=== PATIENT | female | born 1950 | race Caucasian/White ===

== ENCOUNTER 2017-10-28 14:52 | Emergency (ER) | payer MEDICARE, BC ==
--- NOTE | 2017-10-28 15:47 | ED ---
General Adult HPI - General Chief complaint: Weakness Stated complaint: not feeling well/SOB Time Seen by Provider: 10/28/17 15:00 Source: patient, RN notes reviewed Mode of arrival: wheelchair Limitations: no limitations - History of Present Illness Initial comments: This is a 67-year-old female presents emergency Department complaining of shortness of breath over the last few days patient also complains of feeling dizzy such that she's a little off balance when she walks. Patient states she also feels like her eyes are focusing even though she gets here he can clearly there is just something off about her vision. Patient denies any chest pain or palpitations. Patient denies any abdominal pain patient denies any nausea vomiting diarrhea. Patient denies any numbness or focal weakness. Patient states she does have a headache but that is something she has had chronically on and off for quite a while. Patient denies any dysuria hematuria urinary frequency. Patient denies any recent fever chills or cough. - Related Data Home Medications Medication Instructions Recorded Confirmed Acetaminophen [Tylenol] 1,000 mg PO Q4-6H PRN 10/28/17 10/28/17 Albuterol Sulfate [Proair Hfa] 2 puff INHALATION Q4H PRN 10/28/17 10/28/17 Budesonide/Formoterol Fumarate 2 puff INHALATION BID 10/28/17 10/28/17 [Symbicort 160-4.5 Mcg Inhaler] Cholecalciferol [Vitamin D3] 2,000 unit PO DAILY 10/28/17 10/28/17 Gabapentin [Neurontin] 300 mg PO TID 10/28/17 10/28/17 Lisinopril [Zestril] 10 mg PO DAILY 10/28/17 10/28/17 Metoprolol Succinate [Toprol XL] 50 mg PO DAILY 10/28/17 10/28/17 [place]-3 Fatty Acids/Fish Oil [Fish 1 cap PO DAILY 10/28/17 10/28/17 Oil 1,000 mg Softgel] Omeprazole 80 mg PO DAILY 10/28/17 10/28/17 Ranitidine HCl [Zantac] 300 mg PO HS 10/28/17 10/28/17 Triamterene/Hydrochlorothiazid 1 tab PO DAILY 10/28/17 10/28/17 [Triamterene-Hctz 37.5-25 mg Tb] clonazePAM [KlonoPIN] 4 mg PO DAILY PRN 10/28/17 10/28/17 clonazePAM [KlonoPIN] 6 mg PO HS PRN 10/28/17 10/28/17 traMADol HCL [Ultram] 50 - 100 mg PO Q8H PRN 10/28/17 10/28/17 Allergies Allergy/AdvReac Type Severity Reaction Status Date / Time Iodinated Contrast- Oral and Allergy Rash/Hives Verified 10/28/17 15:35 IV Dye prednisone Allergy Hallucinati Verified 10/28/17 15:35 ons shellfish derived [Shrimp] Allergy Rash/Hives Verified 10/28/17 15:35 Review of Systems ROS Statement: Those systems with pertinent positive or pertinent negative responses have been documented in the HPI. ROS Other: All systems not noted in ROS Statement are negative. Past Medical History Past Medical History: COPD, Fibromyalgia, GERD/Reflux, Hypertension Additional Past Medical History / Comment(s): bursitis, peripheral neuropathy, acute ischemic brain disease, "node on thyroid", severe mood disorder History of Any Multi-Drug Resistant Organisms: None Reported Past Surgical History: Section, Cholecystectomy, Hernia Repair, Hysterectomy Additional Past Surgical History / Comment(s): partial hysterectomy, d&c Past Psychological History: Anxiety, Depression Smoking Status: Former smoker Past Alcohol Use History: None Reported Past Drug Use History: None Reported General Exam - General Exam Comments Initial Comments: GENERAL: Patient is well-developed and well-nourished. Patient is nontoxic and well- hydrated and is in no acute distress. ENT: Neck is soft and supple. No significant lymphadenopathy is noted. Oropharynx is clear. Moist mucous membranes. Neck has full range of motion without eliciting any pain. EYES: The sclera were anicteric and conjunctiva were pink and moist. Extraocular movements were intact and pupils were equal round and reactive to light. Eyelids were unremarkable. PULMONARY: Unlabored respirations. Good breath sounds bilaterally. No audible rales rhonchi or wheezing was noted. CARDIOVASCULAR: There is a regular rate and rhythm without any murmurs gallops or rubs. ABDOMEN: Soft and nontender with normal bowel sounds. No palpable organomegaly was noted. There is no palpable pulsatile mass. SKIN: Skin is clear with no lesions or rashes and otherwise unremarkable. NEUROLOGIC: Patient is alert and oriented x3. Cranial nerves II through XII are grossly intact. Motor and sensory are also intact. Normal speech, volume and content. Symmetrical smile. Cerebellar exam grossly intact. MUSCULOSKELETAL: Normal extremities with adequate strength and full range of motion. No lower extremity swelling or edema. No calf tenderness. LYMPHATICS: No significant lymphadenopathy is noted PSYCHIATRIC: Normal psychiatric evaluation. Limitations: no limitations Course Vital Signs 10/28/17 10/28/17 15:09 15:30 Temperature 98.3 F Pulse Rate 79 Respiratory 18 16 Rate Blood Pressure 135/80 O2 Sat by Pulse 95 Oximetry Medical Decision Making - Medical Decision Making EKG shows normal sinus rhythm at 71 bpm IN interval 256 QRS is 88 QT interval 426 QTC is 462. Patient's EKG shows no ST segment elevation or depression or T wave abnormalities I will back into the room to reevaluate the patient when I told her all of her labs were normal she said that that they've been finding for the last 10 years but I keep having always weird symptoms. Patient states she has been to multiple hospitals and multiple physicians and they never can find anything wrong with her. At this point time the patient was not short of breath she was oxygenating at 97%. Patient was in no distress. Patient ambulated without problem. - Lab Data Result diagrams: 10/28/17 15:34 10/28/17 15:34 Lab Results 10/28/17 10/28/17 10/28/17 Range/Units 15:34 15:34 15:34 WBC 7.9 (3.8-10.6) k/uL RBC 4.64 (3.80-5.40) m/uL Hgb 15.0 (11.4-16.0) gm/dL Hct 44.8 (34.0-46.0) % MCV 96.4 (80.0-100.0) fL MCH 32.4 (25.0-35.0) pg MCHC 33.6 (31.0-37.0) g/dL RDW 13.8 (11.5-15.5) % Plt Count 249 (150-450) k/uL Neutrophils % 61 % Lymphocytes % 28 % Monocytes % 7 % Eosinophils % 2 % Basophils % 1 % Neutrophils # 4.8 (1.3-7.7) k/uL Lymphocytes # 2.2 (1.0-4.8) k/uL Monocytes # 0.6 (0-1.0) k/uL Eosinophils # 0.1 (0-0.7) k/uL Basophils # 0.1 (0-0.2) k/uL PT (9.0-12.0) sec INR (<1.2) APTT (22.0-30.0) sec Sodium 140 (137-145) mmol/L Potassium 4.3 (3.5-5.1) mmol/L Chloride 102 (98-107) mmol/L Carbon Dioxide 29 (22-30) mmol/L Anion Gap 9 mmol/L BUN 20 H (7-17) mg/dL Creatinine 1.00 (0.52-1.04) mg/dL Est GFR (CKD-EPI)AfAm 68 (>60 ml/min/1.73 sqM) Est GFR (CKD-EPI)NonAf 59 (>60 ml/min/1.73 sqM) Glucose 92 (74-99) mg/dL Calcium 9.3 (8.4-10.2) mg/dL Magnesium 2.0 (1.6-2.3) mg/dL Total Bilirubin 0.2 (0.2-1.3) mg/dL AST 23 (14-36) U/L ALT 34 (9-52) U/L Alkaline Phosphatase 63 (38-126) U/L Total Creatine Kinase 65 (30-135) U/L CK-MB (CK-2) 1.4 (0.0-2.4) ng/mL CK-MB (CK-2) Rel Index 2.2 Troponin I <0.012 (0.000-0.034) ng/mL Total Protein 7.2 (6.3-8.2) g/dL Albumin 4.2 (3.5-5.0) g/dL Amylase (30-110) U/L Lipase (23-300) U/L TSH 2.300 (0.465-4.680) mIU/L Free T4 1.14 (0.78-2.19) ng/dL Urine Color Urine Appearance (Clear) Urine pH (5.0-8.0) Ur Specific [place] (1.001-1.035) Urine Protein (Negative) Urine Glucose (UA) (Negative) Urine Ketones (Negative) Urine Blood (Negative) Urine Nitrite (Negative) Urine Bilirubin (Negative) Urine Urobilinogen (<2.0) mg/dL Ur Leukocyte Esterase (Negative) 10/28/17 10/28/17 10/28/17 Range/Units 15:34 15:34 15:34 WBC (3.8-10.6) k/uL RBC (3.80-5.40) m/uL Hgb (11.4-16.0) gm/dL Hct (34.0-46.0) % MCV (80.0-100.0) fL MCH (25.0-35.0) pg MCHC (31.0-37.0) g/dL RDW (11.5-15.5) % Plt Count (150-450) k/uL Neutrophils % % Lymphocytes % % Monocytes % % Eosinophils % % Basophils % % Neutrophils # (1.3-7.7) k/uL Lymphocytes # (1.0-4.8) k/uL Monocytes # (0-1.0) k/uL Eosinophils # (0-0.7) k/uL Basophils # (0-0.2) k/uL PT 9.5 (9.0-12.0) sec INR 1.0 (<1.2) APTT 23.8 (22.0-30.0) sec Sodium (137-145) mmol/L Potassium (3.5-5.1) mmol/L Chloride (98-107) mmol/L Carbon Dioxide (22-30) mmol/L Anion Gap mmol/L BUN (7-17) mg/dL Creatinine (0.52-1.04) mg/dL Est GFR (CKD-EPI)AfAm (>60 ml/min/1.73 sqM) Est GFR (CKD-EPI)NonAf (>60 ml/min/1.73 sqM) Glucose (74-99) mg/dL Calcium (8.4-10.2) mg/dL Magnesium (1.6-2.3) mg/dL Total Bilirubin (0.2-1.3) mg/dL AST (14-36) U/L ALT (9-52) U/L Alkaline Phosphatase (38-126) U/L Total Creatine Kinase (30-135) U/L CK-MB (CK-2) (0.0-2.4) ng/mL CK-MB (CK-2) Rel Index Troponin I (0.000-0.034) ng/mL Total Protein (6.3-8.2) g/dL Albumin (3.5-5.0) g/dL Amylase 79 (30-110) U/L Lipase 60 (23-300) U/L TSH (0.465-4.680) mIU/L Free T4 (0.78-2.19) ng/dL Urine Color Colorless Urine Appearance Clear (Clear) Urine pH 7.0 (5.0-8.0) Ur Specific [place] 1.007 (1.001-1.035) Urine Protein Negative (Negative) Urine Glucose (UA) Negative (Negative) Urine Ketones Negative (Negative) Urine Blood Negative (Negative) Urine Nitrite Negative (Negative) Urine Bilirubin Negative (Negative) Urine Urobilinogen <2.0 (<2.0) mg/dL Ur Leukocyte Esterase Negative (Negative) Disposition Clinical Impression: Dizziness Disposition: HOME SELF-CARE Condition: Good Is patient prescribed a controlled substance at d/c from ED?: No Referrals: Sathya Hartley MD [Primary Care Provider] - 1-2 days Time of Disposition: 16:53
[2017-10-28 15:58] VITALS: RESP 16
[2017-10-28 16:01] LABS: Appearance,Urine Clear (Clear); Basophils # (A) 0.1 k/uL (0-0.2); Basophils % (A) 1 %; Bilirubin,Urine Negative (Negative); Blood,Urine Negative (Negative); Color,Urine Colorless; Eosinophils # (A) 0.1 k/uL (0-0.7); Eosinophils % (A) 2 %; Glucose,Urine (UA) Negative (Negative); HCT 44.8 % (34.0-46.0); Ketones,Urine Negative (Negative); Leukocyte Esterase,Urine Negative (Negative); Lymphocytes # (A) 2.2 k/uL (1.0-4.8); Lymphocytes % (A) 28 %; MCH 32.4 pg (25.0-35.0); MCHC 33.6 g/dL (31.0-37.0); MCV 96.4 fL (80.0-100.0); Mean Platelet Volume 6.9; Monocytes # (A) 0.6 k/uL (0-1.0); Monocytes % (A) 7 %; Neutrophils # (A) 4.8 k/uL (1.3-7.7); Neutrophils % (A) 61 %; Nitrite,Urine Negative (Negative); Platelet Count 249 k/uL (150-450); Protein,Urine Negative (Negative); RBC 4.64 m/uL (3.80-5.40); RDW 13.8 % (11.5-15.5); Specific Gravity,Urine 1.007 (1.001-1.035); Urobilinogen,Urine <2.0 mg/dL (<2.0); WBC 7.9 k/uL (3.8-10.6)
--- NOTE | 2017-10-28 16:05 | XR ---
EXAMINATION TYPE: XR chest 2V DATE OF EXAM: 10/28/2017 COMPARISON: None HISTORY: 67-year-old female difficulty breathing TECHNIQUE: PA and lateral views FINDINGS: The cardiomediastinal silhouette, aorta, and pulmonary vasculature are within normal limits. Hazy den sity at the cardiac apex compatible with epicardial fat pad. Lungs and pleural spaces are clear. IMPRESSION: No acute cardiopulmonary process.
[2017-10-28 16:11] LABS: Partial Thromboplastin Time 23.8 sec (22.0-30.0); Prothrombin Time 9.5 sec (9.0-12.0)
[2017-10-28 16:12] LABS: Albumin 4.2 g/dL (3.5-5.0); Calcium 9.3 mg/dL (8.4-10.2); Potassium 4.3 mmol/L (3.5-5.1); Total Bilirubin 0.2 mg/dL (0.2-1.3); Total Protein 7.2 g/dL (6.3-8.2)
[2017-10-28 16:28] LABS: T4, Free (Free Thyroxine) 1.14 ng/dL (0.78-2.19)
[2017-10-28 16:33] LABS: Amylase 79 U/L (30-110); Lipase 60 U/L (23-300)
[2017-10-28 16:35] LABS: Creatine Kinase 65 U/L (30-135)
[2017-10-28 16:44] LABS: Creatine Kinase MB 1.4 ng/mL (0.0-2.4); Troponin I <0.012 ng/mL (0.000-0.034)
[2017-10-28 17:02] VITALS: TEMP 98.2
[2017-10-28 17:09] VITALS: BP 165/97; PULSE 86
== END 2017-10-28 17:15 | disposition home or self-care (01) ==
LOC: EC 14:52
DX: R42 Dizziness and giddiness (principal); R06.02 Shortness of breath; R53.1 Weakness; R51 Headache; J44.9 Chronic obstructive pulmonary disease, unspecified; M79.7 Fibromyalgia; K21.9 Gastro-esophageal reflux disease without esophagitis; I10 Essential (primary) hypertension; Z86.79 Personal history of other diseases of the circulatory system; Z87.891 Personal history of nicotine dependence; Z79.51 Long term (current) use of inhaled steroids; Z79.899 Other long term (current) drug therapy; Z91.041 Radiographic dye allergy status; Z88.8 Allergy status to other drugs, medicaments and biological substances; Z91.013 Allergy to seafood
CPT/HCPCS: 36415; 71046; 80053; 81003; 82150; 82550; 82553; 83690; 83735; 84439; 84443; 84484; 85025; 85610; 85730; 93005; 99285

== ENCOUNTER 2018-05-10 14:48 | Inpatient (IN) | payer MEDICARE, BC ==
[2018-05-10] MEDS: IPRATROPIUM-ALBUTEROL 3 ML NEB INHALATION STA (16:02)
[2018-05-10 16:16] LABS: Basophils % (A) 0 %; Eosinophils % (A) 1 %; HCT 45.3 % (34.0-46.0); Lymphocytes # (A) 0.8 k/uL (1.0-4.8); Lymphocytes % (A) 18 %; MCH 32.3 pg (25.0-35.0); MCHC 33.1 g/dL (31.0-37.0); MCV 97.6 fL (80.0-100.0); Mean Platelet Volume 7.3; Monocytes # (A) 0.4 k/uL (0-1.0); Monocytes % (A) 8 %; Neutrophils % (A) 69 %; Platelet Count 183 k/uL (150-450); RBC 4.64 m/uL (3.80-5.40); RDW 13.2 % (11.5-15.5); WBC 4.4 k/uL (3.8-10.6)
--- NOTE | 2018-05-10 16:34 | XR ---
EXAMINATION TYPE: XR chest 2V DATE OF EXAM: 05/10/2018 COMPARISON: 10/28/2017 HISTORY: Shortness of breath and congestion TECHNIQUE: Frontal and lateral views of the chest are obtained. FINDINGS: There is no focal air space opacity, pleural effusion, or pneumothorax seen. The cardiac silhouette size is within normal limits. Hazy density along the left heart border again relates to an epicardial fat pad. The osseous structures are intact. Possible summation artifact overlying the rig ht first rib and clavicle as well as the posterior right fourth rib is seen versus pulmonary nodule. IMPRESSION: 1. No acute cardiopulmonary process. 2. Summation artifact versus pulmonary nodule in the right lung apex. Nonemergent evaluation with [facility] CT could further assess this finding.
--- NOTE | 2018-05-10 16:36 | XR ---
EXAMINATION TYPE: XR KUB DATE OF EXAM: 05/10/2018 CLINICAL HISTORY: Patient describes green stool. TECHNIQUE: Upright abdominal radiograph was obtained COMPARISON: None. FINDINGS: Scattered gas is seen in nondilated small bowel loops. Gas and fecal material is seen in nondilated colon. Cholecystectomy clips are present. There is no visceromegaly, pneumoperitoneum, or abnormal calcification appreciated. The lung bases are clear and the osseous structures are intact. Degenerative changes of the lumbosacral junction and femoral acetabular joints are moderate. IMPRESSION: Nonobstructive bowel gas pattern.
[2018-05-10 16:37] LABS: INR 0.9 (<1.2); Partial Thromboplastin Time 27.3 sec (22.0-30.0); Prothrombin Time 9.4 sec (9.0-12.0)
[2018-05-10 16:38] LABS: Albumin 4.3 g/dL (3.5-5.0); Calcium 9.5 mg/dL (8.4-10.2); Potassium 4.9 mmol/L (3.5-5.1); Total Bilirubin 0.4 mg/dL (0.2-1.3); Total Protein 7.3 g/dL (6.3-8.2)
--- NOTE | 2018-05-10 16:40 | ED ---
SOB HPI - General Chief Complaint: Shortness of Breath Stated Complaint: PAT Time Seen by Provider: 05/10/18 15:10 Source: patient, family Mode of arrival: wheelchair Limitations: no limitations - History of Present Illness Initial Comments: Patient is a 67-year-old female presenting for shortness breath and coughing. The patient states that on Saturday, the was sick with very similar type symptoms and she then developed symptoms on Saturday. She has been coughing as well as having fevers and chills 102F. She missed a congestion as well as shortness of breath, headache. She has had intermittent chest pain for many years and this is no different. She states that she does have COPD but does not use any oxygen at home. - Related Data Home Medications Medication Instructions Recorded Confirmed Acetaminophen [Tylenol] 1,000 mg PO Q4-6H PRN 10/28/17 05/10/18 Albuterol Sulfate [Proair Hfa] 2 puff INHALATION RT-Q6H PRN 10/28/17 05/10/18 Budesonide/Formoterol Fumarate 2 puff INHALATION RT-BID 10/28/17 05/10/18 [Symbicort 160-4.5 Mcg Inhaler] Cholecalciferol [Vitamin D3] 2,000 unit PO DAILY 10/28/17 05/10/18 Gabapentin [Neurontin] 300 mg PO TID 10/28/17 05/10/18 Lisinopril [Zestril] 10 mg PO DAILY 10/28/17 05/10/18 Metoprolol Succinate [Toprol XL] 50 mg PO DAILY 10/28/17 05/10/18 [place]-3 Fatty Acids/Fish Oil [Fish 1 cap PO BID 10/28/17 05/10/18 Oil 1,000 mg Softgel] Omeprazole 80 mg PO DAILY 10/28/17 05/10/18 Triamterene/Hydrochlorothiazid 1 tab PO DAILY 10/28/17 05/10/18 [Triamterene-Hctz 37.5-25 mg Tb] clonazePAM [KlonoPIN] 4 mg PO DAILY PRN 10/28/17 05/10/18 clonazePAM [KlonoPIN] 6 mg PO HS PRN 10/28/17 05/10/18 traMADol HCL [Ultram] 50 - 100 mg PO Q8H PRN 10/28/17 05/10/18 Allergies Allergy/AdvReac Type Severity Reaction Status Date / Time famotidine [From Pepcid] Allergy Unknown Verified 05/10/18 16:30 Iodinated Contrast- Oral and Allergy Rash/Hives Verified 05/10/18 16:30 IV Dye prednisone Allergy Hallucinati Verified 05/10/18 16:30 ons shellfish derived [Shrimp] Allergy Rash/Hives Verified 05/10/18 16:30 Review of Systems ROS Statement: Those systems with pertinent positive or pertinent negative responses have been documented in the HPI. Constitutional: Positive for chills, fatigue and fever. HENT: Negative for congestion. Respiratory: Positive for chest tightness, shortness of breath and wheezing. Is for cough Cardiovascular: Positive for chest pain and palpitations. Gastrointestinal: Negative for abdominal pain. Negative for abdominal distention, diarrhea, nausea and vomiting. Genitourinary: Negative for dysuria. Musculoskeletal: Negative for back pain, neck pain and neck stiffness. Skin: Negative for color change. Neurological: Negative for dizziness, speech difficulty, weakness and light- headedness. Psychiatric/Behavioral: Negative for agitation and confusion. Negative for anxiety ROS Other: All systems not noted in ROS Statement are negative. Past Medical History Past Medical History: COPD, Fibromyalgia, GERD/Reflux, Hypertension Additional Past Medical History / Comment(s): bursitis, peripheral neuropathy, acute ischemic brain disease, "node on thyroid", severe mood disorder History of Any Multi-Drug Resistant Organisms: None Reported Past Surgical History: Section, Cholecystectomy, Hernia Repair, Hy sterectomy Additional Past Surgical History / Comment(s): partial hysterectomy, d&c Past Psychological History: Anxiety, Depression Smoking Status: Former smoker Past Alcohol Use History: None Reported Past Drug Use History: None Reported General Exam - General Exam Comments Initial Comments: Constitutional: Pt appears well-developed and well-nourished. No distress. Head: Normocephalic and atraumatic. Eyes: EOM are normal. Neck: Normal range of motion. Neck supple. Cardiovascular: Normal rate, regular rhythm, S1 normal, S2 normal and normal heart sounds. Exam reveals no gallop and no friction rub. No murmur heard. Pulmonary/Chest: Effort normal and breath sounds normal. No tachypnea and no bradypnea. No respiratory distress. No rales noted. There are diffuse wheezes in all lung tee. Abdominal: Soft. Bowel sounds are normal. Pt exhibits no shifting dullness, no distension, no pulsatile liver, no fluid wave, no abdominal bruit and no ascites. There is no rigidity, no rebound, no guarding, no tenderness at Mc Hendricks's point and negative Mascorro's sign. There is no tenderness. Musculoskeletal: Normal range of motion. Neurological: Pt is alert and oriented to person, place, and time. No cranial nerve deficit. Skin: Skin is warm and dry. No rash noted. Pt is not diaphoretic. No erythema. No pallor. Psychiatric: Pt has a normal mood and affect. Pt behavior is normal. Thought content normal. Limitations: no limitations Course Vital Signs 05/10/18 05/10/18 05/10/18 15:03 16:04 16:10 Temperature 97.9 F Pulse Rate 57 L 88 90 Respiratory 24 18 18 Rate Blood Pressure 138/80 O2 Sat by Pulse 90 L Oximetry 05/10/18 17:11 Temperature Pulse Rate 63 Respiratory 20 Rate Blood Pressure 137/90 O2 Sat by Pulse 92 L Oximetry Medical Decision Making - Medical Decision Making Laboratory studies showed no evidence of leukocytosis and a chest x-ray showed no evidence of acute infiltrate. From a cardiac standpoint, troponin was negative and EKG had no significant findings. Influenza A was detected but Tamiflu was not initiated as the patient symptoms started possibly 4-5 days ago. Nonetheless, patient was given levofloxacin to cover any underlying infiltrate that was not showing on chest x-ray. Steroids were not given as the patient is also flu positive. Explained all labs and diagnostic test results and that we will admit patient to hospital. Pt is agreeable to plan and case has been discussed with Dr. White and they agree to accept the pt. - Lab Data Result diagrams: 05/10/18 15:50 05/10/18 15:50 Lab Results 05/10/18 05/10/18 05/10/18 Range/Units 15:50 15:50 15:50 WBC 4.4 (3.8-10.6) k/uL RBC 4.64 (3.80-5.40) m/uL Hgb 15.0 (11.4-16.0) gm/dL Hct 45.3 (34.0-46.0) % MCV 97.6 (80.0-100.0) fL MCH 32.3 (25.0-35.0) pg MCHC 33.1 (31.0-37.0) g/dL RDW 13.2 (11.5-15.5) % Plt Count 183 (150-450) k/uL Neutrophils % 69 % Lymphocytes % 18 % Monocytes % 8 % Eosinophils % 1 % Basophils % 0 % Neutrophils # 3.0 (1.3-7.7) k/uL Lymphocytes # 0.8 L (1.0-4.8) k/uL Monocytes # 0.4 (0-1.0) k/uL Eosinophils # 0.0 (0-0.7) k/uL Basophils # 0.0 (0-0.2) k/uL PT (9.0-12.0) sec INR (<1.2) APTT (22.0-30.0) sec Sodium 136 L (137-145) mmol/L Potassium 4.9 (3.5-5.1) mmol/L Chloride 97 L (98-107) mmol/L Carbon Dioxide 31 H (22-30) mmol/L Anion Gap 8 mmol/L BUN 15 (7-17) mg/dL Creatinine 0.96 (0.52-1.04) mg/dL Est GFR (CKD-EPI)AfAm 71 (>60 ml/min/1.73 sqM) Est GFR (CKD-EPI)NonAf 61 (>60 ml/min/1.73 sqM) Glucose 107 H (74-99) mg/dL Calcium 9.5 (8.4-10.2) mg/dL Total Bilirubin 0.4 (0.2-1.3) mg/dL AST 31 (14-36) U/L ALT 35 (9-52) U/L Alkaline Phosphatase 64 (38-126) U/L Troponin I (0.000-0.034) ng/mL NT-Pro-B Natriuret Pep pg/mL Total Protein 7.3 (6.3-8.2) g/dL Albumin 4.3 (3.5-5.0) g/dL Influenza Type A RNA Detected H (Not Detectd) Influenza Type B (PCR) Not Detected (Not Detectd) 05/10/18 05/10/18 05/10/18 Range/Units 15:50 15:50 15:50 WBC (3.8-10.6) k/uL RBC (3.80-5.40) m/uL Hgb (11.4-16.0) gm/dL Hct (34.0-46.0) % MCV (80.0-100.0) fL MCH (25.0-35.0) pg MCHC (31.0-37.0) g/dL RDW (11.5-15.5) % Plt Count (150-450) k/uL Neutrophils % % Lymphocytes % % Monocytes % % Eosinophils % % Basophils % % Neutrophils # (1.3-7.7) k/uL Lymphocytes # (1.0-4.8) k/uL Monocytes # (0-1.0) k/uL Eosinophils # (0-0.7) k/uL Basophils # (0-0.2) k/uL PT 9.4 (9.0-12.0) sec INR 0.9 (<1.2) APTT 27.3 (22.0-30.0) sec Sodium (137-145) mmol/L Potassium (3.5-5.1) mmol/L Chloride (98-107) mmol/L Carbon Dioxide (22-30) mmol/L Anion Gap mmol/L BUN (7-17) mg/dL Creatinine (0.52-1.04) mg/dL Est GFR (CKD-EPI)AfAm (>60 ml/min/1.73 sqM) Est GFR (CKD-EPI)NonAf (>60 ml/min/1.73 sqM) Glucose (74-99) mg/dL Calcium (8.4-10.2) mg/dL Total Bilirubin (0.2-1.3) mg/dL AST (14-36) U/L ALT (9-52) U/L Alkaline Phosphatase (38-126) U/L Troponin I <0.012 (0.000-0.034) ng/mL NT-Pro-B Natriuret Pep 226 pg/mL Total Protein (6.3-8.2) g/dL Albumin (3.5-5.0) g/dL Influenza Type A RNA (Not Detectd) Influenza Type B (PCR) (Not Detectd) Disposition Clinical Impression: Influenza A, COPD exacerbation, Hypoxia Disposition: ADMITTED IP TO THIS HOSP Condition: Fair Referrals: Sathya Hartley MD [Primary Care Provider] - 1-2 days Decision to Admit Reason: Admit from EC Decision Date: 05/10/18 Decision Time: 17:50
[2018-05-10] MEDS ORDERED: KETOROLAC 30 MG/ML 1 ML VIAL IVP STA (16:57)
[2018-05-10] MEDS ORDERED: PNEUMONIA PROTOCOL UTILIZED 1 EACH MISC PO PRN (17:44)
[2018-05-10] MEDS ORDERED: IPRATROPIUM-ALBUTEROL 3 ML NEB INHALATION PRN (17:44)
[2018-05-10] MEDS ORDERED: LEVOFLOXACIN 750MG-D5W PMX 750 MG in DEXTROSE/WATER 1 150ML.BAG IVPB ONE (18:00)
[2018-05-10] MEDS ORDERED: NALOXONE 0.4 MG/ML 1 ML VIAL IV PRN (18:23)
--- NOTE | 2018-05-10 18:40 | P.HPIM ---
History of Present Illness H&P Date: 05/10/18 Chief Complaint: Cough, shortness of breath 67 year old female with PMH of COPD, hypertension, fibromyalgia presents the ED for cough, shortness of breath since Saturday. Patient reports cough for Dr. of green and white sputum associated with shortness of breath that has been ongoing for the past 5 days. Patient reports usually being able to walk 50-75 feet, but is currently unable to walk more than 5 feet. Patient also reports dyspnea when standing up and bending over. Of note, patient reports that her has been suffering from a constellation of symptoms that are similar to hers as well. Patient endorses a frontal headache this been ongoing for the past 2-3 days. Patient reports nausea but no vomiting. Patient also reports fevers with a measured temperature of 102 F along with chills. She denies any lower [place] swelling, chest pain, palpitations, changes in urination. No changes in appetite or weight. Patient denies any dizziness, numbness/weakness/tingling of the extremities. Patient does report 2 day history of diarrhea, green in color. She denies any blood or mucus in her stool. Of note, patient has quit smoking cigarettes over the past 2 months. Previously she was smoking 1-1/2 packs of cigarettes daily for the past 50 years. She denies any alcohol or illicit drug use. In the ED, CBC was unremarkable. Coagulation panel was negative. CMP showed a sodium of 136, chloride of 97 and bicarbonate of 31. Troponin was less than 0.012, EKG showing sinus bradycardia with PVCs. BNP was 226. Influenza A was positive. Chest x-ray was concerning for artifact versus pulmonary nodule. KUB was negative. Patient is admitted for COPD exacerbation and treatment of influenza. Review of Systems All systems: negative Past Medical History Past Medical History: COPD, Fibromyalgia, GERD/Reflux, Hypertension Additional Past Medical History / Comment(s): bursitis, peripheral neuropathy, acute ischemic brain disease, "node on thyroid", severe mood disorder History of Any Multi-Drug Resistant Organisms: None Reported Past Surgical History: Section, Cholecystectomy, Hernia Repair, Hysterectomy Additional Past Surgical History / Comment(s): partial hysterectomy, d&c Past Psychological History: Anxiety, Depression Smoking Status: Former smoker Past Alcohol Use History: None Reported Past Drug Use History: None Reported Medications and Allergies Home Medications Medication Instructions Recorded Confirmed Type Acetaminophen [Tylenol] 1,000 mg PO Q4-6H PRN 10/28/17 05/10/18 History Albuterol Sulfate [Proair Hfa] 2 puff INHALATION RT-Q6H PRN 10/28/17 05/10/18 History Budesonide/Formoterol Fumarate 2 puff INHALATION RT-BID 10/28/17 05/10/18 History [Symbicort 160-4.5 Mcg Inhaler] Cholecalciferol [Vitamin D3] 2,000 unit PO DAILY 10/28/17 05/10/18 History Gabapentin [Neurontin] 300 mg PO TID 10/28/17 05/10/18 History Lisinopril [Zestril] 10 mg PO DAILY 10/28/17 05/10/18 History Metoprolol Succinate [Toprol XL] 50 mg PO DAILY 10/28/17 05/10/18 History [place]-3 Fatty Acids/Fish Oil [Fish 1 cap PO BID 10/28/17 05/10/18 History Oil 1,000 mg Softgel] Omeprazole 80 mg PO DAILY 10/28/17 05/10/18 History Triamterene/Hydrochlorothiazid 1 tab PO DAILY 10/28/17 05/10/18 History [Triamterene-Hctz 37.5-25 mg Tb] clonazePAM [KlonoPIN] 4 mg PO DAILY PRN 10/28/17 05/10/18 History clonazePAM [KlonoPIN] 6 mg PO HS PRN 10/28/17 05/10/18 History traMADol HCL [Ultram] 50 - 100 mg PO Q8H PRN 10/28/17 05/10/18 History Allergies Allergy/AdvReac Type Severity Reaction Status Date / Time famotidine [From Pepcid] Allergy Unknown Verified 05/10/18 16:30 Iodinated Contrast- Oral and Allergy Rash/Hives Verified 05/10/18 16:30 IV Dye prednisone Allergy Hallucinati Verified 05/10/18 16:30 ons shellfish derived [Shrimp] Allergy Rash/Hives Verified 05/10/18 16:30 Physical Exam Vitals: Vital Signs Temp Pulse Resp BP Pulse Ox 05/10/18 17:11 63 20 137/90 92 L 05/10/18 16:10 90 18 05/10/18 16:04 88 18 05/10/18 15:03 97.9 F 57 L 24 138/80 90 L Intake and Output 05/10/18 05/10/18 05/10/18 06:59 14:59 22:59 Other: Weight 87.362 kg General: [non toxic], [appears dyspneic], [appears at stated age] Derm: [warm], [dry] Head: [atraumatic], [normocephalic], [symmetric] Eyes: [EOMI], [no lid lag], [anicteric sclera] Mouth: [no lip lesion], [mucus membranes moist] Cardiovascular: [S1S2 reg], [no murmur], [positive DP pulse bilateral] Lungs: [End expiratory wheezing bilateral], [no rhonchi, no rales] , [no accessory muscle use] Abdominal: [soft], [ nontender to palpation], [no guarding], [no appreciable organomegaly] Ext: [no gross muscle atrophy], [no edema], [no contractures] Neuro: [ CN II-XI grossly intact], [no focal neuro deficits] Psych: [Alert], [oriented], [appropriate affect] Results CBC & Chem 7: 05/10/18 15:50 05/10/18 15:50 Labs: Abnormal Lab Results - Last 24 Hours (Table) 05/10/18 05/10/18 05/10/18 Range/Units 15:50 15:50 15:50 Lymphocytes # 0.8 L (1.0-4.8) k/uL Sodium 136 L (137-145) mmol/L Chloride 97 L (98-107) mmol/L Carbon Dioxide 31 H (22-30) mmol/L Glucose 107 H (74-99) mg/dL Influenza Type A RNA Detected H (Not Detectd) Thrombosis Risk Factor Assmnt - Choose All That Apply Any of the Below Risk Factors Present?: Yes Each Factor Represents 1 point: Abnormal pulmonary function (COPD), Obesity (BMI >25) Each Risk Factor Represents 3 Points: Age 75 years or older Thrombosis Risk Factor Assessment Total Risk Factor Score: 5 Thrombosis Risk Factor Assessment Level: High Risk Assessment and Plan Assessment: Assessment and Plan 1. COPD exacerbation 2. Influenza A 3. Abnormal chest x-ray 4. Hypertension 5. Fibromyalgia 6. DVT and GI prophylaxis 1. Likely secondary to influenza A infection. Patient is afebrile with no leukocytosis. Chest x-ray is negative for pneumonia. Start DuoNeb 4 times a day scheduled and as needed for shortness of breath or wheezing. Prednisone 40 mg by mouth daily for a total of 5 days. Resume Symbicort. Start levofloxacin 750 mg IV daily for treatment of possible pneumonia. Oxygen per nasal cannula to maintain oxygen saturation greater than 92%. Follow chest x-ray in the morning. 2. Influenza A positive. Start Tamiflu. Follow sputum culture. Follow blood culture. 3. Possible nodule seen on chest x-ray. Recommend computed tomography scan, can be done outpatient. 4. BP 137/90. Continue triamterene/hydrochlorothiazide, metoprolol and lisinopril. Monitor vitals, adjust medications as necessary. 5. Continue gabapentin. Tylenol, [place], Dilaudid as needed for pain management. 6. SCD boots. Protonix. Patient admitted for COPD exacerbation and influenza A infection. She is pending clinical improvement. Likely DC in 1-2 days. Patient names her as decision maker, would like to remain full code.
[2018-05-10] MEDS: HYDROmorphone 1 MG/ML 1 ML SYRINGE IV PRN ×2 (20:01→23:15)
[2018-05-10] MEDS: IPRATROPIUM-ALBUTEROL 3 ML NEB INHALATION SCH ×2 (20:37→23:58)
[2018-05-10] MEDS: SYMBICORT 160-4.5 MCG INHALER INHALATION SCH (20:51)
[2018-05-10] MEDS: GABAPENTIN 300 MG CAP PO SCH (21:59)
[2018-05-10] MEDS: OSELTAMIVIR 75 MG CAP PO SCH (22:00)
[2018-05-10 22:33] VITALS: BMI 37.6
[2018-05-11] MEDS: IPRATROPIUM-ALBUTEROL 3 ML NEB INHALATION SCH ×5 (04:32→19:27)
[2018-05-11] MEDS: HYDROmorphone 1 MG/ML 1 ML SYRINGE IV PRN ×5 (04:55→21:31)
--- NOTE | 2018-05-11 08:16 | XR ---
EXAMINATION TYPE: XR chest 2V DATE OF EXAM: 05/11/2018 COMPARISON: Prior chest x-ray 05/10/2018 HISTORY: Pneumonia TECHNIQUE: Frontal and lateral views of the chest are obtained. FINDINGS: There is no focal air space opacity, pleural effusion, or pneumothorax seen. The cardiac silhouette size is within normal limits. The osseous structures are intact. There is a spinal curva ture. Surgical clips present in the right upper quadrant. Prominent lung volume compatible with under lying COPD. Aorta is dense. IMPRESSION: No acute cardiopulmonary process.
[2018-05-11 08:54] LABS: Potassium 4.2 mmol/L (3.5-5.1)
[2018-05-11 08:55] LABS: HCT 43.5 % (34.0-46.0); MCH 31.7 pg (25.0-35.0); MCHC 32.1 g/dL (31.0-37.0); MCV 98.6 fL (80.0-100.0); Mean Platelet Volume 6.7; Platelet Count 173 k/uL (150-450); RBC 4.41 m/uL (3.80-5.40); RDW 13.2 % (11.5-15.5); WBC 3.4 k/uL (3.8-10.6)
[2018-05-11] MEDS ORDERED: predniSONE 20 MG TAB PO SCH (09:00)
[2018-05-11] MEDS: METOPROLOL SUCCINATE (ER) 50 MG TAB.ER.24H PO SCH (09:12)
[2018-05-11] MEDS: PANTOPRAZOLE 40 MG TABLET PO SCH (09:12)
[2018-05-11] MEDS: OSELTAMIVIR 75 MG CAP PO SCH ×2 (09:13→21:31)
[2018-05-11] MEDS: TRIAMTERENE-HCTZ 37.5-25MG 1 EACH TAB PO SCH (09:13)
[2018-05-11] MEDS: GABAPENTIN 300 MG CAP PO SCH ×3 (09:13→21:31)
[2018-05-11] MEDS: LISINOPRIL 10 MG TAB PO SCH (09:13)
[2018-05-11 10:06] LABS: Eosinophils # (M) 0.03 k/uL (0-0.7); Lymphocytes # (M) 1.09 k/uL (1.0-4.8); Monocytes # (M) 0.65 k/uL (0-1.0); Neutrophils # (M) 1.63 k/uL (1.3-7.7); Neutrophils % (M) 48 %; Nucleated Red Blood Cells 0 /100 WBC (0-0); Total Cells Counted 100
[2018-05-11] MEDS ORDERED: BENZONATATE 100 MG CAP PO STA (11:06)
--- NOTE | 2018-05-11 11:16 | P.PN ---
Subjective Progress Note Date: 05/11/18 Principal diagnosis: COPD exacerbation, flu Patient was seen and examined. No acute events overnight. Patient reports no improvement in her symptoms. She complains of generalized malaise and whole body aches, partially related to fibromyalgia. Patient reports a cough that is dry in nature. Patient reports intermittent epigastric pain, worsened with cough and heartburn. Patient states that she has a history of stomach ulcer that was diagnosed in the last 2 months. She denies any chest pain or palpitations. No bowel movement today. Objective - Vital Signs Vital signs: Vital Signs Temp 98.1 F 05/11/18 07:45 Pulse 79 05/11/18 07:45 Resp 18 05/11/18 00:00 BP 150/79 05/11/18 07:45 Pulse Ox 92 L 05/11/18 11:00 Intake & Output 05/10/18 05/11/18 05/11/18 17:59 06:59 18:59 Intake Total Balance Weight Intake: Oral Other: # Voids - Exam General: [non toxic], [appears dyspneic], [appears at stated age] Derm: [warm], [dry] Head: [atraumatic], [normocephalic], [symmetric] Eyes: [EOMI], [no lid lag], [anicteric sclera] Mouth: [no lip lesion], [mucus membranes moist] Cardiovascular: [S1S2 reg], [no murmur], [positive DP pulse bilateral] Lungs: [End expiratory wheezing bilateral with decreased breath sounds], [no rhonchi, no rales] , [no accessory muscle use] Abdominal: [soft], [ nontender to palpation], [no guarding], [no appreciable organomegaly] Ext: [no gross muscle atrophy], [no edema], [no contractures] Neuro: [no focal neuro deficits] Psych: [Alert], [oriented], [appropriate affect] - Labs CBC & Chem 7: 05/11/18 08:14 05/11/18 08:14 Labs: Abnormal Lab Results - Last 24 Hours (Table) 05/10/18 05/10/18 05/10/18 Range/Units 15:50 15:50 15:50 WBC (3.8-10.6) k/uL Lymphocytes # 0.8 L (1.0-4.8) k/uL Sodium 136 L (137-145) mmol/L Chloride 97 L (98-107) mmol/L Carbon Dioxide 31 H (22-30) mmol/L BUN (7-17) mg/dL Creatinine (0.52-1.04) mg/dL Glucose 107 H (74-99) mg/dL Influenza Type A RNA Detected H (Not Detectd) 05/11/18 05/11/18 Range/Units 08:14 08:14 WBC 3.4 L (3.8-10.6) k/uL Lymphocytes # (1.0-4.8) k/uL Sodium 135 L (137-145) mmol/L Chloride (98-107) mmol/L Carbon Dioxide (22-30) mmol/L BUN 21 H (7-17) mg/dL Creatinine 1.11 H (0.52-1.04) mg/dL Glucose 101 H (74-99) mg/dL Influenza Type A RNA (Not Detectd) Assessment and Plan Assessment: Assessment and Plan 0. Acute hypoxic respiratory failure secondary to COPD exacerbation and influenza 1. COPD exacerbation 2. Influenza A 3. Abnormal chest x-ray 4. Hypertension 5. Fibromyalgia 6. DVT and GI prophylaxis 0. Likely secondary to COPD exacerbation and influenza A infection. Optimize COPD medications. Treatment for influenza. Oxygen per nasal cannula to ne intain an oxygen saturation greater than 92%. Telemetry monitoring. Pulmonology consult. 1. Likely secondary to influenza A infection. Patient is afebrile with no leukocytosis. Chest x-ray is negative for pneumonia, confirmed on repeat. Start DuoNeb 4 times a day scheduled and as needed for shortness of breath or wheezing. No prednisone due to ALLERGY. Resume Symbicort. Continue levofloxa ifrah 750 mg IV daily for treatment of possible pneumonia. Will follow pulmonology recommendations. 2. Influenza A positive. Continue Tamiflu. Add Tessalon Perles for cough. Follow sputum culture. Follow blood culture. 3. Possible nodule seen on chest x-ray. Recommend computed tomography scan, can be done outpatient. 4. BP 150/79. Continue triamterene/hydrochlorothiazide, metoprolol and li sinopril. Monitor vitals, adjust medications as necessary. 5. Continue gabapentin. Tylenol, [place], Dilaudid as needed for pain management. 6. SCD boots. Protonix. Patient admitted for COPD exacerbation and influenza A infection. Pulmonology consult. Patient is pending clinical improvement.
[2018-05-11] MEDS: SYMBICORT 160-4.5 MCG INHALER INHALATION SCH ×2 (11:49→19:27)
[2018-05-11] MEDS: IPRATROPIUM-ALBUTEROL 3 ML NEB INHALATION STA (12:04)
[2018-05-11] MEDS: BENZONATATE 100 MG CAP PO PRN (12:09)
[2018-05-11] MEDS: MAG HYDROX/AL HYDROX/SIMETH 30 ML CUP PO PRN ×2 (12:09→21:36)
[2018-05-11] MEDS: ACETAMINOPHEN TAB 325 MG TAB PO PRN (15:20)
[2018-05-11] MEDS ORDERED: ONDANSETRON 4 MG/2 ML VIAL IVP PRN (18:21)
[2018-05-11] MEDS ORDERED: LEVOFLOXACIN 750MG-D5W PMX 750 MG in DEXTROSE/WATER 1 150ML.BAG IVPB SCH (19:00)
[2018-05-11] MEDS: HYDROcodone/APAP 5-325MG 1 EACH TAB PO PRN (22:38)
[2018-05-12] MEDS: IPRATROPIUM-ALBUTEROL 3 ML NEB INHALATION SCH ×7 (00:03→23:16)
[2018-05-12] MEDS: HYDROmorphone 1 MG/ML 1 ML SYRINGE IV PRN ×4 (05:18→22:58)
[2018-05-12] MEDS: METOPROLOL SUCCINATE (ER) 50 MG TAB.ER.24H PO SCH (07:55)
[2018-05-12] MEDS: TRIAMTERENE-HCTZ 37.5-25MG 1 EACH TAB PO SCH (07:56)
[2018-05-12] MEDS: GABAPENTIN 300 MG CAP PO SCH ×3 (07:56→21:01)
[2018-05-12] MEDS: LISINOPRIL 10 MG TAB PO SCH (07:56)
[2018-05-12] MEDS: PANTOPRAZOLE 40 MG TABLET PO SCH (07:56)
[2018-05-12] MEDS: OSELTAMIVIR 75 MG CAP PO SCH (07:57)
[2018-05-12] MEDS: SYMBICORT 160-4.5 MCG INHALER INHALATION SCH ×2 (08:52→20:44)
[2018-05-12] MEDS: ACETAMINOPHEN TAB 325 MG TAB PO PRN (10:39)
[2018-05-12] MEDS: BENZONATATE 100 MG CAP PO PRN (10:39)
[2018-05-12] MEDS: guaiFENesin 600 MG TABLET.ER PO SCH ×2 (10:40→21:00)
[2018-05-12] MEDS: MAG HYDROX/AL HYDROX/SIMETH 30 ML CUP PO PRN (10:40)
[2018-05-12] MEDS ORDERED: LEVOFLOXACIN 500 MG TAB PO SCH (11:15)
--- NOTE | 2018-05-12 11:33 | CONS ---
CONSULTATION This is a 67-year-old female who presents to the emergency department complaining of being short of breath with coughing and some phlegm production. The patient also had significant fatigue and fever. She was having chills as well. Her temperature apparently went up as high as 102. She had a chest congestion and she was coughing as mentioned above. She also had headache, joint aches and muscle aches. The patient was apparently seen in the emergency department, admitted with a diagnosis of influenza infection as well as COPD exacerbation and in fact, her COPD exacerbation may have been triggered by her influenza infection. Currently, she is lying on her right side. She is very weak. She would like some Mucinex to help break up the congestion. Other than that, she states that she is feeling better today than she did yesterday, but not by a lot. She was started on appropriate medications including Tamiflu. MEDICATIONS: Her home medications include Tylenol, ProAir HFA inhaler, Symbicort 160/4.5 two puffs twice a day, vitamin D3, Neurontin, lisinopril, metoprolol, omega-3 fatty acids, omeprazole, triamterene/hydrochlorothiazide, Klonopin, and Ultram. ALLERGIES: Allergies include FAMOTIDINE, IVP DYE, PREDNISONE and SHELLFISH. MEDICAL HISTORY: Medical history is positive for COPD, fibromyalgia, GERD, gastroesophageal reflux disease, hypertension, bursitis, peripheral neuropathy, thyroid nodule, ischemic CVA, C- section, cholecystectomy, hernia repair, hysterectomy, and D and C. SOCIAL HISTORY: Social history is positive for previous tobacco use. Denies any alcohol use or illicit drug use. FAMILY HISTORY: Appears to be noncontributory. REVIEW OF SYSTEMS: CONSTITUTIONAL: Weakness, fatigue/fever chills. NEUROLOGIC: Negative. HEENT: Negative. CARDIOVASCULAR: Negative. PULMONARY: Shortness of breath, chest congestion, cough, wheezing and phlegm production. GI: Negative. : Negative. RHEUMATOLOGIC: Negative. IMMUNOLOGIC: Negative. ENDOCRINOLOGIC: Negative. DERMATOLOGIC: Negative. PHYSICAL EXAMINATION: Current vital signs are reviewed. Temperature is 97.7 heart rate 65, respiratory rate 16, blood pressure 136/69, mean 91 and 3 L saturation 97%. She appears fatigued, but in no distress. There is no use of accessory muscles, conversational dyspnea or audible wheezing. The patient does cough and has a very wet congested-sounding cough. HEENT examination is grossly unremarkable. Mucous membranes are moist. No oral lesions. NECK: Supple. Full range of motion. No adenopathy, thyromegaly or neck vein distention. Cardiovascular examination reveals regular rhythm and rate. Heart rate in the 60s. S1, S2 normal. There is no murmur. Lungs reveal some coarse inspiratory and expiratory rhonchi. There is some expiratory wheezes. No crackles. Breath sounds equal bilaterally but diminished throughout. There is prolongation. ABDOMEN: Soft. Bowel sounds are heard. There are no masses or tenderness. Extremities are intact. No cyanosis, clubbing, or edema. Skin without rash. Neurologic examination is brief but nonfocal. Chest x-ray shows no acute cardiopulmonary abnormality. Both x-ray shows similar findings. Lab data is reviewed. White count 3.4, hemoglobin 14, hematocrit 43.5, platelet count 173,000. PT/INR and PTT normal. Electrolyte profile essentially normal. BUN and creatinine were 21 and 1.11. Influenzae type A detected. The rest of the labs look okay. This includes the N-terminal proBNP and liver function. Microbiologic studies are negative. Medications are reviewed. From the pulmonary standpoint, she is on Tessalon Perles, Symbicort, Mucinex, DuoNeb, Levaquin and Tamiflu. The Levaquin is IV and probably could be converted to oral Levaquin. ASSESSMENT: 1. Chronic obstructive pulmonary disease exacerbation, probably complicated by purulent tracheobronchitis, without kristine pneumonia and also likely triggered by influenza A infection. 2. Influenza A. 3. Previous history of heavy tobacco use. 4. History of vitamin D deficiency. 5. History of hypertension. 6. History of fibromyalgia. 7. Gastroesophageal reflux disease. 8. Peripheral neuropathy. 9. Ischemic cerebrovascular accident .. 10.Thyroid nodule. PLAN: The patient's medications are reviewed. We will make sure the patient is on appropriate medications. The patient should have some steroids, but apparently cannot take them. For that reason, we will not give them. We will continue on the DuoNeb and the Symbicort. We will continue on the cough medication. The IV Levaquin will be converted to oral Levaquin. The patient should continue on Tamiflu 75 mg twice a day for a total of 5 days or 10 tablets. MMODL / IJN: [id number] /
--- NOTE | 2018-05-12 12:50 | P.PN ---
Subjective Progress Note Date: 05/12/18 Principal diagnosis: COPD exacerbation, influenza Patient was seen and examined. No acute events overnight. Patient reports very minimal changes in her current condition. She continues to complain of cough and shortness of breath at rest. She complains of whole body aches associated with fibromyalgia. Currently on 3 L nasal cannula saturating 97%. Objective - Vital Signs Vital signs: Vital Signs Temp 97.7 F 05/12/18 07:00 Pulse 65 05/12/18 07:00 Resp 16 05/12/18 07:00 BP 136/69 05/12/18 07:00 Pulse Ox 97 05/12/18 08:53 Intake & Output 05/11/18 05/12/18 05/12/18 18:59 06:59 18:59 Intake Total 780 Balance 780 Intake: Oral 780 Other: # Voids 6 2 - Exam General: [non toxic], [appears dyspneic], [appears at stated age] Derm: [warm], [dry] Head: [atraumatic], [normocephalic], [symmetric] Eyes: [EOMI], [no lid lag], [anicteric sclera] Mouth: [no lip lesion], [mucus membranes moist] Cardiovascular: [S1S2 reg], [no murmur], [positive DP pulse bilateral] Lungs: [End expiratory wheezing bilateral with decreased breath sounds], [no rhonchi, no rales] , [no accessory muscle use] Abdominal: [soft], [ nontender to palpation], [no guarding], [no appreciable organomegaly] Ext: [no gross muscle atrophy], [no edema], [no contractures] Neuro: [no focal neuro deficits] Psych: [Alert], [oriented], [appropriate affect] - Labs CBC & Chem 7: 05/11/18 08:14 05/11/18 08:14 Labs: Microbiology - Last 24 Hours (Table) 05/10/18 18:44 Blood Culture - Preliminary Blood No Growth after 24 hours Assessment and Plan Assessment: Assessment and Plan 1. COPD exacerbation 2. Influenza A 3. Abnormal chest x-ray 4. Hypertension 5. Fibromyalgia 6. DVT and GI prophylaxis 1. Likely secondary to influenza A infection. Patient is afebrile with no leukocytosis. Chest x-ray is negative for pneumonia, confirmed on repeat. Start DuoNeb 4 times a day scheduled and as needed for shortness of breath or wheezing. No prednisone due to ALLERGY. Resume Symbicort. Levofloxacin changed to by mouth as per pulmonology recommendations. Will follow pulmonology recommendations. 2. Influenza A positive. Continue Tamiflu. At Robitussin and continue Tessalon Perles for cough. Blood culture preliminary negative at 24 hours. Follow sputum culture. Follow blood culture. 3. Possible nodule seen on chest x-ray. Recommend computed tomography scan, can be done outpatient. 4. BP 136/69. Continue triamterene/hydrochlorothiazide, metoprolol and lisinopril. Monitor vitals, adjust medications as necessary. 5. Continue gabapentin. Tylenol, [place], Dilaudid as needed for pain management. 6. SCD boots. Protonix. Patient admitted for COPD exacerbation and influenza A infection. Patient is pending clinical improvement. We'll attempt to wean oxygen. Likely DC in 1-2 days.
[2018-05-12] MEDS: HYDROcodone/APAP 5-325MG 1 EACH TAB PO PRN (18:04)
[2018-05-12] MEDS ORDERED: guaiFENesin 600 MG TABLET.ER PO SCH (21:00)
[2018-05-12] MEDS: OSELTAMIVIR 60 MG/10 ML ORAL SYRINGE PO SCH (21:01)
[2018-05-12] MEDS: Omega-3 Fatty Acids/Fish Oil [Fish Oil 1,000 Mg Softgel] 1 CAP PO SCH (23:36)
[2018-05-13] MEDS: IPRATROPIUM-ALBUTEROL 3 ML NEB INHALATION SCH ×5 (03:30→19:48)
[2018-05-13] MEDS: HYDROmorphone 1 MG/ML 1 ML SYRINGE IV PRN ×3 (04:01→11:20)
[2018-05-13] MEDS: HYDROcodone/APAP 5-325MG 1 EACH TAB PO PRN ×2 (06:22→21:25)
[2018-05-13] MEDS: SYMBICORT 160-4.5 MCG INHALER INHALATION SCH ×2 (07:19→19:48)
[2018-05-13] MEDS: LISINOPRIL 10 MG TAB PO SCH (07:57)
[2018-05-13] MEDS: OSELTAMIVIR 60 MG/10 ML ORAL SYRINGE PO SCH ×2 (07:57→21:24)
[2018-05-13] MEDS: GABAPENTIN 300 MG CAP PO SCH ×3 (07:58→21:24)
[2018-05-13] MEDS: PANTOPRAZOLE 40 MG TABLET PO SCH (07:58)
[2018-05-13] MEDS: guaiFENesin 600 MG TABLET.ER PO SCH ×2 (07:58→21:24)
[2018-05-13] MEDS: METOPROLOL SUCCINATE (ER) 50 MG TAB.ER.24H PO SCH (07:58)
[2018-05-13] MEDS: TRIAMTERENE-HCTZ 37.5-25MG 1 EACH TAB PO SCH (07:59)
[2018-05-13] MEDS: LEVOFLOXACIN 250 MG TAB PO SCH (07:59)
[2018-05-13] MEDS: MAG HYDROX/AL HYDROX/SIMETH 30 ML CUP PO PRN ×2 (08:05→21:27)
[2018-05-13] MEDS: BENZONATATE 100 MG CAP PO PRN (08:05)
[2018-05-13 09:51] LABS: Potassium 4.6 mmol/L (3.5-5.1)
[2018-05-13 10:06] LABS: HCT 43.9 % (34.0-46.0); HGB 14.2 gm/dL (11.4-16.0); MCHC 32.4 g/dL (31.0-37.0); MCV 98.9 fL (80.0-100.0); Mean Platelet Volume 6.9; Platelet Count 240 k/uL (150-450); RBC 4.44 m/uL (3.80-5.40)
[2018-05-13 10:37] LABS: Lymphocytes # (M) 2.58 k/uL (1.0-4.8); Monocytes # (M) 0.48 k/uL (0-1.0); Neutrophils # (M) 2.94 k/uL (1.3-7.7); Neutrophils % (M) 49 %; Nucleated Red Blood Cells 0 /100 WBC (0-0); Total Cells Counted 100
[2018-05-13 10:39] LABS: Anisocytosis (M) Present
[2018-05-13] MEDS: Omega-3 Fatty Acids/Fish Oil [Fish Oil 1,000 Mg Softgel] 1 CAP PO SCH ×2 (11:02→21:24)
--- NOTE | 2018-05-13 11:20 | P.PN ---
Subjective Progress Note Date: 05/13/18 Principal diagnosis: Acute exacerbation of chronic obstructive pulmonary disease with purulent tracheobronchitis related to influenza A infection Assessment 67-year-old female patient with the hospital on 05/10/2018, with complaints of shortness of breath, cough, and phlegm production. Patient was also febrile and was fatigued. Patient tested positive for influenza A, and was diagnosed with COPD exacerbation. On today's exam on 05/13/2016 patient seen in follow-up on medical surgical floor. She is resting in bed, in no acute distress, room air pulse ox is 95%, afebrile, hemodynamically stable. Patient is on combination of Tamiflu and Levaquin, nebulized bronchodilators, she cannot take any steroids related to adverse reaction to prednisone. On today's exam patient sounds a bit more wheezy. She has been afebrile. Denies any chills. Objective - Vital Signs Vital signs: Vital Signs Temp 98 F 05/13/18 07:00 Pulse 66 05/13/18 07:32 Resp 12 05/13/18 07:00 BP 126/79 05/13/18 07:00 Pulse Ox 94 L 05/13/18 07:00 Intake & Output 05/12/18 05/13/18 05/13/18 18:59 06:59 18:59 Other: # Voids 2 1 - Exam GENERAL EXAM: Alert, pleasant, 67-year-old white female comfortable in no apparent distress. HEAD: Normocephalic/atraumatic. EYES: Normal reaction of pupils, equal size. Conjunctiva pink, sclera white. NOSE: Clear with pink turbinates. THROAT: No erythema or exudates. NECK: No masses, no JVD, no thyroid enlargement, no adenopathy. CHEST: No chest wall deformity. Symmetrical expansion. LUNGS: Equal air entry with diffuse wheezes CVS: Regular rate and rhythm, normal S1 and S2, no gallops, no murmurs, no rubs ABDOMEN: Soft, nontender. No hepatosplenomegaly, normal bowel sounds, no guarding or rigidity. EXTREMITIES: No clubbing, no edema, no cyanosis, 2+ pulses and upper and lower extremities. MUSCULOSKELETAL: Muscle strength and tone normal. SPINE: No scoliosis or deformity SKIN: No rashes CENTRAL NERVOUS SYSTEM: Alert and oriented -3. No focal deficits, tone is normal in all 4 extremities. PSYCHIATRIC: Alert and oriented -3. Appropriate affect. Intact judgment and insight. - Labs CBC & Chem 7: 05/13/18 09:15 05/13/18 09:15 Labs: Abnormal Lab Results - Last 24 Hours (Table) 05/13/18 Range/Units 09:15 Sodium 135 L (137-145) mmol/L Chloride 95 L (98-107) mmol/L BUN 27 H (7-17) mg/dL Creatinine 1.33 H (0.52-1.04) mg/dL Glucose 160 H (74-99) mg/dL Microbiology - Last 24 Hours (Table) 05/12/18 08:20 Gram Stain - Preliminary Sputum 05/10/18 18:44 Blood Culture - Preliminary Blood No Growth after 48 hours Assessment and Plan Plan: Assessment: #1. Acute exacerbation of chronic obstructive pulmonary disease with purulent tracheobronchitis #2. Influenza A infection #3. Nicotine dependence, currently in remission #4. Hypertension #5. History of fibromyalgia #6. GERD/reflux #7. Peripheral neuropathy #8. History of CVA #9. Thyroid nodule Plan: Continue current medical treatment, continue the Symbicort, nebulized bronchodilators, Tamiflu and Levaquin. Not quite back to baseline, still wheezy and dyspneic. Unfortunately the patient cannot take any steroids, this may prolong recovery I performed a history & physical examination of the patient and discussed their management with my nurse practitioner, Graciela Doty. I reviewed the nurse practitioner's note and agree with the documented findings and plan of care. Lung sounds are positive for diffuse wheezes throughout the lung tee. The findings and the impression was discussed with the patient. I attest to the documentation by the nurse practitioner. Time with Patient: Less than 30
--- NOTE | 2018-05-13 12:24 | P.PN ---
Subjective Progress Note Date: 05/13/18 Principal diagnosis: COPD exacerbation, influenza Patient was seen and examined. No acute events overnight. Tearful this morning, discussed issues with nursing staff and administration of pain medication with the patient. Patient reports a slight improvement in her breathing but continues to complain of a wet cough which shortness of breath. Patient reports generalized weakness and overall body aches, associated with fibromyalgia. Patient saturating low 90s on room air. Objective - Vital Signs Vital signs: Vital Signs Temp 98 F 05/13/18 07:00 Pulse 66 05/13/18 07:32 Resp 12 05/13/18 07:00 BP 126/79 05/13/18 07:00 Pulse Ox 94 L 05/13/18 07:00 Intake & Output 05/12/18 05/13/18 05/13/18 18:59 06:59 18:59 Other: # Voids 2 1 - Exam General: [non toxic], [appears dyspneic], [appears at stated age] Derm: [warm], [dry] Head: [atraumatic], [normocephalic], [symmetric] Eyes: [EOMI], [no lid lag], [anicteric sclera] Mouth: [no lip lesion], [mucus membranes moist] Cardiovascular: [S1S2 reg], [no murmur], [positive DP pulse bilateral] Lungs: [diffuse wheezing bilateral with decreased breath sounds], [no rhonchi, no rales] , [no accessory muscle use] Abdominal: [soft], [ nontender to palpation], [no guarding], [no appreciable or ganomegaly] Ext: [no gross muscle atrophy], [no edema], [no contractures] Neuro: [no focal neuro deficits] Psych: [Alert], [oriented], [appropriate affect] - Labs CBC & Chem 7: 05/13/18 09:15 05/13/18 09:15 Labs: Abnormal Lab Results - Last 24 Hours (Table) 05/13/18 Range/Units 09:15 Sodium 135 L (137-145) mmol/L Chloride 95 L (98-107) mmol/L BUN 27 H (7-17) mg/dL Creatinine 1.33 H (0.52-1.04) mg/dL Glucose 160 H (74-99) mg/dL Microbiology - Last 24 Hours (Table) 05/12/18 08:20 Gram Stain - Preliminary Sputum Sputum Culture - Preliminary 05/10/18 18:44 Blood Culture - Preliminary Blood No Growth after 48 hours Assessment and Plan Assessment: Assessment and Plan 1. COPD exacerbation 2. Influenza A 3. Abnormal chest x-ray 4. Hypertension 5. Fibromyalgia 6. DVT and GI prophylaxis 1. Likely secondary to influenza A infection. Patient is afebrile with no leukocytosis. Chest x-ray is negative for pneumonia, confirmed on repeat. Start DuoNeb 4 times a day scheduled and as needed for shortness of breath or wheezing. No prednisone due to ALLERGY. Resume Symbicort. Levofloxacin changed to by mouth as per pulmonology recommendations. Will follow pulmonology recommendations. Follow 6 minute walk test. 2. Influenza A positive. Continue Tamiflu. At Robitussin and continue Tessalon Perles for cough. Blood culture preliminary negative at 48 hours. Follow sputum culture. Follow blood culture. 3. Possible nodule seen on chest x-ray. Recommend computed tomography scan, can be done outpatient. 4. BP 148/83. Continue triamterene/hydrochlorothiazide, metoprolol and lisinopril. Monitor vitals, adjust medications as necessary. 5. Continue gabapentin. Tylenol, [place], Dilaudid as needed for pain management. 6. SCD boots. Protonix. Patient admitted for COPD exacerbation and influenza A infection. Patient was saturating low 90s on room air while at rest, anticipated that she would drop in oxygenation with ambulation. We'll attempt to wean oxygen and follow-up with a 6 minute walk test. Patient is pending clinical improvement. Likely DC in 1-2 days.
[2018-05-13] MEDS: HYDROmorphone 2 MG TAB PO PRN (15:17)
[2018-05-13] MEDS: ACETAMINOPHEN TAB 325 MG TAB PO PRN (17:08)
--- NOTE | 2018-05-13 22:15 | P.PN ---
Progress Note - Text Progress Note Date: 05/13/18 per patient request , i went to see her , she is refusing to use, albuterol inhalers, or long acting beta agonist inhalers, claiming that she usually gets a paradoxical effect showing me an internet source that showing in some patients short acting beta agonist can actually cause paradoxical effect and results in wheezing due to bronchospasm . she also refuses to use any steroids as she reports having acute psychosis reaction in the past to steroids. however at this time she is able to talk full sentences and seems to be comfortable with her breathing her oxygen sat is >92% on room air. no distress, and lung exam shows no wheezing or rhonci with good air entry throughout . I suggested that she discussed the above issues in the morning with pulmonary service to look at alternatives for these commonly used breathing treatments and inhalers. will continue to monitor her breathing status and pulse oximetry closely for now
[2018-05-14] MEDS: HYDROmorphone 2 MG TAB PO PRN ×3 (00:18→22:44)
[2018-05-14] MEDS: IPRATROPIUM-ALBUTEROL 3 ML NEB INHALATION SCH ×3 (00:45→08:51)
[2018-05-14] MEDS: guaiFENesin 600 MG TABLET.ER PO SCH ×2 (08:57→20:46)
[2018-05-14] MEDS: LEVOFLOXACIN 250 MG TAB PO SCH (08:58)
[2018-05-14] MEDS: LISINOPRIL 10 MG TAB PO SCH (08:58)
[2018-05-14] MEDS: GABAPENTIN 300 MG CAP PO SCH ×3 (08:58→20:46)
[2018-05-14] MEDS: PANTOPRAZOLE 40 MG TABLET PO SCH (08:58)
[2018-05-14] MEDS: METOPROLOL SUCCINATE (ER) 50 MG TAB.ER.24H PO SCH (08:58)
[2018-05-14] MEDS: TRIAMTERENE-HCTZ 37.5-25MG 1 EACH TAB PO SCH (08:58)
[2018-05-14] MEDS: OSELTAMIVIR 60 MG/10 ML ORAL SYRINGE PO SCH ×2 (08:59→20:53)
[2018-05-14] MEDS: Omega-3 Fatty Acids/Fish Oil [Fish Oil 1,000 Mg Softgel] 1 CAP PO SCH ×2 (09:01→20:47)
[2018-05-14] MEDS: HYDROcodone/APAP 5-325MG 1 EACH TAB PO PRN ×2 (09:04→19:11)
[2018-05-14] MEDS: ACETAMINOPHEN TAB 325 MG TAB PO PRN ×2 (10:44→17:08)
[2018-05-14] MEDS: MAG HYDROX/AL HYDROX/SIMETH 30 ML CUP PO PRN ×2 (10:44→17:08)
[2018-05-14] MEDS ORDERED: IPRATROPIUM 0.5 MG/2.5 ML NEBU INHALATION PRN (11:37)
[2018-05-14] MEDS: SYMBICORT 160-4.5 MCG INHALER INHALATION SCH ×2 (11:48→21:05)
--- NOTE | 2018-05-14 12:06 | P.PN ---
Subjective Progress Note Date: 05/14/18 Principal diagnosis: COPD exacerbation, influenza Patient was seen and examined. No acute events overnight. Patient reports no changes in her breathing since admission. On further review and discussion with nursing, patient has not received any nebulization treatments since the day prior to yesterday. Patient is concerns that albuterol is making her feel more short of breath. She denies any chest pain or palpitations. Complains of pain associated with fibromyalgia. Objective - Vital Signs Vital signs: Vital Signs Temp 98.2 F 05/14/18 07:00 Pulse 71 05/14/18 10:48 Resp 19 05/14/18 07:00 BP 136/84 05/14/18 07:00 Pulse Ox 88 L 05/14/18 10:48 Intake & Output 05/13/18 05/14/18 05/14/18 18:59 06:59 18:59 Intake Total 150 Balance 150 Intake: Oral 150 Other: # Voids 3 2 - Exam General: [non toxic], [appears dyspneic], [appears at stated age] Derm: [warm], [dry] Head: [atraumatic], [normocephalic], [symmetric] Eyes: [EOMI], [no lid lag], [anicteric sclera] Mouth: [no lip lesion], [mucus membranes moist] Cardiovascular: [S1S2 reg], [no murmur], [positive DP pulse bilateral] Lungs: [diffuse wheezing bilateral with decreased breath sounds], [no rhonchi, no rales] , [no accessory muscle use] Abdominal: [soft], [ nontender to palpation], [no guarding], [no appreciable organomegaly] Ext: [no gross muscle atrophy], [no edema], [no contractures] Neuro: [no focal neuro deficits] Psych: [Alert], [oriented], [appropriate affect] - Labs CBC & Chem 7: 05/13/18 09:15 05/13/18 09:15 Labs: Microbiology - Last 24 Hours (Table) 05/10/18 18:44 Blood Culture - Preliminary Blood No Growth after 72 hours 05/12/18 08:20 Gram Stain - Preliminary Sputum Sputum Culture - Preliminary Assessment and Plan Assessment: Assessment and Plan 1. COPD exacerbation 2. Influenza A 3. Abnormal chest x-ray 4. Hypertension 5. Fibromyalgia 6. DVT and GI prophylaxis 1. Likely secondary to influenza A infection. Patient is afebrile with no leukocytosis. Chest x-ray is negative for pneumonia, confirmed on repeat. Start DuoNeb 4 times a day scheduled and as needed for shortness of breath or wheezing. No prednisone due to ALLERGY. Resume Symbicort. Levofloxacin changed to by mouth as per pulmonology recommendations. Will follow pulmonology recommendations. Failed 6 minute walk test this morning, will require home O2. 2. Influenza A positive. Continue Tamiflu. At Robitussin and continue Tessalon Perles for cough. Blood culture preliminary negative at 72 hours. Sputum culture prelim negative. Follow blood culture, sputum culture final. 3. Possible nodule seen on chest x-ray. Recommend computed tomography scan, can be done outpatient. 4. BP 136/84. Continue triamterene/hydrochlorothiazide, metoprolol and lisinopril. Monitor vitals, adjust medications as necessary. 5. Continue gabapentin. Tylenol, [place], Dilaudid as needed for pain management. 6. SCD boots. Protonix. Patient admitted for COPD exacerbation and influenza A infection. Failed 6 minute walk test, will require home oxygen on discharge. Refusing neb treatments in house. We will wait for pulmonology recommendations for discharge planning.
[2018-05-14] MEDS: IPRATROPIUM 0.5 MG/2.5 ML NEBU INHALATION SCH ×2 (12:27→21:05)
--- NOTE | 2018-05-14 13:16 | P.PN ---
Subjective Progress Note Date: 05/14/18 Principal diagnosis: Acute exacerbation of chronic obstructive pulmonary disease with purulent tracheobronchitis related to influenza A infection Assessment 67-year-old female patient with the hospital on 05/10/2018, with complaints of shortness of breath, cough, and phlegm production. Patient was also febrile and was fatigued. Patient tested positive for influenza A, and was diagnosed with COPD exacerbation. On today's exam on 05/13/2016 patient seen in follow-up on medical surgical floor. She is resting in bed, in no acute distress, room air pulse ox is 95%, afebrile, hemodynamically stable. Patient is on combination of Tamiflu and Levaquin, nebulized bronchodilators, she cannot take any steroids related to adverse reaction to prednisone. On today's exam patient sounds a bit more wheezy. She has been afebrile. Denies any chills. On 05/14/2018 patient seen again in follow-up on medical surgical floor. She is awake and alert, in no acute distress, she has been having increased wheezing, and shortness of breath with breathing treatments and therefore patient has been refusing them, she requested that albuterol discontinued, we will switch her DuoNeb to Atrovent, she is not able to take any steroids related to adverse reaction to them. Home oxygen assessment showed O2 sat 91% on 2 L, patient does desat postexercise to 86 percent, does qualify for home oxygen. Blood culture has been negative, sputum culture showed few gram-positive bacilli, few gram- positive cocci, normal respiratory amber. No fever or chills. No new labs today, patient remains Symbicort, so far tolerating it well, she is on oral Levaquin, Mucinex, Tamiflu. Objective - Vital Signs Vital signs: Vital Signs Temp 98.2 F 05/14/18 07:00 Pulse 76 05/14/18 12:37 Resp 19 05/14/18 07:00 BP 136/84 05/14/18 07:00 Pulse Ox 88 L 05/14/18 10:48 Intake & Output 05/13/18 05/14/18 05/14/18 18:59 06:59 18:59 Intake Total 150 Balance 150 Intake: Oral 150 Other: # Voids 3 2 - Exam GENERAL EXAM: Alert, pleasant, 67-year-old white female comfortable in no apparent distress. HEAD: Normocephalic/atraumatic. EYES: Normal reaction of pupils, equal size. Conjunctiva pink, sclera white. NOSE: Clear with pink turbinates. THROAT: No erythema or exudates. NECK: No masses, no JVD, no thyroid enlargement, no adenopathy. CHEST: No chest wall deformity. Symmetrical expansion. LUNGS: Equal air entry with diffuse wheezes CVS: Regular rate and rhythm, normal S1 and S2, no gallops, no murmurs, no rubs ABDOMEN: Soft, nontender. No hepatosplenomegaly, normal bowel sounds, no guarding or rigidity. EXTREMITIES: No clubbing, no edema, no cyanosis, 2+ pulses and upper and lower extremities. MUSCULOSKELETAL: Muscle strength and tone normal. SPINE: No scoliosis or deformity SKIN: No rashes CENTRAL NERVOUS SYSTEM: Alert and oriented -3. No focal deficits, tone is normal in all 4 extremities. PSYCHIATRIC: Alert and oriented -3. Appropriate affect. Intact judgment and insight. - Labs CBC & Chem 7: 05/13/18 09:15 05/13/18 09:15 Labs: Microbiology - Last 24 Hours (Table) 05/12/18 08:20 Gram Stain - Final Sputum Sputum Culture - Final 05/10/18 18:44 Blood Culture - Preliminary Blood No Growth after 72 hours Assessment and Plan Plan: Assessment: #1. Acute exacerbation of chronic obstructive pulmonary disease with purulent tracheobronchitis, and acute hypoxemic respiratory failure #2. Influenza A infection #3. Nicotine dependence, currently in remission #4. Hypertension #5. History of fibromyalgia #6. GERD/reflux #7. Peripheral neuropathy #8. History of CVA #9. Thyroid nodule Plan: Continue current medical treatment, will switch DuoNeb to nebulized ipratropium, patient believes that albuterol is causing increased shortness of breath and wheezing. She is unable to take any steroids, which will prolong the recovery, patient does qualify for home oxygen. So far sputum culture and blood culture are negative, no fever or chills. No worsening dyspnea, no chest pain or palpitations. Slow improvement, need 1 more day of inpatient treatment, possible discharge in the next 24 hours. I performed a history & physical examination of the patient and discussed their management with my nurse practitioner, Graciela Doty. I reviewed the nurse practitioner's note and agree with the documented findings and plan of care. Lung sounds are positive for diffuse wheezes throughout the lung tee. The findings and the impression was discussed with the patient. I attest to the documentation by the nurse practitioner. Time with Patient: Less than 30
[2018-05-14] MEDS: BENZONATATE 100 MG CAP PO PRN (17:08)
[2018-05-15] MEDS: BENZONATATE 100 MG CAP PO PRN (00:07)
[2018-05-15] MEDS: IPRATROPIUM 0.5 MG/2.5 ML NEBU INHALATION SCH ×3 (07:36→20:23)
[2018-05-15] MEDS: SYMBICORT 160-4.5 MCG INHALER INHALATION SCH ×2 (07:37→20:23)
[2018-05-15] MEDS: OSELTAMIVIR 60 MG/10 ML ORAL SYRINGE PO SCH (10:01)
[2018-05-15] MEDS: LEVOFLOXACIN 250 MG TAB PO SCH (10:02)
[2018-05-15] MEDS: PANTOPRAZOLE 40 MG TABLET PO SCH (10:02)
[2018-05-15] MEDS: TRIAMTERENE-HCTZ 37.5-25MG 1 EACH TAB PO SCH (10:02)
[2018-05-15] MEDS: METOPROLOL SUCCINATE (ER) 50 MG TAB.ER.24H PO SCH (10:02)
[2018-05-15] MEDS: LISINOPRIL 10 MG TAB PO SCH (10:02)
[2018-05-15] MEDS: GABAPENTIN 300 MG CAP PO SCH ×3 (10:02→22:37)
[2018-05-15] MEDS: guaiFENesin 600 MG TABLET.ER PO SCH ×2 (10:02→19:52)
[2018-05-15] MEDS: Omega-3 Fatty Acids/Fish Oil [Fish Oil 1,000 Mg Softgel] 1 CAP PO SCH ×2 (10:07→19:52)
--- NOTE | 2018-05-15 11:05 | P.PN ---
Subjective Progress Note Date: 05/15/18 Principal diagnosis: COPD exacerbation, Fu Patient was seen and examined. No acute events overnight. Patient reports very little improvement in her breathing. Patient states that she feels choked up, especially with cough and with ambulation. She denies any chest pain or pal pitations. Failed 6 minute walk test yesterday. Objective - Vital Signs Vital signs: Vital Signs Temp 97.7 F 05/15/18 07:00 Pulse 65 05/15/18 08:00 Resp 16 05/15/18 08:00 BP 104/65 05/15/18 07:00 Pulse Ox 100 05/15/18 07:00 Intake & Output 05/14/18 05/15/18 05/15/18 18:59 06:59 18:59 Other: # Voids 2 2 - Exam General: [non toxic], [appears dyspneic], [appears at stated age] Derm: [warm], [dry] Head: [atraumatic], [normocephalic], [symmetric] Eyes: [EOMI], [no lid lag], [anicteric sclera] Mouth: [no lip lesion], [mucus membranes moist] Cardiovascular: [S1S2 reg], [no murmur], [positive DP pulse bilateral] Lungs: [diffuse wheezing bilateral with decreased breath sounds], [no rhonchi, no rales] , [no accessory muscle use] Abdominal: [soft], [ nontender to palpation], [no guarding], [no appreciable organomegaly] Ext: [no gross muscle atrophy], [no edema], [no contractures] Neuro: [no focal neuro deficits] Psych: [Alert], [oriented], [appropriate affect] - Labs CBC & Chem 7: 05/13/18 09:15 05/13/18 09:15 Labs: Microbiology - Last 24 Hours (Table) 05/10/18 18:44 Blood Culture - Preliminary Blood No Growth after 96 hours 05/12/18 08:20 Gram Stain - Final Sputum Sputum Culture - Final Assessment and Plan Assessment: Assessment and Plan 1. COPD exacerbation 2. Influenza A 3. Abnormal chest x-ray 4. Hypertension 5. Fibromyalgia 6. DVT and GI prophylaxis 1. Likely secondary to influenza A infection. Patient is afebrile with no leukocytosis. Chest x-ray is negative for pneumonia, confirmed on repeat. Discontinue albuterol neb as patient is complaining of side effects, start Atrovent neb as needed for shortness of breath or wheezing. No prednisone due to ALLERGY. Resume Symbicort. Levofloxacin changed to by mouth as per pulmonology recommendations. Will follow pulmonology recommendations. Failed 6 minute walk test yesterday, will require home O2. 2. Influenza A positive. Continue Tamiflu. At [facility] and continue Tessalon Perles for cough. Blood culture preliminary negative at 96 hours. Sputum culture prelim negative. Follow blood culture. 3. Possible nodule seen on chest x-ray. Recommend computed tomography scan, can be done outpatient. 4. BP 104/65. Continue triamterene/hydrochlorothiazide, metoprolol and lisinopril. Monitor vitals, adjust medications as necessary. 5. Continue gabapentin. Tylenol, [place], Dilaudid as needed for pain management. 6. SCD boots. Protonix. Patient admitted for COPD exacerbation and influenza A infection. Failed 6 minute walk test, will need repeat test prior to discharge. Albuterol neb changed to Atrovent. We will wait for pulmonology recommendations for discharge planning.
[2018-05-15] MEDS: HYDROcodone/APAP 5-325MG 1 EACH TAB PO PRN (11:54)
[2018-05-15] MEDS: MAG HYDROX/AL HYDROX/SIMETH 30 ML CUP PO PRN (11:54)
--- NOTE | 2018-05-15 13:34 | P.PN ---
Subjective Progress Note Date: 05/15/18 Principal diagnosis: Acute exacerbation of chronic obstructive pulmonary disease with purulent tracheobronchitis related to influenza A infection Assessment 67-year-old female patient with the hospital on 05/10/2018, with complaints of shortness of breath, cough, and phlegm production. Patient was also febrile and was fatigued. Patient tested positive for influenza A, and was diagnosed with COPD exacerbation. On today's exam on 05/13/2016 patient seen in follow-up on medical surgical floor. She is resting in bed, in no acute distress, room air pulse ox is 95%, afebrile, hemodynamically stable. Patient is on combination of Tamiflu and Levaquin, nebulized bronchodilators, she cannot take any steroids related to adverse reaction to prednisone. On today's exam patient sounds a bit more wheezy. She has been afebrile. Denies any chills. On 05/14/2018 patient seen again in follow-up on medical surgical floor. She is awake and alert, in no acute distress, she has been having increased wheezing, and shortness of breath with breathing treatments and therefore patient has been refusing them, she requested that albuterol discontinued, we will switch her DuoNeb to Atrovent, she is not able to take any steroids related to adverse reaction to them. Home oxygen assessment showed O2 sat 91% on 2 L, patient does desat postexercise to 86 percent, does qualify for home oxygen. Blood culture has been negative, sputum culture showed few gram-positive bacilli, few gram- positive cocci, normal respiratory amber. No fever or chills. No new labs today, patient remains Symbicort, so far tolerating it well, she is on oral Levaquin, Mucinex, Tamiflu. On 05/15/2016 patient seen in follow-up on medical surgical floor. Awake and alert, still quite dyspneic and bronchospastic, very limited improvement, she is agreeable to trying some ice steroids, 40 mg every 8 hours in view of very slow improvements. Breathing treatments in the form of Atrovent, she is on Levaquin and she has completed Tamiflu. Room air pulse ox is 92%, patient is afebrile, blood and sputum cultures are negative Objective - Vital Signs Vital signs: Vital Signs Temp 97.7 F 05/15/18 07:00 Pulse 68 05/15/18 11:37 Resp 16 05/15/18 08:00 BP 104/65 05/15/18 07:00 Pulse Ox 100 05/15/18 07:00 Intake & Output 05/14/18 05/15/18 05/15/18 18:59 06:59 18:59 Other: # Voids 2 2 - Exam GENERAL EXAM: Alert, pleasant, 67-year-old white female comfortable in no apparent distress. HEAD: Normocephalic/atraumatic. EYES: Normal reaction of pupils, equal size. Conjunctiva pink, sclera white. NOSE: Clear with pink turbinates. THROAT: No erythema or exudates. NECK: No masses, no JVD, no thyroid enlargement, no adenopathy. CHEST: No chest wall deformity. Symmetrical expansion. LUNGS: Equal air entry with diffuse wheezes CVS: Regular rate and rhythm, normal S1 and S2, no gallops, no murmurs, no rubs ABDOMEN: Soft, nontender. No hepatosplenomegaly, normal bowel sounds, no guarding or rigidity. EXTREMITIES: No clubbing, no edema, no cyanosis, 2+ pulses and upper and lower extremities. MUSCULOSKELETAL: Muscle strength and tone normal. SPINE: No scoliosis or deformity SKIN: No rashes CENTRAL NERVOUS SYSTEM: Alert and oriented -3. No focal deficits, tone is normal in all 4 extremities. PSYCHIATRIC: Alert and oriented -3. Appropriate affect. Intact judgment and insight. - Labs CBC & Chem 7: 05/13/18 09:15 05/13/18 09:15 Labs: Microbiology - Last 24 Hours (Table) 05/10/18 18:44 Blood Culture - Preliminary Blood No Growth after 96 hours 05/12/18 08:20 Gram Stain - Final Sputum Sputum Culture - Final Assessment and Plan Plan: Assessment: #1. Acute exacerbation of chronic obstructive pulmonary disease with purulent tracheobronchitis, and acute hypoxemic respiratory failure #2. Influenza A infection #3. Nicotine dependence, currently in remission #4. Hypertension #5. History of fibromyalgia #6. GERD/reflux #7. Peripheral neuropathy #8. History of CVA #9. Thyroid nodule Plan: Vital signs are stable, patient is still dyspneic, and bronchospastic, she wants to try Solu-Medrol, will start Solu-Medrol 40 every 8 hours, continue with nebulized ipratropium, likely course of Tamiflu, continue with oral Levaquin. Will continue to follow I performed a history & physical examination of the patient and discussed their management with my nurse practitioner, Graciela Doty. I reviewed the nurse practitioner's note and agree with the documented findings and plan of care. Lung sounds are positive for diffuse wheezes throughout the lung tee. The findings and the impression was discussed with the patient. I attest to the documentation by the nurse practitioner. Time with Patient: Less than 30
[2018-05-15] MEDS: HYDROmorphone 2 MG TAB PO PRN ×2 (15:31→20:22)
[2018-05-15] MEDS: methylPREDNISolone SOD SUCCI 40 MG/ML 1 ML VIAL IV SCH (15:33)
[2018-05-15] MEDS ORDERED: clonazePAM 1 MG TAB PO PRN ×2 (20:59)
[2018-05-16] MEDS: methylPREDNISolone SOD SUCCI 40 MG/ML 1 ML VIAL IV SCH ×2 (00:11→09:17)
[2018-05-16] MEDS: HYDROmorphone 2 MG TAB PO PRN ×2 (01:28→09:44)
[2018-05-16] MEDS: SYMBICORT 160-4.5 MCG INHALER INHALATION SCH (07:20)
[2018-05-16] MEDS: IPRATROPIUM 0.5 MG/2.5 ML NEBU INHALATION SCH ×2 (07:21→11:37)
[2018-05-16 07:55] VITALS: RESP 16
[2018-05-16] MEDS: guaiFENesin 600 MG TABLET.ER PO SCH (09:12)
[2018-05-16] MEDS: LISINOPRIL 10 MG TAB PO SCH (09:12)
[2018-05-16] MEDS: METOPROLOL SUCCINATE (ER) 50 MG TAB.ER.24H PO SCH (09:12)
[2018-05-16] MEDS: TRIAMTERENE-HCTZ 37.5-25MG 1 EACH TAB PO SCH (09:12)
[2018-05-16] MEDS: PANTOPRAZOLE 40 MG TABLET PO SCH (09:12)
[2018-05-16] MEDS: GABAPENTIN 300 MG CAP PO SCH (09:12)
[2018-05-16] MEDS: LEVOFLOXACIN 250 MG TAB PO SCH (09:12)
[2018-05-16] MEDS: Omega-3 Fatty Acids/Fish Oil [Fish Oil 1,000 Mg Softgel] 1 CAP PO SCH (09:17)
--- NOTE | 2018-05-16 12:51 | P.PN ---
Subjective Progress Note Date: 05/16/18 Principal diagnosis: Acute exacerbation of chronic obstructive pulmonary disease with purulent tracheobronchitis related to influenza A infection Assessment 67-year-old female patient with the hospital on 05/10/2018, with complaints of shortness of breath, cough, and phlegm production. Patient was also febrile and was fatigued. Patient tested positive for influenza A, and was diagnosed with COPD exacerbation. On today's exam on 05/13/2016 patient seen in follow-up on medical surgical floor. She is resting in bed, in no acute distress, room air pulse ox is 95%, afebrile, hemodynamically stable. Patient is on combination of Tamiflu and Levaquin, nebulized bronchodilators, she cannot take any steroids related to adverse reaction to prednisone. On today's exam patient sounds a bit more wheezy. She has been afebrile. Denies any chills. On 05/14/2018 patient seen again in follow-up on medical surgical floor. She is awake and alert, in no acute distress, she has been having increased wheezing, and shortness of breath with breathing treatments and therefore patient has been refusing them, she requested that albuterol discontinued, we will switch her DuoNeb to Atrovent, she is not able to take any steroids related to adverse reaction to them. Home oxygen assessment showed O2 sat 91% on 2 L, patient does desat postexercise to 86 percent, does qualify for home oxygen. Blood culture has been negative, sputum culture showed few gram-positive bacilli, few gram- positive cocci, normal respiratory amber. No fever or chills. No new labs today, patient remains Symbicort, so far tolerating it well, she is on oral Levaquin, Mucinex, Tamiflu. On 05/15/2016 patient seen in follow-up on medical surgical floor. Awake and alert, still quite dyspneic and bronchospastic, very limited improvement, she is agreeable to trying some ice steroids, 40 mg every 8 hours in view of very slow improvements. Breathing treatments in the form of Atrovent, she is on Levaquin and she has completed Tamiflu. Room air pulse ox is 92%, patient is afebrile, blood and sputum cultures are negative. On 05/16/2018 she seen in follow-up medical surgical floor. Doing better today, breathing easier, and 2 L per nasal cannula, and her pulse ox is 91-92%, she has been afebrile, hemodynamically stable, blood and sputum cultures show no growth. Lung sounds reveal equal air entry with scattered wheezes. But overall less bronchospastic on today's exam. From pulmonary perspective patient is stable for discharge home today. Objective - Vital Signs Vital signs: Vital Signs Temp 97.6 F 05/16/18 07:00 Pulse 80 05/16/18 11:57 Resp 16 05/16/18 08:00 BP 115/67 05/16/18 07:00 Pulse Ox 91 L 05/16/18 07:00 Intake & Output 05/15/18 05/16/18 05/16/18 18:59 06:59 18:59 Intake Total 0 100 Balance 0 100 Intake: Oral 0 100 Other: # Voids 1 2 - Exam GENERAL EXAM: Alert, pleasant, 67-year-old white female comfortable in no apparent distress. HEAD: Normocephalic/atraumatic. EYES: Normal reaction of pupils, equal size. Conjunctiva pink, sclera white. NOSE: Clear with pink turbinates. THROAT: No erythema or exudates. NECK: No masses, no JVD, no thyroid enlargement, no adenopathy. CHEST: No chest wall deformity. Symmetrical expansion. LUNGS: Equal air entry with a few scattered wheezes CVS: Regular rate and rhythm, normal S1 and S2, no gallops, no murmurs, no rubs ABDOMEN: Soft, nontender. No hepatosplenomegaly, normal bowel sounds, no guarding or rigidity. EXTREMITIES: No clubbing, no edema, no cyanosis, 2+ pulses and upper and lower extremities. MUSCULOSKELETAL: Muscle strength and tone normal. SPINE: No scoliosis or deformity SKIN: No rashes CENTRAL NERVOUS SYSTEM: Alert and oriented -3. No focal deficits, tone is normal in all 4 extremities. PSYCHIATRIC: Alert and oriented -3. Appropriate affect. Intact judgment and insight. - Labs CBC & Chem 7: 05/13/18 09:15 05/13/18 09:15 Labs: Microbiology - Last 24 Hours (Table) 05/10/18 18:44 Blood Culture - Preliminary Blood No Growth after 120 hours Assessment and Plan Plan: Assessment: #1. Acute exacerbation of chronic obstructive pulmonary disease with purulent tracheobronchitis, and acute hypoxemic respiratory failure #2. Influenza A infection #3. Nicotine dependence, currently in remission #4. Hypertension #5. History of fibromyalgia #6. GERD/reflux #7. Peripheral neuropathy #8. History of CVA #9. Thyroid nodule Plan: Patient is improving, still has some residual wheezes, but overall less b ronchospastic and dyspneic, vital signs are stable, from pulmonary perspective patient could be considered for discharge home today. she can be discharged home on oral course of Levaquin, finished a course of Tamiflu and oral prednisone. We will follow on as-needed basis. I performed a history & physical examination of the patient and discussed their management with my nurse practitioner, Graciela Doty. I reviewed the nurse practitioner's note and agree with the documented findings and plan of care. Lung sounds are positive for some scattered wheezes throughout the lung tee. The findings and the impression was discussed with the patient. I attest to the documentation by the nurse practitioner. Time with Patient: Less than 30
[2018-05-16 14:45] VITALS: BP 129/80; PULSE 74; TEMP 98.2
--- NOTE | 2018-05-16 14:56 | P.DS ---
Providers Date of admission: 05/12/18 11:30 Expected date of discharge: 05/16/18 Attending physician: Eduard White MD Consults: 05/11/18 10:38 Consult Physician Routine Consulting Provider: Amy Winters Consult Reason/Comments: Influenza, COPD exacerbation Do you want consulting provider notified?: Yes Primary care physician: Sathya Leonardo [facility] Course: 67 year old female with PMH of COPD, hypertension, fibromyalgia presents the ED for cough, shortness of breath since Saturday. Patient reports cough for Dr. of green and white sputum associated with shortness of breath that has been ongoing for the past 5 days. Patient reports usually being able to walk 50-75 feet, but is currently unable to walk more than 5 feet. Patient also reports dyspnea when standing up and bending over. Of note, patient reports that her has been suffering from a constellation of symptoms that are similar to hers as well. Patient endorses a frontal headache this been ongoing for the past 2-3 days. Patient reports nausea but no vomiting. Patient also reports fevers with a measured temperature of 102 F along with chills. She denies any lower [place] swelling, chest pain, palpitations, changes in urination. No changes in appetite or weight. Patient denies any dizziness, numbness/weakness/tingling of the extremities. Patient does report 2 day history of diarrhea, green in color. She denies any blood or mucus in her stool. Of note, patient has quit smoking cigarettes over the past 2 months. Previously she was smoking 1-1/2 packs of cigarettes daily for the past 50 years. She denies any alcohol or illicit drug use. In the ED, CBC was unremarkable. Coagulation panel was negative. CMP showed a sodium of 136, chloride of 97 and bicarbonate of 31. Troponin was less than 0.012, EKG showing sinus bradycardia with PVCs. BNP was 226. Influenza A was positive. Chest x-ray was concerning for artifact versus pulmonary nodule. KUB was negative. Patient is admitted for COPD exacerbation and treatment of influenza. Her COPD exacerbation was likely secondary to influenza A infection. Patient was afebrile with no leukocytosis on admission. Chest x-ray was negative for pneumonia which is confirmed on repeat chest x-ray on day 2. Patient was initially started on albuterol nebulized treatments become including paradoxical shortness of breath. Pulmonology was consulted and recommended switching her nebulize treatments to Atrovent. Levofloxacin IV was transitioned to oral by pulmonology recommendations. Patient underwent 6 minute walk test prior to discharge and failed. Patient was started on Tamiflu for positive influenza. She was given Tessalon Perles and Robitussin for cough. Blood cultures were prelim negative and 96 hours at the time of discharge. Patient was seen and examined prior to discharge. No acute events overnight. Patient reports mild improvement in her breathing, greatly improved since admission. She continues to complain of shortness of breath with ambulation and cough productive of yellow sputum. General: [non toxic], [appears dyspneic], [appears at stated age] Derm: [warm], [dry] Head: [atraumatic], [normocephalic], [symmetric] Eyes: [EOMI], [no lid lag], [anicteric sclera] Mouth: [no lip lesion], [mucus membranes moist] Cardiovascular: [S1S2 reg], [no murmur], [positive DP pulse bilateral] Lungs: [Mild end expiratory wheezing bilateral with decreased breath sounds], [no rhonchi, no rales] , [no accessory muscle use] Abdominal: [soft], [ nontender to palpation], [no guarding], [no appreciable o rganomegaly] Ext: [no gross muscle atrophy], [no edema], [no contractures] Neuro: [no focal neuro deficits] Psych: [Alert], [oriented], [appropriate affect] Assessment and Plan 1. COPD exacerbation 2. Influenza A 3. Abnormal chest x-ray 4. Hypertension 5. Fibromyalgia 6. DVT and GI prophylaxis 1. Likely secondary to influenza A infection. Patient is afebrile with no leukocytosis. Chest x-ray is negative for pneumonia, confirmed on repeat. Discontinue albuterol neb as patient is complaining of side effects, start Atrovent neb as needed for shortness of breath or wheezing. No prednisone due to ALLERGY. Resume Symbicort. Levofloxacin changed to by mouth as per pulmonology recommendations. Will follow pulmonology recommendations. Failed 6 minute walk test today, will require home O2. 2. Influenza A positive. Continue Tamiflu. At Robitussin and continue Tessalon Perles for cough. Blood culture preliminary negative at 120 hours. Sputum culture prelim negative. Follow blood culture. 3. Possible nodule seen on chest x-ray. Recommend computed tomography scan, can be done outpatient. 4. BP 129/80. Continue triamterene/hydrochlorothiazide, metoprolol and lisinopril. Monitor vitals, adjust medications as necessary. 5. Continue gabapentin. Tylenol, [place], Dilaudid as needed for pain management. 6. SCD boots. Protonix. Patient admitted for COPD exacerbation and influenza A infection. Failed 6 minute walk test, home O2 to be ordered. Patient is cleared by pulmonology for discharge. Pertinent Studies: Chest x-ray, KUB Patient Condition at Discharge: Stable Plan - Discharge Summary Discharge Rx Participant: No New Discharge Prescriptions: New RX: Levofloxacin [Levaquin] 250 mg PO Q24H #3 tab HYDROcodone/APAP 10-325MG [[place] 10-325] 1 tab PO Q4HR PRN 3 Days #18 tab PRN Reason: Severe Pain RX: predniSONE 50 mg PO DAILY #4 tab RX: Budesonide-Formot 160-4.5 Mcg [Symbicort 160-4.5 Mcg Inhaler] 2 puff INHALATION RT-BID #1 inhaler Continue RX: traMADol HCL [Ultram] 50 - 100 mg PO Q8H PRN PRN Reason: Pain RX: clonazePAM [KlonoPIN] 6 mg PO HS PRN PRN Reason: Anxiety RX: clonazePAM [KlonoPIN] 4 mg PO DAILY PRN PRN Reason: Anxiety RX: Triamterene/Hydrochlorothiazid [Triamterene-Hctz 37.5-25 mg Tb] 1 tab PO DAILY RX: Omeprazole 80 mg PO DAILY RX: Delta-3 Fatty Acids/Fish Oil [Fish Oil 1,000 mg Softgel] 1 cap PO BID RX: Metoprolol Succinate [Toprol XL] 50 mg PO DAILY RX: Lisinopril [Zestril] 10 mg PO DAILY RX: Gabapentin [Neurontin] 300 mg PO TID RX: Cholecalciferol [Vitamin D3] 2,000 unit PO DAILY RX: Acetaminophen [Tylenol] 1,000 mg PO Q4-6H PRN PRN Reason: Pain Or Fever > 100.5 RX: Budesonide/Formoterol Fumarate [Symbicort 160-4.5 Mcg Inhaler] 2 puff INHALATION RT-BID RX: Albuterol Sulfate [Proair Hfa] 2 puff INHALATION RT-Q6H PRN #1 hfa.aer.ad PRN Reason: Shortness Of Breath Discharge Medication List RX: Acetaminophen [Tylenol] 1,000 mg PO Q4-6H PRN 10/28/17 [History] RX: Budesonide/Formoterol Fumarate [Symbicort 160-4.5 Mcg Inhaler] 2 puff INHALATION RT-BID 10/28/17 [History] RX: Cholecalciferol [Vitamin D3] 2,000 unit PO DAILY 10/28/17 [History] RX: Gabapentin [Neurontin] 300 mg PO TID 10/28/17 [History] RX: Lisinopril [Zestril] 10 mg PO DAILY 10/28/17 [History] RX: Metoprolol Succinate [Toprol XL] 50 mg PO DAILY 10/28/17 [History] RX: Delta-3 Fatty Acids/Fish Oil [Fish Oil 1,000 mg Softgel] 1 cap PO BID 10/28/17 [History] RX: Omeprazole 80 mg PO DAILY 10/28/17 [History] RX: Triamterene/Hydrochlorothiazid [Triamterene-Hctz 37.5-25 mg Tb] 1 tab PO DAILY 10/28/17 [History] RX: clonazePAM [KlonoPIN] 4 mg PO DAILY PRN 10/28/17 [History] RX: clonazePAM [KlonoPIN] 6 mg PO HS PRN 10/28/17 [History] RX: traMADol HCL [Ultram] 50 - 100 mg PO Q8H PRN 10/28/17 [History] HYDROcodone/APAP 10-325MG [[place] 10-325] 1 tab PO Q4HR PRN 3 Days #18 tab 05/16/18 [Rx] RX: Albuterol Sulfate [Proair Hfa] 2 puff INHALATION RT-Q6H PRN #1 hfa.aer.ad 05/16/18 [Rx] RX: Budesonide-Formot 160-4.5 Mcg [Symbicort 160-4.5 Mcg Inhaler] 2 puff INHALATION RT-BID #1 inhaler 05/16/18 [Rx] RX: Levofloxacin [Levaquin] 250 mg PO Q24H #3 tab 05/16/18 [Rx] RX: predniSONE 50 mg PO DAILY #4 tab 05/16/18 [Rx] Follow up Appointment(s)/Referral(s): [facility] [NON-STAFF] - As Needed (oxygen) [facility], [NON-STAFF] - 1 Week Sathya Hartley MD [Primary Care Provider] - 1-2 days Erik Rahman DO [Doctor of Osteopathic Medicine] - 1 Week Activity/Diet/Wound Care/Special Instructions: Diet: Low-salt Follow-up with PCP within 1-2 days of discharge. Follow-up pulmonology with the appointment given to you. Take all medications as advised. Discharge Disposition: HOME SELF-CARE
== END 2018-05-16 16:53 | disposition home health service (06) | DRG 193 ==
LOC: EC 14:48 → 4SSUR 17:44 → OBSVTOIN 05-12 11:30
PROVIDERS: ADMIT Internal Medicine Geriatric Medicine; ATTEND Internal Medicine Geriatric Medicine
DX: J10.1 Influenza due to other identified influenza virus with other respiratory manifestations (principal); J96.01 Acute respiratory failure with hypoxia; J44.1 Chronic obstructive pulmonary disease with (acute) exacerbation; J44.0 Chronic obstructive pulmonary disease with (acute) lower respiratory infection; G62.9 Polyneuropathy, unspecified; J20.9 Acute bronchitis, unspecified; K21.9 Gastro-esophageal reflux disease without esophagitis; I10 Essential (primary) hypertension; M79.7 Fibromyalgia; F32.9 Major depressive disorder, single episode, unspecified; F41.9 Anxiety disorder, unspecified; I49.3 Ventricular premature depolarization; E04.1 Nontoxic single thyroid nodule; E55.9 Vitamin D deficiency, unspecified; F17.211 Nicotine dependence, cigarettes, in remission; Z79.51 Long term (current) use of inhaled steroids; Z79.899 Other long term (current) drug therapy; Z90.49 Acquired absence of other specified parts of digestive tract; Z90.711 Acquired absence of uterus with remaining cervical stump; Z86.73 Personal history of transient ischemic attack (TIA), and cerebral infarction without residual deficits; Z87.11 Personal history of peptic ulcer disease; Z99.89 Dependence on other enabling machines and devices; Z88.8 Allergy status to other drugs, medicaments and biological substances; Z91.041 Radiographic dye allergy status; Z91.013 Allergy to seafood
CPT/HCPCS: 36415; 71046; 74018; 80048; 80053; 83880; 84484; 85025; 85610; 85730; 87040; 87070; 87205; 87502; 93005; 94640; 94760; 96374; 99285

== ENCOUNTER 2018-07-25 11:00 | Emergency (ER) | payer MEDICARE, BC ==
[2018-07-25 11:06] VITALS: TEMP 98.1
[2018-07-25] MEDS ORDERED: SODIUM CHLORIDE 0.9% 1,000 ML IV STA (11:11)
[2018-07-25] MEDS ORDERED: MORPHINE SULFATE 4 MG/ML SYRINGE IV STA (11:11)
--- NOTE | 2018-07-25 11:11 | ED ---
Abdominal Pain HPI - General Chief Complaint: Abdominal Pain Stated Complaint: Abd/pelvis pain Time Seen by Provider: 07/25/18 11:10 Source: patient, RN notes reviewed, old records reviewed Mode of arrival: ambulatory Limitations: no limitations - History of Present Illness Initial Comments: This is a 60-year-old female the ER for evaluation. She presents today for evaluation of bowel pain nonspecific and generalized abdominal pain mild nausea no vomiting no diarrhea. Patient has no fevers. Symptoms on and off for quite some time. Without recent travel history. Patient does follow up with GI for multiple different bowel issues. She has had gallbladder removed without difficulty. No prior history of obstruction. MD Complaint: abdominal pain -: days(s) Location: diffuse, periumbilical, epigastric Radiation: epigastric, suprapubic Migration to: epigastric, suprapubic Severity: moderate Severity scale (1-10): 4 Quality: cramping, aching Consistency: constant Improves With: nothing Worsens With: nothing Associated Symptoms: nausea - Related Data Home Medications Medication Instructions Recorded Confirmed Acetaminophen [Tylenol] 1,000 mg PO Q4-6H PRN 10/28/17 05/10/18 Budesonide/Formoterol Fumarate 2 puff INHALATION RT-BID 10/28/17 05/10/18 [Symbicort 160-4.5 Mcg Inhaler] Cholecalciferol [Vitamin D3 (25 2,000 unit PO DAILY 10/28/17 05/10/18 Mcg = 1000 Iu)] Gabapentin [Neurontin] 300 mg PO TID 10/28/17 05/10/18 Lisinopril [Zestril] 10 mg PO DAILY 10/28/17 05/10/18 Metoprolol Succinate [Toprol XL] 50 mg PO DAILY 10/28/17 05/10/18 [place]-3 Fatty Acids/Fish Oil [Fish 1 cap PO BID 10/28/17 05/10/18 Oil 1,000 mg Softgel] Omeprazole 80 mg PO DAILY 10/28/17 05/10/18 Triamterene/Hydrochlorothiazid 1 tab PO DAILY 10/28/17 05/10/18 [Triamterene-Hctz 37.5-25 mg Tb] clonazePAM [KlonoPIN] 4 mg PO DAILY PRN 10/28/17 05/10/18 clonazePAM [KlonoPIN] 6 mg PO HS PRN 10/28/17 05/10/18 traMADol HCL [Ultram] 50 - 100 mg PO Q8H PRN 10/28/17 05/10/18 Previous Rx's Medication Instructions Recorded Albuterol Sulfate [Proair Hfa] 2 puff INHALATION RT-Q6H PRN #1 05/16/18 hfa.aer.ad Budesonide-Formot 160-4.5 Mcg 2 puff INHALATION RT-BID #1 inhaler 05/16/18 [Symbicort 160-4.5 Mcg Inhaler] HYDROcodone/APAP 10-325MG [[place] 1 tab PO Q4HR PRN 3 Days #18 tab 05/16/18 10-325] Levofloxacin [Levaquin] 250 mg PO Q24H #3 tab 05/16/18 predniSONE 50 mg PO DAILY #4 tab 05/16/18 Dicyclomine [Bentyl] 20 mg PO QID #28 tablet 07/25/18 Erythromycin [Bakari-Tab] 500 mg PO Q6HR #28 tablet 07/25/18 Metoclopramide [Reglan] 10 mg PO TID PRN #15 tab 07/25/18 Allergies Allergy/AdvReac Type Severity Reaction Status Date / Time famotidine [From Pepcid] Allergy Unknown Verified 07/25/18 11:06 Iodinated Contrast- Oral and Allergy Rash/Hives Verified 07/25/18 11:06 IV Dye prednisone Allergy Hallucinati Verified 07/25/18 11:06 ons shellfish derived [Shrimp] Allergy Rash/Hives Verified 07/25/18 11:06 Review of Systems ROS Statement: Those systems with pertinent positive or pertinent negative responses have been documented in the HPI. ROS Other: All systems not noted in ROS Statement are negative. Past Medical History Past Medical History: COPD, Fibromyalgia, GERD/Reflux, Hypertension Additional Past Medical History / Comment(s): bursitis, peripheral neuropathy, acute ischemic brain disease, "node on thyroid", severe mood disorder History of Any Multi-Drug Resistant Organisms: None Reported Past Surgical History: Section, Cholecystectomy, Hernia Repair, Hysterectomy Additional Past Surgical History / Comment(s): partial hysterectomy, d&c Past Anesthesia/Blood Transfusion Reactions: No Reported Reaction Past Psychological History: Anxiety, Depression Smoking Status: Former smoker Past Alcohol Use History: None Reported Past Drug Use History: None Reported General Exam Limitations: no limitations General appearance: alert, in no apparent distress Head exam: Present: atraumatic, normocephalic, normal inspection Eye exam: Present: normal appearance, PERRL, EOMI. Absent: scleral icterus, conjunctival injection, periorbital swelling ENT exam: Present: normal exam, mucous membranes moist Neck exam: Present: normal inspection. Absent: tenderness, meningismus, lymphadenopathy Respiratory exam: Present: normal lung sounds bilaterally. Absent: respiratory distress, wheezes, rales, rhonchi, stridor Cardiovascular Exam: Present: regular rate, normal rhythm, normal heart sounds. Absent: systolic murmur, diastolic murmur, rubs, gallop, clicks GI/Abdominal exam: Present: soft, normal bowel sounds. Absent: distended, tenderness, guarding, rebound, rigid Extremities exam: Present: normal inspection, full ROM, normal capillary refill. Absent: tenderness, pedal edema, joint swelling, calf tenderness Back exam: Present: normal inspection Neurological exam: Present: alert, oriented X3, CN II-XII intact Psychiatric exam: Present: normal affect, normal mood Skin exam: Present: warm, dry, intact, normal color. Absent: rash Course Vital Signs 07/25/18 11:04 Temperature 98.1 F Pulse Rate 75 Respiratory 18 Rate Blood Pressure 168/96 O2 Sat by Pulse 99 Oximetry - Reevaluation(s) Reevaluation #1: 07/25/18 13:41 Medical records reviewed Medical Decision Making - Medical Decision Making 60 female the ER for evaluation. Patient has abdominal pain. CT is negative for acute disease mild enteritis. We'll treat appropriately and follow-up with GI as she has scheduled - Lab Data Result diagrams: 07/25/18 11:34 07/25/18 11:34 Lab Results 07/25/18 07/25/18 07/25/18 Range/Units 11:34 11:34 11:34 WBC 7.0 (3.8-10.6) k/uL RBC 4.86 (3.80-5.40) m/uL Hgb 15.2 (11.4-16.0) gm/dL Hct 46.6 H (34.0-46.0) % MCV 95.8 (80.0-100.0) fL MCH 31.3 (25.0-35.0) pg MCHC 32.7 (31.0-37.0) g/dL RDW 14.1 (11.5-15.5) % Plt Count 259 (150-450) k/uL Neutrophils % 62 % Lymphocytes % 28 % Monocytes % 6 % Eosinophils % 1 % Basophils % 1 % Neutrophils # 4.4 (1.3-7.7) k/uL Lymphocytes # 2.0 (1.0-4.8) k/uL Monocytes # 0.4 (0-1.0) k/uL Eosinophils # 0.1 (0-0.7) k/uL Basophils # 0.1 (0-0.2) k/uL Sodium 139 (137-145) mmol/L Potassium 4.4 (3.5-5.1) mmol/L Chloride 102 (98-107) mmol/L Carbon Dioxide 28 (22-30) mmol/L Anion Gap 9 mmol/L BUN 26 H (7-17) mg/dL Creatinine 1.16 H (0.52-1.04) mg/dL Est GFR (CKD-EPI)AfAm 56 (>60 ml/min/1.73 sqM) Est GFR (CKD-EPI)NonAf 49 (>60 ml/min/1.73 sqM) Glucose 113 H (74-99) mg/dL Plasma Lactic Acid Devin 1.3 (0.7-2.0) mmol/L Calcium 10.9 H (8.4-10.2) mg/dL Total Bilirubin 0.4 (0.2-1.3) mg/dL AST 26 (14-36) U/L ALT 27 (9-52) U/L Alkaline Phosphatase 71 (38-126) U/L Total Protein 7.8 (6.3-8.2) g/dL Albumin 4.6 (3.5-5.0) g/dL Amylase 68 (30-110) U/L Lipase 76 (23-300) U/L Urine Color Urine Appearance (Clear) Urine pH (5.0-8.0) Ur Specific [place] (1.001-1.035) Urine Protein (Negative) Urine Glucose (UA) (Negative) Urine Ketones (Negative) Urine Blood (Negative) Urine Nitrite (Negative) Urine Bilirubin (Negative) Urine Urobilinogen (<2.0) mg/dL Ur Leukocyte Esterase (Negative) 05/24/19 Range/Units 13:09 WBC (3.8-10.6) k/uL RBC (3.80-5.40) m/uL Hgb (11.4-16.0) gm/dL Hct (34.0-46.0) % MCV (80.0-100.0) fL MCH (25.0-35.0) pg MCHC (31.0-37.0) g/dL RDW (11.5-15.5) % Plt Count (150-450) k/uL Neutrophils % % Lymphocytes % % Monocytes % % Eosinophils % % Basophils % % Neutrophils # (1.3-7.7) k/uL Lymphocytes # (1.0-4.8) k/uL Monocytes # (0-1.0) k/uL Eosinophils # (0-0.7) k/uL Basophils # (0-0.2) k/uL Sodium (137-145) mmol/L Potassium (3.5-5.1) mmol/L Chloride (98-107) mmol/L Carbon Dioxide (22-30) mmol/L Anion Gap mmol/L BUN (7-17) mg/dL Creatinine (0.52-1.04) mg/dL Est GFR (CKD-EPI)AfAm (>60 ml/min/1.73 sqM) Est GFR (CKD-EPI)NonAf (>60 ml/min/1.73 sqM) Glucose (74-99) mg/dL Plasma Lactic Acid Devin (0.7-2.0) mmol/L Calcium (8.4-10.2) mg/dL Total Bilirubin (0.2-1.3) mg/dL AST (14-36) U/L ALT (9-52) U/L Alkaline Phosphatase (38-126) U/L Total Protein (6.3-8.2) g/dL Albumin (3.5-5.0) g/dL Amylase (30-110) U/L Lipase (23-300) U/L Urine Color Light Yellow Urine Appearance Clear (Clear) Urine pH 5.5 (5.0-8.0) Ur Specific [place] 1.019 (1.001-1.035) Urine Protein Negative (Negative) Urine Glucose (UA) Negative (Negative) Urine Ketones Negative (Negative) Urine Blood Negative (Negative) Urine Nitrite Negative (Negative) Urine Bilirubin Negative (Negative) Urine Urobilinogen <2.0 (<2.0) mg/dL Ur Leukocyte Esterase Negative (Negative) - Radiology Data Radiology results: report reviewed (CT of abdomen and pelvis is negative for acute disease positive for Enteritis mild), image reviewed Disposition Clinical Impression: Enteritis Disposition: HOME SELF-CARE Condition: Good Instructions (If sedation given, give patient instructions): Enteritis (ED) Prescriptions: Dicyclomine [Bentyl] 20 mg PO QID #28 tablet Erythromycin [Bakari-Tab] 500 mg PO Q6HR #28 tablet Metoclopramide [Reglan] 10 mg PO TID PRN #15 tab PRN Reason: nausea/vomiting Is patient prescribed a controlled substance at d/c from ED?: No Referrals: Sathya Hartley MD [Primary Care Provider] - 1-2 days
[2018-07-25] MEDS ORDERED: diphenhydrAMINE 50 MG/ML 1 ML VIAL IVP STA (11:36)
[2018-07-25] MEDS ORDERED: HYDROmorphone 1 MG/ML 1 ML SYRINGE IVP STA (11:52)
[2018-07-25 12:12] LABS: Albumin 4.6 g/dL (3.5-5.0); Calcium 10.9 mg/dL (8.4-10.2); Potassium 4.4 mmol/L (3.5-5.1); Total Bilirubin 0.4 mg/dL (0.2-1.3); Total Protein 7.8 g/dL (6.3-8.2)
[2018-07-25 12:22] LABS: Basophils # (A) 0.1 k/uL (0-0.2); Basophils % (A) 1 %; Eosinophils # (A) 0.1 k/uL (0-0.7); Eosinophils % (A) 1 %; HCT 46.6 % (34.0-46.0); HGB 15.2 gm/dL (11.4-16.0); Lymphocytes % (A) 28 %; MCH 31.3 pg (25.0-35.0); MCHC 32.7 g/dL (31.0-37.0); MCV 95.8 fL (80.0-100.0); Mean Platelet Volume 7.6; Monocytes # (A) 0.4 k/uL (0-1.0); Monocytes % (A) 6 %; Neutrophils # (A) 4.4 k/uL (1.3-7.7); Neutrophils % (A) 62 %; Platelet Count 259 k/uL (150-450); RBC 4.86 m/uL (3.80-5.40); RDW 14.1 % (11.5-15.5)
--- NOTE | 2018-07-25 13:06 | CT ---
EXAMINATION TYPE: CT abdomen pelvis w con DATE OF EXAM: 07/25/2018 COMPARISON: None HISTORY: Generalized abdominal pain, bloating, polyuria. CT DLP: 1191.6 mGycm CONTRAST: CT scan of the abdomen and pelvis is performed without Oral Contrast and with IV Contrast, patient in jected with 80 mL of Isovue 300. FINDINGS: LUNG BASES-: No visible nodule. No infiltrate. LIVER/GB: Mild hepatomegaly. Cholecystectomy changes. Mild fatty liver. No space occupying hepatic lesion. Biliary tree is of normal caliber. PANCREAS: No inflammation. No distinct mass. SPLEEN: No splenic enlargement. No lesion seen. ADRENALS: Nonspecific left adrenal nodule measures 1.7 cm and may reflect adenoma. KIDNEYS/BLADDER: No hydronephrosis. No nephrolithiasis. No distinct renal mass. Urinary bladder g rossly unremarkable. BOWEL: Normal appendix. Mild wall thickening and distention of the jejunal loops may reflect enteriti s. No evidence for free air or abscess. Sigmoid diverticulosis without diverticulitis. GENITAL ORGANS: No gross abnormality. LYMPH NODES: No greater than 1cm abdominal or pelvic lymph nodes are appreciated. AORTA: No significant abnormality. OSSEOUS STRUCTURES: No significant abnormality is seen. OTHER: No significant additional abnormality is seen. IMPRESSION: 1. Correlate for jejunal enteritis. 2. Hepatomegaly with mild hepatic steatosis. 3. Probable left adrenal adenoma.
[2018-07-25 13:18] LABS: Appearance,Urine Clear (Clear); Bilirubin,Urine Negative (Negative); Blood,Urine Negative (Negative); Color,Urine Light Yellow; Glucose,Urine (UA) Negative (Negative); Ketones,Urine Negative (Negative); Leukocyte Esterase,Urine Negative (Negative); Nitrite,Urine Negative (Negative); PH, Urine 5.5 (5.0-8.0); Protein,Urine Negative (Negative); Specific Gravity,Urine 1.019 (1.001-1.035); Urobilinogen,Urine <2.0 mg/dL (<2.0)
[2018-07-25] MEDS ORDERED: Acetaminophen-Codeine 300-30mg TAB PO STA (13:32)
[2018-07-25] MEDS ORDERED: METOCLOPRAMIDE 5 MG/ML 2 ML VIAL IVP STA (13:32)
[2018-07-25] MEDS ORDERED: ACET/COD 300 MG/30 MG STARTER PACK 6 TAB BTL PO STA (13:32)
[2018-07-25 14:23] VITALS: BP 146/88; PULSE 59; RESP 15
== END 2018-07-25 14:22 | disposition home or self-care (01) ==
LOC: EC 11:00
DX: K52.9 Noninfective gastroenteritis and colitis, unspecified (principal); J44.9 Chronic obstructive pulmonary disease, unspecified; K21.9 Gastro-esophageal reflux disease without esophagitis; I10 Essential (primary) hypertension; G62.9 Polyneuropathy, unspecified; F32.9 Major depressive disorder, single episode, unspecified; F41.9 Anxiety disorder, unspecified; Z87.891 Personal history of nicotine dependence; Z79.51 Long term (current) use of inhaled steroids; Z79.899 Other long term (current) drug therapy; Z91.013 Allergy to seafood; Z88.8 Allergy status to other drugs, medicaments and biological substances; Z91.041 Radiographic dye allergy status; Z90.49 Acquired absence of other specified parts of digestive tract; Z53.29 Procedure and treatment not carried out because of patient's decision for other reasons
CPT/HCPCS: 36415; 80053; 82150; 83605; 83690; 85025; 81003; 87086; 74177; 99285; 96374; 96375 ×2; 96361 ×2; J1200; J2765; J1170; Q9967

== ENCOUNTER → 2018-07-29 | Outpatient (CLI) | payer MEDICARE, BC ==
--- NOTE | 2018-07-29 10:03 | NM ---
EXAMINATION TYPE: NM gastric emptying study DATE OF EXAM: 07/29/2018 COMPARISON: NONE HISTORY: Abdominal bloating Following administration of 1.9 mCi Tc 99m Sulfur Colloid with 1 cup of oatmeal projection images of the abdomen were obtained 10 minutes post ingestion. When possible, both anterior and posterior proje ction images were obtained to allow the calculation of the geometric mean activity. Clearance: 93 % Half-life: 29 min Gastroesophagel reflux: None IMPRESSION: Gastric emptying: Abnormally fast gastric emptying. Gastroesophageal reflux: None Gastric emptying normal percentage values: 30 minutes: <70% of retention (> 30% emptying) suggests abnormally fast emptying. 60 minutes: <90% retention (>10% emptying) is normal; less than 30% retention (>70% emptying) suggest s abnormally rapid emptying. 90 minutes: <65% retention (> 35% emptying) is normal. 120 minutes: <60% retention (> 40% emptying) is normal. 180 minutes: <30% retention (> 70% emptying) is normal. Gastric emptying T-1/2: Solid: The normal range is 60-105 minutes Liquid only: Normal range is 10-45 minutes. Liquid only-children: At 60 minutes, normal range is 44-58 % . Liquid only-infants: At 60 minutes, normal range is 32-64 %. Additional references: Gastric Emptying Scintigraphy [email or web address]://[email or web address]
== END ==
LOC: RADNMMAIN 07:07
PROVIDERS: ATTEND Internal Medicine Gastroenterology
DX: K31.89 Other diseases of stomach and duodenum (principal); R10.13 Epigastric pain; R14.0 Abdominal distension (gaseous)
CPT/HCPCS: 78264; A9541

== ENCOUNTER → 2018-08-08 | Outpatient (CLI) | payer MEDICARE, BC ==
[2018-08-08 12:46] LABS: Basophils # (A) 0.1 k/uL (0-0.2); Basophils % (A) 1 %; Eosinophils # (A) 0.2 k/uL (0-0.7); Eosinophils % (A) 3 %; HCT 42.6 % (34.0-46.0); HGB 13.5 gm/dL (11.4-16.0); Lymphocytes # (A) 1.7 k/uL (1.0-4.8); Lymphocytes % (A) 26 %; MCHC 31.7 g/dL (31.0-37.0); MCV 97.6 fL (80.0-100.0); Mean Platelet Volume 7.5; Monocytes # (A) 0.4 k/uL (0-1.0); Monocytes % (A) 7 %; Neutrophils # (A) 3.9 k/uL (1.3-7.7); Neutrophils % (A) 62 %; Platelet Count 252 k/uL (150-450); RBC 4.37 m/uL (3.80-5.40); RDW 14.6 % (11.5-15.5); WBC 6.4 k/uL (3.8-10.6)
[2018-08-08 19:05] LABS: ALT 27 U/L (8-44); AST 20 U/L (13-35); Albumin/Globulin Ratio 1.86 (1.60-3.17); Alkaline Phosphatase 67 U/L (41-126); Calcium 9.3 mg/dL (8.7-10.3); Carbon Dioxide 29.3 mmol/L (21.6-31.8); Chloride 102 mmol/L (96-109); Cholesterol 221 mg/dL (0-200); Globulin 2.2 g/dL (1.6-3.3); Glucose 99 mg/dL (70-110); Potassium 4.1 mmol/L (3.5-5.5); Sodium 139 mmol/L (135-145); Total Bilirubin 0.2 mg/dL (0.2-1.2); Total Protein 6.3 g/dL (6.2-8.2)
[2018-08-08 21:33] LABS: Hemoglobin A1C 5.8 % (4.0-6.0)
== END | disposition home or self-care (01) ==
LOC: LABWHC1 11:58
PROVIDERS: ATTEND Nurse Practitioner Primary Care
DX: E78.5 Hyperlipidemia, unspecified (principal); D75.89 Other specified diseases of blood and blood-forming organs; R73.9 Hyperglycemia, unspecified; Z79.891 Long term (current) use of opiate analgesic
CPT/HCPCS: 36415; 80053; 80061; 83036; 83721; 85025

== ENCOUNTER → 2018-10-21 | Outpatient (CLI) | payer MEDICARE, BC ==
[2018-10-23 12:19] LABS: Metanephrines 24 Hour,Urine 126 ug/day (52-341); Normetanephrine 24 Hour,Urine 563 ug/day (88-444); Total Metanephrines 24 Hour,Ur 689 ug/day (140-785); Urine Creatinine, 24 Hr 1.2 gm/24h (0.8-1.8)
[2018-10-23 14:49] LABS: Free Cortisol 24 Hour,Urine 23.1 ug/day (<45.0)
== END | disposition home or self-care (01) ==
LOC: LABWHC1 10:38
PROVIDERS: ATTEND Pediatrics Adolescent Medicine
DX: E27.9 Disorder of adrenal gland, unspecified (principal)
CPT/HCPCS: 82530; 83835

== ENCOUNTER 2019-02-12 16:58 | Emergency (ER) | payer MEDICARE, BC ==
--- NOTE | 2019-02-12 17:35 | ED ---
Abdominal Pain HPI - General Chief Complaint: Abdominal Pain Stated Complaint: Abd pain Time Seen by Provider: 02/12/19 17:22 Source: patient, RN notes reviewed, old records reviewed Mode of arrival: ambulatory Limitations: no limitations - History of Present Illness Initial Comments: This is a 60-year-old female here for evaluation. Pain severe anterior bowel pain distended abdomen with persistent nausea vomiting and diarrhea. Patient has history of gallbladder surgery multiple colonoscopies and endoscopies with no findings of causes of abdominal pain. Denying fevers but feels very bloated having increased diarrhea. No recent hospitalizations or recent travel history or sick contacts. MD Complaint: abdominal pain -: days(s) Location: diffuse, epigastric, suprapubic Radiation: epigastric, suprapubic Migration to: no migration Severity: moderate, severe Severity scale (1-10): 10 Quality: cramping, stabbing, aching Consistency: intermittent Improves With: nothing Worsens With: nothing Associated Symptoms: nausea, vomiting, fever - Related Data Home Medications Medication Instructions Recorded Confirmed Acetaminophen [Tylenol] 1,000 mg PO Q4-6H PRN 10/28/17 02/12/19 Budesonide/Formoterol Fumarate 2 puff INHALATION RT-BID 10/28/17 02/12/19 [Symbicort 160-4.5 Mcg Inhaler] Cholecalciferol [Vitamin D3 (25 2,000 unit PO DAILY 10/28/17 02/12/19 Mcg = 1000 Iu)] Lisinopril [Zestril] 10 mg PO DAILY 10/28/17 02/12/19 Triamterene/Hydrochlorothiazid 1 tab PO DAILY 10/28/17 02/12/19 [Triamterene-Hctz 37.5-25 mg Tb] clonazePAM [KlonoPIN] 4 mg PO DAILY PRN 10/28/17 02/12/19 clonazePAM [KlonoPIN] 6 mg PO HS PRN 10/28/17 02/12/19 traMADol HCL [Ultram] 50 - 100 mg PO Q8H PRN 10/28/17 02/12/19 Butalb/Acetaminophen/Caffeine 1 cap PO Q8H PRN 02/12/19 02/12/19 [Esgic 50-325-40 Capsule] Verapamil HCl [Verapamil ER] 120 mg PO DAILY 02/12/19 02/12/19 Previous Rx's Medication Instructions Recorded Albuterol Sulfate [Proair Hfa] 2 puff INHALATION RT-Q6H PRN #1 05/16/18 [email or web address] Allergies Allergy/AdvReac Type Severity Reaction Status Date / Time famotidine [From Pepcid] Allergy Unknown Verified 02/12/19 21:20 Iodinated Contrast Media Allergy Rash/Hives Verified 02/12/19 21:20 [Iodinated Contrast- Oral and IV Dye] prednisone Allergy Hallucinati Verified 02/12/19 21:20 ons shellfish derived [Shrimp] Allergy Rash/Hives Verified 02/12/19 21:20 Review of Systems ROS Statement: Those systems with pertinent positive or pertinent negative responses have been documented in the HPI. ROS Other: All systems not noted in ROS Statement are negative. Past Medical History Past Medical History: COPD, Fibromyalgia, GERD/Reflux, Hypertension Additional Past Medical History / Comment(s): bursitis, peripheral neuropathy, acute ischemic brain disease, "node on thyroid", severe mood disorder History of Any Multi-Drug Resistant Organisms: None Reported Past Surgical History: Section, Cholecystectomy, Hernia Repair, Hysterectomy Additional Past Surgical History / Comment(s): partial hysterectomy, d&c Past Anesthesia/Blood Transfusion Reactions: No Reported Reaction Past Psychological History: Anxiety, Depression Smoking Status: Former smoker Past Alcohol Use History: None Reported Past Drug Use History: None Reported General Exam Limitations: no limitations General appearance: alert, in no apparent distress, anxious Head exam: Present: atraumatic, normocephalic, normal inspection Eye exam: Present: normal appearance, PERRL, EOMI. Absent: scleral icterus, conjunctival injection, periorbital swelling ENT exam: Present: normal exam, mucous membranes moist Neck exam: Present: normal inspection. Absent: tenderness, meningismus, lymphadenopathy Respiratory exam: Present: normal lung sounds bilaterally. Absent: respiratory distress, wheezes, rales, rhonchi, stridor Cardiovascular Exam: Present: regular rate, normal rhythm, normal heart sounds. Absent: systolic murmur, diastolic murmur, rubs, gallop, clicks GI/Abdominal exam: Present: soft, distended, tenderness, guarding, normal bowel sounds. Absent: rebound, rigid Extremities exam: Present: normal inspection, full ROM, normal capillary refill. Absent: tenderness, pedal edema, joint swelling, calf tenderness Back exam: Present: normal inspection Neurological exam: Present: alert, oriented X3, CN II-XII intact Psychiatric exam: Present: normal affect, normal mood Skin exam: Present: warm, dry, intact, normal color. Absent: rash Course Vital Signs 02/12/19 02/12/19 02/12/19 17:06 18:04 19:21 Temperature 97.3 F L 98.3 F Pulse Rate 87 80 84 Respiratory 20 14 14 Rate Blood Pressure 173/103 139/76 116/56 O2 Sat by Pulse 96 99 97 Oximetry 02/12/19 02/12/19 20:10 21:21 Temperature Pulse Rate 80 86 Respiratory 26 H 22 Rate Blood Pressure 145/68 150/86 O2 Sat by Pulse 98 98 Oximetry - Reevaluation(s) Reevaluation #1: 02/12/19 18:45 Record is reviewed Reevaluation #2: 02/12/19 18:45 Patient having improved pain control Reevaluation #3: 02/12/19 22:19 Patient has uncontrollable bowel pain with intractable nausea and vomiting Medical Decision Making - Medical Decision Making 60 female with intractable bowel projectile nausea or vomiting. Uncontrolled all pain here in the ER, we will admit for continued pain control - Lab Data Result diagrams: 02/12/19 17:39 02/12/19 17:39 Lab Results 02/12/19 02/12/19 02/12/19 Range/Units 17:39 17:39 17:39 WBC 11.9 H (3.8-10.6) k/uL RBC 4.80 (3.80-5.40) m/uL Hgb 15.5 (11.4-16.0) gm/dL Hct 46.9 H (34.0-46.0) % MCV 97.8 (80.0-100.0) fL MCH 32.4 (25.0-35.0) pg MCHC 33.1 (31.0-37.0) g/dL RDW 13.0 (11.5-15.5) % Plt Count 277 (150-450) k/uL Neutrophils % 69 % Lymphocytes % 22 % Monocytes % 5 % Eosinophils % 1 % Basophils % 1 % Neutrophils # 8.2 H (1.3-7.7) k/uL Lymphocytes # 2.7 (1.0-4.8) k/uL Monocytes # 0.6 (0-1.0) k/uL Eosinophils # 0.2 (0-0.7) k/uL Basophils # 0.1 (0-0.2) k/uL Sodium 136 L (137-145) mmol/L Potassium 3.8 (3.5-5.1) mmol/L Chloride 100 (98-107) mmol/L Carbon Dioxide 25 (22-30) mmol/L Anion Gap 11 mmol/L BUN 25 H (7-17) mg/dL Creatinine 1.17 H (0.52-1.04) mg/dL Est GFR (CKD-EPI)AfAm 55 (>60 ml/min/1.73 sqM) Est GFR (CKD-EPI)NonAf 48 (>60 ml/min/1.73 sqM) Glucose 92 (74-99) mg/dL Lactic Ac Sepsis Rflx Plasma Lactic Acid Devin 2.6 H* (0.7-2.0) mmol/L Calcium 9.7 (8.4-10.2) mg/dL Phosphorus 4.3 (2.5-4.5) mg/dL Magnesium 2.0 (1.6-2.3) mg/dL Total Bilirubin 0.3 (0.2-1.3) mg/dL AST 22 (14-36) U/L ALT 25 (4-34) U/L Alkaline Phosphatase 80 (38-126) U/L Troponin I (0.000-0.034) ng/mL Total Protein 7.8 (6.3-8.2) g/dL Albumin 4.6 (3.5-5.0) g/dL Urine Color Urine Appearance (Clear) Urine pH (5.0-8.0) Ur Specific Traver (1.001-1.035) Urine Protein (Negative) Urine Glucose (UA) (Negative) Urine Ketones (Negative) Urine Blood (Negative) Urine Nitrite (Negative) Urine Bilirubin (Negative) Urine Urobilinogen (<2.0) mg/dL Ur Leukocyte Esterase (Negative) 02/12/19 02/12/19 02/12/19 Range/Units 17:39 17:39 18:05 WBC (3.8-10.6) k/uL RBC (3.80-5.40) m/uL Hgb (11.4-16.0) gm/dL Hct (34.0-46.0) % MCV (80.0-100.0) fL MCH (25.0-35.0) pg MCHC (31.0-37.0) g/dL RDW (11.5-15.5) % Plt Count (150-450) k/uL Neutrophils % % Lymphocytes % % Monocytes % % Eosinophils % % Basophils % % Neutrophils # (1.3-7.7) k/uL Lymphocytes # (1.0-4.8) k/uL Monocytes # (0-1.0) k/uL Eosinophils # (0-0.7) k/uL Basophils # (0-0.2) k/uL Sodium (137-145) mmol/L Potassium (3.5-5.1) mmol/L Chloride (98-107) mmol/L Carbon Dioxide (22-30) mmol/L Anion Gap mmol/L BUN (7-17) mg/dL Creatinine (0.52-1.04) mg/dL Est GFR (CKD-EPI)AfAm (>60 ml/min/1.73 sqM) Est GFR (CKD-EPI)NonAf (>60 ml/min/1.73 sqM) Glucose (74-99) mg/dL Lactic Ac Sepsis Rflx Y Plasma Lactic Acid Devin (0.7-2.0) mmol/L Calcium (8.4-10.2) mg/dL Phosphorus (2.5-4.5) mg/dL Magnesium (1.6-2.3) mg/dL Total Bilirubin (0.2-1.3) mg/dL AST (14-36) U/L ALT (4-34) U/L Alkaline Phosphatase (38-126) U/L Troponin I <0.012 (0.000-0.034) ng/mL Total Protein (6.3-8.2) g/dL Albumin (3.5-5.0) g/dL Urine Color Light Yellow Urine Appearance Clear (Clear) Urine pH 5.5 (5.0-8.0) Ur Specific [place] 1.006 (1.001-1.035) Urine Protein Negative (Negative) Urine Glucose (UA) Negative (Negative) Urine Ketones Negative (Negative) Urine Blood Negative (Negative) Urine Nitrite Negative (Negative) Urine Bilirubin Negative (Negative) Urine Urobilinogen <2.0 (<2.0) mg/dL Ur Leukocyte Esterase Negative (Negative) 02/12/19 Range/Units 21:27 WBC (3.8-10.6) k/uL RBC (3.80-5.40) m/uL Hgb (11.4-16.0) gm/dL Hct (34.0-46.0) % MCV (80.0-100.0) fL MCH (25.0-35.0) pg MCHC (31.0-37.0) g/dL RDW (11.5-15.5) % Plt Count (150-450) k/uL Neutrophils % % Lymphocytes % % Monocytes % % Eosinophils % % Basophils % % Neutrophils # (1.3-7.7) k/uL Lymphocytes # (1.0-4.8) k/uL Monocytes # (0-1.0) k/uL Eosinophils # (0-0.7) k/uL Basophils # (0-0.2) k/uL Sodium (137-145) mmol/L Potassium (3.5-5.1) mmol/L Chloride (98-107) mmol/L Carbon Dioxide (22-30) mmol/L Anion Gap mmol/L BUN (7-17) mg/dL Creatinine (0.52-1.04) mg/dL Est GFR (CKD-EPI)AfAm (>60 ml/min/1.73 sqM) Est GFR (CKD-EPI)NonAf (>60 ml/min/1.73 sqM) Glucose (74-99) mg/dL Lactic Ac Sepsis Rflx Plasma Lactic Acid Devin 1.3 (0.7-2.0) mmol/L Calcium (8.4-10.2) mg/dL Phosphorus (2.5-4.5) mg/dL Magnesium (1.6-2.3) mg/dL Total Bilirubin (0.2-1.3) mg/dL AST (14-36) U/L ALT (4-34) U/L Alkaline Phosphatase (38-126) U/L Troponin I (0.000-0.034) ng/mL Total Protein (6.3-8.2) g/dL Albumin (3.5-5.0) g/dL Urine Color Urine Appearance (Clear) Urine pH (5.0-8.0) Ur Specific Traver (1.001-1.035) Urine Protein (Negative) Urine Glucose (UA) (Negative) Urine Ketones (Negative) Urine Blood (Negative) Urine Nitrite (Negative) Urine Bilirubin (Negative) Urine Urobilinogen (<2.0) mg/dL Ur Leukocyte Esterase (Negative) - EKG Data -: EKG Interpreted by Me (EKG shows sinus rhythm rate of 81, OR 164, QRS 90, QTc 457) - Radiology Data Radiology results: report reviewed (CT chest and pelvis is negative for acute disease), image reviewed Disposition Clinical Impression: Abdominal pain, Intractable abdominal pain, Nausea and vomiting Disposition: ADMITTED IP TO THIS [facility] Condition: Good Is patient prescribed a controlled substance at d/c from ED?: No Referrals: Sathya Hartley MD [Primary Care Provider] - 1-2 days
[2019-02-12] MEDS: SODIUM CHLORIDE 0.9% 1,000 ML IV STA ×2 (17:46→17:47)
[2019-02-12] MEDS: ONDANSETRON 4 MG/2 ML VIAL IVP STA (17:47)
[2019-02-12 17:52] LABS: Basophils # (A) 0.1 k/uL (0-0.2); Basophils % (A) 1 %; Eosinophils # (A) 0.2 k/uL (0-0.7); Eosinophils % (A) 1 %; HCT 46.9 % (34.0-46.0); HGB 15.5 gm/dL (11.4-16.0); Lymphocytes # (A) 2.7 k/uL (1.0-4.8); Lymphocytes % (A) 22 %; MCH 32.4 pg (25.0-35.0); MCHC 33.1 g/dL (31.0-37.0); MCV 97.8 fL (80.0-100.0); Mean Platelet Volume 7.4; Monocytes # (A) 0.6 k/uL (0-1.0); Monocytes % (A) 5 %; Neutrophils # (A) 8.2 k/uL (1.3-7.7); Neutrophils % (A) 69 %; Platelet Count 277 k/uL (150-450); WBC 11.9 k/uL (3.8-10.6)
[2019-02-12] MEDS: HYDROmorphone 1 MG/ML 1 ML SYRINGE IVP STA ×2 (17:53→20:08)
[2019-02-12 17:57] LABS: Appearance,Urine Clear (Clear); Bilirubin,Urine Negative (Negative); Blood,Urine Negative (Negative); Color,Urine Light Yellow; Glucose,Urine (UA) Negative (Negative); Ketones,Urine Negative (Negative); Leukocyte Esterase,Urine Negative (Negative); Nitrite,Urine Negative (Negative); PH, Urine 5.5 (5.0-8.0); Protein,Urine Negative (Negative); Specific Gravity,Urine 1.006 (1.001-1.035); Urobilinogen,Urine <2.0 mg/dL (<2.0)
[2019-02-12 18:05] LABS: Albumin 4.6 g/dL (3.5-5.0); Calcium 9.7 mg/dL (8.4-10.2); Phosphorus 4.3 mg/dL (2.5-4.5); Potassium 3.8 mmol/L (3.5-5.1); Total Bilirubin 0.3 mg/dL (0.2-1.3); Total Protein 7.8 g/dL (6.3-8.2)
--- NOTE | 2019-02-12 18:20 | XR ---
EXAMINATION TYPE: XR chest 2V DATE OF EXAM: 02/12/2019 COMPARISON: 05/11/2018 HISTORY: Pneumonia TECHNIQUE: 2 views FINDINGS: There is no heart failure nor confluent pneumonic infiltrate. Costophrenic angles are clear . Bony thorax is intact. There is minor spurring in the thoracic spine. There is no pleural effusion. IMPRESSION: No active cardiopulmonary disease. No change.
[2019-02-12] MEDS: diphenhydrAMINE 50 MG/ML 1 ML VIAL IVP STA (20:06)
[2019-02-12] MEDS: methylPREDNISolone SOD SUCCI 125 MG/2 ML VIAL IV STA (20:07)
[2019-02-12] MEDS: FAMOTIDINE 20 MG/2 ML VIAL IV STA (20:10)
--- NOTE | 2019-02-12 21:31 | CT ---
EXAMINATION TYPE: CT angio chest DATE OF EXAM: 02/12/2019 COMPARISON: HISTORY: Chest pain. CT DLP: 641.7 mGycm Automated exposure control for dose reduction was used. CONTRAST: Performed with IV Contrast, patient injected with 80 mL of Isovue 370. There are 3-D post processed images. Heart size is normal. There is no pericardial effusion. There is normal contrast opacification of the pulmonary arteries. There are no filling defects. There are no hilar masses. There is no mediastinal adenopathy. Thoracic aorta is intact. There is no aneurysm or dissection. Bony thorax is intact. The lungs are clear of infiltrate. There is no evidence of a pulmonary mass. There is no pleural effu fred or pneumothorax. IMPRESSION: Negative exam. No evidence of pulmonary embolism.
--- NOTE | 2019-02-12 21:35 | CT ---
EXAMINATION TYPE: CT abdomen pelvis w con DATE OF EXAM: 02/12/2019 COMPARISON: 07/25/2018 HISTORY: Abdominal pain. CT DLP: 1423.7 mGycm Automated exposure control for dose reduction was used. CONTRAST: Performed with IV Contrast, patient injected with mL of Isovue 370. 80 mL Isovue. FINDINGS: Lung bases are clear. There is no pleural effusion. Heart size is normal. There is no pericardial eff usion. There are clips from cholecystectomy. Liver spleen pancreas appear normal. Bile ducts are not dilated. There are clips from cholecystectomy. There is 1.5 cm left adrenal mass that has low attenuation and probably benign. Kidneys show satisfactory contrast opacification. There is no hydronephrosis. Left kidney is smaller than the right. There is no retroperitoneal adenopathy. Ureters are not dilated. Bladder distends smo othly. There is no inguinal hernia. There is no free fluid in the pelvis. There are multiple sigmoid diverticula. There is no sign of diverticulitis. Appendix is not seen. There is no sign of thickened appendix. There is no mesenteric edema. There is no ascites or free air. There is no sign of a bowel obstructio n. Delayed images show normal renal excretion. Lumbar spine is intact. Bony pelvis is intact. IMPRESSION: Mild sigmoid diverticulosis without diverticulitis. No sign of acute abdomen and pelvis. There is martha aring of the mild atelectasis at the lung bases compared to old exam.
[2019-02-12] MEDS ORDERED: ONDANSETRON 4 MG/2 ML VIAL IVP PRN (22:18)
[2019-02-12] MEDS ORDERED: HYDROmorphone 1 MG/ML 1 ML SYRINGE IVP PRN (22:30)
[2019-02-12 22:36] VITALS: BP 134/86; PULSE 80; RESP 16; TEMP 98.2
[2019-02-12] MEDS: ACET/COD 300 MG/30 MG STARTER PACK 6 TAB BTL PO STA (22:53)
[2019-02-13] MEDS ORDERED: PANTOPRAZOLE 40 MG/10 ML VIAL IVP SCH (09:00)
== END 2019-02-12 23:00 | disposition other institution (70) ==
LOC: EC 16:58 → UNDOADMOB 22:16 → 1SOBS 22:16 → EC 23:00
DX: R10.13 Epigastric pain (principal); R11.2 Nausea with vomiting, unspecified; R19.7 Diarrhea, unspecified; K21.9 Gastro-esophageal reflux disease without esophagitis; I10 Essential (primary) hypertension; F41.9 Anxiety disorder, unspecified; F32.9 Major depressive disorder, single episode, unspecified; J44.9 Chronic obstructive pulmonary disease, unspecified; Z88.8 Allergy status to other drugs, medicaments and biological substances; Z91.041 Radiographic dye allergy status; Z91.013 Allergy to seafood; Z87.891 Personal history of nicotine dependence; Z90.49 Acquired absence of other specified parts of digestive tract; Z98.890 Other specified postprocedural states; Z79.51 Long term (current) use of inhaled steroids; Z79.899 Other long term (current) drug therapy
CPT/HCPCS: 36415; 93005; 80053; 83605; 83735; 84100; 84484; 85025; 81003; 71046; 71275; 74177; 99285; 96374; 96375 ×3; 96361 ×5; J1200; J2930; J2405; J1170; Q9967

== ENCOUNTER 2020-10-24 21:17 | Inpatient (IN) | payer MEDICARE, BC ==
[2020-10-24] MEDS ORDERED: HYDROmorphone 1 MG/ML 1 ML SYRINGE IVP STA (22:15)
[2020-10-24] MEDS ORDERED: methylPREDNISolone SOD SUCCI 125 MG/2 ML VIAL IV STA (22:15)
[2020-10-24] MEDS ORDERED: IPRATROPIUM-ALBUTEROL 3 ML NEB INHALATION STA (22:15)
[2020-10-24] MEDS ORDERED: KETOROLAC 15 MG/ML 1 ML VIAL IVP STA (22:15)
--- NOTE | 2020-10-24 22:16 | ED ---
Chest Pain HPI - General Chief Complaint: Chest Pain Stated Complaint: chest & back pain, COPD Time Seen by Provider: 10/24/20 22:10 Source: patient Mode of arrival: wheelchair Limitations: no limitations - Related Data Home Medications Medication Instructions Recorded Confirmed Lisinopril [Zestril] 10 mg PO DAILY 10/28/17 10/24/20 clonazePAM [KlonoPIN] 2 mg PO TID 10/28/17 10/24/20 traMADol HCL [Ultram] 50 mg PO Q6H PRN 10/28/17 10/24/20 Aspirin 325 mg PO DAILY PRN 10/24/20 10/24/20 Cholecalciferol [Vitamin D3 (25 50 mcg PO DAILY 10/24/20 10/24/20 Mcg = 1000 Iu)] Doxycycline Hyclate [Vibramycin] 100 mg PO BID 10/24/20 10/24/20 Hydrocodone/Acetaminophen [[place] 1 tab PO BID 10/24/20 10/24/20 7.5-325] Metoprolol Succinate (ER) [Toprol 50 mg PO DAILY 10/24/20 10/24/20 Xl] Naldemedine Tosylate [Symproic] 0.1 mg PO DAILY 10/24/20 10/24/20 Pantoprazole Sodium [Protonix] 40 mg PO DAILY 10/24/20 10/24/20 Tiotropium 2.5 Mcg/Puff [Spiriva 1 puff INHALATION RT-DAILY 10/24/20 10/24/20 Respimat 2.5 Mcg] Triamterene/Hydrochlorothiazid 1 cap PO Q48H 10/24/20 10/24/20 [Dyazide 37.5-25 Capsule] Previous Rx's Medication Instructions Recorded Albuterol Sulfate [Proair Hfa] 2 puff INHALATION RT-Q6H PRN #1 05/16/18 [email or web address] Allergies Allergy/AdvReac Type Severity Reaction Status Date / Time famotidine [From Pepcid] Allergy Unknown Verified 10/24/20 23:31 Iodinated Contrast Media Allergy Rash/Hives Verified 10/24/20 23:31 [Iodinated Contrast- Oral and IV Dye] prednisone Allergy Hallucinati Verified 10/24/20 23:31 ons shellfish derived [Shrimp] Allergy Rash/Hives Verified 08/23/21 23:31 Review of Systems ROS Statement: Those systems with pertinent positive or pertinent negative responses have been documented in the HPI. ROS Other: All systems not noted in ROS Statement are negative. EKG Findings - EKG Comments: EKG Findings:: EKG shows nsr 65 SC 168 QRS 88 QTc 428 Past Medical History Past Medical History: COPD, Fibromyalgia, GERD/Reflux, Hypertension Additional Past Medical History / Comment(s): bursitis, peripheral neuropathy, acute ischemic brain disease, "node on thyroid", severe mood disorder History of Any Multi-Drug Resistant Organisms: None Reported Past Surgical History: Section, Cholecystectomy, Hernia Repair, Hysterectomy Additional Past Surgical History / Comment(s): partial hysterectomy, d&c Past Anesthesia/Blood Transfusion Reactions: No Reported Reaction Past Psychological History: Anxiety, Depression Smoking Status: Never smoker Past Alcohol Use History: None Reported Past Drug Use History: None Reported General Exam Limitations: no limitations Course Vital Signs 10/24/20 10/24/20 10/24/20 21:33 23:11 23:17 Temperature 97.9 F Pulse Rate 64 49 L 54 L Respiratory 16 Rate Blood Pressure 156/95 O2 Sat by Pulse 98 Oximetry Disposition Clinical Impression: COPD exacerbation, Hypoxia, Atypical chest pain, Chest pain Disposition: ADMITTED IP TO THIS HOSP Condition: Fair Is patient prescribed a controlled substance at d/c from ED?: No Referrals: Sathya Hartley MD [Primary Care Provider] - 1-2 days
[2020-10-24 23:10] LABS: Basophils # (A) 0.1 k/uL (0-0.2); Basophils % (A) 1 %; Eosinophils # (A) 0.1 k/uL (0-0.7); Eosinophils % (A) 1 %; HCT 46.6 % (34.0-46.0); HGB 15.4 gm/dL (11.4-16.0); Lymphocytes # (A) 2.8 k/uL (1.0-4.8); Lymphocytes % (A) 31 %; MCH 33.8 pg (25.0-35.0); MCHC 32.9 g/dL (31.0-37.0); MCV 102.6 fL (80.0-100.0); Macrocytosis Slight; Mean Platelet Volume 7.6; Monocytes # (A) 0.5 k/uL (0-1.0); Monocytes % (A) 6 %; Neutrophils # (A) 5.4 k/uL (1.3-7.7); Neutrophils % (A) 59 %; Platelet Count 264 k/uL (150-450); RBC 4.55 m/uL (3.80-5.40); RDW 13.4 % (11.5-15.5); WBC 9.1 k/uL (3.8-10.6)
--- NOTE | 2020-10-24 23:21 | XR ---
EXAMINATION TYPE: XR chest 2V DATE OF EXAM: 10/24/2020 COMPARISON: 02/12/2019 HISTORY: Chest pain TECHNIQUE: FINDINGS: Heart and mediastinum are normal. Lungs are clear. Diaphragm is normal. There are chest alvarado ds. Bony thorax is intact. IMPRESSION: Normal chest. No change.
[2020-10-24 23:27] LABS: Albumin 4.6 g/dL (3.5-5.0); Calcium 9.4 mg/dL (8.4-10.2); Magnesium 1.9 mg/dL (1.6-2.3); Potassium 4.7 mmol/L (3.5-5.1); Total Bilirubin 0.3 mg/dL (0.2-1.3); Total Protein 7.3 g/dL (6.3-8.2)
[2020-10-24 23:56] LABS: INR 0.9 (<1.2); Partial Thromboplastin Time 23.8 sec (22.0-30.0); Prothrombin Time 9.7 sec (9.0-12.0)
[2020-10-25] MEDS ORDERED: methylPREDNISolone SOD SUCCI 125 MG/2 ML VIAL IV SCH
[2020-10-25] MEDS ORDERED: HYDROmorphone 1 MG/ML 1 ML SYRINGE IVP STA (01:05)
[2020-10-25] MEDS: SODIUM CHLORIDE 0.9% 1,000 ML IV SCH ×3 (01:13→20:01)
[2020-10-25] MEDS ORDERED: ASPIRIN 325 MG TAB PO PRN (02:02)
[2020-10-25] MEDS ORDERED: traMADol 50 MG TAB PO PRN (02:02)
[2020-10-25] MEDS ORDERED: ACETAMINOPHEN TAB 325 MG TAB PO STA (03:49)
--- NOTE | 2020-10-25 05:35 | P.HPIM ---
History of Present Illness H&P Date: 10/25/20 Chief Complaint: SOB 70-year-old female with COPD and chronic hypoxic respiratory failure on 2 L of oxygen at home, hypertension, peripheral neuropathy patient comes in with 4-5 days history of worsening shortness of breath, she went to urgent care on saturday who recommended that she gets hospitalized, but she found the ER too busy , so got medications from the urgent care, (nebulizers and doxycycline, ) she did not get any steroids, as she claims that steroids makes her psychotic. however she did not get much improvement with this treatment , and today she started experiencing left subcostal pain radiating all around her side to the back , so she decided to come to the hospital , she denies any fever, chills, coughing, or chest pain other than what started today left subcostal. she does not do much at home, she stays inside, and does not do any chores, she claims that she is limited by pain in both knees and her lung condition . but when i asked how frequent are her attacks of flare ups, she said this is second time she gets hospitalized in 6 years. she is not aware of her PFT test, but was requesting to be transferred to [facility] after she feels better, as she wants to see if there are any surgical options to help her feel better regarding her breathing. she claims that she gets short of breath at baseline easily if she does any activity around the house. yet, she does not use any nebulizer at baseline (only the new prescription from Saturday at urgent care) normally she uses inhalers only , and occasionally she would wear her oxygen she denies any nausea , vomiting, sore throat, cough, unusual muscle aches, loss of taste or smell sensation . she reports depression with feeling hopeless, and helpless, and that makes her feel very guilty as she cant spend any quality time with her . she denies any suicidal ideation , as she is a good ep[employer] she also reports a lot of aches and pains in her body at baseline, and takes norco, and tramadol at home. but only when she gets dilaudid at the hospital she gets real relief. work up in the ED was unremarkable , CXR negative, EKG NSR, blood work overall unremarkable Review of Systems Pertinent positives as noted in HPI. All other systems were reviewed and are negative Past Medical History Past Medical History: COPD, Fibromyalgia, GERD/Reflux, Hypertension Additional Past Medical History / Comment(s): bursitis, peripheral neuropathy, acute ischemic brain disease, "node on thyroid", severe mood disorder History of Any Multi-Drug Resistant Organisms: None Reported Past Surgical History: Section, Cholecystectomy, Hernia Repair, Hysterectomy Additional Past Surgical History / Comment(s): partial hysterectomy, d&c Past Anesthesia/Blood Transfusion Reactions: No Reported Reaction Past Psychological History: Anxiety, Depression Smoking Status: Never smoker Past Alcohol Use History: None Reported Past Drug Use History: None Reported - Past Family History family Family Medical History: No Reported History Medications and Allergies Home Medications Medication Instructions Recorded Confirmed Type Lisinopril [Zestril] 10 mg PO DAILY 10/28/17 10/24/20 History clonazePAM [KlonoPIN] 2 mg PO TID 10/28/17 10/24/20 History traMADol HCL [Ultram] 50 mg PO Q6H PRN 10/28/17 10/24/20 History Albuterol Sulfate [Proair Hfa] 2 puff INHALATION RT-Q6H PRN #1 05/16/18 10/24/20 Rx [email or web address] Aspirin 325 mg PO DAILY PRN 10/24/20 10/24/20 History Cholecalciferol [Vitamin D3 (25 50 mcg PO DAILY 10/24/20 10/24/20 History Mcg = 1000 Iu)] Doxycycline Hyclate [Vibramycin] 100 mg PO BID 10/24/20 10/24/20 History Hydrocodone/Acetaminophen [[place] 1 tab PO BID 10/24/20 10/24/20 History 7.5-325] Metoprolol Succinate (ER) [Toprol 50 mg PO DAILY 10/24/20 10/24/20 History Xl] Naldemedine Tosylate [Symproic] 0.1 mg PO DAILY 10/24/20 10/24/20 History Pantoprazole Sodium [Protonix] 40 mg PO DAILY 10/24/20 10/24/20 History Tiotropium 2.5 Mcg/Puff [Spiriva 1 puff INHALATION RT-DAILY 10/24/20 10/24/20 History Respimat 2.5 Mcg] Triamterene/Hydrochlorothiazid 1 cap PO Q48H 10/24/20 10/24/20 History [Dyazide 37.5-25 Capsule] Allergies Allergy/AdvReac Type Severity Reaction Status Date / Time famotidine [From Pepcid] Allergy Unknown Verified 10/24/20 23:31 Iodinated Contrast Media Allergy Rash/Hives Verified 10/24/20 23:31 [Iodinated Contrast- Oral and IV Dye] prednisone Allergy Hallucinati Verified 10/24/20 23:31 ons shellfish derived [Shrimp] Allergy Rash/Hives Verified 10/24/20 23:31 Physical Exam Vitals: Vital Signs Temp Pulse Resp BP Pulse Ox 10/25/20 01:17 66 20 163/79 95 10/24/20 23:17 54 L 10/24/20 23:11 49 L 10/24/20 21:33 97.9 F 64 16 156/95 98 Intake and Output 10/24/20 10/24/20 10/25/20 14:59 22:59 06:59 Other: Weight 82.554 kg Constitutional: No acute distress, conversant, pleasant Eyes: Anicteric sclerae, moist conjunctiva, Pupils equal round reactive to light ENMT: NC/AT Oropharynx clear, no erythema, or exudates Neck: Supple, FROM, no masses, or JVD No carotid bruits No thyromegaly Lungs: prolonged expiratory phase with end expiratory wheezing Clear to percussion patient using accessory muscles of respiration Cardiovascular: Heart regular in rate and rhythm, No murmurs, gallops, or rubs No peripheral edema Abdominal: Soft Nontender, no guarding, rebound or rigidity Abdomen moving with respiration Normoactive bowel sounds No hepatomegaly, No splenomegaly No palpable mass No abdominal wall hernia noted Skin: Normal temperature, tone, texture, turgor No induration No subcutaneous nodules No rash, lesions No ulcers Extremities: No digital cyanosis No clubbing Pedal pulses intact and symmetrical Radial pulses intact and symmetrical No calf tenderness Psychiatric: Alert and oriented to person, place and time depressed affect fair judgement Neuro Muscles Strength 4/5 in all 4 extremities Sensation to light touch grossly present throughout Cranial nerves II-XII grossly intact No focal sensory deficits Lymphatics: no palpable cervical or supraclavicular , or inguinal lymph nodes Results CBC & Chem 7: 10/24/20 22:30 10/24/20 22:30 Labs: Abnormal Lab Results - Last 24 Hours (Table) 10/24/20 10/24/20 Range/Units 22:30 22:30 Hct 46.6 H (34.0-46.0) % MCV 102.6 H (80.0-100.0) fL Sodium 135 L (137-145) mmol/L BUN 23 H (7-17) mg/dL Creatinine 1.15 H (0.52-1.04) mg/dL Assessment and Plan Assessment: acute COPD exacerabtion PO systemic steroids (patient requesting minimal effective dose and short course as she cant tolerate steroids well) breathing treatment PRN and scheduled CXR negative check COVID check home oxygen requirement pulmonary consult finish 5 day course of doxycycline depression psych eval consider OP cognitive behavioral therapy chronic pain resume [facility] ordered dilaudid and patient requested to stay on it uncontrolled hyperetension resume home BP meds monitor blood pressure , no changes to meds done CODE STATUS:full code DVT prophylaxis: lovenox Discussed with: Patient, ER Anticipated length of stay > than [address]: home A total of 75 minutes was spent on the care of this complex patient more than 5 0% of the time was spent in counseling and care coordination.
[2020-10-25] MEDS: HYDROmorphone 1 MG/ML 1 ML SYRINGE IVP PRN ×4 (06:43→20:07)
[2020-10-25] MEDS: predniSONE 20 MG TAB PO SCH (08:07)
[2020-10-25] MEDS: ENOXAPARIN 40 MG/0.4 ML SYRINGE SQ SCH ×2 (08:07→08:36)
[2020-10-25] MEDS: DOXYCYCLINE 100 MG CAP PO SCH ×2 (08:08→22:40)
[2020-10-25] MEDS: clonazePAM 1 MG TAB PO SCH ×3 (08:08→22:40)
[2020-10-25] MEDS: PANTOPRAZOLE 40 MG TABLET PO SCH (08:08)
[2020-10-25] MEDS: IPRATROPIUM-ALBUTEROL 3 ML NEB INHALATION PRN ×2 (08:10→12:02)
[2020-10-25] MEDS: ALBUTEROL NEBULIZED 2.5 MG/3 ML INHALATION SCH ×4 (08:10→20:36)
[2020-10-25] MEDS: IPRATROPIUM 0.5 MG/2.5 ML NEBU INHALATION SCH ×4 (08:11→20:36)
[2020-10-25] MEDS: HYDROcodone/APAP 7.5-325MG 1 EACH TAB PO SCH ×2 (08:34→22:40)
[2020-10-25] MEDS: METOPROLOL SUCCINATE (ER) 50 MG TAB.ER.24H PO SCH ×2 (08:35→13:34)
[2020-10-25] MEDS: lisinopriL 10 MG TAB PO SCH (08:35)
[2020-10-25] MEDS: NALDEMEDINE TOSYLATE 0.2 MG PO SCH (08:38)
--- NOTE | 2020-10-25 11:05 | P.CNPUL ---
History of Present Illness Consult date: 10/25/20 Requesting physician: Torsten Og Reason for consult: dyspnea, COPD Chief complaint: Shortness of breath, chest pain, abdominal pain History of present illness: This is a very pleasant 70-year-old female patient who follows with Dr. Hartley as her primary care provider. She has a history of fibromyalgia, anxiety/depression, former smoker. She has a history of COPD and follows with Dr. Rahman in our office. She has been maintained on pro-air and Spiriva. 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 On 10/21/2020 she was having issues with abdominal discomfort and shortness of breath than rib pain. She was seen in the urgent care in her workup was basically negative. She was given nebulized treatments and placed on doxycycline. Yesterday she was having ongoing issues and presented here to the emergency room for the same. She is seen today in the ER. Awake and alert in no acute distress. Sitting up on the stretcher. Her main complaint today is discomfort below her breast along the ribs. She is also having abdominal discomfort. She states she has been through a thorough GI workup without any significant findings. Chest x-ray reveals no acute pulmonary process. EKG reveals normal sinus rhythm with no ST or T wave abnormalities. White count 9.1. Hemoglobin 15.4. MCV 102.6. Sodium 135. Potassium 4.7. Creatinine 1.15. Troponin negative 1. BNP 188. Dunn virus not detected. She has a dry nonproductive cough. No fever or chills. No worsening shortness of breath. She is maintaining O2 saturations up to 99% on 2 L/m per nasal cannula. Afebrile. Hemodynamically stable. His been initiated on DuoNeb inhalations, prednisone at 40 mg daily. Lovenox for DVT prophylaxis. 0.9 normal saline at 100 ML's per hour. Review of Systems REVIEW OF SYSTEMS: CONSTITUTIONAL: Denies any recent significant weight loss or weight gain. EYES: Denies change in vision. EARS, NOSE, MOUTH, THROAT: Denies headaches, denies sore throat. CARDIOVASCULAR: Positive for chest pain, no palpitations or syncopal episodes. RESPIRATORY: Positive for shortness of breath, cough, congestion no hemoptysis. GASTROINTESTINAL: Denies change in appetite, positive for abdominal pain GENITOURINARY: Denies hematuria, denies infections. MUSKULOSKELETAL: Denies pain, denies swelling. INTEGUMENTARY: Denies rash, denies eczema. NEUROLOGICAL: Denies recent memory loss, no recent seizure activity. PSYCHIATRIC: Denies anxiety, denies depression. HEMATOLOGIC/LYMPHATIC: Denies anemia, denies enlarged lymph nodes. Past Medical History Past Medical History: COPD, Fibromyalgia, GERD/Reflux, Hypertension Additional Past Medical History / Comment(s): bursitis, peripheral neuropathy, acute ischemic brain disease, "node on thyroid", severe mood disorder History of Any Multi-Drug Resistant Organisms: None Reported Past Surgical History: Section, Cholecystectomy, Hernia Repair, Hysterectomy Additional Past Surgical History / Comment(s): partial hysterectomy, d&c Past Anesthesia/Blood Transfusion Reactions: No Reported Reaction Past Psychological History: Anxiety, Depression Smoking Status: Former smoker Past Alcohol Use History: None Reported Past Drug Use History: None Reported - Past Family History family Family Medical History: No Reported History Medications and Allergies Home Medications Medication Instructions Recorded Confirmed Type Lisinopril [Zestril] 10 mg PO DAILY 10/28/17 10/24/20 History clonazePAM [KlonoPIN] 2 mg PO TID 10/28/17 10/24/20 History traMADol HCL [Ultram] 50 mg PO Q6H PRN 10/28/17 10/24/20 History Albuterol Sulfate [Proair Hfa] 2 puff INHALATION RT-Q6H PRN #1 05/16/18 10/24/20 Rx [email or web address] Aspirin 325 mg PO DAILY PRN 10/24/20 10/24/20 History Cholecalciferol [Vitamin D3 (25 50 mcg PO DAILY 10/24/20 10/24/20 History Mcg = 1000 Iu)] Doxycycline Hyclate [Vibramycin] 100 mg PO BID 10/24/20 10/24/20 History Hydrocodone/Acetaminophen [[place] 1 tab PO BID 10/24/20 10/24/20 History 7.5-325] Metoprolol Succinate (ER) [Toprol 50 mg PO DAILY 10/24/20 10/24/20 History Xl] Naldemedine Tosylate [Symproic] 0.1 mg PO DAILY 10/24/20 10/24/20 History Pantoprazole Sodium [Protonix] 40 mg PO DAILY 10/24/20 10/24/20 History Tiotropium 2.5 Mcg/Puff [Spiriva 1 puff INHALATION RT-DAILY 10/24/20 10/24/20 History Respimat 2.5 Mcg] Triamterene/Hydrochlorothiazid 1 cap PO Q48H 10/24/20 10/24/20 History [Dyazide 37.5-25 Capsule] Allergies Allergy/AdvReac Type Severity Reaction Status Date / Time famotidine [From Pepcid] Allergy Unknown Verified 10/24/20 23:31 Iodinated Contrast Media Allergy Rash/Hives Verified 10/24/20 23:31 [Iodinated Contrast- Oral and IV Dye] prednisone Allergy Hallucinati Verified 10/24/20 23:31 ons shellfish derived [Shrimp] Allergy Rash/Hives Verified 10/24/20 23:31 Physical Exam Vitals: Vital Signs Temp Pulse Resp BP Pulse Ox 10/25/20 08:22 68 16 10/25/20 08:11 71 16 99 10/25/20 07:15 98.0 F 65 16 121/77 98 10/25/20 06:32 68 18 117/72 98 10/25/20 01:17 66 20 163/79 95 10/24/20 23:17 54 L 10/24/20 23:11 49 L 10/24/20 21:33 97.9 F 64 16 156/95 98 Intake and Output 10/24/20 10/25/20 10/25/20 22:59 06:59 14:59 Other: Weight 82.554 kg GENERAL EXAM: Alert, pleasant 70-year-old female patient, on 2 L nasal cannula, comfortable in no apparent distress. HEAD: Normocephalic. EYES: Normal reaction of pupils, equal size. NOSE: Clear with pink turbinates. THROAT: No erythema or exudates. NECK: No masses, no JVD. CHEST: No chest wall deformity. LUNGS: Equal air entry with faint end expiratory wheeze, diminished. CVS: S1 and S2 normal with no audible murmur, regular rhythm. ABDOMEN: No hepatosplenomegaly, normal bowel sounds, no guarding or rigidity. SPINE: No scoliosis or deformity SKIN: No rashes CENTRAL NERVOUS SYSTEM: No focal deficits, tone is normal in all 4 extremities. EXTREMITIES: There is no peripheral edema. No clubbing, no cyanosis. Perip heral pulses are intact. Results - Laboratory Findings CBC and BMP: 10/24/20 22:30 10/24/20 22:30 PT/INR, D-dimer PT 9.7 sec (9.0-12.0) 10/24/20 22:30 INR 0.9 (<1.2) 10/24/20 22:30 Abnormal lab findings: Abnormal Labs 10/24/20 10/24/20 22:30 22:30 Hct 46.6 H MCV 102.6 H Sodium 135 L BUN 23 H Creatinine 1.15 H - Diagnostic Findings Chest x-ray: image reviewed (No acute pulmonary process) Assessment and Plan Assessment: 1 Acute exacerbation of chronic obstructive pulmonary disease. 2 Acute on chronic hypoxemic respiratory failure secondary to above 3 Prior history of 50 years pack per day smoking 4 History of steroid induced psychosis 5 Fibromyalgia 6 History of anxiety/depression 7 Peripheral neuropathy 8 Gastroesophageal reflux disease 9 Hypertension 10 Chronic pain Plan: The patient was seen and evaluated by Dr. Singh She is willing to try steroids while here in the hospital Continue prednisone at 40 mg daily Continue nebulized treatments Continue empiric antibiotics Increase her activity as tolerated Titrate down the FiO2 as tolerated PFT in the outpatient setting We will continue to follow and make further recommendations based on her clinical status I, the cosigning physician, performed a history & physical examination of the patient. Lungs sounds with faint end expiratory wheeze, diminished. Maintaining good O2 saturations in the 90s on 2 L/m per nasal cannula. I discussed the assessment and plan of care with my nurse practitioner, Debbie Douglass. I attest to the above consultation as dictated by her. Time with Patient: Greater than 30
--- NOTE | 2020-10-25 15:04 | P.CN ---
Psychiatric Consult - . Consult date: 10/25/20 Consult:: 10/25/20 15:04 IDENTIFYING DATA: This patient is a , employed, 70-year-old female who was admitted for COPD exacerbation HISTORY OF PRESENT ILLNESS: The patient presented to the hospital on 10/24/2020, with complaints of COPD exacerbation. Psychiatry was been consulted for evaluation of the patient's depression. The patient reports that she's been feeling increasingly emotional over the past few months. She states that she has been dealing with ongoing health related stressors including knee pain, abdominal pain, and shortness of breath. Furthermore, the patient states that she has been feeling increasingly isolated. In regards to depressive symptoms, the patient reports that she occasionally has feelings of hopelessness, helplessness, anhedonia, difficulty sleeping, and low appetite. She does report generalized feelings of not wanting to be around but vehemently denies any suicidal or homicidal ideation, intention, and/or plan. The patient denies any prior attempts at suicide. She reports no asked any means and denies any plans. She expresses strong desire to live for herself and for her family. The patient reports that she began expressing significant issues regarding her mental health, in particular her anxiety and depression since her 50s. She reports that during that time, her father and mother and she was dealing with work related stressors. Furthermore, the patient states that her health began to decline as well. She states that this is what triggered her increased anxiety and depression. The patient has been chronically prescribed benzodiazepine medications from her primary care provider and vehemently expresses provider that he should not touch this medication and make no mention of this medication as she wants to stay on this medication. The patient was educated on the adverse reactions of this medication and the problems with chronic benzodiazepine use. Was provided discussed at length the benzodiazepine use can lead to tolerance, addiction, increased fall risk, and early onset neurocognitive disorders. The patient expresses that this will be something that she will continue to use at the discretion of her current prescriber. PAST PSYCHIATRIC HISTORY: Patient has a history of depression and anxiety. The patient recalls being prescribed Lamictal, will to do, lithium, gabapentin, nortriptyline, Wellbutrin, Xanax, Ativan and is currently on a regimen of Klonopin. The patient reports one prior inpatient psychiatric hospitalization back in 2009 after being abruptly cut off from her prescribed Ativan at the time. The patient reports that she is not open to any outpatient psychiatric or psychotherapy services at this time stating that she felt like none of it was working and that none of the medications prescribed to her or the therapy modalities used were helping her with her depression and anxiety. The patient reports no prior attempts at suicide. PAST MEDICAL HISTORY: ALLERGIES: Famotidine, iodinated contrast media, prednisone, shellfish CHEMICAL DEPENDENCY HISTORY: The patient reports that she quit tobacco 1-1/2 years ago. She is fiercely smoking one pack per day. She denies any alcohol, marijuana, or illicit drug use. FAMILY PSYCHIATRIC/SUBSTANCE USE HISTORY: Patient reports that her father had depression. She denies any family history of substance abuse. SOCIAL HISTORY: Patient was born and raised in [place], [place]. The patient has been 3 times and is currently on her third marriage. She has been to her for 25 years. She reports that all her husbands have been alcoholics. She has 2 children including a 40-year-old biological son and a 31-year-old stepson. She lives with her . She was last employed at [employer] but quit in 2006 due to health-related issues.. MENTAL STATUS EXAM: General Appearance: Patient appears to be stated age is alert, pleasant, and cooperative. Patient appears to have fair hygiene and grooming wearing hospital gown with fair eye contact. Behavior: Patient is calmly lying in bed without any agitated behavior. Speech: Patient's speech is fluent and nonpressured. Mood/Affect: Patient reports their mood is "depressed", affect is incongruent, constricted but otherwise euthymic. Suicidality/Homicidality: Patient denies having any suicidal or homicidal ideation intent or plan. Perceptions: Patient denies any visual hallucinations and denies any auditory hallucinations Though content/process: There is no evidence of any delusional thought content and thought process is linear and goal-directed. Memory and concentration: AOX3, grossly intact for the purposes of this session. Can spell "WORLD" backwards Judgment and insight: Fair Vital Signs Temp 98.0 F 10/25/20 07:15 Pulse 91 10/25/20 13:30 Resp 18 10/25/20 13:30 BP 152/80 10/25/20 13:30 Pulse Ox 98 10/25/20 13:30 Intake & Output 08/10/25/20 10/25/20 18:59 06:59 18:59 Weight 82.554 kg Laboratory Results - Last 24 Hours 10/24/20 10/24/20 10/24/20 22:30 22:30 22:30 WBC 9.1 RBC 4.55 Hgb 15.4 Hct 46.6 H MCV 102.6 H MCH 33.8 MCHC 32.9 RDW 13.4 Plt Count 264 MPV 7.6 Neutrophils % 59 Lymphocytes % 31 Monocytes % 6 Eosinophils % 1 Basophils % 1 Neutrophils # 5.4 Lymphocytes # 2.8 Monocytes # 0.5 Eosinophils # 0.1 Basophils # 0.1 Macrocytosis Slight PT 9.7 INR 0.9 APTT 23.8 Sodium 135 L Potassium 4.7 Chloride 99 Carbon Dioxide 27 Anion Gap 9 BUN 23 H Creatinine 1.15 H Est GFR (CKD-EPI)AfAm 56 Est GFR (CKD-EPI)NonAf 48 Glucose 95 Calcium 9.4 Magnesium 1.9 Total Bilirubin 0.3 AST 31 ALT 31 Alkaline Phosphatase 60 Creatine Kinase 88 Troponin I NT-Pro-B Natriuret Pep Total Protein 7.3 Albumin 4.6 Coronavirus (PCR) 10/24/20 10/24/20 10/25/20 22:30 22:30 06:30 WBC RBC Hgb Hct MCV MCH MCHC RDW Plt Count MPV Neutrophils % Lymphocytes % Monocytes % Eosinophils % Basophils % Neutrophils # Lymphocytes # Monocytes # Eosinophils # Basophils # Macrocytosis PT INR APTT Sodium Potassium Chloride Carbon Dioxide Anion Gap BUN Creatinine Est GFR (CKD-EPI)AfAm Est GFR (CKD-EPI)NonAf Glucose Calcium Magnesium Total Bilirubin AST ALT Alkaline Phosphatase Creatine Kinase Troponin I <0.012 NT-Pro-B Natriuret Pep 188 Total Protein Albumin Coronavirus (PCR) Not Detected IMPRESSIONS: Depressive disorder secondary to general medical condition Anxiety disorder, unspecified Chronic benzodiazepine use; suspect dependence at this time Unspecified personality disorder; 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 The patient does not present with any imminent risk of harm to self or others. She is future and family oriented. She reports no prior attempts at suicide. -Delirium precautions recommended with patient including - avoiding use of narcotics and [place] sedatives, limit anticholinergic medications when possible, frequent re-orientation, minimize use of restraints, open window shades during the day and close them at night -Would recommend the following medication changes/additions: No medication recommendations are going to be made at this time. The patient does not present with any criteria for inpatient psychiatric admission. She is not willing to part with her benzodiazepine medications despite being provided education on the risks of this medication including for falls, worsening depression, dependence, addiction, and early onset neurocognitive disorders. I will defer to her outpatient provider who prescribes this medication to manage her anxiety. -Recommend outpatient psychotherapy -Psychiatry will sign off at this point, please contact with any questions.
[2020-10-26] MEDS: HYDROmorphone 1 MG/ML 1 ML SYRINGE IVP PRN ×4 (02:04→14:26)
[2020-10-26] MEDS: SODIUM CHLORIDE 0.9% 1,000 ML IV SCH ×2 (05:48→16:48)
[2020-10-26] MEDS: IPRATROPIUM-ALBUTEROL 3 ML NEB INHALATION PRN ×4 (07:27→21:12)
[2020-10-26] MEDS ORDERED: TRIAMTERENE-HCTZ 37.5-25MG 1 EACH CAP PO SCH (09:00)
[2020-10-26] MEDS: METOPROLOL SUCCINATE (ER) 50 MG TAB.ER.24H PO SCH (09:03)
[2020-10-26] MEDS: PANTOPRAZOLE 40 MG TABLET PO SCH (09:03)
[2020-10-26] MEDS: predniSONE 20 MG TAB PO SCH (09:03)
[2020-10-26] MEDS: lisinopriL 10 MG TAB PO SCH (09:03)
[2020-10-26] MEDS: HYDROcodone/APAP 7.5-325MG 1 EACH TAB PO SCH ×2 (09:03→22:15)
[2020-10-26] MEDS: ENOXAPARIN 40 MG/0.4 ML SYRINGE SQ SCH (09:04)
[2020-10-26] MEDS: NALDEMEDINE TOSYLATE 0.2 MG PO SCH (09:04)
[2020-10-26] MEDS: DOXYCYCLINE 100 MG CAP PO SCH ×2 (09:04→22:15)
[2020-10-26] MEDS: clonazePAM 1 MG TAB PO SCH ×3 (11:01→22:15)
[2020-10-26] MEDS: ALBUTEROL NEBULIZED 2.5 MG/3 ML INHALATION SCH ×4 (11:20→21:12)
[2020-10-26] MEDS: IPRATROPIUM 0.5 MG/2.5 ML NEBU INHALATION SCH ×4 (11:20→21:12)
--- NOTE | 2020-10-26 12:18 | P.PN ---
Subjective Progress Note Date: 10/26/20 Principal diagnosis: COPD exacerbation This is a very pleasant 70-year-old female patient who follows with Dr. Hartley as her primary care provider. She has a history of fibromyalgia, anxiety/depression, former smoker. She has a history of COPD and follows with Dr. Rahman in our office. She has been maintained on pro-air and Spiriva. 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 On 10/21/2020 she was having issues with abdominal discomfort and shortness of breath than rib pain. She was seen in the urgent care in her workup was basically negative. She was given nebulized treatments and placed on doxycycline. Yesterday she was having ongoing issues and presented here to the emergency room for the same. She is seen today in the ER. Awake and alert in no acute distress. Sitting up on the stretcher. Her main complaint today is discomfort below her breast along the ribs. She is also having abdominal discomfort. She states she has been through a thorough GI workup without any significant findings. Chest x-ray reveals no acute pulmonary process. EKG reveals normal sinus rhythm with no ST or T wave abnormalities. White count 9.1. Hemoglobin 15.4. MCV 102.6. Sodium 135. Potassium 4.7. Creatinine 1.15. Troponin negative 1. BNP 188. Dunn virus not detected. She has a dry nonproductive cough. No fever or chills. No worsening shortness of breath. She is maintaining O2 saturations up to 99% on 2 L/m per nasal cannula. Afebrile. Hemodynamically stable. His been initiated on DuoNeb inhalations, prednisone at 40 mg daily. Lovenox for DVT prophylaxis. 0.9 no rmal saline at 100 ML's per hour. The patient is seen today 10/26/2020 and follow-up on the regular medical floor. She is up ambulating in her room. Awake and alert in no acute distress. Maintaining O2 saturations up to 100% on 2 L/m per nasal cannula. She's afebrile. Hemodynamically stable. Continued on DuoNeb inhalations, tolerating prednisone at 40 mg daily. Denies any steroid-induced psychoses. Empiric antibiotics in the form of doxycycline. Lovenox for DVT Objective - Vital Signs Vital signs: Vital Signs Temp 97.6 F 10/26/20 07:00 Pulse 74 10/26/20 11:34 Resp 16 10/26/20 11:34 BP 110/69 10/26/20 07:00 Pulse Ox 100 10/26/20 07:27 Intake & Output 10/25/20 10/26/20 10/26/20 18:59 06:59 18:59 Weight 82.554 kg Other: # Voids 1 - Exam GENERAL EXAM: Alert, active, 70-year-old female patient, on 2 L nasal cannula, comfortable in no apparent distress. HEAD: Normocephalic. EYES: Normal reaction of pupils, equal size. NOSE: Clear with pink turbinates. THROAT: No erythema or exudates. NECK: No masses, no JVD. CHEST: No chest wall deformity. LUNGS: Equal air entry with no crackles, wheeze, rhonchi or dullness. Diminished. CVS: S1 and S2 normal with no audible murmur, regular rhythm. ABDOMEN: No hepatosplenomegaly, normal bowel sounds, no guarding or rigidity. SPINE: No scoliosis or deformity SKIN: No rashes CENTRAL NERVOUS SYSTEM: No focal deficits, tone is normal in all 4 extremities. EXTREMITIES: There is no peripheral edema. No clubbing, no cyanosis. Peripheral pulses are intact. - Labs CBC & Chem 7: 10/24/20 22:30 10/24/20 22:30 Assessment and Plan Assessment: 1 Acute exacerbation of chronic obstructive pulmonary disease. 2 Acute on chronic hypoxemic respiratory failure secondary to above 3 Prior history of 50 years pack per day smoking 4 History of steroid induced psychosis 5 Fibromyalgia 6 History of anxiety/depression 7 Peripheral neuropathy 8 Gastroesophageal reflux disease 9 Hypertension 10 Chronic pain Plan: The patient was seen and evaluated by Dr. Singh Continue prednisone at 40 mg daily Continue nebulized treatments Continue empiric antibiotics Increase her activity as tolerated Titrate down the FiO2 as tolerated Probable discharge in the a.m. We will continue to follow I, the cosigning physician, performed a history & physical examination of the patient. Lungs sounds clear, diminished. Maintaining good O2 saturations in the 90s on 2 L/m per nasal cannula. I discussed the assessment and plan of care with my nurse practitioner, Debbie Douglass. I attest to the above note as dictated by her.
--- NOTE | 2020-10-26 15:07 | P.PN ---
Subjective Progress Note Date: 10/26/20 Pt is now on room air with improved exercise tolerance. Appears to be exchanging air much better than yesterday. Objective - Vital Signs Vital signs: Vital Signs Temp 97.6 F 10/26/20 07:00 Pulse 74 10/26/20 11:34 Resp 16 10/26/20 11:34 BP 110/69 10/26/20 07:00 Pulse Ox 100 10/26/20 07:27 Intake & Output 10/25/20 10/26/20 10/26/20 18:59 06:59 18:59 Output Total 350 Balance -350 Weight 82.554 kg Output: Urine 350 Other: # Voids 1 - Exam Gen: awake, alert HEENT: normocephalic, atraumatic, good hearing acuity, moist mucous membranes Resp: Diminished but moderate air exchange, no accessory muscle use, no wheezing, no crackles CVS: good distal perfusion x 4, regular rate and rhythm without murmurs GI: soft, NTTP, ND : no SPT, no CVAT, villanueva catheter not present MSK: no pitting edema, no clubbing Neuro: non-focal, moving all extremities Psych: cooperative, euthymic mood - Labs CBC & Chem 7: 10/24/20 22:30 10/24/20 22:30 Assessment and Plan Assessment: Acute COPD exacerabtion PO systemic steroids (patient requesting minimal effective dose and short course as she cant tolerate steroids well) breathing treatment PRN and scheduled CXR negative check COVID = negative check home oxygen requirement pulmonary consult finish 5 day course of doxycycline depression psych eval consider OP cognitive behavioral therapy chronic pain resume [facility] ordered dilaudid and patient requested to stay on it uncontrolled hyperetension resume home BP meds monitor blood pressure , no changes to meds done CODE STATUS:full code DVT prophylaxis: lovenox Discussed with: Patient, ER Anticipated length of stay > than [address]: home
[2020-10-26] MEDS ORDERED: ACETAMINOPHEN TAB 325 MG TAB PO PRN (19:31)
[2020-10-26] MEDS: HYDROmorphone 0.5 MG/0.5 ML SYRINGE IVP PRN (19:32)
[2020-10-27] MEDS: HYDROmorphone 0.5 MG/0.5 ML SYRINGE IVP PRN ×3 (00:53→10:40)
[2020-10-27] MEDS: SODIUM CHLORIDE 0.9% 1,000 ML IV SCH (01:47)
[2020-10-27 08:18] VITALS: BP 116/64; TEMP 97.6
[2020-10-27] MEDS: IPRATROPIUM 0.5 MG/2.5 ML NEBU INHALATION SCH ×2 (08:58→11:36)
[2020-10-27] MEDS: ALBUTEROL NEBULIZED 2.5 MG/3 ML INHALATION SCH ×2 (08:58→11:36)
[2020-10-27] MEDS: IPRATROPIUM-ALBUTEROL 3 ML NEB INHALATION PRN (08:59)
[2020-10-27 09:02] VITALS: RESP 16
[2020-10-27] MEDS: predniSONE 20 MG TAB PO SCH (09:10)
[2020-10-27] MEDS: clonazePAM 1 MG TAB PO SCH (09:10)
[2020-10-27] MEDS: METOPROLOL SUCCINATE (ER) 50 MG TAB.ER.24H PO SCH (09:10)
[2020-10-27 09:11] VITALS: PULSE 77
[2020-10-27] MEDS: HYDROcodone/APAP 7.5-325MG 1 EACH TAB PO SCH (09:11)
[2020-10-27] MEDS: PANTOPRAZOLE 40 MG TABLET PO SCH (09:11)
[2020-10-27] MEDS: lisinopriL 10 MG TAB PO SCH (09:12)
[2020-10-27] MEDS: ENOXAPARIN 40 MG/0.4 ML SYRINGE SQ SCH ×2 (09:12→09:16)
[2020-10-27] MEDS: NALDEMEDINE TOSYLATE 0.2 MG PO SCH (09:13)
--- NOTE | 2020-10-27 11:25 | P.PN ---
Subjective Progress Note Date: 10/27/20 Principal diagnosis: COPD exacerbation This is a very pleasant 70-year-old female patient who follows with Dr. Hartley as her primary care provider. She has a history of fibromyalgia, anxiety/depression, former smoker. She has a history of COPD and follows with Dr. Rahman in our office. She has been maintained on pro-air and Spiriva. 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 On 10/21/2020 she was having issues with abdominal discomfort and shortness of breath than rib pain. She was seen in the urgent care in her workup was basically negative. She was given nebulized treatments and placed on doxycycline. Yesterday she was having ongoing issues and presented here to the emergency room for the same. She is seen today in the ER. Awake and alert in no acute distress. Sitting up on the stretcher. Her main complaint today is discomfort below her breast along the ribs. She is also having abdominal discomfort. She states she has been through a thorough GI workup without any significant findings. Chest x-ray reveals no acute pulmonary process. EKG reveals normal sinus rhythm with no ST or T wave abnormalities. White count 9.1. Hemoglobin 15.4. MCV 102.6. Sodium 135. Potassium 4.7. Creatinine 1.15. Troponin negative 1. BNP 188. Dunn virus not detected. She has a dry nonproductive cough. No fever or chills. No worsening shortness of breath. She is maintaining O2 saturations up to 99% on 2 L/m per nasal cannula. Afebrile. Hemodynamically stable. His been initiated on DuoNeb inhalations, prednisone at 40 mg daily. Lovenox for DVT prophylaxis. 0.9 no rmal saline at 100 ML's per hour. The patient is seen today 10/26/2020 and follow-up on the regular medical floor. She is up ambulating in her room. Awake and alert in no acute distress. Maintaining O2 saturations up to 100% on 2 L/m per nasal cannula. She's afebrile. Hemodynamically stable. Continued on DuoNeb inhalations, tolerating prednisone at 40 mg daily. Denies any steroid-induced psychoses. Empiric antibiotics in the form of doxycycline. Lovenox for DVT Patient is seen today 10/27/2020 and follow-up on the regular medical floor. She is sitting up in the bedside. Awake and alert in no acute distress. Her breathing is basically back to her baseline. No worsening shortness of breath, cough or congestion. Taking O2 saturations in the 90s on room air. Afebrile. Hemodynamically stable. Tolerating her prednisone without any steroid-induced psychoses. Objective - Vital Signs Vital signs: Vital Signs Temp 97.6 F 10/27/20 07:00 Pulse 77 10/27/20 09:10 Resp 16 10/27/20 09:10 BP 116/64 10/27/20 07:00 Pulse Ox 100 10/27/20 08:59 Intake & Output 10/26/20 10/27/20 10/27/20 18:59 06:59 18:59 Intake Total 240 Output Total 350 Balance -350 240 Intake: Oral 240 Output: Urine 350 Other: Voiding Method Toilet # Voids 1 - Exam GENERAL EXAM: Alert, active, 70-year-old female patient, on room air, comfortable in no apparent distress. HEAD: Normocephalic. EYES: Normal reaction of pupils, equal size. NOSE: Clear with pink turbinates. THROAT: No erythema or exudates. NECK: No masses, no JVD. CHEST: No chest wall deformity. LUNGS: Equal air entry with no crackles, wheeze, rhonchi or dullness. Diminished. CVS: S1 and S2 normal with no audible murmur, regular rhythm. ABDOMEN: No hepatosplenomegaly, normal bowel sounds, no guarding or rigidity. SPINE: No scoliosis or deformity SKIN: No rashes CENTRAL NERVOUS SYSTEM: No focal deficits, tone is normal in all 4 extremities. EXTREMITIES: There is no peripheral edema. No clubbing, no cyanosis. Peripheral pulses are intact. - Labs CBC & Chem 7: 10/24/20 22:30 10/24/20 22:30 Assessment and Plan Assessment: 1 Acute exacerbation of chronic obstructive pulmonary disease. 2 Acute on chronic hypoxemic respiratory failure secondary to above 3 Prior history of 50 years pack per day smoking 4 History of steroid induced psychosis 5 Fibromyalgia 6 History of anxiety/depression 7 Peripheral neuropathy 8 Gastroesophageal reflux disease 9 Hypertension 10 Chronic pain Plan: The patient was seen and evaluated by Dr. Singh Cleared for discharge from the pulmonary standpoint Complete a prednisone taper Continue her home pulmonary medications Follow up with Dr. Rahman in our office in 1-2 weeks' time I, the cosigning physician, performed a history & physical examination of the patient. Lungs sounds clear, diminished. Maintaining good O2 saturations in the 90s on room air. I discussed the assessment and plan of care with my nurse practitioner, Debbie Douglass. I attest to the above note as dictated by her.
--- NOTE | 2020-10-27 14:48 | P.DS ---
Providers Date of admission: 10/26/20 16:16 Expected date of discharge: 10/27/20 Attending physician: Torsten Og MD Consults: 10/24/20 23:22 Consult Physician Routine Consulting Provider: Deann Singh Consult Reason/Comments: known Do you want consulting provider notified?: Yes 10/25/20 05:21 Consult Physician Routine Consulting Provider: Leroy Demarco Consult Reason/Comments: depression Do you want consulting provider notified?: Already Contacted Primary care physician: Sathya Leonardo [facility] [facility] Course: Acute COPD exacerabation Patient was admitted with dyspnea on exertion and was started on nebulizers and PO steroids for COPD exacerbation. Pulmonology consulted and facilitated management. Pt required nebulizer therapy. COVID test was negative. Pt returned to 2L NC on discharge home. She will follow up with pulmonology. Depression psych evaluated patient and did recommend outpatient psychotherapy. Chronic pain resumed norco treated with dilaudid PRN while in house, but not prescribed on discharge. Patient will f/u with chronic pain management physician. Assessment: Gen: awake, alert HEENT: normocephalic, atraumatic, good hearing acuity, moist mucous membranes Resp: Diminished but moderate air exchange, no accessory muscle use, no wheezing, no crackles CVS: good distal perfusion x 4, regular rate and rhythm without murmurs GI: soft, NTTP, ND : no SPT, no CVAT, villanueva catheter not present MSK: no pitting edema, no clubbing Neuro: non-focal, moving all extremities Psych: cooperative, euthymic mood Patient Condition at Discharge: Good Plan - Discharge Summary Discharge Rx Participant: Yes New Discharge Prescriptions: New predniSONE [Deltasone] 40 mg PO DAILY 2 Days #4 tab Continue traMADol HCL [Ultram] 50 mg PO Q6H PRN PRN Reason: Pain clonazePAM [KlonoPIN] 2 mg PO TID Lisinopril [Zestril] 10 mg PO DAILY Albuterol Sulfate [Proair Hfa] 2 puff INHALATION RT-Q6H PRN #1 [email or web address] PRN Reason: Shortness Of Breath Doxycycline Hyclate [Vibramycin] 100 mg PO BID Tiotropium 2.5 Mcg/Puff [Spiriva Respimat 2.5 Mcg] 1 puff INHALATION RT-DAILY Aspirin 325 mg PO DAILY PRN PRN Reason: Pain Pantoprazole Sodium [Protonix] 40 mg PO DAILY Naldemedine Tosylate [Symproic] 0.1 mg PO DAILY Triamterene/Hydrochlorothiazid [Dyazide 37.5-25 Capsule] 1 cap PO Q48H Cholecalciferol [Vitamin D3 (25 Mcg = 1000 Iu)] 50 mcg PO DAILY Metoprolol Succinate (ER) [Toprol XL] 50 mg PO DAILY Hydrocodone/Acetaminophen [[place] 7.5-325] 1 tab PO BID Discharge Medication List Lisinopril [Zestril] 10 mg PO DAILY 10/28/17 [History] clonazePAM [KlonoPIN] 2 mg PO TID 10/28/17 [History] traMADol HCL [Ultram] 50 mg PO Q6H PRN 10/28/17 [History] Albuterol Sulfate [Proair Hfa] 2 puff INHALATION RT-Q6H PRN #1 [email or web address] 05/16/18 [Rx] Aspirin 325 mg PO DAILY PRN 10/24/20 [History] Cholecalciferol [Vitamin D3 (25 Mcg = 1000 Iu)] 50 mcg PO DAILY 10/24/20 [History] Doxycycline Hyclate [Vibramycin] 100 mg PO BID 10/24/20 [History] Hydrocodone/Acetaminophen [[place] 7.5-325] 1 tab PO BID 10/24/20 [History] Metoprolol Succinate (ER) [Toprol XL] 50 mg PO DAILY 10/24/20 [History] Naldemedine Tosylate [Symproic] 0.1 mg PO DAILY 10/24/20 [History] Pantoprazole Sodium [Protonix] 40 mg PO DAILY 10/24/20 [History] Tiotropium 2.5 Mcg/Puff [Spiriva Respimat 2.5 Mcg] 1 puff INHALATION RT-DAILY 10/24/20 [History] Triamterene/Hydrochlorothiazid [Dyazide 37.5-25 Capsule] 1 cap PO Q48H 10/24/20 [History] predniSONE [Deltasone] 40 mg PO DAILY 2 Days #4 tab 10/27/20 [Rx] Follow up Appointment(s)/Referral(s): Erik Rahman DO [Doctor of Osteopathic Medicine] - 11/11/20 1:00 pm Sathya Hartley MD [Primary Care Provider] - 1-2 days (Please call when office is open to make appointment) Patient Instructions/Handouts: Depression (DC), COPD (Chronic Obstructive Pulmonary Disease) (DC) Discharge Disposition: HOME SELF-CARE
== END 2020-10-27 14:05 | disposition home or self-care (01) | DRG 190 ==
LOC: EC 21:17 → 1SOBS 23:23 → 6NMEDSUR 10-25 13:47 → OBSVTOIN 10-26 16:16
PROVIDERS: ADMIT Internal Medicine; ATTEND Internal Medicine
DX: J44.1 Chronic obstructive pulmonary disease with (acute) exacerbation (principal); J96.21 Acute and chronic respiratory failure with hypoxia; F13.20 Sedative, hypnotic or anxiolytic dependence, uncomplicated; F09 Unspecified mental disorder due to known physiological condition; T38.0X5A Adverse effect of glucocorticoids and synthetic analogues, initial encounter; F32.9 Major depressive disorder, single episode, unspecified; F41.9 Anxiety disorder, unspecified; G62.9 Polyneuropathy, unspecified; G89.29 Other chronic pain; I10 Essential (primary) hypertension; K21.9 Gastro-esophageal reflux disease without esophagitis; M79.7 Fibromyalgia; Z20.822 Contact with and (suspected) exposure to COVID-19; F60.89 Other specific personality disorders; Z88.8 Allergy status to other drugs, medicaments and biological substances; Z91.041 Radiographic dye allergy status; Z91.013 Allergy to seafood; Z87.891 Personal history of nicotine dependence; Z79.82 Long term (current) use of aspirin; Z79.891 Long term (current) use of opiate analgesic; Z79.899 Other long term (current) drug therapy; Z90.49 Acquired absence of other specified parts of digestive tract; Z90.710 Acquired absence of both cervix and uterus; Z81.8 Family history of other mental and behavioral disorders; Z98.890 Other specified postprocedural states; Z90.711 Acquired absence of uterus with remaining cervical stump
CPT/HCPCS: 36415; 71046; 80053; 82550; 83735; 83880; 84484; 85025; 85610; 85730; 87635; 93005; 94640; 94760; 96374; 96375; 99285

== ENCOUNTER 2021-08-12 12:01 | Emergency (ER) | payer MEDICARE, BC ==
[2021-08-12 12:07] VITALS: RESP 18
[2021-08-12] MEDS ORDERED: SODIUM CHLORIDE 0.9% 1,000 ML IV STA (12:39)
[2021-08-12] MEDS ORDERED: diphenhydrAMINE 50 MG/ML 1 ML VIAL IVP STA ×2 (12:39→13:02)
[2021-08-12] MEDS ORDERED: PANTOPRAZOLE 40 MG/10 ML VIAL IVP STA (12:39)
[2021-08-12] MEDS ORDERED: HYDROmorphone 0.5 MG/0.5 ML SYRINGE IVP STA ×3 (12:39→15:54)
[2021-08-12] MEDS ORDERED: METOCLOPRAMIDE 5 MG/ML 2 ML VIAL IVP STA (12:41)
--- NOTE | 2021-08-12 12:55 | ED ---
General Adult HPI - General Chief complaint: Abdominal Pain Stated complaint: Abd pain/headache Time Seen by Provider: 08/12/21 12:35 Source: patient, RN notes reviewed, old records reviewed Mode of arrival: ambulatory Limitations: no limitations - History of Present Illness Initial comments: Patient is a 71-year-old female who presents emergency Department 2 primary complaints. She does have a history of hypertension, COPD, chronic abdominal pain, fibromyalgia who does see a pain specialist for her pain presents emergency Department complaining of a mild tension-like headache that she describes as a belt tied tight around her head. This is been ongoing for 2-3 days with associated joint discomfort. She denies any chest pain or shortness of breath. She is endorsing acute on chronic abdominal pain. States his foot has occurred over the last few days. States Dilaudid is the only thing he takes away the pain and asks for it quickly during her evaluation. She associates mild nausea with it. Denies any change in stooling or flatulence, however she states she typically has reduce swelling and fluctuance on the pain flares up. She's not been eating much. Is on certain what is causing the pain. Describes a generalized, but it does seem to be somewhat localized towards the umbilicus region is at and lower epigastric region. Denies any history of alcohol abuse. Presents emergency department today for further evaluation. No change in terms of her abdominal pain from her chronic pain that she experiences what seems like on a weekly basis. No fevers, chills, sick contacts, cough. No diarrhea. No urinary complaints. - Related Data Home Medications Medication Instructions Recorded Confirmed Lisinopril [Zestril] 10 mg PO DAILY 10/28/17 10/24/20 clonazePAM [KlonoPIN] 2 mg PO TID 10/28/17 10/24/20 traMADol HCL [Ultram] 50 mg PO Q6H PRN 10/28/17 10/24/20 Aspirin 325 mg PO DAILY PRN 10/24/20 10/24/20 Cholecalciferol [Vitamin D3 (25 50 mcg PO DAILY 10/24/20 10/24/20 Mcg = 1000 Iu)] Doxycycline Hyclate [Vibramycin] 100 mg PO BID 10/24/20 10/24/20 Hydrocodone/Acetaminophen [[place] 1 tab PO BID 10/24/20 10/24/20 7.5-325] Metoprolol Succinate (ER) [Toprol 50 mg PO DAILY 10/24/20 10/24/20 XL] Naldemedine Tosylate [Symproic] 0.1 mg PO DAILY 10/24/20 10/24/20 Pantoprazole Sodium [Protonix] 40 mg PO DAILY 10/24/20 10/24/20 Tiotropium 2.5 Mcg/Puff [Spiriva 1 puff INHALATION RT-DAILY 10/24/20 10/24/20 Respimat 2.5 Mcg] Triamterene/Hydrochlorothiazid 1 cap PO Q48H 10/24/20 10/24/20 [Dyazide 37.5-25 Capsule] Previous Rx's Medication Instructions Recorded Albuterol Sulfate [Proair Hfa] 2 puff INHALATION RT-Q6H PRN #1 05/16/18 hfa.aer.[email or web address] predniSONE [Deltasone] 40 mg PO DAILY 2 Days #4 tab 10/27/20 Amoxic-Pot Clav 875-125Mg 1 tab PO Q12HR 7 Days #14 tab 08/12/21 [Augmentin 875-125] Dicyclomine [Bentyl] 20 mg PO QID PRN 7 Days #28 tablet 08/12/21 Fluconazole [Diflucan] 150 mg PO DAILY #3 tab 08/12/21 Allergies Allergy/AdvReac Type Severity Reaction Status Date / Time famotidine [From Pepcid] Allergy Unknown Verified 08/12/21 12:07 Iodinated Contrast Media Allergy Rash/Hives Verified 08/12/21 12:07 [Iodinated Contrast- Oral and IV Dye] prednisone Allergy Hallucinati Verified 08/12/21 12:07 ons shellfish derived [Shrimp] Allergy Rash/Hives Verified 08/12/21 12:07 Review of Systems ROS Statement: Those systems with pertinent positive or pertinent negative responses have been documented in the HPI. Review of Systems: CONST: Denies fever EYES: Denies blurry vision ENT: Denies nasal congestion C/V: Denies Chest pain RESP: Denies shortness of breath GI: Endorses Abdominal pain : Denies dysuria SKIN: Denies rash. MSK: Denies joint pain. NEURO: Endorses tension-like headache ROS Other: All systems not noted in ROS Statement are negative. Past Medical History Past Medical History: COPD, Fibromyalgia, GERD/Reflux, Hypertension Additional Past Medical History / Comment(s): bursitis, peripheral neuropathy, acute ischemic brain disease, "node on thyroid", severe mood disorder History of Any Multi-Drug Resistant Organisms: None Reported Past Surgical History: Section, Cholecystectomy, Hernia Repair, Hysterectomy Additional Past Surgical History / Comment(s): partial hysterectomy, d&c Past Anesthesia/Blood Transfusion Reactions: No Reported Reaction Past Psychological History: Anxiety, Depression Smoking Status: Never smoker Past Alcohol Use History: None Reported Past Drug Use History: None Reported - Past Family History family Family Medical History: No Reported History General Exam - General Exam Comments Initial Comments: General: Appears in no acute distress. HEAD: Normal with no signs of head trauma. EYES: PERRLA, EOMI, conjunctiva normal, no discharge. Pupils are 3 mm and equal bilaterally. ENT: Hearing grossly intact, normal oropharynx. RESPIRATORY: Clear breath sounds bilaterally. No wheezes, rales, or rhonchi. No increased work of breathing. C/V: Regular rate and rhythm. S1 and S2 auscultated, no edema, peripheral pulses 2+ and intact throughout ABD: Abdomen is soft, nondistended. Mildly tender to palpation in the epigastric region, umbilicus region. No guarding. No rebound tenderness. No peritoneal signs. EXT: Normal range of motion, no obvious deformity SKIN: No rashes or lesions observed on exposed skin. NEURO: Alert and oriented 4. No focal deficits. Limitations: no limitations Course Vital Signs 08/12/21 08/12/21 08/12/21 12:02 13:24 14:52 Temperature 97.8 F Pulse Rate 67 67 69 Respiratory 18 18 18 Rate Blood Pressure 151/85 190/104 159/86 O2 Sat by Pulse 94 L 94 L 94 L Oximetry 08/12/21 16:04 Temperature 98.9 F Pulse Rate 69 Respiratory 18 Rate Blood Pressure 159/108 O2 Sat by Pulse 93 L Oximetry Medical Decision Making - Medical Decision Making Based on the patient's presentation and exam, does appear she is experiencing acute on chronic abdominal pain. Cannot rule out ACS at this time and an atypical patient, therefore we will obtain cardiac labs including EKG and troponin, chest x-ray. We also obtained abdominal laboratory studies. She was in agreement this plan. She'll be given IV fluids, partial migraine cocktail, as well as IV analgesia. She'll be reevaluated. Recommended CT abdomen and pelvis. Has had a minor reaction which she describes as shaking which doesn't s eem occur when she receives the iodine ALLERGY cocktail. She'll be administered this and then we obtain a CT abdomen and pelvis. Patient's laboratory studies were remarkable for a hemolyzed potassium of 5.5 in the setting normal renal function. Do not believe patient actually has a hype rkalemia, particularly with normal EKG. Troponin is undetectable. Urine studies negative. Covid and flu swabs are negative. Chest x-ray reveals no acute cardiopulmonary process. CT abdomen and pelvis revealed mild inflammatory changes that may or may not be chronic in the sigmoid colon. Could represent very early colonic diverticulitis, however there is no significant change from 2019. There is also hepatic steatosis. Patient's headache is improved. I did discuss with the patient results of her imaging and negative workup. She appears to be experiencing her acute on chronic abdominal pain. I did discuss that it does not appear that she has diverticulitis, however due to her having recurrence of symptoms, did offer antibiotics empirically which she accepted. She also be given Bentyl outpatient. I recommended she follow up with her pain management doctor as well as her GI doctor and PCP this week. She was in agreement this plan. She does not smoke GI doctor in over a year. Patient will be discharged home in fair condition. I will provide the patient with a prescription for Augmentin, Bentyl. I instructed the patient to follow up with their PCP in the next 3 days. I explained that the patient should return to the emergency department if they experience any worsening symptoms. Strict return precautions were discussed with the patient. The patient expressed understanding of these instructions. I answered all questions that the patient had. The patient was discharged home in fair condition with their prescriptions and follow up information. - Lab Data Result diagrams: 08/12/21 12:57 08/12/21 12:57 Lab Results 08/12/21 08/12/21 08/12/21 Range/Units 12:57 12:57 12:57 WBC 8.3 (3.8-10.6) k/uL RBC 4.47 (3.80-5.40) m/uL Hgb 14.8 (11.4-16.0) gm/dL Hct 44.7 (34.0-46.0) % MCV 100.1 H (80.0-100.0) fL MCH 33.1 (25.0-35.0) pg MCHC 33.1 (31.0-37.0) g/dL RDW 13.8 (11.5-15.5) % Plt Count 311 (150-450) k/uL MPV 7.3 Neutrophils % 70 % Lymphocytes % 19 % Monocytes % 6 % Eosinophils % 2 % Basophils % 1 % Neutrophils # 5.8 (1.3-7.7) k/uL Lymphocytes # 1.6 (1.0-4.8) k/uL Monocytes # 0.5 (0-1.0) k/uL Eosinophils # 0.2 (0-0.7) k/uL Basophils # 0.1 (0-0.2) k/uL PT (9.0-12.0) sec INR (<1.2) APTT (22.0-30.0) sec Sodium 132 L (137-145) mmol/L Potassium 5.5 H (3.5-5.1) mmol/L Chloride 99 (98-107) mmol/L Carbon Dioxide 23 (22-30) mmol/L Anion Gap 10 mmol/L BUN 18 H (7-17) mg/dL Creatinine 1.04 (0.52-1.04) mg/dL Est GFR (CKD-EPI)AfAm 63 (>60 ml/min/1.73 sqM) Est GFR (CKD-EPI)NonAf 54 (>60 ml/min/1.73 sqM) Glucose 114 H (74-99) mg/dL Plasma Lactic Acid Devin (0.7-2.0) mmol/L Calcium 9.6 (8.4-10.2) mg/dL Total Bilirubin 0.7 (0.2-1.3) mg/dL AST 36 (14-36) U/L ALT 21 (4-34) U/L Alkaline Phosphatase 44 (38-126) U/L Troponin I (0.000-0.034) ng/mL Total Protein 7.7 (6.3-8.2) g/dL Albumin 4.5 (3.5-5.0) g/dL Amylase 65 (30-110) U/L Lipase 58 (23-300) U/L Urine Color Light Yellow Urine Appearance Clear (Clear) Urine pH 5.5 (5.0-8.0) Ur Specific [place] 1.005 (1.001-1.035) Urine Protein Negative (Negative) Urine Glucose (UA) Negative (Negative) Urine Ketones Negative (Negative) Urine Blood Negative (Negative) Urine Nitrite Negative (Negative) Urine Bilirubin Negative (Negative) Urine Urobilinogen <2.0 (<2.0) mg/dL Ur Leukocyte Esterase Negative (Negative) Coronavirus (PCR) (Not Detectd) Influenza Type A RNA (Not Detectd) Influenza Type B (PCR) (Not Detectd) 08/12/21 08/12/21 08/12/21 Range/Units 12:57 12:57 12:57 WBC (3.8-10.6) k/uL RBC (3.80-5.40) m/uL Hgb (11.4-16.0) gm/dL Hct (34.0-46.0) % MCV (80.0-100.0) fL MCH (25.0-35.0) pg MCHC (31.0-37.0) g/dL RDW (11.5-15.5) % Plt Count (150-450) k/uL MPV Neutrophils % % Lymphocytes % % Monocytes % % Eosinophils % % Basophils % % Neutrophils # (1.3-7.7) k/uL Lymphocytes # (1.0-4.8) k/uL Monocytes # (0-1.0) k/uL Eosinophils # (0-0.7) k/uL Basophils # (0-0.2) k/uL PT 10.2 (9.0-12.0) sec INR 0.9 (<1.2) APTT 25.9 (22.0-30.0) sec Sodium (137-145) mmol/L Potassium (3.5-5.1) mmol/L Chloride (98-107) mmol/L Carbon Dioxide (22-30) mmol/L Anion Gap mmol/L BUN (7-17) mg/dL Creatinine (0.52-1.04) mg/dL Est GFR (CKD-EPI)AfAm (>60 ml/min/1.73 sqM) Est GFR (CKD-EPI)NonAf (>60 ml/min/1.73 sqM) Glucose (74-99) mg/dL Plasma Lactic Acid Devin 1.2 (0.7-2.0) mmol/L Calcium (8.4-10.2) mg/dL Total Bilirubin (0.2-1.3) mg/dL AST (14-36) U/L ALT (4-34) U/L Alkaline Phosphatase (38-126) U/L Troponin I <0.012 (0.000-0.034) ng/mL Total Protein (6.3-8.2) g/dL Albumin (3.5-5.0) g/dL Amylase (30-110) U/L Lipase (23-300) U/L Urine Color Urine Appearance (Clear) Urine pH (5.0-8.0) Ur Specific [place] (1.001-1.035) Urine Protein (Negative) Urine Glucose (UA) (Negative) Urine Ketones (Negative) Urine Blood (Negative) Urine Nitrite (Negative) Urine Bilirubin (Negative) Urine Urobilinogen (<2.0) mg/dL Ur Leukocyte Esterase (Negative) Coronavirus (PCR) (Not Detectd) Influenza Type A RNA (Not Detectd) Influenza Type B (PCR) (Not Detectd) 08/12/21 08/12/21 Range/Units 12:57 12:57 WBC (3.8-10.6) k/uL RBC (3.80-5.40) m/uL Hgb (11.4-16.0) gm/dL Hct (34.0-46.0) % MCV (80.0-100.0) fL MCH (25.0-35.0) pg MCHC (31.0-37.0) g/dL RDW (11.5-15.5) % Plt Count (150-450) k/uL MPV Neutrophils % % Lymphocytes % % Monocytes % % Eosinophils % % Basophils % % Neutrophils # (1.3-7.7) k/uL Lymphocytes # (1.0-4.8) k/uL Monocytes # (0-1.0) k/uL Eosinophils # (0-0.7) k/uL Basophils # (0-0.2) k/uL PT (9.0-12.0) sec INR (<1.2) APTT (22.0-30.0) sec Sodium (137-145) mmol/L Potassium (3.5-5.1) mmol/L Chloride (98-107) mmol/L Carbon Dioxide (22-30) mmol/L Anion Gap mmol/L BUN (7-17) mg/dL Creatinine (0.52-1.04) mg/dL Est GFR (CKD-EPI)AfAm (>60 ml/min/1.73 sqM) Est GFR (CKD-EPI)NonAf (>60 ml/min/1.73 sqM) Glucose (74-99) mg/dL Plasma Lactic Acid Devin (0.7-2.0) mmol/L Calcium (8.4-10.2) mg/dL Total Bilirubin (0.2-1.3) mg/dL AST (14-36) U/L ALT (4-34) U/L Alkaline Phosphatase (38-126) U/L Troponin I (0.000-0.034) ng/mL Total Protein (6.3-8.2) g/dL Albumin (3.5-5.0) g/dL Amylase (30-110) U/L Lipase (23-300) U/L Urine Color Urine Appearance (Clear) Urine pH (5.0-8.0) Ur Specific [place] (1.001-1.035) Urine Protein (Negative) Urine Glucose (UA) (Negative) Urine Ketones (Negative) Urine Blood (Negative) Urine Nitrite (Negative) Urine Bilirubin (Negative) Urine Urobilinogen (<2.0) mg/dL Ur Leukocyte Esterase (Negative) Coronavirus (PCR) Not Detected (Not Detectd) Influenza Type A RNA Not Detected (Not Detectd) Influenza Type B (PCR) Not Detected (Not Detectd) - EKG Data -: EKG Interpreted by Me EKG Comments: 12-lead Electrocardiogram Interpretation Note EKG was reviewed and interpreted by myself. 12-lead ECG performed at 1253 is i nterpreted by me as revealing normal sinus rhythm at a rate of 62 beats per minute. Peridot is normal. OK interval is 168 ms, QRS duration is 98 ms, QTc is 395 ms.. There were no ST or T wave abnormalities to suggest myocardial ischemia or injury. R wave progression across the precordium was satisfactory. By my interpretation this EKG is non-diagnostic for acute ischemia. Disposition Clinical Impression: Chronic abdominal pain Disposition: HOME SELF-CARE Condition: Fair Instructions (If sedation given, give patient instructions): Abdominal Pain (ED) Prescriptions: Amoxic-Pot Clav 875-125Mg [Augmentin 875-125] 1 tab PO Q12HR 7 Days #14 tab Dicyclomine [Bentyl] 20 mg PO QID PRN 7 Days #28 tablet PRN Reason: Pain Fluconazole [Diflucan] 150 mg PO DAILY #3 tab Is patient prescribed a controlled substance at d/c from ED?: No Referrals: Sathya Hartley MD [Primary Care Provider] - 1-2 days Debby Howell MD [STAFF PHYSICIAN] - 1-2 days Cam Cates MD [STAFF PHYSICIAN] - 1-2 days Time of Disposition: 15:45
[2021-08-12] MEDS ORDERED: methylPREDNISolone SOD SUCCI 125 MG/2 ML VIAL IV STA (13:02)
[2021-08-12] MEDS ORDERED: FAMOTIDINE 20 MG/2 ML VIAL IV STA (13:02)
[2021-08-12 13:09] LABS: Basophils # (A) 0.1 k/uL (0-0.2); Basophils % (A) 1 %; Eosinophils # (A) 0.2 k/uL (0-0.7); Eosinophils % (A) 2 %; HCT 44.7 % (34.0-46.0); HGB 14.8 gm/dL (11.4-16.0); Lymphocytes # (A) 1.6 k/uL (1.0-4.8); Lymphocytes % (A) 19 %; MCH 33.1 pg (25.0-35.0); MCHC 33.1 g/dL (31.0-37.0); MCV 100.1 fL (80.0-100.0); Mean Platelet Volume 7.3; Monocytes # (A) 0.5 k/uL (0-1.0); Monocytes % (A) 6 %; Neutrophils # (A) 5.8 k/uL (1.3-7.7); Neutrophils % (A) 70 %; Platelet Count 311 k/uL (150-450); RBC 4.47 m/uL (3.80-5.40); RDW 13.8 % (11.5-15.5); WBC 8.3 k/uL (3.8-10.6)
--- NOTE | 2021-08-12 13:10 | XR ---
EXAMINATION TYPE: XR chest 2V DATE OF EXAM: 08/12/2021 COMPARISON: 10/24/2020 HISTORY: Abdominal pain TECHNIQUE: Frontal and lateral views of the chest are obtained. FINDINGS: There is no focal air space opacity, pleural effusion, or pneumothorax seen. The cardiac silhouette size is within normal limits. The osseous structures are intact. IMPRESSION: No acute cardiopulmonary process.
[2021-08-12 13:21] LABS: Albumin 4.5 g/dL (3.5-5.0); Calcium 9.6 mg/dL (8.4-10.2); Total Bilirubin 0.7 mg/dL (0.2-1.3); Total Protein 7.7 g/dL (6.3-8.2)
[2021-08-12 13:35] LABS: Potassium 5.5 mmol/L (3.5-5.1)
[2021-08-12 13:41] LABS: INR 0.9 (<1.2); Partial Thromboplastin Time 25.9 sec (22.0-30.0); Prothrombin Time 10.2 sec (9.0-12.0)
[2021-08-12 13:44] LABS: Appearance,Urine Clear (Clear); Bilirubin,Urine Negative (Negative); Blood,Urine Negative (Negative); Color,Urine Light Yellow; Glucose,Urine (UA) Negative (Negative); Ketones,Urine Negative (Negative); Leukocyte Esterase,Urine Negative (Negative); Nitrite,Urine Negative (Negative); PH, Urine 5.5 (5.0-8.0); Protein,Urine Negative (Negative); Specific Gravity,Urine 1.005 (1.001-1.035); Urobilinogen,Urine <2.0 mg/dL (<2.0)
[2021-08-12 14:53] VITALS: PULSE 69
--- NOTE | 2021-08-12 15:30 | CT ---
EXAMINATION TYPE: CT abdomen pelvis w con CT DLP: 1338.8 mGycm, Automated exposure control for dose reduction was used. DATE OF EXAM: 08/12/2021 2:55 PM COMPARISON: CT abdomen pelvis most recent from 02/12/2019. . CLINICAL INDICATION:Female, 71 years old with history of abdominal pain, acute, nonlocalized; Abdomin al pain, acute, nonlocalized TECHNIQUE: Standard CT of the abdomen and pelvis following the administration of 100 cc of Isovue 3 00 IV contrast material and oral contrast. Coronal and sagittal reformats were performed. FINDINGS: LOWER CHEST: Unremarkable ABDOMEN LIVER: Diffusely hypoattenuating parenchyma. GALLBLADDER AND BILE DUCTS: Gallbladder is surgically absent with mild intrahepatic and extra hepatic biliary dilatation likely physiologic and a postcholecystectomy change. No evidence of choledocholit hiasis. PANCREAS: Unremarkable. SPLEEN: Unremarkable. ADRENAL GLANDS: Unchanged left adrenal nodule measuring 19.6 mm dating back to at least 2019 and like ly represents a benign adrenal adenoma.. KIDNEYS AND URETERS: No evidence of hydronephrosis or renal calculus. The ureters are unremarkable. PELVIS BLADDER: Unremarkable REPRODUCTIVE: Unremarkable. ABDOMEN & PELVIS STOMACH AND BOWEL: Scattered colonic diverticula present throughout the colon. No evidence of bowel o bstruction. Appendix is normal PERITONEUM: No evidence of pneumoperitoneum or free fluid. VASCULATURE: Moderate atherosclerotic calcifications are present throughout the abdominal aorta and i ts branches. MUSCULOSKELETAL: No acute osseous abnormalities. LYMPH NODES: No gross evidence for lymphadenopathy. SOFT TISSUE/ABDOMINAL WALL: Unremarkable IMPRESSION: 1. Mild inflammation changes seen along the sigmoid colon in areas containing multiple colonic diver ticula. Could represent early clonic diverticulitis however this is not significantly changed from . No additional evidence for acute abdominal process. 2. Hepatic steatosis.
[2021-08-12 16:10] VITALS: BP 159/108; TEMP 98.9
== END 2021-08-12 16:28 | disposition home or self-care (01) ==
LOC: EC 12:01
DX: G89.29 Other chronic pain (principal); R10.9 Unspecified abdominal pain; R51.9 Headache, unspecified; I10 Essential (primary) hypertension; J44.9 Chronic obstructive pulmonary disease, unspecified; K21.9 Gastro-esophageal reflux disease without esophagitis; M79.7 Fibromyalgia; Z79.52 Long term (current) use of systemic steroids; Z88.8 Allergy status to other drugs, medicaments and biological substances; Z90.49 Acquired absence of other specified parts of digestive tract; Z20.822 Contact with and (suspected) exposure to COVID-19; Z91.013 Allergy to seafood; Z91.041 Radiographic dye allergy status; Z79.899 Other long term (current) drug therapy; Z79.82 Long term (current) use of aspirin
CPT/HCPCS: 36415; 93005; 80053; 82150; 83605; 83690; 84484; 85025; 85610; 85730; 81003; 87502; 87635; 71046; 74177; 99284; 96374; 96375; 96361; 96376; J1200; J2765; J2930; J1170; Q9967

== ENCOUNTER 2022-02-02 10:05 | Inpatient (IN) | payer MEDICARE, BC ==
[2022-02-02] MEDS ORDERED: DEXAMETHASONE SOD PHOSPHATE 10 MG/ML 1 ML VIAL IVP STA (10:33)
[2022-02-02] MEDS ORDERED: IPRATROPIUM-ALBUTEROL 3 ML NEB INHALATION STA (10:33)
--- NOTE | 2022-02-02 10:33 | ED ---
General Adult HPI - General Chief complaint: Shortness of Breath Stated complaint: sob, COVID+ Time Seen by Provider: 02/02/22 10:15 Source: patient, RN notes reviewed, old records reviewed Mode of arrival: ambulatory Limitations: no limitations - History of Present Illness Initial comments: This is a 71-year-old female presents emergency Department complaining of difficulty breathing. Patient states 80s ago she was diagnosed with COVID. Patient states since then her breathing is become a little more labored. Patient states she has chronic joint pain. Patient denies any chest pain or palpitations. Patient denies abdominal pain patient denies nausea vomiting diarrhea. Patient states she's on 2 L of oxygen at home. Patient denies any lightheadedness or dizziness. Patient denies any numbness or weakness. Patient denies any new areas of pain. - Related Data Home Medications Medication Instructions Recorded Confirmed clonazePAM [KlonoPIN] 2 mg PO TID 10/28/17 02/02/22 traMADol HCL [Ultram] 50 - 100 mg PO TID PRN 10/28/17 02/02/22 Metoprolol Succinate (ER) [Toprol 100 mg PO DAILY 10/24/20 02/02/22 XL] Tiotropium 2.5 Mcg/Puff [Spiriva 1 puff INHALATION RT-DAILY 10/24/20 02/02/22 Respimat 2.5 Mcg] Triamterene/Hydrochlorothiazid 1 cap PO Q48H 10/24/20 02/02/22 [Dyazide 37.5-25 Capsule] Albuterol Sulfate [Proair Hfa] 2 puff INHALATION RT-Q4H PRN 02/02/22 02/02/22 Budesonide-Formot 160-4.5 Mcg 2 puff INHALATION DIRECTED 02/02/22 02/02/22 [Symbicort 160-4.5 Mcg Inhaler] Gabapentin [Neurontin] 200 mg PO TID 02/02/22 02/02/22 Hydrocodone/Acetaminophen 1 tab PO TID PRN 02/02/22 02/02/22 [Hydrocodone/Acetaminophen 10-325] Nirmatrelvir/Ritonavir [Paxlovid 1 dose PO DIRECTED 02/02/22 02/02/22 150-100 mg Pack (Eua)] lisinopriL 40 mg PO DAILY 02/02/22 02/02/22 Allergies Allergy/AdvReac Type Severity Reaction Status Date / Time famotidine [From Pepcid] Allergy Unknown Verified 02/02/22 11:55 Iodinated Contrast Media Allergy Rash/Hives Verified 02/02/22 11:55 [Iodinated Contrast- Oral and IV Dye] prednisone Allergy Hallucinati Verified 02/02/22 11:55 ons shellfish derived [Shrimp] Allergy Rash/Hives Verified 02/02/22 11:55 Review of Systems ROS Statement: Those systems with pertinent positive or pertinent negative responses have been documented in the HPI. ROS Other: All systems not noted in ROS Statement are negative. Past Medical History Past Medical History: COPD, Fibromyalgia, GERD/Reflux, Hypertension Additional Past Medical History / Comment(s): bursitis, peripheral neuropathy, acute ischemic brain disease, "node on thyroid", severe mood disorder History of Any Multi-Drug Resistant Organisms: None Reported Past Surgical History: Section, Cholecystectomy, Hernia Repair, Hy sterectomy Additional Past Surgical History / Comment(s): partial hysterectomy, d&c Past Anesthesia/Blood Transfusion Reactions: No Reported Reaction Past Psychological History: Anxiety, Depression Smoking Status: Never smoker Past Alcohol Use History: None Reported Past Drug Use History: None Reported - Past Family History family Family Medical History: No Reported History General Exam - General Exam Comments Initial Comments: GENERAL: Patient is well-developed and well-nourished. Patient is nontoxic and well-hydrated and is in no acute distress. ENT: Neck is soft and supple. No significant lymphadenopathy is noted. Oropharynx is clear. Moist mucous membranes. Neck has full range of motion without eliciting any pain. EYES: The sclera were anicteric and conjunctiva were pink and moist. Extraocular movements were intact and pupils were equal round and reactive to light. Eyelids were unremarkable. PULMONARY: Decreased breath sounds. CARDIOVASCULAR: There is a regular rate and rhythm without any murmurs gallops or rubs. ABDOMEN: Soft and nontender with normal bowel sounds. SKIN: Skin is clear with no lesions or rashes and otherwise unremarkable. NEUROLOGIC: Patient is alert and oriented x3. Cranial nerves II through XII are grossly intact. Motor and sensory are also intact. Normal speech, volume and content. Symmetrical smile. MUSCULOSKELETAL: Normal extremities with adequate strength and full range of motion. LYMPHATICS: No significant lymphadenopathy is noted PSYCHIATRIC: Normal psychiatric evaluation. Limitations: no limitations Course Vital Signs 02/02/22 02/02/22 02/02/22 10:12 11:20 11:52 Temperature 98 F Pulse Rate 62 96 67 Respiratory 20 18 Rate Blood Pressure 173/86 166/91 O2 Sat by Pulse 98 96 Oximetry Medical Decision Making - Medical Decision Making I interpret EKG EKG shows sinus rhythm at 60 bpm SD interval 164 QRS is 94 Q-T intervals 411 QTC is 412 per patient's EKG shows no ST segment elevation or depression. I interpreted chest x-ray. Chest x-ray showed no acute abnormality. Patient's d-dimer was elevated psychotic CAT scan of the chest to rule out PE. I interpreted the CT of the chest. It showed some ground glass opacifications in the bases. Consistent with COVID pneumonia I spoke with Dr. gan he agreed to admit the patient admitted the patient wrote admitting orders. Patient also received steroids in the emergency department. - Lab Data Result diagrams: 02/02/22 10:36 02/02/22 10:36 Lab Results 02/02/22 02/02/22 02/02/22 Range/Units 10:36 10:36 10:36 WBC 9.9 (3.8-10.6) k/uL RBC 4.12 (3.80-5.40) m/uL Hgb 13.7 (11.4-16.0) gm/dL Hct 38.9 (34.0-46.0) % MCV 94.3 (80.0-100.0) fL MCH 33.3 (25.0-35.0) pg MCHC 35.3 (31.0-37.0) g/dL RDW 13.6 (11.5-15.5) % Plt Count 310 (150-450) k/uL MPV 8.1 Neutrophils % 80 % Lymphocytes % 10 % Monocytes % 7 % Eosinophils % 0 % Basophils % 0 % Neutrophils # 8.0 H (1.3-7.7) k/uL Lymphocytes # 1.0 (1.0-4.8) k/uL Monocytes # 0.7 (0-1.0) k/uL Eosinophils # 0.0 (0-0.7) k/uL Basophils # 0.0 (0-0.2) k/uL PT 13.0 H (9.0-12.0) sec INR 1.3 H (<1.2) APTT 31.5 H (22.0-30.0) sec D-Dimer 1.08 H (<0.60) mg/L FEU Sodium 125 L (137-145) mmol/L Potassium 4.6 (3.5-5.1) mmol/L Chloride 94 L (98-107) mmol/L Carbon Dioxide 20 L (22-30) mmol/L Anion Gap 11 mmol/L BUN 18 H (7-17) mg/dL Creatinine 0.77 (0.52-1.04) mg/dL Est GFR (CKD-EPI)AfAm 90 (>60 ml/min/1.73 sqM) Est GFR (CKD-EPI)NonAf 78 (>60 ml/min/1.73 sqM) Glucose 97 (74-99) mg/dL Plasma Lactic Acid Devin (0.7-2.0) mmol/L Calcium 8.0 L (8.4-10.2) mg/dL Magnesium 1.9 (1.6-2.3) mg/dL Total Bilirubin 0.6 (0.2-1.3) mg/dL AST 52 H (14-36) U/L ALT 25 (4-34) U/L Alkaline Phosphatase 84 (38-126) U/L Troponin I (0.000-0.034) ng/mL NT-Pro-B Natriuret Pep pg/mL Total Protein 6.5 (6.3-8.2) g/dL Albumin 3.7 (3.5-5.0) g/dL 02/02/22 02/02/22 02/02/22 Range/Units 10:36 10:36 10:36 WBC (3.8-10.6) k/uL RBC (3.80-5.40) m/uL Hgb (11.4-16.0) gm/dL Hct (34.0-46.0) % MCV (80.0-100.0) fL MCH (25.0-35.0) pg MCHC (31.0-37.0) g/dL RDW (11.5-15.5) % Plt Count (150-450) k/uL MPV Neutrophils % % Lymphocytes % % Monocytes % % Eosinophils % % Basophils % % Neutrophils # (1.3-7.7) k/uL Lymphocytes # (1.0-4.8) k/uL Monocytes # (0-1.0) k/uL Eosinophils # (0-0.7) k/uL Basophils # (0-0.2) k/uL PT (9.0-12.0) sec INR (<1.2) APTT (22.0-30.0) sec D-Dimer (<0.60) mg/L FEU Sodium (137-145) mmol/L Potassium (3.5-5.1) mmol/L Chloride (98-107) mmol/L Carbon Dioxide (22-30) mmol/L Anion Gap mmol/L BUN (7-17) mg/dL Creatinine (0.52-1.04) mg/dL Est GFR (CKD-EPI)AfAm (>60 ml/min/1.73 sqM) Est GFR (CKD-EPI)NonAf (>60 ml/min/1.73 sqM) Glucose (74-99) mg/dL Plasma Lactic Acid Devin 0.9 (0.7-2.0) mmol/L Calcium (8.4-10.2) mg/dL Magnesium (1.6-2.3) mg/dL Total Bilirubin (0.2-1.3) mg/dL AST (14-36) U/L ALT (4-34) U/L Alkaline Phosphatase (38-126) U/L Troponin I <0.012 (0.000-0.034) ng/mL NT-Pro-B Natriuret Pep 852 pg/mL Total Protein (6.3-8.2) g/dL Albumin (3.5-5.0) g/dL Disposition Clinical Impression: Pneumonia due to COVID-19 virus Disposition: ADMITTED IP TO THIS HOSP Referrals: Sathya Hartley MD [Primary Care Provider] - 1-2 days Time of Disposition: 13:35
--- NOTE | 2022-02-02 10:59 | XR ---
EXAMINATION TYPE: XR chest 2V DATE OF EXAM: 02/02/2022 COMPARISON: 08/12/2021 INDICATION: Difficulty breathing TECHNIQUE: Frontal and lateral views of the chest are obtained. FINDINGS: The heart size is normal. The pulmonary vasculature is normal. The lungs are clear. IMPRESSION: 1. No acute pulmonary process.
[2022-02-02 11:00] LABS: Basophils % (A) 0 %; Eosinophils % (A) 0 %; HCT 38.9 % (34.0-46.0); HGB 13.7 gm/dL (11.4-16.0); Lymphocytes % (A) 10 %; MCH 33.3 pg (25.0-35.0); MCHC 35.3 g/dL (31.0-37.0); MCV 94.3 fL (80.0-100.0); Mean Platelet Volume 8.1; Monocytes # (A) 0.7 k/uL (0-1.0); Monocytes % (A) 7 %; Neutrophils % (A) 80 %; Platelet Count 310 k/uL (150-450); RBC 4.12 m/uL (3.80-5.40); RDW 13.6 % (11.5-15.5); WBC 9.9 k/uL (3.8-10.6)
[2022-02-02 11:11] LABS: Albumin 3.7 g/dL (3.5-5.0); Total Bilirubin 0.6 mg/dL (0.2-1.3); Total Protein 6.5 g/dL (6.3-8.2)
[2022-02-02 11:13] LABS: Magnesium 1.9 mg/dL (1.6-2.3); Potassium 4.6 mmol/L (3.5-5.1)
[2022-02-02] MEDS ORDERED: ONDANSETRON 4 MG/2 ML VIAL IVP STA (11:16)
[2022-02-02] MEDS: KETOROLAC 15 MG/ML 1 ML VIAL IVP STA ×2 (11:18→11:24)
[2022-02-02 11:41] LABS: INR 1.3 (<1.2); Partial Thromboplastin Time 31.5 sec (22.0-30.0)
[2022-02-02] MEDS ORDERED: FAMOTIDINE 20 MG/2 ML VIAL IV STA (11:48)
[2022-02-02] MEDS ORDERED: diphenhydrAMINE 50 MG/ML 1 ML VIAL IVP STA (11:48)
--- NOTE | 2022-02-02 12:47 | CT ---
EXAMINATION TYPE: CT chest angio for PE DATE OF EXAM: 02/02/2022 COMPARISON: Radiograph same day HISTORY: 71-year-old female shortness of breath, Elevated d-dimer, difficulty breathing, covid positi ve TECHNIQUE: Contiguous axial scanning of the chest performed with IV Contrast, patient injected with 5 8 mL of Isovue 370. Coronal/sagittal MIP reconstructions performed. CT DLP: 472.5 mGycm Automated exposure control for dose reduction was used. FINDINGS: 2 are normal size without pericardial effusion. No flattening of the interventricular septum reflux o f contrast into the hepatic veins. Aorta normal caliber with a conventional arch was a branch anatomy. Scattered mediastinal lymph nodes are present measuring up to 1.0 cm right paratracheal, 1.7 cm subca rinal, 1.4 cm left hilar, 1.0 cm right hilar, 1.0 cm prevascular space, 9 mm lower left paratracheal. While there is satisfactory opacification the pulmonary artery system, the patient is breathing durin g the scan degrading assessment for pulmonary embolus. No large central or definite lobar branch pulm onary embolus. Many of the segmental and more distal arterial branches are very limited for nondiagno stic emboli here cannot be excluded on the basis of this exam. Peripheral groundglass opacities are present bilaterally with a mid and lower lung predominance. No p leural effusion. There is mild circumferential wall thickening of the distal third esophagus. Correlate for any sympto ms of esophagitis. Visualized upper abdomen shows an indeterminate 2.1 cm nodule of the left adrenal gland. Review of th e patient's 02/12/2019 CT shows this finding to be stable compatible with a benign adrenal adenoma. Bones: Anterior endplate spondylosis mid to lower thoracic spine. IMPRESSION: 1. THE PATIENT IS BREATHING THROUGH THE SCAN. NO LARGE CENTRAL OR DEFINITE LOBAR BRANCH PULMONARY EMB OLUS. SEGMENTAL AND MORE DISTAL ARTERIAL BRANCHES ARE LIMITED TO NONDIAGNOSTIC AND EMBOLI IN THESE LO CATIONS CANNOT BE EXCLUDED ON THE BASIS OF THIS EXAM. 2. BILATERAL PERIPHERAL GROUNDGLASS COVID PNEUMONIA. BORDERLINE AND MILDLY ENLARGED MEDIASTINAL AND H ILAR LYMPHADENOPATHY IS PROBABLY REACTIVE. RECOMMEND THREE-MONTH FOLLOW-UP CT TO ENSURE STABILITY/RES OLUTION. 3. MILD CIRCUMFERENTIAL WALL THICKENING DISTAL THIRD ESOPHAGUS. CORRELATE FOR ANY POTENTIAL SYMPTOMS OF ESOPHAGITIS.
[2022-02-02] MEDS ORDERED: HYDROcodone/APAP 10-325MG 1 EACH TAB PO PRN (14:52)
[2022-02-02] MEDS ORDERED: ALBUTEROL HFA INHALER INHALATION PRN (16:08)
--- NOTE | 2022-02-02 16:08 | P.CNPUL ---
History of Present Illness Consult date: 02/02/22 Requesting physician: Francisco Elmore Reason for consult: hypoxemia, pneumonia Chief complaint: Cough and shortness of breath History of present illness: This is a 71-year-old female with history of multiple medical problems including fibromyalgia, COPD, chronic pain syndrome, patient has history of multiple ALLERGIES including ALLERGY to contrast media, ALLERGY to prednisone? 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 And she is also ALLERGIC to shrimp. Patient came in with a few days' history of symptoms highly suggestive of COVID-19 infection mostly symptoms of cough, aches and pains, weakness, sore throat, and apparently she tested positive for COVID-19 infection on outpatient basis. Patient was prescribed Paxlovidt by her primary care physician and she received 3-1/2 days of it. Patient continues to do poorly, hence she decided to come to the ER. Workup in the ER included a CT angiogram of the chest which showed no evidence of pulmonary embolism but it didn't show evidence of bilateral peripheral infiltrates highly suggestive of COVID-19 pneumonia. She had a relatively normal CBC, slightly elevated d-dimer of 1.08 she was found to have hyponatremia with sodium of 125, normal metabolic profile, normal liver enzymes and normal lactic acid. Patient was noted to be hypoxic, however she is normally on oxygen and she uses few liters on as-needed basis at home. Patient was admitted and this consult was initiated. On 3 L nasal cannula, her O2 sats is 94% Review of Systems Constitutional: Weakness fatigue malaise low-grade fever and not feeling well HEENT: Sore throat but no loss of sensation of taste Pulmonary: Cough and shortness of breath cough is nonproductive Cardiac: Negative GI: Negative no nausea no vomiting no abdominal pain no diarrhea no melena no hematemesis Genitourinary: Negative Musculoskeletal: Negative except for vague aches and pains Psychiatric: Negative Hematologic: Negative no clotting bleeding or bruising Skin: Negative Endocrine: Negative Neurologic: Negative Past Medical History Past Medical History: COPD, Fibromyalgia, GERD/Reflux, Hypertension Additional Past Medical History / Comment(s): bursitis, peripheral neuropathy, acute ischemic brain disease, "node on thyroid", severe mood disorder History of Any Multi-Drug Resistant Organisms: None Reported Past Surgical History: Section, Cholecystectomy, Hernia Repair, Hysterectomy Additional Past Surgical History / Comment(s): partial hysterectomy, d&c Past Anesthesia/Blood Transfusion Reactions: No Reported Reaction Past Psychological History: Anxiety, Depression Smoking Status: Never smoker Past Alcohol Use History: None Reported Past Drug Use History: None Reported - Past Family History family Family Medical History: No Reported History Medications and Allergies Home Medications Medication Instructions Recorded Confirmed Type clonazePAM [KlonoPIN] 2 mg PO TID 10/28/17 02/02/22 History traMADol HCL [Ultram] 50 - 100 mg PO TID PRN 10/28/17 02/02/22 History Metoprolol Succinate (ER) [Toprol 100 mg PO DAILY 10/24/20 02/02/22 History XL] Tiotropium 2.5 Mcg/Puff [Spiriva 1 puff INHALATION RT-DAILY 10/24/20 02/02/22 History Respimat 2.5 Mcg] Triamterene/Hydrochlorothiazid 1 cap PO Q48H 10/24/20 02/02/22 History [Dyazide 37.5-25 Capsule] Albuterol Sulfate [Proair Hfa] 2 puff INHALATION RT-Q4H PRN 02/02/22 02/02/22 History Budesonide-Formot 160-4.5 Mcg 2 puff INHALATION DIRECTED 02/02/22 02/02/22 History [Symbicort 160-4.5 Mcg Inhaler] Gabapentin [Neurontin] 200 mg PO TID 02/02/22 02/02/22 History Hydrocodone/Acetaminophen 1 tab PO TID PRN 02/02/22 02/02/22 History [Hydrocodone/Acetaminophen 10-325] Nirmatrelvir/Ritonavir [Paxlovid 1 dose PO DIRECTED 02/02/22 02/02/22 History 150-100 mg Pack (Eua)] lisinopriL 40 mg PO DAILY 02/02/22 02/02/22 History Allergies Allergy/AdvReac Type Severity Reaction Status Date / Time famotidine [From Pepcid] Allergy Unknown Verified 02/02/22 11:55 Iodinated Contrast Media Allergy Rash/Hives Verified 02/02/22 11:55 [Iodinated Contrast- Oral and IV Dye] prednisone Allergy Hallucinati Verified 02/02/22 11:55 ons shellfish derived [Shrimp] Allergy Rash/Hives Verified 02/02/22 11:55 Physical Exam Vitals: Vital Signs Temp Pulse Resp BP Pulse Ox 02/02/22 14:40 67 18 157/66 94 L 02/02/22 11:52 67 02/02/22 11:20 96 18 166/91 96 02/02/22 10:12 98 F 62 20 173/86 98 Intake and Output 02/02/22 02/02/22 02/02/22 06:59 14:59 22:59 Other: Weight 83.915 kg Physical Exam: Revealed 71-year-old female in no distress Head: Atraumatic, normocephalic HEENT:[Neck is supple.] [No neck masses.] [No thyromegaly.] [No JVD.] Chest: [Symmetrical chest expansion, fine crackles at the bases Cardiac Exam: [Normal S1 and S2, no S3 gallop, no murmur.] Abdomen: [Obese, Soft, nontender, no megaly, no rebound, no guarding, normal bowel sounds.] Extremities: [No clubbing, no edema, no cyanosis.] Neurological Exam: [No focal neurologic deficit.] Alert oriented 3. Psychiatric: Normal mood affect and normal mental status examination. Skin: No rashes Musculoskeletal: No deformities and no limitation in range of motion Results - Laboratory Findings CBC and BMP: 02/02/22 10:36 02/02/22 10:36 PT/INR, D-dimer PT 13.0 sec (9.0-12.0) H 02/02/22 10:36 INR 1.3 (<1.2) H 02/02/22 10:36 D-Dimer 1.08 mg/L FEU (<0.60) H 02/02/22 10:36 Abnormal lab findings: Abnormal Labs 02/02/22 02/02/22 02/02/22 10:36 10:36 10:36 Neutrophils # 8.0 H PT 13.0 H INR 1.3 H APTT 31.5 H D-Dimer 1.08 H Sodium 125 L Chloride 94 L Carbon Dioxide 20 L BUN 18 H Calcium 8.0 L AST 52 H Coronavirus (PCR) 02/02/22 15:05 Neutrophils # PT INR APTT D-Dimer Sodium Chloride Carbon Dioxide BUN Calcium AST Coronavirus (PCR) Detected A - Diagnostic Findings CT scan - chest: image reviewed (As noted in HPI) Assessment and Plan Assessment: Impression: Acute on chronic hypoxic respiratory failure secondary to COVID-19 pneumonia and history of underlying COPD which is relatively inactive at present. Chronic hypoxic respiratory failure Fibromyalgia COPD Benign essential hypertension Chronic pain syndrome Generalized anxiety disorder Recommendation: Continue present supportive care measures Continue oxygen and titrate accordingly Would recommend that the patient get started on Remdesivir she seems to be within the therapeutic window Would avoid Decadron considering the patient has steroids induced psychosis Continue updrafts Order pro calcitonin level and decide whether empiric antibiotic should be added GI and DVT prophylaxis Resume home meds We'll continue to follow Time with Patient: Greater than 30
[2022-02-02] MEDS ORDERED: REMDESIVIR 200 MG in SODIUM CHLORIDE 0.9% 250 ML IVPB ONE (16:30)
[2022-02-02] MEDS: HYDROmorphone 0.5 MG/0.5 ML SYRINGE IVP PRN ×2 (16:55→21:00)
[2022-02-02] MEDS: DEXAMETHASONE SOD PHOSPHATE 10 MG/ML 1 ML VIAL IVP SCH (18:14)
[2022-02-02] MEDS: LORazepam 0.5 MG TAB PO PRN (18:14)
--- NOTE | 2022-02-02 23:48 | P.CONS ---
History of Present Illness - Reason for Consult Consult date: 02/02/22 covid 19 Requesting physician: Earl Mabry - Chief Complaint Increasing shortness of breath x few days - History of Present Illness Patient is a 71-year-old female with a past medical history significant for COPD chronic pain syndrome fibromyalgia as well as multiple allergies patient started getting sick on Saturday that is 4 days prior to presentation to the hospital initially with the symptoms of generalized weakness sore throat and cough patient did tested positive for COVID-19 and was prescribed paxlovid however the patient mention she started having increasing weakness shortness of breath and also have a cough which has been moderate intensity with occasional sputum production patient denies having any hemoptysis or pleuritic chest pain patient has been complaining of decreased oral intake and nausea but no vomiting did have some diarrhea with the symptoms the patient was evaluated by ER physician on arrival to the ER the patient was afebrile pa tient was hypoxic currently on a 3 L nasal cannula patient did have a normal white count D-dimer was 1.08 creatinine was normal liver enzymes are normal did have positive COVID testing patient did have a CT angiogram of the chest we did shows peripheral groundglass opacities bilaterally concerning for pneumonia patient was started on remdesivir infectious disease was consulted for further management Review of Systems Positive point has been mentioned in the HPI rest of the systems are negative Past Medical History Past Medical History: COPD, Fibromyalgia, GERD/Reflux, Hypertension Additional Past Medical History / Comment(s): bursitis, peripheral neuropathy, acute ischemic brain disease, "node on thyroid", severe mood disorder History of Any Multi-Drug Resistant Organisms: None Reported Past Surgical History: Section, Cholecystectomy, Hernia Repair, Hysterectomy Additional Past Surgical History / Comment(s): partial hysterectomy, d&c Past Anesthesia/Blood Transfusion Reactions: No Reported Reaction Past Psychological History: Anxiety, Depression Smoking Status: Never smoker Past Alcohol Use History: None Reported Past Drug Use History: None Reported - Past Family History family Family Medical History: No Reported History Medications and Allergies Home Medications Medication Instructions Recorded Confirmed Type clonazePAM [KlonoPIN] 2 mg PO TID 10/28/17 02/02/22 History traMADol HCL [Ultram] 50 - 100 mg PO TID PRN 10/28/17 02/02/22 History Metoprolol Succinate (ER) [Toprol 100 mg PO DAILY 10/24/20 02/02/22 History XL] Tiotropium 2.5 Mcg/Puff [Spiriva 1 puff INHALATION RT-DAILY 10/24/20 02/02/22 History Respimat 2.5 Mcg] Triamterene/Hydrochlorothiazid 1 cap PO Q48H 10/24/20 02/02/22 History [Dyazide 37.5-25 Capsule] Albuterol Sulfate [Proair Hfa] 2 puff INHALATION RT-Q4H PRN 02/02/22 02/02/22 History Budesonide-Formot 160-4.5 Mcg 2 puff INHALATION DIRECTED 02/02/22 02/02/22 History [Symbicort 160-4.5 Mcg Inhaler] Gabapentin [Neurontin] 200 mg PO TID 02/02/22 02/02/22 History Hydrocodone/Acetaminophen 1 tab PO TID PRN 02/02/22 02/02/22 History [Hydrocodone/Acetaminophen 10-325] lisinopriL 40 mg PO DAILY 02/02/22 02/02/22 History Acetaminophen Tab [Tylenol] 650 mg PO Q4HR PRN tab 02/05/22 Rx Ascorbic Acid [Vitamin C] 500 mg PO DAILY #30 tab 02/05/22 Rx Cholecalciferol [Vitamin D3 (25 25 mcg PO DAILY #30 tab 02/05/22 Rx Mcg = 1000 Iu)] Levofloxacin [Levaquin] 500 mg PO DAILY 7 Days #7 tab 02/05/22 Rx Metoclopramide [Reglan] 5 mg PO AC-TID PRN #20 tab 02/05/22 Rx Zinc Sulfate [Orazinc] 220 mg PO DAILY 14 Days #14 cap 02/05/22 Rx amLODIPine [Norvasc] 10 mg PO DAILY 30 Days #30 tab 02/05/22 Rx methylPREDNISolone Dose Pack 4 mg PO DIRECTED #21 tab 02/05/22 Rx [Medrol Dose Pack] Allergies Allergy/AdvReac Type Severity Reaction Status Date / Time famotidine [From Pepcid] Allergy Unknown Verified 02/02/22 11:55 Iodinated Contrast Media Allergy Rash/Hives Verified 02/02/22 11:55 [Iodinated Contrast- Oral and IV Dye] prednisone Allergy Hallucinati Verified 02/02/22 11:55 ons shellfish derived [Shrimp] Allergy Rash/Hives Verified 02/02/22 11:55 Physical Exam Vitals: Vital Signs Temp Pulse Resp BP Pulse Ox 02/02/22 16:28 93 L 02/02/22 15:00 90 L 02/02/22 14:40 67 18 157/66 94 L 02/02/22 11:52 67 02/02/22 11:20 96 18 166/91 96 02/02/22 10:12 98 F 62 20 173/86 98 Intake and Output 02/02/22 02/02/22 02/02/22 06:59 14:59 22:59 Other: Weight 83.915 kg GENERAL DESCRIPTION: An elderly female lying in bed, no distress. No tachypnea or accessory muscle of respiration use. HEENT: Shows Pallor , no scleral icterus. Oral mucous membrane is dry. No pharyngeal erythema or thrush NECK: Trachea central, no thyromegaly. LUNGS: Unlabored breathing. Coarse breath sounds bilaterally. HEART: S1, S2, regular rate and rhythm. No loud murmur ABDOMEN: Soft, no tenderness , guarding or rigidity, no organomegaly EXTREMITIES: No edema of feet. SKIN: No rash, no masses palpable. NEUROLOGICAL: The patient is awake, alert, oriented x3, mood and affect normal. Results CBC & Chem 7: 02/05/22 09:24 02/05/22 09:24 Labs: Abnormal Lab Results - Last 24 Hours (Table) 02/02/22 02/02/22 02/02/22 Range/Units 10:36 10:36 10:36 Neutrophils # 8.0 H (1.3-7.7) k/uL PT 13.0 H (9.0-12.0) sec INR 1.3 H (<1.2) APTT 31.5 H (22.0-30.0) sec D-Dimer 1.08 H (<0.60) mg/L FEU Sodium 125 L (137-145) mmol/L Chloride 94 L (98-107) mmol/L Carbon Dioxide 20 L (22-30) mmol/L BUN 18 H (7-17) mg/dL Calcium 8.0 L (8.4-10.2) mg/dL AST 52 H (14-36) U/L Coronavirus (PCR) (Not Detectd) 02/02/22 Range/Units 15:05 Neutrophils # (1.3-7.7) k/uL PT (9.0-12.0) sec INR (<1.2) APTT (22.0-30.0) sec D-Dimer (<0.60) mg/L FEU Sodium (137-145) mmol/L Chloride (98-107) mmol/L Carbon Dioxide (22-30) mmol/L BUN (7-17) mg/dL Calcium (8.4-10.2) mg/dL AST (14-36) U/L Coronavirus (PCR) Detected A (Not Detectd) Assessment and Plan (1) Pneumonia due to COVID-19 virus Status: Acute Code(s): U07.1 - COVID-19; J12.82 - PNEUMONIA DUE TO CORONAVIRUS DISEASE 2018 SNOMED Code(s): 488712612178153190 Plan: 1patient presented to hospital with increasing shortness of breath and a cough and this patient tested positive for COVID about 5 days ago and apparently has been treated with Paxlovid but did not responded no evidence of on close opacity on the CT angio. 2patient to continue with remdesivir to finish the 5-day course of therapy. 3she will continue with dexamethasone Lovenox zinc and ascorbic acid. 4no need for systemic antibiotic therapy. 5droplet isolation and respiratory support We will follow on clinical condition and cultures to further adjust medication if needed Thank you for this consultation will follow this patient along with you Time with Patient: Greater than 30
[2022-02-03] MEDS: HYDROmorphone 0.5 MG/0.5 ML SYRINGE IVP PRN ×3 (02:32→20:48)
[2022-02-03 02:50] LABS: C Reactive Protein 7.9 mg/dL (0.00-0.80)
--- NOTE | 2022-02-03 05:45 | HP ---
HISTORY AND PHYSICAL CHIEF COMPLAINT: Shortness of breath. HISTORY OF PRESENT ILLNESS: This 71-year-old woman with a past medical history of multiple medical problems, COPD, fibromyalgia, GERD, is complaining of shortness of breath, cough, and sputum. The patient is found to be COVID positive recently, the repeat COVID is also positive, possible COVID pneumonia suspected at this time. There is no history of any fever, rigors, or chills at this time. PAST MEDICAL HISTORY: Reviewed include fibromyalgia, COPD. Rest of the medications also noted. Rest of the history is also noted, rest of the chart is also reviewed. HOME MEDICATIONS: Reviewed include albuterol, doses and rest of medication noted. ALLERGIES: Reviewed include Pepcid. FAMILY HISTORY: No history of heart disease or strokes in the family. SOCIAL HISTORY: No history of smoking or alcohol intake. REVIEW OF SYSTEMS: A 14-point review of systems is negative except as mentioned earlier. PHYSICAL EXAMINATION: VITAL SIGNS: Pulse is 67, blood pressure 156/60, and respirations 18. HEENT: Conjunctivae normal. NECK: No jugular venous distention. No carotid bruit. CARDIOVASCULAR: S1, S2 muffled. RESPIRATIONS: Breathing efforts are markedly increased. Bilateral scattered rhonchi and crackles. ABDOMEN: Soft, nontender. LEGS: No edema. NERVOUS SYSTEM: No focal deficit. SKIN: No ulcer, rash, or bleeding. JOINTS: No active deforming arthropathy. LABS: Reviewed. D-dimer is 1.0. Sodium 125. ASSESSMENT: 1. Chronic obstructive pulmonary disease acute exacerbation. 2. Acute COVID-19 infection with acute COVID-19 bilateral pneumonia. 3. Hyponatremia. 4. Fibromyalgia. 5. Gastroesophageal reflux disease. 6. Hypertension. 7. Acute on chronic pain syndrome. RECOMMENDATIONS: This 71-year-old woman presented with multiple complex medical issues, we will monitor the patient closely. Continue with current management and symptomatic treatment with bronchodilators, dexamethasone, Pulmonary consultation, Infectious Disease consultation. Otherwise the prognosis is guarded because of multiple complex medical issues. Home medications will be continued once they are confirmed, remdesivir. PROGNOSIS: Guarded. MMODL / IJN: [id number] /
[2022-02-03] MEDS ORDERED: traMADol 50 MG TAB PO PRN (08:38)
[2022-02-03] MEDS: SYMBICORT 160-4.5 MCG INHALER INHALATION SCH ×2 (08:56→21:53)
[2022-02-03] MEDS ORDERED: dexAMETHasone 2 MG TAB PO SCH (09:00)
[2022-02-03] MEDS ORDERED: DEXAMETHASONE SOD PHOSPHATE 10 MG/ML 1 ML VIAL IVP SCH (09:00)
[2022-02-03] MEDS: lisinopriL 20 MG TAB PO SCH (10:16)
[2022-02-03] MEDS: ZINC SULFATE 220 MG CAP PO SCH (10:16)
[2022-02-03] MEDS: clonazePAM 1 MG TAB PO SCH ×3 (10:16→22:33)
[2022-02-03] MEDS: ASCORBIC ACID 500 MG TAB PO SCH (10:16)
[2022-02-03] MEDS: CHOLECALCIFEROL 25 MCG (1000 IU) TABLET PO SCH (10:16)
[2022-02-03] MEDS: GABAPENTIN 100 MG CAP PO SCH ×3 (10:16→22:33)
[2022-02-03] MEDS: TRIAMTERENE-HCTZ 37.5-25MG 1 EACH CAP PO SCH (10:17)
[2022-02-03] MEDS: METOPROLOL SUCCINATE (ER) 100 MG TAB.ER.24H PO SCH (10:17)
[2022-02-03] MEDS: ENOXAPARIN 40 MG/0.4 ML SYRINGE SQ SCH (10:17)
[2022-02-03] MEDS: DEXAMETHASONE SOD PHOSPHATE 10 MG/ML 1 ML VIAL IVP SCH (10:18)
[2022-02-03 11:17] LABS: Basophils # (A) 0.04 X 10*3/uL (0.00-0.10); Basophils % (A) 0.5 %; Eosinophils # (A) 0.14 X 10*3/uL (0.04-0.35); Eosinophils % (A) 1.6 %; HCT 37.5 % (37.2-46.3); HGB 12.7 g/dL (12.0-15.0); Immature Grans, Automated 2.2 %; Lymphocytes # (A) 1.07 X 10*3/uL (0.90-5.00); Lymphocytes % (A) 12.2 %; MCH 32.2 pg (27.0-32.0); MCHC 33.9 g/dL (32.0-37.0); MCV 94.9 fL (80.0-97.0); Mean Platelet Volume 9.2 fL (9.5-12.2); Monocytes # (A) 0.55 X 10*3/uL (0.20-1.00); Monocytes % (A) 6.3 %; NRBC Per 100 WBC 0 /100 WBCS (0.0-0.0); Neutrophils # (A) 6.81 X 10*3/uL (1.80-7.70); Neutrophils % (A) 77.2 %; Platelet Count 382 X 10*3/uL (140-440); RBC 3.95 X 10*6/uL (4.10-5.20); RDW 13.4 % (11.5-14.5)
[2022-02-03 11:26] LABS: African American GFR (CKD) 72.4 (60.0-200.0); Anion Gap 15.1 mmol/L (10.00-18.00); BUN/Creat Ratio 22.23 Ratio (12.00-20.00); Blood Urea Nitrogen 20.5 mg/dL (9.0-27.0); Calcium 8.6 mg/dL (8.7-10.3); Carbon Dioxide 20.2 mmol/L (20.0-27.5); Non-African American GFR(CKD) 62.5 (60.0-200.0); Potassium 4.4 mmol/L (3.5-5.5)
--- NOTE | 2022-02-03 11:55 | P.PN ---
Subjective Progress Note Date: 02/03/22 This is a 71-year-old female with history of multiple medical problems including fibromyalgia, COPD, chronic pain syndrome, patient has history of multiple ALLERGIES including ALLERGY to contrast media, ALLERGY to prednisone? 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 And she is also ALLERGIC to shrimp. Patient came in with a few days' history of symptoms highly suggestive of COVID-19 infection mostly symptoms of cough, aches and pains, weakness, sore throat, and apparently she tested positive for COVID-19 infection on outpatient basis. Patient was prescribed Paxlovidt by her primary care physician and she received 3-1/2 days of it. Patient continues to do poo rly, hence she decided to come to the ER. Workup in the ER included a CT angiogram of the chest which showed no evidence of pulmonary embolism but it didn't show evidence of bilateral peripheral infiltrates highly suggestive of COVID-19 pneumonia. She had a relatively normal CBC, slightly elevated d-dimer of 1.08 she was found to have hyponatremia with sodium of 125, normal metabolic profile, normal liver enzymes and normal lactic acid. Patient was noted to be hypoxic, however she is normally on oxygen and she uses few liters on as-needed basis at home. Patient was admitted and this consult was initiated. On 3 L nasal cannula, her O2 sats is 94% The patient is seen today 02/03/2022 in follow-up on the regular medical floor. She is sitting up in bed. Awake and alert in no acute distress. Breathing easier today compared to yesterday. Maintaining O2 saturations in the 90s on 4 L/m per nasal cannula. White count 8.8. Hemoglobin 12.7. Sodium 129. Potassium 4.4. BUN 20. Creatinine 0.9. Dunn virus by PCR positive. She is continued on Remdesivir. Day #2. She remains on Decadron, Lovenox, vitamin supplements. Continued on bronchodilators. Objective - Vital Signs Vital signs: Vital Signs Temp 97.9 F 02/03/22 08:00 Pulse 94 02/03/22 08:00 Resp 19 02/03/22 08:00 BP 178/81 02/03/22 08:00 Pulse Ox 93 L 02/03/22 08:00 FiO2 Intake & Output 02/02/22 02/03/22 02/03/22 18:59 06:59 18:59 Weight 83.915 kg 83.915 kg Other: Voiding Method Toilet - Exam GENERAL EXAM: Alert, 71-year-old female, on 4 L nasal cannula, comfortable in no apparent distress. HEAD: Normocephalic. EYES: Normal reaction of pupils, equal size. NOSE: Clear with pink turbinates. THROAT: No erythema or exudates. NECK: No masses, no JVD. CHEST: No chest wall deformity. LUNGS: Equal air entry with crackles in the posterior bases, diminished. CVS: S1 and S2 normal with no audible murmur, regular rhythm. ABDOMEN: No hepatosplenomegaly, normal bowel sounds, no guarding or rigidity. SPINE: No scoliosis or deformity SKIN: No rashes CENTRAL NERVOUS SYSTEM: No focal deficits, tone is normal in all 4 extremities. EXTREMITIES: There is no peripheral edema. No clubbing, no cyanosis. Peripheral pulses are intact. - Labs CBC & Chem 7: 02/03/22 07:12 02/03/22 07:12 Labs: Abnormal Lab Results - Last 24 Hours (Table) 02/02/22 02/02/22 02/02/22 Range/Units 10:36 10:36 15:05 RBC (4.10-5.20) X 10*6/uL MCH (27.0-32.0) pg MPV (9.5-12.2) fL Immature Gran # (0.00-0.04) X 10*3/uL Sodium (135-145) mmol/L Chloride (96-109) mmol/L BUN/Creatinine Ratio (12.00-20.00) Ratio Glucose (70-110) mg/dL Calcium (8.7-10.3) mg/dL Lactate Dehydrogenase 505 H (120-246) U/L C-Reactive Protein 7.90 H (0.00-0.80) mg/dL Procalcitonin 24.50 H (0.02-0.09) ng/mL Coronavirus (PCR) Detected A (Not Detectd) 02/03/22 02/03/22 Range/Units 07:12 07:12 RBC 3.95 L (4.10-5.20) X 10*6/uL MCH 32.2 H (27.0-32.0) pg MPV 9.2 L (9.5-12.2) fL Immature Gran # 0.19 H (0.00-0.04) X 10*3/uL Sodium 129 L (135-145) mmol/L Chloride 94 L (96-109) mmol/L BUN/Creatinine Ratio 22.23 H (12.00-20.00) Ratio Glucose 135 H (70-110) mg/dL Calcium 8.6 L (8.7-10.3) mg/dL Lactate Dehydrogenase (120-246) U/L C-Reactive Protein (0.00-0.80) mg/dL Procalcitonin (0.02-0.09) ng/mL Coronavirus (PCR) (Not Detectd) Assessment and Plan Assessment: Acute on chronic hypoxic respiratory failure secondary to COVID-19 pneumonia and history of underlying COPD which is relatively inactive at present. Initiated on Remdesivir 02/02/2022 Chronic hypoxic respiratory failure Fibromyalgia COPD Benign essential hypertension Chronic pain syndrome Generalized anxiety disorder Plan: The patient was seen and evaluated Labs and medications reviewed Remdesivir day #2 Current treatment plan We will continue to follow I have personally seen and examined the patient, performed the documentation and the assessment and plan as written. Number of minutes spent on the visit: 10.
[2022-02-03] MEDS ORDERED: ONDANSETRON 4 MG/2 ML VIAL IVP PRN (13:36)
[2022-02-03] MEDS ORDERED: ACETAMINOPHEN TAB 325 MG TAB PO PRN (15:26)
[2022-02-03] MEDS: amLODIPine 10 MG TAB PO SCH (15:59)
[2022-02-03] MEDS: PANTOPRAZOLE 40 MG TABLET PO SCH (17:22)
[2022-02-03] MEDS: REMDESIVIR 100 MG in SODIUM CHLORIDE 0.9% 250 ML IVPB SCH (17:22)
--- NOTE | 2022-02-03 21:46 | PN ---
PROGRESS NOTE DATE OF SERVICE: 02/03/2022 SUBJECTIVE: This 71-year-old woman, who was admitted with acute COVID-19 infection with acute COVID- 19 pneumonia, is being closely monitored. The patient is feeling extremely sick. The patient is on steroids. The patient has been seen by . Also, there is no history of any pulmonary embolism. PAST MEDICAL HISTORY: Reviewed. REVIEW OF SYSTEMS: A 14-point review of systems is negative as mentioned earlier. CURRENT MEDICATIONS: Reviewed and include remdesivir. Dose and rest of medication noted. PHYSICAL EXAMINATION: VITAL SIGNS: Pulse is 94, blood pressure NTD, respirations 19. HEENT: Conjunctivae normal. NECK: No JVD. CARDIOVASCULAR: S1, S2. RESPIRATION: Breath sounds diminished at the bases. Scattered rhonchi. ABDOMEN: Soft. NERVOUS SYSTEM: Nonfocal. LABORATORY DATA: Reviewed. ASSESSMENT: 1. Chronic obstructive pulmonary disease acute exacerbation. 2. Acute COVID-19 infection with acute COVID-19 bilateral pneumonia. 3. Hyponatremia. 4. Hypertension. 5. Fibromyalgia. 6. Gastroesophageal reflux disease. 7. Multiple medical issues. RECOMMENDATIONS: I recommend to continue current medications and symptomatic treatment. Otherwise, continue with bronchodilators, continue with steroids, continue with remdesivir. Continue to follow with Pulmonary and Infectious Disease. Prognosis is guarded. I would also recommend to add Norvasc to the current regimen. MMODL / IJN: [id number] / MTDD
--- NOTE | 2022-02-04 00:43 | P.PN ---
Subjective Progress Note Date: 02/03/22 Principal diagnosis: covid 19 Patient is a 71-year-old female with a past medical history significant for COPD chronic pain syndrome fibromyalgia as well as multiple jarod rgies patient started getting sick on Saturday that is 4 days prior to presentation to the hospital initially with the symptoms of generalized weakness sore throat and cough patient did tested positive for COVID-19. On today's evaluation and that is 02/03/2022 the patient is afebrile, patient still complaining of shortness of breath and cough but not bringing up any sputum has been completely off nausea but no vomiting no abdominal pain or any worsening diarrhea Objective - Vital Signs Vital signs: Vital Signs Temp 97.9 F 02/03/22 08:00 Pulse 94 02/03/22 08:00 Resp 19 02/03/22 08:00 BP 178/81 02/03/22 08:00 Pulse Ox 93 L 02/03/22 08:00 FiO2 Intake & Output 02/02/22 02/03/22 02/03/22 18:59 06:59 18:59 Weight 83.915 kg 83.915 kg Other: Voiding Method Toilet - Exam GENERAL DESCRIPTION: An elderly female lying in bed in no distress RESPIRATORY SYSTEM: Unlabored breathing , decreased breath sounds at bases HEART: S1 S2 regular rate and rhythm , ABDOMEN: Soft , no tenderness EXTREMITIES: No edema feet - Labs CBC & Chem 7: 02/03/22 07:12 02/03/22 07:12 Labs: Abnormal Lab Results - Last 24 Hours (Table) 02/02/22 02/02/22 02/02/22 Range/Units 10:36 10:36 15:05 RBC (4.10-5.20) X 10*6/uL MCH (27.0-32.0) pg MPV (9.5-12.2) fL Immature Gran # (0.00-0.04) X 10*3/uL Sodium (135-145) mmol/L Chloride (96-109) mmol/L BUN/Creatinine Ratio (12.00-20.00) Ratio Glucose (70-110) mg/dL Calcium (8.7-10.3) mg/dL Lactate Dehydrogenase 505 H (120-246) U/L C-Reactive Protein 7.90 H (0.00-0.80) mg/dL Procalcitonin 24.50 H (0.02-0.09) ng/mL Coronavirus (PCR) Detected A (Not Detectd) 02/03/22 02/03/22 Range/Units 07:12 07:12 RBC 3.95 L (4.10-5.20) X 10*6/uL MCH 32.2 H (27.0-32.0) pg MPV 9.2 L (9.5-12.2) fL Immature Gran # 0.19 H (0.00-0.04) X 10*3/uL Sodium 129 L (135-145) mmol/L Chloride 94 L (96-109) mmol/L BUN/Creatinine Ratio 22.23 H (12.00-20.00) Ratio Glucose 135 H (70-110) mg/dL Calcium 8.6 L (8.7-10.3) mg/dL Lactate Dehydrogenase (120-246) U/L C-Reactive Protein (0.00-0.80) mg/dL Procalcitonin (0.02-0.09) ng/mL Coronavirus (PCR) (Not Detectd) Assessment and Plan (1) Pneumonia due to COVID-19 virus Current Visit: Yes Status: Acute Code(s): U07.1 - COVID-19; J12.82 - PNEUMONIA DUE TO CORONAVIRUS DISEASE 2018 SNOMED Code(s): 074109616003801143 Plan: 1patient presented to hospital with increasing shortness of breath and a cough and this patient tested positive for COVID about 5 days ago and apparently has been treated with Paxlovid but did not responded no evidence of on close opacity on the CT angio. 2patient seemed to have shown some improvement and will continue with remdesivir dexamethasone Lovenox zinc and ascorbic acid. 3no need for systemic antibiotic therapy. 4droplet isolation and respiratory support Time with Patient: Less than 30
[2022-02-04] MEDS: PANTOPRAZOLE 40 MG TABLET PO SCH ×2 (06:35→17:29)
[2022-02-04] MEDS: TIOTROPIUM 2.5 MCG INHALER INHALATION SCH (07:30)
[2022-02-04] MEDS: SYMBICORT 160-4.5 MCG INHALER INHALATION SCH ×2 (07:30→17:19)
[2022-02-04] MEDS: lisinopriL 20 MG TAB PO SCH (09:18)
[2022-02-04] MEDS: amLODIPine 10 MG TAB PO SCH (09:18)
[2022-02-04] MEDS: DEXAMETHASONE SOD PHOSPHATE 10 MG/ML 1 ML VIAL IVP SCH (09:18)
[2022-02-04] MEDS: clonazePAM 1 MG TAB PO SCH ×3 (09:19→21:02)
[2022-02-04] MEDS: GABAPENTIN 100 MG CAP PO SCH ×3 (09:19→21:02)
[2022-02-04] MEDS: ZINC SULFATE 220 MG CAP PO SCH (09:19)
[2022-02-04] MEDS: CHOLECALCIFEROL 25 MCG (1000 IU) TABLET PO SCH (09:19)
[2022-02-04] MEDS: METOPROLOL SUCCINATE (ER) 100 MG TAB.ER.24H PO SCH (09:19)
[2022-02-04] MEDS: ENOXAPARIN 40 MG/0.4 ML SYRINGE SQ SCH (09:19)
[2022-02-04] MEDS: ASCORBIC ACID 500 MG TAB PO SCH (09:19)
[2022-02-04] MEDS: ALBUTEROL HFA INHALER INHALATION PRN ×3 (12:28→21:36)
[2022-02-04] MEDS: METOCLOPRAMIDE 5 MG TAB PO SCH ×2 (12:30→17:27)
--- NOTE | 2022-02-04 13:53 | P.PN ---
Subjective Progress Note Date: 02/04/22 02/04/2022 This is a 71 year old female who was admitted with shortness of breath and COPD acute exacerbation. Patient is also covid 19 positive with pneumonia. Patient is afebrile and denies chest pain or palpitations. Patient reports shortness of breath and on 4L via NC. Patient is receiving IV dexamethasone and also on remdesivir. ID and pulmonary following. Encouraged increased activity as tolerat ed. Recommend to continue with inhalers and vitamin supplements. Recommend am labs. Review of systems: Constitutional: reports of fatigue, no fever, or chills Cardiovascular: No reports of chest pain or palpitations Respiratory: reports of shortness of breath and cough GI: no reports of nausea, no vomiting, or diarrhea : No reports of dysuria or retention Neurovascular: reports of generalized weakness and overall body aches and pain All medications have been reviewed PHYSICAL EXAMINATION: GENERAL: The patient is alert and oriented x4, Well developed, well nourished. obese HEENT: Pupils are round and equally reacting to light. EOMI. no scleral icterus. No conjunctival pallor. Normocephalic, atraumatic. No pharyngeal erythema. No thyromegaly. CARDIOVASCULAR: S1 and S2 muffled PULMONARY: diminished breath sounds bilaterally with some wheezing and course rhonchi noted. ABDOMEN: soft. non- tender. non-distended, normoactive bowel sounds. No palpable organomegaly. MUSCULOSKELETAL: No joint swelling or deformity. EXTREMITIES: No cyanosis, clubbing, or pedal edema. NEUROLOGICAL: Gross neurological examination did not reveal any focal deficits. SKIN: No rashes. Assessment: COPD acute exacerbation Acute covid 19 infection with covid 19 bilateral pneumonia Hyponatremia hypertension fibromyalgia GERD GI prophylaxis DVT prophylaxis Full code Plan: Recommend to continue with current medications and management with pulmonary and ID following. Patient is continued on IV steroids and Remdesivir. Patient continues on 4L via NC. Recommend to continue with current vitamin supplements and anticoagulation. Continue inhalers. Encourage increased activity as jessica ated. Continue pain control with current regimen for her chronic pain. Home medications reviewed and resumed. Due to multiple complex medical issues, prognosis is guarded. Will follow up with am labs. The impression and plan of care has been dictated as a scribe by Rin Martin, nurse practitioner as directed. Dr. Raghavendra MD I have performed a history and examination and MDM of this patient, discussed the same with the dictator, and will be documented as a scribe. Based on total visit time, I have performed more than 50% of the visit. Any additional findings or plans will be noted. Objective - Vital Signs Vital signs: Vital Signs Temp 97.9 F 02/04/22 02:26 Pulse 60 02/04/22 02:26 Resp 18 02/04/22 02:26 BP 104/65 02/04/22 02:26 Pulse Ox 100 02/04/22 02:26 FiO2 Intake & Output 02/03/22 02/04/22 02/04/22 18:59 06:59 18:59 Other: Voiding Method Toilet # Voids 6 2 - Labs CBC & Chem 7: 02/03/22 07:12 02/03/22 07:12 Labs: Abnormal Lab Results - Last 24 Hours (Table) 02/02/22 02/03/22 02/03/22 Range/Units 10:36 07:12 07:12 RBC 3.95 L (4.10-5.20) X 10*6/uL MCH 32.2 H (27.0-32.0) pg MPV 9.2 L (9.5-12.2) fL Immature Gran # 0.19 H (0.00-0.04) X 10*3/uL Sodium 129 L (135-145) mmol/L Chloride 94 L (96-109) mmol/L BUN/Creatinine Ratio 22.23 H (12.00-20.00) Ratio Glucose 135 H (70-110) mg/dL Calcium 8.6 L (8.7-10.3) mg/dL Procalcitonin 24.50 H (0.02-0.09) ng/mL
--- NOTE | 2022-02-04 15:33 | P.PN ---
Subjective Progress Note Date: 02/04/22 Principal diagnosis: Acute on chronic hypoxic or for failure secondary to Coumadin to pneumonia and underlying COPD This is a 71-year-old female with history of multiple medical problems including fibromyalgia, COPD, chronic pain syndrome, patient has history of multiple ALLERGIES including ALLERGY to contrast media, ALLERGY to prednisone? 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 And she is also ALLERGIC to shrimp. Patient came in with a few days' history of symptoms highly suggestive of COVID-19 infection mostly symptoms of cough, aches and pains, weakness, sore throat, and apparently she tested positive for COVID-19 infection on outpatient basis. Patient was prescribed Paxlovidt by her primary care physician and she received 3-1/2 days of it. Patient continues to do poorly, hence she decided to come to the ER. Workup in the ER included a CT angiogram of the chest which showed no evidence of pulmonary embolism but it didn't show evidence of bilateral peripheral infiltrates highly suggestive of COVID-19 pneumonia. She had a relatively normal CBC, slightly elevated d-dimer of 1.08 she was found to have hyponatremia with sodium of 125, normal metabolic profile, normal liver enzymes and normal lactic acid. Patient was noted to be hypoxic, however she is normally on oxygen and she uses few liters on as-needed basis at home. Patient was admitted and this consult was initiated. On 3 L nasal cannula, her O2 sats is 94% The patient is seen today 02/03/2022 in follow-up on the regular medical floor. She is sitting up in bed. Awake and alert in no acute distress. Breathing easier today compared to yesterday. Maintaining O2 saturations in the 90s on 4 L/m per nasal cannula. White count 8.8. Hemoglobin 12.7. Sodium 129. Potassium 4.4. BUN 20. Creatinine 0.9. Dunn virus by PCR positive. She is continued on Remdesivir. Day #2. She remains on Decadron, Lovenox, vitamin supplements. Continued on bronchodilators. Reevaluated today on 02/04/22, pulmonary-miller the patient is doing well, she is on 4 L nasal nasal cannula and her O2 sat is 97%. He is afebrile, she is hemodynamically stable, however she feels generally weak. Metabolically her labs are fine except for sodium of 129, it was 125 on admission, CBC is relatively unremarkable. D-dimer is trending down. Inflammatory markers including LDH and C-reactive protein are relatively low. Patient did have a significantly elevated pro calcitonin of 24.5. Considering the elevated pro calcitonin level and considering her abnormal chest x-ray findings, I would be concerned about the possibility of superimposed pneumonia, will start the patie nt on cefepime empirically. Patient was seen by infectious disease yesterday, but not seen yet today. I am quite concerned about her elevated pro calcitonin although the CT of the chest showed bilateral groundglass opacities consistent with COVID-[address] of the chest also showed some thickening of the distal esophagus, may be related to chronic esophagitis, and that will need to be addressed by the admitting physician Objective - Vital Signs Vital signs: Vital Signs Temp 98.4 F 02/04/22 08:00 Pulse 72 02/04/22 08:00 Resp 18 02/04/22 09:18 BP 105/58 02/04/22 08:00 Pulse Ox 97 02/04/22 08:00 FiO2 Intake & Output 02/03/22 02/04/22 02/04/22 18:59 06:59 18:59 Other: Voiding Method Toilet Toilet Diaper # Voids 6 2 - Exam Physical Exam: Revealed a 71-year-old female, seems to be generally weak, comfortable, on 4 L nasal cannula. Head: Atraumatic normocephalic HEENT:[Neck is supple.] [No neck masses.] [No thyromegaly.] [No JVD.] Chest: Persistent crackles at the bases bilaterally. Cardiac Exam: [Normal S1 and S2, no S3 gallop, no murmur.] Abdomen: [Soft, nontender, no megaly, no rebound, no guarding, normal bowel sounds.] Extremities: [No clubbing, no edema, no cyanosis.] Neurological Exam: [No focal neurologic deficit.] Alert oriented 3. Psychiatric: Depressed mood, normal affect, normal mental status examination. Skin: No rashes Musculoskeletal: No deformities and no limitation range of motion - Labs CBC & Chem 7: 02/03/22 07:12 02/03/22 07:12 Assessment and Plan Assessment: Impression: Acute on chronic hypoxic respiratory failure secondary to COVID-19 pneumonia and history of underlying COPD which is relatively inactive at present. However considering the elevated pro calcitonin level, I will empirically start the patient on antibiotics in the form of cefepime she may have superimposed bacterial pneumonia. Chronic hypoxic respiratory failure Fibromyalgia COPD Benign essential hypertension Chronic pain syndrome Generalized anxiety disorder Recommendation: And cefepime empirically, patient is not seen by infectious disease yet today, this is added empirically mostly because of her elevated pro calcitonin. And clearly had abnormal CT of the chest on admission. Continue present supportive care measures Continue oxygen and titrate accordingly Discontinue Decadron as the patient has history of severe steroids induced psychosis. [facility] and DVT prophylaxis Repeat chest x-ray in a.m. We'll continue to follow Time with Patient: Less than 30
[2022-02-04] MEDS ORDERED: CEFEPIME 2 GM in SODIUM CHLORIDE 0.9% 100 ML IVPB SCH (16:00)
[2022-02-04] MEDS: REMDESIVIR 100 MG in SODIUM CHLORIDE 0.9% 250 ML IVPB SCH ×2 (17:28→21:01)
[2022-02-04] MEDS: HYDROmorphone 0.5 MG/0.5 ML SYRINGE IVP PRN (21:02)
[2022-02-04] MEDS: CEFEPIME 2 GM in SODIUM CHLORIDE 0.9% 100 ML IVPB SCH (22:27)
--- NOTE | 2022-02-04 23:30 | P.PN ---
Subjective Progress Note Date: 02/04/22 Principal diagnosis: covid 19 Patient is a 71-year-old female with a past medical history significant for COPD chronic pain syndrome fibromyalgia as well as multiple jarod rgies patient started getting sick on Saturday that is 4 days prior to presentation to the hospital initially with the symptoms of generalized weakness sore throat and cough patient did tested positive for COVID-19. On today's evaluation and that is 02/04/2022 the patient remains to be afebrile, patient is complaining of shortness of breath and cough however the patient is not bringing up any sputum , the patient has been complaining of nausea but no episode of vomiting or diarrhea reported by the nursing staff Objective - Vital Signs Vital signs: Vital Signs Temp 97.5 F L 02/04/22 20:21 Pulse 67 02/04/22 20:21 Resp 19 02/04/22 20:21 BP 143/70 02/04/22 20:21 Pulse Ox 98 02/04/22 20:21 FiO2 Intake & Output 02/04/22 02/04/22 02/05/22 06:59 18:59 06:59 Other: Voiding Method Toilet Diaper # Voids 2 6 # Bowel Movements 1 - Exam GENERAL DESCRIPTION: An elderly female lying in bed in no distress RESPIRATORY SYSTEM: Unlabored breathing , decreased breath sounds at bases HEART: S1 S2 regular rate and rhythm , ABDOMEN: Soft , no tenderness EXTREMITIES: No edema feet - Labs CBC & Chem 7: 02/03/22 07:12 02/03/22 07:12 Assessment and Plan (1) Pneumonia due to COVID-19 virus Current Visit: Yes Status: Acute Code(s): U07.1 - COVID-19; J12.82 - PNEUMONIA DUE TO CORONAVIRUS DISEASE 2018 SNOMED Code(s): 663631578155664346 Plan: 1patient presented to hospital with increasing shortness of breath and a cough and this patient tested positive for COVID about 5 days ago and apparently has been treated with Paxlovid but did not responded no evidence of on close opacity on the CT angio. 2patient seemed to have shown some improvement and will continue with remdesivir dexamethasone Lovenox zinc and ascorbic acid. 3patient noticed to have elevated pro calcitonin of 24 with concern for possible secondary bacterial pneumonia cefepime has been added we will try to obtain a sputum to narrow her antibiotic Time with Patient: Less than 30
[2022-02-05] MEDS: HYDROcodone/APAP 10-325MG 1 EACH TAB PO PRN ×2 (05:30→13:39)
[2022-02-05] MEDS: CEFEPIME 2 GM in SODIUM CHLORIDE 0.9% 100 ML IVPB SCH (05:30)
[2022-02-05] MEDS: LORazepam 0.5 MG TAB PO PRN (05:31)
[2022-02-05] MEDS: HYDROmorphone 0.5 MG/0.5 ML SYRINGE IVP PRN (06:52)
--- NOTE | 2022-02-05 07:52 | XR ---
EXAMINATION TYPE: XR chest 1V portable DATE OF EXAM: 02/05/2022 HISTORY: Shortness of breath. COMPARISON: 02/02/2022 TECHNIQUE: Single view of the chest is submitted. FINDINGS: Demonstrated are scattered senescent parenchymal change. There is increasing left lower lobe infiltrate. Suspect tiny right-sided effusion. The heart is stable. Hilar and mediastinal structures are within normal limits. Degenerative changes are seen of the dorsal spine. IMPRESSION: 1. There is increasing left lower lobe infiltrate.
[2022-02-05] MEDS: ALBUTEROL HFA INHALER INHALATION PRN ×2 (08:50→12:28)
[2022-02-05] MEDS: SYMBICORT 160-4.5 MCG INHALER INHALATION SCH (08:50)
[2022-02-05] MEDS: TIOTROPIUM 2.5 MCG INHALER INHALATION SCH (08:50)
[2022-02-05] MEDS: GABAPENTIN 100 MG CAP PO SCH ×2 (09:01→16:38)
[2022-02-05] MEDS: lisinopriL 20 MG TAB PO SCH (09:02)
[2022-02-05] MEDS: amLODIPine 10 MG TAB PO SCH (09:02)
[2022-02-05] MEDS: ASCORBIC ACID 500 MG TAB PO SCH (09:02)
[2022-02-05] MEDS: METOCLOPRAMIDE 5 MG TAB PO SCH ×2 (09:02→12:53)
[2022-02-05] MEDS: CHOLECALCIFEROL 25 MCG (1000 IU) TABLET PO SCH (09:02)
[2022-02-05] MEDS: ENOXAPARIN 40 MG/0.4 ML SYRINGE SQ SCH (09:03)
[2022-02-05] MEDS: TRIAMTERENE-HCTZ 37.5-25MG 1 EACH CAP PO SCH (09:03)
[2022-02-05] MEDS: clonazePAM 1 MG TAB PO SCH ×2 (09:03→16:38)
[2022-02-05] MEDS: METOPROLOL SUCCINATE (ER) 100 MG TAB.ER.24H PO SCH (09:03)
[2022-02-05] MEDS: PANTOPRAZOLE 40 MG TABLET PO SCH (09:03)
[2022-02-05] MEDS: ZINC SULFATE 220 MG CAP PO SCH (09:03)
[2022-02-05 10:14] LABS: ALT 51 U/L (4-34); AST 47 U/L (14-36); African American GFR (CKD) 70 (>60 ml/min/1.73 sqM); Albumin 3.5 g/dL (3.5-5.0); Albumin/Globulin Ratio 1.3; Alkaline Phosphatase 87 U/L (38-126); Anion Gap 9 mmol/L; Blood Urea Nitrogen 39 mg/dL (7-17); Calcium 8.3 mg/dL (8.4-10.2); Carbon Dioxide 20 mmol/L (22-30); Chloride 104 mmol/L (98-107); Globulin 2.7 g/dL; Glucose 141 mg/dL (74-99); Non-African American GFR(CKD) 61 (>60 ml/min/1.73 sqM); Potassium 3.9 mmol/L (3.5-5.1); Sodium 133 mmol/L (137-145); Total Bilirubin 0.4 mg/dL (0.2-1.3); Total Protein 6.2 g/dL (6.3-8.2)
[2022-02-05 10:38] LABS: Basophils # (A) 0.1 k/uL (0-0.2); Basophils % (A) 0 %; Eosinophils % (A) 0 %; HCT 43.1 % (34.0-46.0); HGB 13.7 gm/dL (11.4-16.0); Hypochromasia Slight; Lymphocytes # (A) 1.5 k/uL (1.0-4.8); Lymphocytes % (A) 8 %; MCH 31.8 pg (25.0-35.0); MCHC 31.9 g/dL (31.0-37.0); Mean Platelet Volume 8.4; Monocytes % (A) 5 %; Neutrophils % (A) 85 %; RBC 4.31 m/uL (3.80-5.40); WBC 18.9 k/uL (3.8-10.6)
[2022-02-05 10:43] LABS: MCV 99.8 fL (80.0-100.0)
[2022-02-05 10:44] LABS: Platelet Count 600 k/uL (150-450)
--- NOTE | 2022-02-05 14:37 | P.PN ---
Subjective Progress Note Date: 02/05/22 This is a 71-year-old female with history of multiple medical problems including fibromyalgia, COPD, chronic pain syndrome, patient has history of multiple ALLERGIES including ALLERGY to contrast media, ALLERGY to prednisone? 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 And she is also ALLERGIC to shrimp. Patient came in with a few days' history of symptoms highly suggestive of COVID-19 infection mostly symptoms of cough, aches and pains, weakness, sore throat, and apparently she tested positive for COVID-19 infection on outpatient basis. Patient was prescribed Paxlovidt by her primary care physician and she received 3-1/2 days of it. Patient continues to do poo rly, hence she decided to come to the ER. Workup in the ER included a CT angiogram of the chest which showed no evidence of pulmonary embolism but it didn't show evidence of bilateral peripheral infiltrates highly suggestive of COVID-19 pneumonia. She had a relatively normal CBC, slightly elevated d-dimer of 1.08 she was found to have hyponatremia with sodium of 125, normal metabolic profile, normal liver enzymes and normal lactic acid. Patient was noted to be hypoxic, however she is normally on oxygen and she uses few liters on as-needed basis at home. Patient was admitted and this consult was initiated. On 3 L nasal cannula, her O2 sats is 94% The patient is seen today 02/03/2022 in follow-up on the regular medical floor. She is sitting up in bed. Awake and alert in no acute distress. Breathing easier today compared to yesterday. Maintaining O2 saturations in the 90s on 4 L/m per nasal cannula. White count 8.8. Hemoglobin 12.7. Sodium 129. Potassium 4.4. BUN 20. Creatinine 0.9. Dunn virus by PCR positive. She is continued on Remdesivir. Day #2. She remains on Decadron, Lovenox, vitamin supplements. Continued on bronchodilators. The patient is seen today 02/05/2022 in follow-up on the regular medical floor. She is sitting up at the bedside. Awake and alert in no acute distress. She is maintaining O2 saturations in the 90s on 4 L/m per nasal cannula. She's afebrile. Hemodynamically stable. His x-ray continues to show left lower lobe infiltrate. She is currently on cefepime. White count 18.9. Hemoglobin 13.7. Sodium 133. Potassium 3.9. BUN 39. Creatinine 0.95. AST 47. ALT 51. This is day #4 of Remdesivir. She remains on vitamin supplements. Lovenox for DVT prophylaxis. Continued on Symbicort and albuterol. Objective - Vital Signs Vital signs: Vital Signs Temp 97.0 F L 02/05/22 08:00 Pulse 71 02/05/22 08:00 Resp 16 02/05/22 09:00 BP 114/70 02/05/22 08:00 Pulse Ox 95 02/05/22 08:00 FiO2 Intake & Output 02/04/22 02/05/22 02/05/22 18:59 06:59 18:59 Other: Voiding Method Toilet Toilet Toilet Diaper Diaper Diaper # Voids 6 3 # Bowel Movements 1 - Exam GENERAL EXAM: Alert, 71-year-old female, on 4 L nasal cannula, comfortable in no apparent distress. HEAD: Normocephalic. EYES: Normal reaction of pupils, equal size. NOSE: Clear with pink turbinates. THROAT: No erythema or exudates. NECK: No masses, no JVD. CHEST: No chest wall deformity. LUNGS: Equal air entry with crackles in the left base, diminished. CVS: S1 and S2 normal with no audible murmur, regular rhythm. ABDOMEN: No hepatosplenomegaly, normal bowel sounds, no guarding or rigidity. SPINE: No scoliosis or deformity SKIN: No rashes CENTRAL NERVOUS SYSTEM: No focal deficits, tone is normal in all 4 extremities. EXTREMITIES: There is no peripheral edema. No clubbing, no cyanosis. Peripheral pulses are intact. - Labs CBC & Chem 7: 02/05/22 09:24 02/05/22 09:24 Labs: Abnormal Lab Results - Last 24 Hours (Table) 02/05/22 02/05/22 Range/Units 09:24 09:24 WBC 18.9 H (3.8-10.6) k/uL Plt Count 600 H (150-450) k/uL Neutrophils # 16.0 H (1.3-7.7) k/uL Sodium 133 L (137-145) mmol/L Carbon Dioxide 20 L (22-30) mmol/L BUN 39 H (7-17) mg/dL Glucose 141 H (74-99) mg/dL Calcium 8.3 L (8.4-10.2) mg/dL AST 47 H (14-36) U/L ALT 51 H (4-34) U/L Total Protein 6.2 L (6.3-8.2) g/dL Assessment and Plan Assessment: Acute on chronic hypoxic respiratory failure secondary to COVID-19 pneumonia and history of underlying COPD which is relatively inactive at present. Initiated on Remdesivir 02/02/2022 Chronic hypoxic respiratory failure Fibromyalgia COPD Benign essential hypertension Chronic pain syndrome Generalized anxiety disorder Plan: The patient was seen and evaluated X-ray, labs and medications reviewed The patient is quite adamant about going home Cleared for discharge from the pulmonary standpoint Complete a course of antibiotics Intolerant to steroids Continue her home oxygen and pulmonary medications Follow-up with her PCP I have personally seen and examined the patient, performed the documentation and the assessment and plan as written. Number of minutes spent on the visit: 10.
[2022-02-05 15:28] VITALS: BP 113/64; PULSE 64; RESP 18; TEMP 97.7
[2022-02-05] MEDS: REMDESIVIR 100 MG in SODIUM CHLORIDE 0.9% 250 ML IVPB SCH (16:39)
--- NOTE | 2022-02-08 16:07 | P.DS ---
Providers Date of admission: 02/02/22 13:56 Expected date of discharge: 02/05/22 Attending physician: Francisco Elmore MD Consults: 02/02/22 13:56 Consult Physician Urgent Consulting Provider: Amy Winters Consult Reason/Comments: COVID pneumonia Do you want consulting provider notified?: Yes 02/02/22 17:08 Consult Physician Routine Consulting Provider: Anai Taylor Consult Reason/Comments: COVID Do you want consulting provider notified?: Yes Primary care physician: Sathya Hartley Hospital Course: Final diagnosis COPD acute exacerbation Acute covid 19 infection with covid 19 bilateral pneumonia Hyponatremia hypertension fibromyalgia GERD GI prophylaxis DVT prophylaxis Full code Discharge disposition Patient is being discharged in a stable condition with guarded prognosis to home. Patient will follow-up with Dr. Dr. Shabazz in the outpatient setting upon discharge. Patient is to follow-up with pulmonary as scheduled. Patient will continue on oral Levaquin for the next 7 days to complete the course along with a Medrol Dosepak on discharge. Total time taken is greater than 35 minutes. Hospital course This is a 71-year-old female who was recently admitted with increased shortness of breath and COPD acute exacerbation. Patient also found to be COVID-19 positive with pneumonia. Patient was initiated on antibiotics along with IV dexamethasone and REMdesivir with pulmonary and ID following. Patient does chronically wear oxygen via nasal cannula and reports she does not have a pulmonary doctor. Strongly recommend pulmonary follow-up outpatient. Patient will continue on a Medrol Dosepak along with Levaquin to complete the course. Patient instructed to follow-up with her primary care provider on discharge. Patient has been cleared by pulmonary and patient is adamant about going home today. Currently no reports of chest pain, worsening shortness of breath, or palpitations. Patient is afebrile. No reports of nausea or vomiting and patient is tolerating diet. Patient will be discharged home today. Guarded prognosis. Physical exam: Gen: This is a 71-year-old female awake, alert and oriented 3, well-developed, well-nourished, obese. HEENT: Head is atraumatic, normocephalic. Pupils equal, round. Sclerae is anicteric. NECK: Supple. No JVD. No lymphadenopathy. No thyromegaly. LUNGS: Diminished breath sounds bilaterally with some scattered rhonchi noted. No intercostal retractions. HEART: S1, S2 are muffled ABDOMEN: Soft. Obese Bowel sounds are present. No masses. No tenderness. EXTREMITIES: No pedal edema. No calf tenderness. NEUROLOGICAL: Patient is awake, alert and oriented x3. Cranial nerves 2 through 12 are grossly intact. Please refer to medication reconciliation sheet for a list of medications. The impression and plan of care has been dictated by Rin Martin, Nurse Practitioner as directed. Dr. Raghavendra MD I have performed a history and examination and MDM of this patient, discussed the same with the dictator, and agree with the dictator's assessment and plan as written ,documented as a scribe. Based on total visit time, I have performed more than 50% of the visit. Patient Condition at Discharge: Stable Plan - Discharge Summary New Discharge Prescriptions: New methylPREDNISolone Dose Pack [Medrol Dose Pack] 4 mg PO DIRECTED #21 tab amLODIPine [Norvasc] 10 mg PO DAILY 30 Days #30 tab Acetaminophen Tab [Tylenol] 650 mg PO Q4HR PRN tab PRN Reason: Fever And/ Or Pain Cholecalciferol [Vitamin D3 (25 Mcg = 1000 Iu)] 25 mcg PO DAILY #30 tab Levofloxacin [Levaquin] 500 mg PO DAILY 7 Days #7 tab Zinc Sulfate [Orazinc] 220 mg PO DAILY 14 Days #14 cap Metoclopramide [Reglan] 5 mg PO AC-TID PRN #20 tab PRN Reason: Nausea Ascorbic Acid [Vitamin C] 500 mg PO DAILY #30 tab Continue traMADol HCL [Ultram] 50 - 100 mg PO TID PRN PRN Reason: Pain clonazePAM [KlonoPIN] 2 mg PO TID Tiotropium 2.5 Mcg/Puff [Spiriva Respimat 2.5 Mcg] 1 puff INHALATION RT-DAILY Budesonide-Formot 160-4.5 Mcg [Symbicort 160-4.5 Mcg Inhaler] 2 puff IN HALATION DIRECTED Gabapentin [Neurontin] 200 mg PO TID Triamterene/Hydrochlorothiazid [Dyazide 37.5-25 Capsule] 1 cap PO Q48H Metoprolol Succinate (ER) [Toprol XL] 100 mg PO DAILY Albuterol Sulfate [Proair Hfa] 2 puff INHALATION RT-Q4H PRN PRN Reason: Shortness Of Breath Hydrocodone/Acetaminophen [Hydrocodone/Acetaminophen 10-325] 1 tab PO TID PRN PRN Reason: Pain lisinopriL 40 mg PO DAILY Discontinued Nirmatrelvir/Ritonavir [Paxlovid 150-100 mg Pack (Eua)] 1 dose PO DIRECTED Discharge Medication List clonazePAM [KlonoPIN] 2 mg PO TID 10/28/17 [History] traMADol HCL [Ultram] 50 - 100 mg PO TID PRN 10/28/17 [History] Metoprolol Succinate (ER) [Toprol XL] 100 mg PO DAILY 10/24/20 [History] Tiotropium 2.5 Mcg/Puff [Spiriva Respimat 2.5 Mcg] 1 puff INHALATION RT-DAILY 10/24/20 [History] Triamterene/Hydrochlorothiazid [Dyazide 37.5-25 Capsule] 1 cap PO Q48H 10/24/20 [History] Albuterol Sulfate [Proair Hfa] 2 puff INHALATION RT-Q4H PRN 02/02/22 [History] Budesonide-Formot 160-4.5 Mcg [Symbicort 160-4.5 Mcg Inhaler] 2 puff INHALATION DIRECTED 02/02/22 [History] Gabapentin [Neurontin] 200 mg PO TID 02/02/22 [History] Hydrocodone/Acetaminophen [Hydrocodone/Acetaminophen 10-325] 1 tab PO TID PRN 02/02/22 [History] lisinopriL 40 mg PO DAILY 02/02/22 [History] Acetaminophen Tab [Tylenol] 650 mg PO Q4HR PRN tab 02/05/22 [Rx] Ascorbic Acid [Vitamin C] 500 mg PO DAILY #30 tab 02/05/22 [Rx] Cholecalciferol [Vitamin D3 (25 Mcg = 1000 Iu)] 25 mcg PO DAILY #30 tab 02/05/22 [Rx] Levofloxacin [Levaquin] 500 mg PO DAILY 7 Days #7 tab 02/05/22 [Rx] Metoclopramide [Reglan] 5 mg PO AC-TID PRN #20 tab 02/05/22 [Rx] Zinc Sulfate [Orazinc] 220 mg PO DAILY 14 Days #14 cap 02/05/22 [Rx] amLODIPine [Norvasc] 10 mg PO DAILY 30 Days #30 tab 02/05/22 [Rx] methylPREDNISolone Dose Pack [Medrol Dose Pack] 4 mg PO DIRECTED #21 tab 02/05/22 [Rx] Follow up Appointment(s)/Referral(s): Erik Rahman DO [Doctor of Osteopathic Medicine] - 2 Weeks (Call to make an appointment with pulmonary or follow-up with your box puller) [facility], [NON-STAFF] - As Needed Sathya Hartley MD [Primary Care Provider] - 1-2 days (Office is closed please call for appointment) Activity/Diet/Wound Care/Special Instructions: Activity Limited until follow-up Follow-up with primary care provider on discharge Continue taking medications as prescribed Continue with her breathing treatments along with inhalers Highly recommend pulmonary follow-up Discharge Disposition: HOME SELF-CARE
[2022-02-08 19:39] LABS: LD Isoenzymes 1 20 % (19-38); LD Isoenzymes 2 35 % (30-43); LD Isoenzymes 3 17 % (16-26); LD Isoenzymes 4 10 % (3-12); LD Isoenzymes 5 18 % (3-14); Lactacte Dehydrogenase(LD) ISO 305 U/L (120-250)
--- NOTE | 2022-02-12 23:13 | P.PN ---
Subjective Progress Note Date: 02/05/22 Principal diagnosis: covid 19 Patient is a 71-year-old female with a past medical history significant for COPD chronic pain syndrome fibromyalgia as well as multiple jarod rgies patient started getting sick on Saturday that is 4 days prior to presentation to the hospital initially with the symptoms of generalized weakness sore throat and cough patient did tested positive for COVID-19. On today's evaluation and that is 02/05/2022 the patient continues to be afebrile, patient is breathing comfortably, patient denies having any chest pain no worsening cough or sputum production , the patient has been complaining of nausea no vomiting or diarrhea reported by the nursing staff Objective - Vital Signs Vital signs: Vital Signs Temp 97.0 F L 02/05/22 08:00 Pulse 71 02/05/22 08:00 Resp 16 02/05/22 09:00 BP 114/70 02/05/22 08:00 Pulse Ox 95 02/05/22 08:00 FiO2 Intake & Output 02/04/22 02/05/22 02/05/22 18:59 06:59 18:59 Other: Voiding Method Toilet Toilet Toilet Diaper Diaper Diaper # Voids 6 3 # Bowel Movements 1 - Exam GENERAL DESCRIPTION: An elderly female lying in bed in no distress RESPIRATORY SYSTEM: Unlabored breathing , decreased breath sounds at bases HEART: S1 S2 regular rate and rhythm , ABDOMEN: Soft , no tenderness EXTREMITIES: No edema feet - Labs CBC & Chem 7: 02/05/22 09:24 02/05/22 09:24 Labs: Abnormal Lab Results - Last 24 Hours (Table) 02/05/22 02/05/22 Range/Units 09:24 09:24 WBC 18.9 H (3.8-10.6) k/uL Plt Count 600 H (150-450) k/uL Neutrophils # 16.0 H (1.3-7.7) k/uL Sodium 133 L (137-145) mmol/L Carbon Dioxide 20 L (22-30) mmol/L BUN 39 H (7-17) mg/dL Glucose 141 H (74-99) mg/dL Calcium 8.3 L (8.4-10.2) mg/dL AST 47 H (14-36) U/L ALT 51 H (4-34) U/L Total Protein 6.2 L (6.3-8.2) g/dL Assessment and Plan (1) Pneumonia due to COVID-19 virus Status: Acute Code(s): U07.1 - COVID-19; J12.82 - PNEUMONIA DUE TO CORONAVIRUS DISEASE 2018 SNOMED Code(s): 621735436778282314 Plan: 1patient presented to hospital with increasing shortness of breath and a cough and this patient tested positive for COVID about 5 days ago and apparently has been treated with Paxlovid but did not responded no evidence of on close opacity on the CT angio. 2patient seemed to have shown some improvement and will continue of remdesivir dexamethasone Lovenox zinc and ascorbic acid. 3patient noticed to have elevated pro calcitonin of with concern for possible secondary bacterial pneumonia, patient to continue on cefepime and try to obtain a sputum to narrow down antibiotics and monitor clinical course closely Time with Patient: Less than 30
== END 2022-02-05 17:13 | disposition home health service (06) | DRG 177 ==
LOC: EC 10:05 → 4SSUR 13:56
PROVIDERS: ADMIT Internal Medicine; ATTEND Internal Medicine
PROC: 8E0ZXY6 Isolation (ICD-10-PCS; principal; 2022-02-02)
PROC: XW033E5 Introduction of Remdesivir Anti-infective into Peripheral Vein, Percutaneous Approach, New Technology Group 5 (ICD-10-PCS; principal; 2022-02-02)
DX: U07.1 COVID-19 (principal); J12.82 Pneumonia due to coronavirus disease 2019; J96.21 Acute and chronic respiratory failure with hypoxia; J15.9 Unspecified bacterial pneumonia; J44.0 Chronic obstructive pulmonary disease with (acute) lower respiratory infection; J44.1 Chronic obstructive pulmonary disease with (acute) exacerbation; E87.1 Hypo-osmolality and hyponatremia; M79.7 Fibromyalgia; K21.9 Gastro-esophageal reflux disease without esophagitis; I10 Essential (primary) hypertension; G89.4 Chronic pain syndrome; F41.1 Generalized anxiety disorder; G62.9 Polyneuropathy, unspecified; E04.1 Nontoxic single thyroid nodule; F39 Unspecified mood [affective] disorder; F32.A Depression, unspecified; Z99.81 Dependence on supplemental oxygen; Z79.899 Other long term (current) drug therapy; Z79.51 Long term (current) use of inhaled steroids; Z86.73 Personal history of transient ischemic attack (TIA), and cerebral infarction without residual deficits; Z88.8 Allergy status to other drugs, medicaments and biological substances; Z91.041 Radiographic dye allergy status
CPT/HCPCS: 36415; 71045; 71046; 71275; 80048; 80053; 83605; 83615; 83625; 83735; 83880; 84145; 84484; 85025; 85379; 85610; 85730; 86140; 87635; 93005; 94640; 96365; 96375; 96376; 99285

== ENCOUNTER → 2022-04-03 | Outpatient (CLI) | payer MEDICARE, BC ==
--- NOTE | 2022-04-03 10:56 | FL ---
EXAMINATION TYPE: FL barium swallow DATE OF EXAM: 04/03/2022 10:40 AM COMPARISON: CT abdomen pelvis 08/12/2021. CLINICAL INDICATION:Female, 71 years old with history of R13.12,K21.00; [facility], TECHNIQUE: The procedure was explained and patient history elicited. All patient questions were ans wered prior to start of procedure. Multiple spot fluoroscopic images of the esophagus were obtained a fter the oral ingestion of effervescent crystals and liquid barium as the contrast agent. Fluoroscopic time: 39 seconds Fluoroscopic images: 149 FINDINGS: The esophageal mucosa is smooth without evidence of focal stricture, ulceration, or abnormal outpouch ing. Moderate to severe tertiary contractions identified. Contrast does pass into the stomach. Evalua tion for gastroesophageal reflux disease is limited due to significant retention of contrast within t he esophagus due to dysmotility. IMPRESSION: Moderate to severe esophageal dysmotility. No stricture identified.
== END | disposition home or self-care (01) ==
LOC: RADFLMAIN 09:37
PROVIDERS: ATTEND Internal Medicine
DX: K22.4 Dyskinesia of esophagus (principal); K21.00 Gastro-esophageal reflux disease with esophagitis, without bleeding
CPT/HCPCS: 74220

== ENCOUNTER 2023-09-25 20:15 | Observation (INO) | payer MEDICARE, BC ==
[2023-09-25 21:35] LABS: Basophils % (A) 1 %; Eosinophils # (A) 0.2 k/uL (0-0.7); Eosinophils % (A) 2 %; HCT 41.7 % (34.0-46.0); HGB 13.8 gm/dL (11.4-16.0); Lymphocytes # (A) 2.8 k/uL (1.0-4.8); Lymphocytes % (A) 32 %; MCH 33.4 pg (25.0-35.0); MCHC 33.1 g/dL (31.0-37.0); MCV 100.7 fL (80.0-100.0); Mean Platelet Volume 7.1; Monocytes # (A) 0.6 k/uL (0-1.0); Monocytes % (A) 6 %; Neutrophils % (A) 57 %; Platelet Count 277 k/uL (150-450); RBC 4.15 m/uL (3.80-5.40); RDW 13.1 % (11.5-15.5); WBC 8.8 k/uL (3.8-10.6)
[2023-09-25 21:36] LABS: Appearance,Urine Clear (Clear); Bilirubin,Urine Negative (Negative); Blood,Urine Negative (Negative); Color,Urine Colorless; Glucose,Urine (UA) Negative (Negative); Ketones,Urine Negative (Negative); Leukocyte Esterase,Urine Negative (Negative); Nitrite,Urine Negative (Negative); Protein,Urine Negative (Negative); Specific Gravity,Urine 1.007 (1.001-1.035); Urobilinogen,Urine <2.0 mg/dL (<2.0)
--- NOTE | 2023-09-25 21:40 | XR ---
EXAMINATION TYPE: XR chest 2V DATE OF EXAM: 09/25/2023 9:27 PM CLINICAL INDICATION:Female, 73 years old with history of Chest Pain; [facility] COMPARISON: Chest radiographs from 02/05/2022 TECHNIQUE: XR chest 2V Frontal view of the chest. FINDINGS: Lungs/Pleura: There is flattening of the diaphragm with increased lucency of the lungs. No evidence o f pneumothorax, pleural effusion or focal consolidation. Pulmonary vascularity: Unremarkable. Heart/mediastinum: Cardiomediastinal silhouette is unremarkable. Musculoskeletal: No acute osseous pathology. Other findings: None Lines/Tubes: IMPRESSION: 1. No acute cardiopulmonary disease process. 2. COPD changes.
[2023-09-25 21:55] LABS: INR 0.9 (<1.2); Partial Thromboplastin Time 27.3 sec (22.0-30.0); Prothrombin Time 10.1 sec (10.0-12.5)
--- NOTE | 2023-09-25 22:06 | ED ---
Chest Pain HPI - General Chief Complaint: Chest Pain Stated Complaint: chest pain, high heart rate Time Seen by Provider: 09/25/23 21:10 Source: patient, RN notes reviewed, old records reviewed Mode of arrival: wheelchair - History of Present Illness Initial Comments: This is a 73-year-old female to the ER for evaluation of severe chest pain here today. Patient presents with substernal sharp chest pain. History of COPD and hypertension. Patient states she does come to the hospital for chest pain occasionally has had no recent cardiac evaluation. Patient is usually given dilaudid for chest pain MD Complaint: chest pain -: hour(s) Onset: during rest, during exertion Pain Radiation: none Severity: severe Severity scale (1-10): 10 Quality: other (Patient also complaining of headache) Consistency: constant Improves With: nothing Worsens With: nothing Anginal Symptoms: nausea Other Symptoms: palpitations Treatments Prior to Arrival: none - Related Data Home Medications Medication Instructions Recorded Confirmed clonazePAM [KlonoPIN] 2 mg PO TID 10/28/17 09/26/23 traMADol HCL [Ultram] 50 - 100 mg PO TID PRN 10/28/17 09/26/23 Albuterol Sulfate [Proair Hfa] 2 puff INHALATION RT-Q4H PRN 02/02/22 09/26/23 Budesonide-Formot 160-4.5 Mcg 2 puff INHALATION RT-BID 02/02/22 09/26/23 [Symbicort 160-4.5 Mcg Inhaler] Hydrocodone/Acetaminophen 1 tab PO TID 02/02/22 09/26/23 [Hydrocodone/Acetaminophen 10-325] Metoprolol Succinate (ER) [Toprol 50 mg PO DAILY 09/26/23 09/26/23 Xl] Tiotropium [place] [Spiriva] 1 cap INHALATION RT-DAILY 09/26/23 09/26/23 lisinopriL [Zestril] 20 mg PO BID 09/26/23 09/26/23 Allergies Allergy/AdvReac Type Severity Reaction Status Date / Time famotidine [From Pepcid] Allergy Unknown Verified 09/26/23 07:21 Iodinated Contrast Media Allergy Rash/Hives Verified 09/26/23 07:21 [Iodinated Contrast- Oral and IV Dye] shellfish derived [Shrimp] Allergy Rash/Hives Verified 09/26/23 07:21 prednisone AdvReac Hallucinati Verified 09/26/23 07:21 ons Review of Systems ROS Statement: Those systems with pertinent positive or pertinent negative responses have been documented in the HPI. ROS Other: All systems not noted in ROS Statement are negative. EKG Findings - EKG Comments: EKG Findings:: EKG is sinus bradycardia 50 WA 190 QRS 99 QTc 394 - EKG Results: EKG: interpreted by DILLON Past Medical History Past Medical History: COPD, Fibromyalgia, GERD/Reflux, Hypertension Additional Past Medical History / Comment(s): bursitis, peripheral neuropathy, acute ischemic brain disease, "node on thyroid", severe mood disorder History of Any Multi-Drug Resistant Organisms: None Reported Past Surgical History: Section, Cholecystectomy, Hernia Repair, Hysterectomy Additional Past Surgical History / Comment(s): partial hysterectomy, d&c Past Anesthesia/Blood Transfusion Reactions: No Reported Reaction Past Psychological History: Anxiety, Depression Smoking Status: Never smoker Past Alcohol Use History: None Reported Past Drug Use History: None Reported - Past Family History family Family Medical History: No Reported History General Exam General appearance: alert, in no apparent distress Head exam: Present: atraumatic, normocephalic, normal inspection Eye exam: Present: normal appearance, PERRL, EOMI. Absent: scleral icterus, conjunctival injection, periorbital swelling ENT exam: Present: normal exam, mucous membranes moist Neck exam: Present: normal inspection. Absent: tenderness, meningismus, lymphadenopathy Respiratory exam: Present: normal lung sounds bilaterally. Absent: respiratory distress, wheezes, rales, rhonchi, stridor Cardiovascular Exam: Present: regular rate, normal rhythm, normal heart sounds. Absent: systolic murmur, diastolic murmur, rubs, gallop, clicks GI/Abdominal exam: Present: soft, normal bowel sounds. Absent: distended, tenderness, guarding, rebound, rigid Extremities exam: Present: normal inspection, full ROM, normal capillary refill. Absent: tenderness, pedal edema, joint swelling, calf tenderness Back exam: Present: normal inspection Neurological exam: Present: alert, oriented X3, CN II-XII intact Psychiatric exam: Present: normal affect, normal mood Skin exam: Present: warm, dry, intact, normal color. Absent: rash Course Vital Signs 09/25/23 09/25/23 09/26/23 20:28 23:52 00:25 Temperature 97.9 F Pulse Rate 50 L 47 L 54 L Respiratory 18 18 18 Rate Blood Pressure 179/84 165/85 181/77 O2 Sat by Pulse 94 L 98 98 Oximetry 09/26/23 09/26/23 09/26/23 01:55 02:12 02:35 Temperature 97.5 F L Pulse Rate 48 L 48 L 46 L Respiratory 18 16 18 Rate Blood Pressure 162/85 168/81 158/79 O2 Sat by Pulse 95 97 98 Oximetry - Reevaluation(s) Reevaluation #1: 09/25/23 23:11 Medical records reviewed Reevaluation #2: 09/25/23 23:11 Symptoms unchanged Difficult to control pain Patient's pain is improved after second pain medication dose Reevaluation #3: 09/25/23 23:11 Informed of results and questions answered Reevaluation #4: Was pt. sent in by a medical professional or institution (, PA, [employer], urgent care, hospital, or senior living...) When possible be specific @ -no Did you speak to anyone other than the patient for history (EMS, parent, family, police, friend...)? What history was obtained from this source @ -no Did you review nursing and triage notes (agree or disagree)? Why? @ -agree Are old charts reviewed (outside hosp., previous admission, EMS record, old EKG, old radiological studies, urgent care reports/EKG's, senior living records)? Report findings @ -yes Differential Diagnosis (chest pain, altered mental status, abdominal pain women, abdominal pain men, vaginal bleeding, weakness, fever, dyspnea, syncope, headache, dizziness, GI bleed, back pain, seizure, CVA, palpatations, mental health, musculoskeletal)? @ -prior EKG interpreted by me (3pts min.). @ -yes X-rays interpreted by me (1pt min.). @ -yes negative for acute disease CT interpreted by me (1pt min.). @ -Yes negative for acute disease U/S interpreted by me (1pt. min.). @ -no What testing was considered but not performed or refused? (CT, X-rays, U/S, labs)? Why? @ -none What meds were considered but not given or refused? Why? @ -none Did you discuss the management of the patient with other professionals (professionals i.e. , PA, [employer], lab, RT, psych nurse, manager social responsibility, pharmacy messenger, teacher, commercial escrow officer, caseworker protective services)? Give summary @ -no Was smoking cessation discussed for >3mins.? @ -no Was critical care preformed (if so, how long)? @ -no Were there social determinants of health that impacted care today? How? (Homelessness, low income, unemployed, alcoholism, drug addiction, transportation, low edu. Level, literacy, decrease access to med. care, care home, rehab)? @ -none Was there de-escalation of care discussed even if they declined (Discuss DNR or withdrawal of care, Hospice)? DNR status @ -no What co-morbidities impacted this encounter? (DM, HTN, Smoking, COPD, CAD, Cancer, CVA, ARF, Chemo, Hep., AIDS, mental health diagnosis, sleep apnea, morbid obesity)? @ -none Was patient admitted / discharged? Hospital course, mention meds given and route, prescriptions, significant lab abnormalities, going to OR and other pertinent info. @ - 73 female to the ER for evaluation of chest pain headache abdominal pain. Patient to be admitted for further evaluation and management Admitted chest pain headache abdominal pain Undiagnosed new problem with uncertain prognosis? @ -no Drug Therapy requiring intensive monitoring for toxicity (Heparin, Nitro, Insulin, Cardizem)? @ -no Were any procedures done? @ -no Diagnosis/symptom? @ - Acute, or Chronic, or Acute on Chronic? @ -Acute Uncomplicated (without systemic symptoms) or Complicated (systemic symptoms)? @ -Complicated Side effects of treatment? @ -no Exacerbation, Progression, or Severe Exacerbation? @ -exacerbation Poses a threat to life or bodily function? How? (Chest pain, [place], [place], pneumonia, PE, COPD, DKA, ARF, appy, cholecystitis, CVA, Diverticulitis, Homicidal, Suicidal, threat to staff... and all critical care pts) @ -yes extremes of age Reevaluation #5: Differential Chest Pain: Stable Angina, Unstable Angina, STEMI, NSTEMI Aortic Dissection, Pneumothorax, Musculoskeletal, Esophageal Spasm GERD, Cholecystitis, Pancreatitis, Zoster, this is not meant to be an all-inclusive list. - Consultations Consultation #1: With sound who agrees to admit this patient Chest Pain MDM - MDM 73 female to the ER for evaluation of chest pain headache abdominal pain. Patient to be admitted for further evaluation and management Disposition Clinical Impression: Chest pain, Headache, Abdominal pain Disposition: ADMITTED IP TO THIS HOSP Condition: Fair Is patient prescribed a controlled substance at d/c from ED?: No Time of Disposition: 00:05
[2023-09-25 22:13] LABS: ALT 19 U/L (4-34); African American GFR (CKD) 66 (>60 ml/min/1.73 sqM); Anion Gap 10 mmol/L; Blood Urea Nitrogen 22 mg/dL (7-17); Calcium 9.7 mg/dL (8.4-10.2); Carbon Dioxide 20 mmol/L (22-30); Chloride 95 mmol/L (98-107); Glucose 85 mg/dL (74-99); Magnesium 1.8 mg/dL (1.6-2.3); Non-African American GFR(CKD) 57 (>60 ml/min/1.73 sqM); Sodium 125 mmol/L (137-145); Total Bilirubin 0.8 mg/dL (0.2-1.3)
[2023-09-25] MEDS: ONDANSETRON 4 MG/2 ML VIAL IVP STA (22:27)
[2023-09-25 22:28] LABS: AST 36 U/L (14-36); Albumin 4.8 g/dL (3.5-5.0); Alkaline Phosphatase 48 U/L (38-126); Total Protein 7.9 g/dL (6.3-8.2)
[2023-09-25] MEDS: HYDROmorphone 1 MG/ML 1 ML SYRINGE IVP STA ×2 (22:30→23:44)
[2023-09-26] MEDS ORDERED: NALOXONE 0.4 MG/ML 1 ML VIAL IV PRN (00:32)
--- NOTE | 2023-09-26 01:35 | CT ---
EXAM: CT Head Without Intravenous Contrast CLINICAL HISTORY: ITS.REASON CT Reason: pain TECHNIQUE: Axial computed tomography images of the head/brain without intravenous contrast. CTDI is 49.1 mGy and DLP is 1239 mGy-cm. This CT exam was performed using one or more of the following dose reduction techniques: automated exposure control, adjustment of the mA and/or kV according to patient size, and/or use of iterative reconstruction technique. COMPARISON: No relevant prior studies available. FINDINGS: Brain: No hemorrhage, herniation, or mass effect. Chronic microvascular ischemic changes. Ventricles: No hydrocephalus. Age related cerebral volume loss. Bones/joints: Unremarkable. Soft tissues: Unremarkable. Sinuses: No air fluid levels. Mastoid air cells: Clear. IMPRESSION: No acute hemorrhage, hydrocephalus, or mass effect.
[2023-09-26] MEDS: HYDROmorphone 1 MG/ML 1 ML SYRINGE IVP STA (01:41)
[2023-09-26] MEDS: diphenhydrAMINE 50 MG/ML 1 ML VIAL IVP STA (01:42)
[2023-09-26] MEDS: SODIUM CHLORIDE 0.9% 1,000 ML BAG IV STA (01:43)
[2023-09-26] MEDS: SODIUM CHLORIDE 0.9% 1,000 ML IV SCH (01:43)
--- NOTE | 2023-09-26 01:59 | CT ---
EXAM: CT Abdomen and Pelvis Without Intravenous Contrast CLINICAL HISTORY: ITS.REASON CT Reason: pain TECHNIQUE: Axial computed tomography images of the abdomen and pelvis without intravenous contrast. CTDI is 14 mGy and DLP is 769.7 mGy-cm. This CT exam was performed using one or more of the following dose reduction techniques: automated exposure control, adjustment of the mA and/or kV according to patient size, and/or use of iterative reconstruction technique. COMPARISON: CT abdomen/pelvis on 08/12/21 FINDINGS: Lung bases: Unremarkable. No mass. No consolidation. ABDOMEN: Liver: Unremarkable. Gallbladder and bile ducts: Prior cholecystectomy. No ductal dilation. Pancreas: Unremarkable. No ductal dilation. Spleen: Unremarkable. No splenomegaly. Adrenals: Nonspecific small left adrenal nodule. Kidneys and ureters: Unremarkable. No obstructing stones. No hydronephrosis. Stomach and bowel: Diverticulosis. Mild fat stranding along the junction of the descending colon and sigmoid colon, concerning for mild diverticulitis. Evaluation of the stomach is limited by underdistention. No small bowel obstruction. PELVIS: Appendix: Normal appendix. Bladder: Unremarkable. No stones. Reproductive: Unremarkable as visualized. ABDOMEN and PELVIS: Intraperitoneal space: Unremarkable. No free air. No significant fluid collection. Bones/joints: Degenerative changes of the spine. No acute fracture. No dislocation. Soft tissues: Unremarkable. Vasculature: Atherosclerotic changes of the vasculature. No abdominal aortic aneurysm. Lymph nodes: Unremarkable. No enlarged lymph nodes. IMPRESSION: Diverticulosis. Mild fat stranding along the junction of the descending colon and sigmoid colon, concerning for mild diverticulitis.
[2023-09-26] MEDS ORDERED: ACETAMINOPHEN TAB 325 MG TAB PO PRN (02:04)
[2023-09-26] MEDS ORDERED: METOCLOPRAMIDE 5 MG TAB PO PRN (02:04)
--- NOTE | 2023-09-26 02:20 | P.HPIM ---
History of Present Illness H&P Date: 09/26/23 Chief Complaint: chest pain 73-year-old female with hypertension, COPD on home oxygen, GERD Patient coming in for chest pain evaluation that she has been dealing with for the past couple weeks. Patient unable to provide any meaningful history at time of my evaluation she was lethargic sleepy as she just received a dose of Benadryl and Dilaudid as she was complaining of headache difficulty sleeping and abdominal pain with distention while in the ED, CT of the brain was done showed no acute intracranial pathology CT of the abdomen was performed due to abdominal distention showed diverticulosis with mild fat stranding along with significant descending colon and sigmoid colon concerning for mild diverticulitis, patient also reporting diarrhea and abdominal discomfort along with occasional regurgitation and vomiting denies any GI bleeding Most of the history was obtained by talking to the patient . In addition to the above he reports repeated episodes of chest pain described as heaviness across her chest mainly in the middle 10 out of 10 in severity improves with time as he flexes and wanes denies any cardiac history denies any recent cardiac workup these episodes are associated with some trouble breathing and blurry vision denies any profuse sweating dizziness lightheadedness falling syncope or near syncope. Patient has quit smoking months ago no reported illicit drugs or heavy alcohol Patient has been following up with GI services as an outpatient for abdominal distention and severe regurgitation however patient voices frustration as no progress has been made No further history obtainable at this time review of systems Unable to obtain due to patient mental status on exam Constitutional: Easily arousable with verbal stimulation however drifts back to sleep and almost immediately patient has just received medications Benadryl and Dilaudid Eyes: Anicteric sclerae, moist conjunctiva, Pupils equal round reactive to light ENMT: NC/AT Lungs: Audible breath sounds bilaterally with some scattered rhonchi Clear to percussion Normal respiratory effort, no accessory muscle use Cardiovascular: Heart regular in rate and rhythm, No murmurs, gallops, or rubs No peripheral edema Abdominal: Mild distention however patient was in sitting position during for physical exam Slight discomfort to deep palpation over the suprapubic and left lower quadrant region, no guarding, rebound or rigidity Abdomen moving with respiration Normoactive bowel sounds Extremities: No digital cyanosis Pedal pulses intact and symmetrical Radial pulses intact and symmetrical No calf tenderness Psychiatric: Sleepy however easily arousable with verbal stimulation drifts back to sleep and normal significantly due to being medicated Neuro unable to perform however patient moves all 4 extremities spontaneously Past Medical History Past Medical History: COPD, Fibromyalgia, GERD/Reflux, Hypertension Additional Past Medical History / Comment(s): bursitis, peripheral neuropathy, acute ischemic brain disease, "node on thyroid", severe mood disorder History of Any Multi-Drug Resistant Organisms: None Reported Past Surgical History: Section, Cholecystectomy, Hernia Repair, Hysterectomy Additional Past Surgical History / Comment(s): partial hysterectomy, d&c Past Anesthesia/Blood Transfusion Reactions: No Reported Reaction Past Psychological History: Anxiety, Depression Smoking Status: Never smoker Past Alcohol Use History: None Reported Past Drug Use History: None Reported - Past Family History family Family Medical History: No Reported History Medications and Allergies Home Medications Medication Instructions Recorded Confirmed Type clonazePAM [KlonoPIN] 2 mg PO TID 10/28/17 02/02/22 History traMADol HCL [Ultram] 50 - 100 mg PO TID PRN 10/28/17 02/02/22 History Metoprolol Succinate (ER) [Toprol 100 mg PO DAILY 10/24/20 02/02/22 History XL] Tiotropium 2.5 Mcg/Puff [Spiriva 1 puff INHALATION RT-DAILY 10/24/20 02/02/22 History Respimat 2.5 Mcg] Triamterene/Hydrochlorothiazid 1 cap PO Q48H 10/24/20 02/02/22 History [Dyazide 37.5-25 Capsule] Albuterol Sulfate [Proair Hfa] 2 puff INHALATION RT-Q4H PRN 02/02/22 02/02/22 History Budesonide-Formot 160-4.5 Mcg 2 puff INHALATION DIRECTED 02/02/22 02/02/22 History [Symbicort 160-4.5 Mcg Inhaler] Gabapentin [Neurontin] 200 mg PO TID 02/02/22 02/02/22 History Hydrocodone/Acetaminophen 1 tab PO TID PRN 02/02/22 02/02/22 History [Hydrocodone/Acetaminophen 10-325] lisinopriL 40 mg PO DAILY 02/02/22 02/02/22 History Acetaminophen Tab [Tylenol] 650 mg PO Q4HR PRN tab 02/05/22 Rx Ascorbic Acid [Vitamin C] 500 mg PO DAILY #30 tab 02/05/22 Rx Cholecalciferol [Vitamin D3 (25 25 mcg PO DAILY #30 tab 02/05/22 Rx Mcg = 1000 Iu)] Levofloxacin [Levaquin] 500 mg PO DAILY 7 Days #7 tab 02/05/22 Rx Metoclopramide [Reglan] 5 mg PO AC-TID PRN #20 tab 02/05/22 Rx Zinc Sulfate [Orazinc] 220 mg PO DAILY 14 Days #14 cap 02/05/22 Rx amLODIPine [Norvasc] 10 mg PO DAILY 30 Days #30 tab 02/05/22 Rx methylPREDNISolone Dose Pack 4 mg PO DIRECTED #21 tab 02/05/22 Rx [Medrol Dose Pack] Allergies Allergy/AdvReac Type Severity Reaction Status Date / Time famotidine [From Pepcid] Allergy Unknown Verified 02/02/22 11:55 Iodinated Contrast Media Allergy Rash/Hives Verified 02/02/22 11:55 [Iodinated Contrast- Oral and IV Dye] prednisone Allergy Hallucinati Verified 02/02/22 11:55 ons shellfish derived [Shrimp] Allergy Rash/Hives Verified 02/02/22 11:55 Physical Exam Vitals: Vital Signs Temp Pulse Resp BP Pulse Ox 09/26/23 01:55 48 L 18 162/85 95 09/26/23 00:25 54 L 18 181/77 98 09/25/23 23:52 47 L 18 165/85 98 09/25/23 20:28 97.9 F 50 L 18 179/84 94 L Intake and Output 09/25/23 09/25/23 09/26/23 14:59 22:59 06:59 Other: Weight 81.647 kg Results CBC & Chem 7: 09/25/23 21:21 09/25/23 21:21 Labs: Abnormal Lab Results - Last 24 Hours (Table) 09/25/23 09/25/23 Range/Units 21:21 21:21 MCV 100.7 H (80.0-100.0) fL Sodium 125 L (137-145) mmol/L Chloride 95 L (98-107) mmol/L Carbon Dioxide 20 L (22-30) mmol/L BUN 22 H (7-17) mg/dL Assessment and Plan Assessment: 73-year-old female with hypertension GERD coming in for evaluation of chest pain recurrent episodes over the past couple weeks I discussed case with ED doctor and accepted the admission for atypical chest pain to rule out acute coronary syndrome with anticipated length of stay less than 2 midnights Atypical chest pain rule out acute coronary syndrome Aspirin 81 mg p.o. daily Lipitor 20 mg p.o. nightly Check lipid panel Troponins negative continue to trend EKG no acute ST changes Cardiology consult Nitro as needed for chest pain Cardiac monitoring Hyponatremia Suspected secondary to dehydration from decreased p.o. intake and repeated [place] vomiting and diarrhea Sodium 125 BUN 22 creatinine 1.99 suspicious for dehydration Potassium 5 unremarkable IV fluid hydration normal saline 1 L bolus then continue with 125 cc/h Follow-up sodium levels in the morning Mild diverticulitis No fever White count 8.8 unremarkable Hemoglobin 13.[address] imaging of the abdomen showed possible mild diverticulitis Initiate antibiotics Zosyn 3.375 IV piggyback every 8 hours Follow-up cultures liquid diet Severe chronic GERD Continue follow-up outpatient with GI Protonix 40 mg p.o. twice daily Continue with home medication for close Heart milligram p.o. 3 times daily as needed COPD compensated Chronic hypoxic respiratory failure Continue supplemental oxygen as needed Continue Symbicort twice daily Continue with Spiriva daily DuoNebs as needed every 3 hours as needed Hypertension controlled Continue with amlodipine Continue lisinopril Continue metoprolol He is on home medication CT of the brain was done showed no acute intracranial pathology Patient has history of chronic migraines Full code DVT prophylaxis Lovenox subcu 40 mg daily
[2023-09-26] MEDS: SYMBICORT 160-4.5 MCG INHALER INHALATION SCH (02:42)
[2023-09-26] MEDS: PIPERACILLIN-TAZOBACTAM 3.375 GM in SODIUM CHLORIDE 0.9% 100 ML IVPB SCH (02:56)
--- NOTE | 2023-09-26 04:16 | P.HPIM ---
History of Present Illness H&P Date: 09/26/23 Chief Complaint: chest pain, abdominal distension Patient is a 73-year-old female with history of COPD with chronic hypoxemic respiratory failure on home oxygen 2 L as needed, GERD and hypertension presents to the ER for worsening substernal chest pain since 2 days. Patient describes pain as a heavy type, 10 out of 10, nonradiating, constant with no alleviating or exacerbating factors. Patient reports that she has been experiencing intermittent substernal chest pain since 2 weeks exacerbated upon exertion such as walking and alleviated with rest. Patient denies any previous episodes of chest pain. Patient denies history of CAD, congestive heart failure, A-fib and/or stroke. Chest pain is also associated with worsening shortness of breath but no cough. Patient is on 2 L as needed home oxygen therapy and she has been using it more often in the past couple weeks for progressively worsening shortness of breath. Patient also complaining of generalized headache since 2 days which she describes as stabbing type, nonradiating with no exacerbating or alleviating factors. She denies any acute vision changes, falls, dizziness or loss of consciousness. Patient is also complaining of diffuse abdominal pain associated with distention with intermittent nausea, vomiting and diarrhea. Per patient, she has been experiencing abdominal distention with intermittent constipation and diarrhea since 1 year. Patient states that she has undergone investigations and treatments for abdominal distention recently but there has been no improvement in her symptoms. She would however feel better after having some prune juice. Patient also endorses mild swelling to both ankles since 6 months which would get better with elevation of legs. Patient denies any recent hospitalization, recent travel, calf pain. Patient is not on any blood thinners. Collateral history is provided by patient's . Patient was sleepy secondary to Dilaudid at the time of interview but was able to answer most of my questions. EKG done in the ER shows sinus bradycardia with a heart rate of 50 bpm. MO interval 190 ms, not prolonged. QTc 394 ms, not prolonged. No STT wave changes noted. Chest x-ray shows no evidence of pleural effusion, focal consolidation or evid ence of pneumothorax. CT head shows no acute hemorrhage, hydrocephalus or mass effect. CT abdomen/pelvis shows diverticulosis. Mild fat stranding along the junction of the descending colon and sigmoid colon, concerning for mild diverticulitis. Vitals: Tmax 97.4 F, heart rate 54 bpm, respirate 15, blood pressure 160/82, oxygen saturation 100% on 2 L via nasal cannula. Review of systems: Pertinent positives and negatives as discussed in HPI, a complete review of systems was performed and all other systems are negative. Social history: Tobacco: Quarter to half pack a day x 30 years; quit 30 years ago Alcohol: Quit 15 years ago Recreational drugs: None Travel: None Occupation: Retired Family History: Noncontributory Physical examination: Vital signs reviewed General: non toxic, no distress, appears at stated age, normal weight Derm: no unusual rashes/lesions, warm Head: atraumatic, normocephalic, symmetric Eyes: EOMI, no lid lag, anicteric sclera, pupils equal round reactive to light Neck: No cervical lymphadenopathy, trachea midline, supple Mouth: no lip lesion, mucus membranes moist Cardiovascular: S1S2 reg, no murmur, positive dorsalis pedis pulse bilateral, no edema Lungs: Mild bilateral expiratory wheezing heard on lung bases, no rhonchi, no rales, no accessory muscle use Abdominal: Mildly distended with mild tenderness noted on the left lower quadrant upon palpation, no guarding Ext: muscle strength 5 out of 5 in all 4 extremities grossly, no gross muscle atrophy, no contractures, Neuro: CN II-XI grossly intact, no gross focal neuro deficits Psych: Alert, oriented, appropriate affect Assessment/Plan: 73-year-old female with history of COPD with chronic hypoxemic respiratory failure on home oxygen 2 L as needed, chronic GERD and hypertension presents to the ER for worsening substernal chest pain since 2 days with generalized headache and diffuse abdominal distention. #Atypical chest pain Heart score: 4 points; moderate risk for ACS Ordered echocardiogram Consult cardiology Continue cardiac monitoring Continue with aspirin 81 mg p.o. daily Continue with atorvastatin 20 mg p.o. at bedtime Continue with oxygen therapy 2 L via nasal cannula Resume metoprolol 100 mg p.o. daily Order Nitropatch for chest pain Troponin I <0.012 Continue to monitor troponin I Ordered lipid profile #Abdominal pain CT abdomen/pelvis shows diverticulosis. Mild fat stranding along the junction of the descending colon and sigmoid colon, concerning for mild diverticulitis. Ordered Zosyn 3.375 g IVPB every 8 hours WBC 8.8 with neutrophil count of 5 Continue monitor WBC for worsening signs of infection SIRS: 0 points Continue with IV normal saline with 125 cc/h Order blood culture Pain control with Dilaudid 1 mg IVP every 3 hours as needed #Hypovolemic hypotonic Hyponatremia secondary to vomiting and diarrhea Sodium 125, potassium 5.0, chloride 95, bicarb 20 Continue monitor sodium levels Continue with IV normal saline at 125 cc/h Hold normal saline if sodium levels worsen, consider diagnosis of SIADH secondary to stressors such as diverticulitis #Headache CT head shows no acute hemorrhage, hydrocephalus or mass effect #Chronic conditions: Hypertension: Resume lisinopril 40 mg p.o. daily, amlodipine 10 mg p.o. daily, metoprolol 100 mg p.o. daily GERD: Resume metoclopramide 5 mg p.o. 3 times daily COPD: Resume Spiriva Respimat 2.5 mcg 1 puff elation RT daily, Symbicort 160-4.5 mcg inhaler 2 puffs as needed DVT prophylaxis: Lovenox 40 mg subcu daily The patient is admitted with an anticipated more than 2 midnight stay for evaluation of diverticulitis and chest pain CODE STATUS: Full code Discussed with: Patient Anticipated discharge place: Home Past Medical History Past Medical History: COPD, Fibromyalgia, GERD/Reflux, Hypertension Additional Past Medical History / Comment(s): bursitis, peripheral neuropathy, acute ischemic brain disease, "node on thyroid", severe mood disorder History of Any Multi-Drug Resistant Organisms: None Reported Past Surgical History: Section, Cholecystectomy, Hernia Repair, Hysterectomy Additional Past Surgical History / Comment(s): partial hysterectomy, d&c Past Anesthesia/Blood Transfusion Reactions: No Reported Reaction Past Psychological History: Anxiety, Depression Smoking Status: Never smoker Past Alcohol Use History: None Reported Past Drug Use History: None Reported - Past Family History family Family Medical History: No Reported History Medications and Allergies Home Medications Medication Instructions Recorded Confirmed Type clonazePAM [KlonoPIN] 2 mg PO TID 10/28/17 02/02/22 History traMADol HCL [Ultram] 50 - 100 mg PO TID PRN 10/28/17 02/02/22 History Metoprolol Succinate (ER) [Toprol 100 mg PO DAILY 10/24/20 02/02/22 History XL] Tiotropium 2.5 Mcg/Puff [Spiriva 1 puff INHALATION RT-DAILY 10/24/20 02/02/22 History Respimat 2.5 Mcg] Triamterene/Hydrochlorothiazid 1 cap PO Q48H 10/24/20 02/02/22 History [Dyazide 37.5-25 Capsule] Albuterol Sulfate [Proair Hfa] 2 puff INHALATION RT-Q4H PRN 02/02/22 02/02/22 History Budesonide-Formot 160-4.5 Mcg 2 puff INHALATION DIRECTED 02/02/22 02/02/22 History [Symbicort 160-4.5 Mcg Inhaler] Gabapentin [Neurontin] 200 mg PO TID 02/02/22 02/02/22 History Hydrocodone/Acetaminophen 1 tab PO TID PRN 02/02/22 02/02/22 History [Hydrocodone/Acetaminophen 10-325] lisinopriL 40 mg PO DAILY 02/02/22 02/02/22 History Acetaminophen Tab [Tylenol] 650 mg PO Q4HR PRN tab 02/05/22 Rx Ascorbic Acid [Vitamin C] 500 mg PO DAILY #30 tab 02/05/22 Rx Cholecalciferol [Vitamin D3 (25 25 mcg PO DAILY #30 tab 02/05/22 Rx Mcg = 1000 Iu)] Levofloxacin [Levaquin] 500 mg PO DAILY 7 Days #7 tab 02/05/22 Rx Metoclopramide [Reglan] 5 mg PO AC-TID PRN #20 tab 02/05/22 Rx Zinc Sulfate [Orazinc] 220 mg PO DAILY 14 Days #14 cap 02/05/22 Rx amLODIPine [Norvasc] 10 mg PO DAILY 30 Days #30 tab 02/05/22 Rx methylPREDNISolone Dose Pack 4 mg PO DIRECTED #21 tab 02/05/22 Rx [Medrol Dose Pack] Allergies Allergy/AdvReac Type Severity Reaction Status Date / Time famotidine [From Pepcid] Allergy Unknown Verified 02/02/22 11:55 Iodinated Contrast Media Allergy Rash/Hives Verified 02/02/22 11:55 [Iodinated Contrast- Oral and IV Dye] prednisone Allergy Hallucinati Verified 02/02/22 11:55 ons shellfish derived [Shrimp] Allergy Rash/Hives Verified 02/02/22 11:55 Physical Exam Vitals: Vital Signs Temp Pulse Resp BP Pulse Ox 09/26/23 00:25 54 L 18 181/77 98 09/25/23 23:52 47 L 18 165/85 98 09/25/23 20:28 97.9 F 50 L 18 179/84 94 L Intake and Output 09/25/23 09/25/23 09/26/23 14:59 22:59 06:59 Other: Weight 81.647 kg Results CBC & Chem 7: 09/25/23 21:21 09/25/23 21:21 Labs: Abnormal Lab Results - Last 24 Hours (Table) 09/25/23 09/25/23 Range/Units 21:21 21:21 MCV 100.7 H (80.0-100.0) fL Sodium 125 L (137-145) mmol/L Chloride 95 L (98-107) mmol/L Carbon Dioxide 20 L (22-30) mmol/L BUN 22 H (7-17) mg/dL
[2023-09-26] MEDS: PANTOPRAZOLE 40 MG TABLET PO SCH (05:32)
[2023-09-26 08:38] LABS: Chol/HDL Ratio 5.09 Ratio; LDL Cholesterol,Calculated 84.9 mg/dL (0.0-131.0)
[2023-09-26] MEDS: lisinopriL 20 MG TAB PO SCH (08:42)
[2023-09-26] MEDS: ASPIRIN 81 MG PO SCH (08:43)
[2023-09-26] MEDS: ENOXAPARIN 40 MG/0.4 ML SYRINGE SQ SCH (08:44)
[2023-09-26] MEDS: HYDROmorphone 1 MG/ML 1 ML SYRINGE IVP PRN (08:45)
[2023-09-26] MEDS ORDERED: PANTOPRAZOLE 40 MG/10 ML VIAL IV SCH (09:00)
[2023-09-26] MEDS ORDERED: amLODIPine 10 MG TAB PO SCH (09:00)
[2023-09-26] MEDS: IPRATROPIUM 0.5 MG/2.5 ML NEBU INHALATION SCH (09:16)
[2023-09-26] MEDS: METOPROLOL SUCCINATE (ER) 50 MG TAB.ER.24H PO SCH (12:43)
--- NOTE | 2023-09-26 16:02 | P.PN ---
Subjective Progress Note Date: 09/26/23 Principal diagnosis: abdominal pain patient's still with abdominal pain, intermittent nausea. symptoms seem to be acute on chronic. mentioned history of gastric sleeve surgery years ago with history of dysphagia. Had an EGD earlier this year done by her records management director at [facility] which found reflux esophagitis and '' loose wrap''. Objective - Vital Signs Vital signs: Vital Signs Temp 97.4 F L 09/26/23 13:52 Pulse 60 09/26/23 13:52 Resp 16 09/26/23 13:52 BP 122/74 09/26/23 13:52 Pulse Ox 98 09/26/23 13:52 FiO2 Intake & Output 09/25/23 09/26/23 09/26/23 18:59 06:59 18:59 Intake Total 240 Balance 240 Weight 81.647 kg Intake: Oral 240 Other: # Voids 1 - Exam Vital signs reviewed General: non toxic, no distress, appears at stated age, normal weight Derm: no unusual rashes/lesions, warm Head: atraumatic, normocephalic, symmetric Eyes: EOMI, no lid lag, anicteric sclera, pupils equal round reactive to light Neck: No cervical lymphadenopathy, trachea midline, supple Mouth: no lip lesion, mucus membranes moist Cardiovascular: S1S2 reg, no murmur, positive dorsalis pedis pulse bilateral, no edema Lungs: Mild bilateral expiratory wheezing heard on lung bases, no rhonchi, no rales, no accessory muscle use Abdominal: Mildly distended with mild tenderness noted on the left lower quadrant upon palpation, no guarding Ext: muscle strength 5 out of 5 in all 4 extremities grossly, no gross muscle atrophy, no contractures, Neuro: CN II-XI grossly intact, no gross focal neuro deficits Psych: Alert, oriented, appropriate affect - Labs CBC & Chem 7: 09/25/23 21:21 09/25/23 21:21 Labs: Abnormal Lab Results - Last 24 Hours (Table) 09/25/23 09/25/23 09/26/23 Range/Units 21:21 21:21 03:40 MCV 100.7 H (80.0-100.0) fL Sodium 125 L (137-145) mmol/L Chloride 95 L (98-107) mmol/L Carbon Dioxide 20 L (22-30) mmol/L BUN 22 H (7-17) mg/dL Triglycerides 351.00 H (0.00-149.00) mg/dL VLDL Cholesterol, Calc 70.20 H (5.00-40.00) mg/dL HDL Cholesterol 37.90 L (40.00-60.00) mg/dL Assessment and Plan Plan: #Atypical chest pain Ordered echocardiogram pending Troponin I cycled, negative #Abdominal pain #Diverticulitis #Dysphagia Zosyn 3.375 g IVPB every 8 hours IV normal saline with 125 cc/h Pain control with Dilaudid 1 mg IVP every 3 hours as needed Consult GI #Hypovolemic hypotonic Hyponatremia secondary to vomiting and diarrhea Sodium 125, potassium 5.0, chloride 95, bicarb 20 Continue monitor sodium levels Continue with IV normal saline at 125 cc/h #Headache CT head shows no acute hemorrhage, hydrocephalus or mass effect #Chronic conditions: Hypertension: Resume lisinopril 40 mg p.o. daily, amlodipine 10 mg p.o. daily, metoprolol 100 mg p.o. daily GERD: Resume metoclopramide 5 mg p.o. 3 times daily COPD: Resume Spiriva Respimat 2.5 mcg 1 puff elation RT daily, Symbicort 160-4.5 mcg inhaler 2 puffs as needed DVT prophylaxis: Lovenox 40 mg subcu daily The patient is admitted with an anticipated more than 2 midnight stay for evaluation of diverticulitis and chest pain CODE STATUS: Full code Discussed with: Patient Anticipated discharge place: Home
[2023-09-26 16:45] LABS: African American GFR (CKD) 62 (>60 ml/min/1.73 sqM); Anion Gap 6 mmol/L; Blood Urea Nitrogen 17 mg/dL (7-17); Calcium 8.6 mg/dL (8.4-10.2); Carbon Dioxide 24 mmol/L (22-30); Chloride 99 mmol/L (98-107); Glucose 78 mg/dL (74-99); Non-African American GFR(CKD) 54 (>60 ml/min/1.73 sqM); Potassium 4.6 mmol/L (3.5-5.1); Sodium 129 mmol/L (137-145)
--- NOTE | 2023-09-26 17:26 | CA ---
Transthoracic Echo Report Name: Мариан Wu Age: 73 Gender: F : 1950 Exam Date: 09/26/2023 09:16 Exam Location: [facility] Ht (in): 59 Wt (lb): 180 Ordering Physician: El Haynes MD Attending/Referring Phys: Acute Dialysis Registered Nurse Chelle Vizcarra RDCS Procedure CPT: Indications: Chest Pain Cardiac Hx: Technical Quality: Fair Contrast 1: Total Dose (mL): Contrast 2: Total Dose (mL): MEASUREMENTS (Male / Female) Normal Values 2D ECHO LV Diastolic Diameter PLAX 4.3 cm 4.2 - 5.9 / 3.9 - 5.3 cm LV Systolic Diameter PLAX 2.5 cm IVS Diastolic Thickness 1.3 cm 0.6 - 1.0 / 0.6 - 0.9 cm LVPW Diastolic Thickness 1.3 cm 0.6 - 1.0 / 0.6 - 0.9 cm LV Relative Wall Thickness 0.6 RV Internal Dim ED PLAX 3.7 cm LA Volume 62.3 cm??? 18 - 58 / 22 - 52 cm??? LA Volume Index 33.0 cm???/m??? 16 - 28 cm???/m??? M-MODE Aortic Root Diameter MM 2.5 cm LA Systolic Diameter MM 4.1 cm LA Ao Ratio MM 1.7 AV Cusp Separation MM 1.8 cm DOPPLER AV Peak Velocity 156.2 cm/s AV Peak Gradient 9.8 mmHg AV Mean Velocity 115.7 cm/s AV Mean Gradient 6.0 mmHg AV Velocity Time Integral 47.6 cm LVOT Peak Velocity 81.2 cm/s LVOT Peak Gradient 2.6 mmHg LVOT Velocity Time Integral 21.5 cm MV Area PHT 3.3 cm??? Mitral E Point Velocity 98.0 cm/s Mitral A Point Velocity 83.1 cm/s Mitral E to A Ratio 1.2 MV Deceleration Time 227.6 ms MV E' Velocity 5.3 cm/s Mitral E to MV E' Ratio 18.5 TR Peak Velocity 243.1 cm/s TR Peak Gradient 23.6 mmHg FINDINGS Left Ventricle Moderately increased left ventricular wall thickness. Left ventricular cavity size normal. Normal left ventricular systolic function with no obvious regional wall motion abnormalities. Left ventricular ejection fraction is estimated at 55-60 %. Grade 1 diastolic dysfunction. Right Ventricle Mild right ventricular dilatation. Right ventricular systolic pressure within normal limits. Right Atrium Normal right atrial size. Left Atrium Mildly increased left atrial volume. Mildly increased left atrial area. Mitral Valve Structurally normal mitral valve. Mitral annular calcification. Mitral valve thickened. [id number] mitral regurgitation. Aortic Valve Trileaflet aortic valve. No aortic valve stenosis or regurgitation. Aortic valve sclerosis. Tricuspid Valve Structurally normal tricuspid valve. Mild tricuspid regurgitation. Pulmonic Valve Structurally normal pulmonic valve. Trace pulmonic regurgitation. Pericardium No pericardial effusion. Aorta Normal size aortic root and proximal ascending aorta. CONCLUSIONS Normal LV function Mild to moderate mitral regurgitation Previewed by: Dr. Nirav Howell MD (Electronically Signed) Final Date: 26 September 2023 17:26
[2023-09-26] MEDS: ATORVASTATIN 20 MG TAB PO SCH (21:55)
[2023-09-26] MEDS: MELATONIN 5 MG TABLET PO SCH (22:58)
[2023-09-26] MEDS: ALPRAZolam 0.25 MG TAB PO STA (22:58)
[2023-09-27 08:30] LABS: Basophils # (A) 0.04 X 10*3/uL (0.00-0.10); Basophils % (A) 0.5 %; Eosinophils # (A) 0.19 X 10*3/uL (0.04-0.35); Eosinophils % (A) 2.3 %; HCT 35.5 % (37.2-46.3); HGB 11.8 g/dL (12.0-15.0); Lymphocytes % (A) 29.6 %; MCH 33.8 pg (27.0-32.0); MCHC 33.2 g/dL (32.0-37.0); MCV 101.7 FL (80.0-97.0); Mean Platelet Volume 9.5 FL (9.5-12.2); Monocytes # (A) 0.78 X 10*3/uL (0.20-1.00); Monocytes % (A) 9.6 %; NRBC Per 100 WBC 0 X 10*3/uL (0.00-0.01); Neutrophils # (A) 4.68 X 10*3/uL (1.80-7.70); Neutrophils % (A) 57.6 %; Platelet Count 214 X 10*3/uL (140-440); RBC 3.49 X 10*6/uL (4.10-5.20); RDW 13.2 % (11.5-14.5); WBC 8.12 X 10*3/uL (4.50-10.00)
[2023-09-27 08:46] LABS: Magnesium 1.9 mg/dL (1.5-2.4); Phosphorus 3.2 mg/dL (2.4-5.1)
[2023-09-27 08:47] LABS: BUN/Creat Ratio 11.58 Ratio (12.00-20.00); Blood Urea Nitrogen 13.9 mg/dL (9.0-27.0); Glucose 83 mg/dL (70-110)
[2023-09-27 08:48] LABS: ALT 19 U/L (8-44); AST 24 U/L (13-35); Albumin 3.7 g/dL (3.8-4.9); Albumin/Globulin Ratio 1.95 Ratio (1.60-3.17); Alkaline Phosphatase 54 U/L (41-126); Calcium 8.5 mg/dL (8.7-10.3); Chloride 98 mmol/L (96-109); Globulin 1.9 g/dL (1.6-3.3); Potassium 4.9 mmol/L (3.5-5.5); Sodium 131 mmol/L (135-145); Total Bilirubin 0.3 mg/dL (0.3-1.2); Total Protein 5.6 g/dL (6.2-8.2)
--- NOTE | 2023-09-27 13:08 | P.PN ---
Subjective Progress Note Date: 09/27/23 Principal diagnosis: abdominal pain Patient's still with abdominal pain, intermittent nausea. No significant improvement. Symptoms seem to be acute on chronic. mentioned history of gastric sleeve surgery years ago with history of dysphagia. Had an EGD earlier this year done by her neonatal intensive care unit nurse at [facility] which found reflux esophagitis and '' loose wrap''. Objective - Vital Signs Vital signs: Vital Signs Temp 98.3 F 09/27/23 07:00 Pulse 74 09/27/23 12:30 Resp 16 09/27/23 07:00 BP 153/77 09/27/23 07:00 Pulse Ox 94 L 09/27/23 09:01 FiO2 Intake & Output 09/26/23 09/27/23 09/27/23 18:59 06:59 18:59 Intake Total 720 240 Balance 720 240 Intake: Oral 720 240 Other: # Voids 2 2 - Exam Vital signs reviewed General: non toxic, no distress, appears at stated age, normal weight Derm: no unusual rashes/lesions, warm Head: atraumatic, normocephalic, symmetric Eyes: EOMI, no lid lag, anicteric sclera, pupils equal round reactive to light Neck: No cervical lymphadenopathy, trachea midline, supple Mouth: no lip lesion, mucus membranes moist Cardiovascular: S1S2 reg, no murmur, positive dorsalis pedis pulse bilateral, no edema Lungs: Mild bilateral expiratory wheezing heard on lung bases, no rhonchi, no rales, no accessory muscle use Abdominal: Mildly distended with mild tenderness noted on the left lower quadrant upon palpation, no guarding Ext: muscle strength 5 out of 5 in all 4 extremities grossly, no gross muscle atrophy, no contractures, Neuro: CN II-XI grossly intact, no gross focal neuro deficits Psych: Alert, oriented, appropriate affect - Labs CBC & Chem 7: 09/27/23 03:42 09/27/23 03:42 Labs: Abnormal Lab Results - Last 24 Hours (Table) 09/26/23 09/27/23 09/27/23 Range/Units 16:10 03:42 03:42 RBC 3.49 L (4.10-5.20) X 10*6/uL Hgb 11.8 L (12.0-15.0) g/dL Hct 35.5 L (37.2-46.3) % MCV 101.7 H (80.0-97.0) FL MCH 33.8 H (27.0-32.0) pg Sodium 129 L 131 L (137-145) mmol/L Est GFR (CKD-EPI) 48 L (>=60) BUN/Creatinine Ratio 11.58 L (12.00-20.00) Ratio Calcium 8.5 L (8.7-10.3) mg/dL Total Protein 5.6 L (6.2-8.2) g/dL Albumin 3.7 L (3.8-4.9) g/dL Microbiology - Last 24 Hours (Table) 09/26/23 03:40 Blood Culture - Preliminary Blood Assessment and Plan Plan: #Atypical chest pain Echocardiogram showing mild to moderate MR, otherwise normal Troponin I cycled, negative #Abdominal pain #Diverticulitis #Dysphagia Zosyn 3.375 g IVPB every 8 hours IV normal saline with 125 cc/h Pain control with Dilaudid 1 mg IVP every 3 hours as needed Consult GI #Hypovolemic hypotonic Hyponatremia secondary to vomiting and diarrhea Sodium 125--> 131 improved Continue monitor sodium levels #Headache CT head shows no acute hemorrhage, hydrocephalus or mass effect #Chronic conditions: Hypertension: Resume lisinopril 40 mg p.o. daily, amlodipine 10 mg p.o. daily, metoprolol 100 mg p.o. daily GERD: Resume metoclopramide 5 mg p.o. 3 times daily COPD: Resume Spiriva Respimat 2.5 mcg 1 puff elation RT daily, Symbicort 160-4.5 mcg inhaler 2 puffs as needed DVT prophylaxis: Lovenox 40 mg subcu daily The patient is admitted with an anticipated more than 2 midnight stay for evaluation of diverticulitis and chest pain CODE STATUS: Full code Discussed with: Patient Anticipated discharge place: Home
[2023-09-27] MEDS: IPRATROPIUM-ALBUTEROL 3 ML NEB INHALATION PRN (19:48)
[2023-09-28 07:36] VITALS: BP 154/81; RESP 17; TEMP 97.8
[2023-09-28 07:47] LABS: African American GFR (CKD) 60 (>60 ml/min/1.73 sqM); Anion Gap 6 mmol/L; Blood Urea Nitrogen 13 mg/dL (7-17); Carbon Dioxide 26 mmol/L (22-30); Chloride 103 mmol/L (98-107); Glucose 99 mg/dL (74-99); Non-African American GFR(CKD) 52 (>60 ml/min/1.73 sqM); Potassium 4.6 mmol/L (3.5-5.1); Sodium 135 mmol/L (137-145)
[2023-09-28] MEDS: ONDANSETRON 4 MG/2 ML VIAL IVP PRN (09:24)
--- NOTE | 2023-09-28 12:25 | P.DS ---
Providers Date of admission: 09/26/23 00:32 Attending physician: Torsten Og MD Consults: 09/26/23 15:53 Consult Physician Routine Consulting Provider: Debby Howell Consult Reason/Comments: pain Do you want consulting provider notified?: Yes Primary care physician: Manuel Berg MD Hospital Course: Hospital course Patient is a 73-year-old female with a past medical history of hypertension, COPD on home oxygen, GERD, lymphedema, gastroparesis who has a follow-up appointment with a specialist at [facility] who presents with abdominal pain that is in the epigastric area. In the ED patient had a CT abdomen and pelvis that showed diverticulosis with mild fat stranding along the descending colon and sigmoid colon concerning for mild diverticulitis. Patient was referred for admission and started on IV antibiotics for the diverticulitis. Patient was seen the following day. She was able to tolerate diet. She was feeling better. Patient was then deemed stable for discharge. She will be discharged on ciprofloxacin and Flagyl for 5 more days. Patient also instructed to follow-up with gastroenterology for colonoscopy in 6 weeks. Patient was also reporting some epigastric pain. I suspect this is due to acid reflux. Will start the patient on Protonix 40 mg twice daily. Will again have a follow-up with gastroenterology. Patient also instructed to follow-up with the specialist for gastroparesis at [facility]. She states that she has an appointment on October 05. In the meantime patient instructed to eat small meals. Patient also instructed to avoid constipation. She states that prune juice works well for her. Patient also did have cardiac workup. The echocardiogram showed mild to moderate mitral regurgitation otherwise showed normal LV function. Patient's troponins were negative. Patient started to follow cardiology to manage her her mitral regurgitation. Patient deemed stable for discharge. Patient also instructed to follow-up with vascular surgery in regards to her edema in her legs. Patient states that she is already established with a vascular surgeon. Physical exam General examination - Alert and Oriented 3 in NAD Heart - + S1S2 no murmurs Lungs - Clear to auscultation Abdomen soft NT ND +ve BS Extremities -+2 pitting edema bilateral lower extremities CLEANER - Moving all 4 extremities spontaneously Psych - Calm and cooperative Discharge diagnosis Atypical chest pain: ACS ruled out. Likely due to acid reflux and gastroparesis Hyponatremia likely due to dehydration. Sodium improving. Patient instructed to drink adequately Mild diverticulitis Severe chronic GERD COPD Chronic hypoxic respiratory failure Hypertension Chronic migraines Patient Condition at Discharge: Fair Plan - Discharge Summary New Discharge Prescriptions: New Ipratropium Nebulized [Atrovent Nebulized 0.2 MG/ML] 0.5 mg INHALATION RT-TID 30 Days #100 ml Ciprofloxacin HCl 500 mg PO BID 5 Days #10 tablet Ondansetron [Zofran] 4 mg PO Q12HR PRN 7 Days #14 tab PRN Reason: Nausea metroNIDAZOLE [Flagyl] 500 mg PO TID 5 Days #15 tab Pantoprazole [Protonix] 40 mg PO AC-BID 30 Days #60 tab Continue traMADol HCL [Ultram] 50 - 100 mg PO TID PRN PRN Reason: Pain clonazePAM [KlonoPIN] 2 mg PO TID Budesonide-Formot 160-4.5 Mcg [Symbicort 160-4.5 Mcg Inhaler] 2 puff INHALATION RT-BID Metoprolol Succinate (ER) [Toprol XL] 50 mg PO DAILY Albuterol Sulfate [Proair Hfa] 2 puff INHALATION RT-Q4H PRN PRN Reason: Shortness Of Breath Hydrocodone/Acetaminophen [Hydrocodone/Acetaminophen 10-325] 1 tab PO TID lisinopriL [Zestril] 20 mg PO BID Tiotropium Almyra [Spiriva Handihaler] 1 cap INHALATION RT-DAILY Discharge Medication List clonazePAM [KlonoPIN] 2 mg PO TID 10/28/17 [History] traMADol HCL [Ultram] 50 - 100 mg PO TID PRN 10/28/17 [History] Albuterol Sulfate [Proair Hfa] 2 puff INHALATION RT-Q4H PRN 02/02/22 [History] Budesonide-Formot 160-4.5 Mcg [Symbicort 160-4.5 Mcg Inhaler] 2 puff INHALATION RT-BID 02/02/22 [History] Hydrocodone/Acetaminophen [Hydrocodone/Acetaminophen 10-325] 1 tab PO TID 02/02/22 [History] Metoprolol Succinate (ER) [Toprol XL] 50 mg PO DAILY 09/26/23 [History] Tiotropium Almyra [Spiriva Handihaler] 1 cap INHALATION RT-DAILY 09/26/23 [History] lisinopriL [Zestril] 20 mg PO BID 09/26/23 [History] Ciprofloxacin HCl 500 mg PO BID 5 Days #10 tablet 09/28/23 [Rx] Ipratropium Nebulized [Atrovent Nebulized 0.2 MG/ML] 0.5 mg INHALATION RT-TID 30 Days #100 ml 09/28/23 [Rx] Ondansetron [Zofran] 4 mg PO Q12HR PRN 7 Days #14 tab 09/28/23 [Rx] Pantoprazole [Protonix] 40 mg PO AC-BID 30 Days #60 tab 09/28/23 [Rx] metroNIDAZOLE [Flagyl] 500 mg PO TID 5 Days #15 tab 09/28/23 [Rx] Follow up Appointment(s)/Referral(s): Manuel Berg MD [Primary Care Provider] - 1-2 days Debby Howell MD [STAFF PHYSICIAN] - 1 Week Discharge Disposition: HOME SELF-CARE
[2023-09-28 12:45] VITALS: PULSE 78
== END 2023-09-28 15:53 | disposition home or self-care (01) ==
LOC: EC 20:15 → 6NMEDSUR 09-26 00:32
PROVIDERS: ADMIT Internal Medicine; ATTEND Internal Medicine
DX: R07.89 Other chest pain (principal); E87.1 Hypo-osmolality and hyponatremia; E86.0 Dehydration; K57.32 Diverticulitis of large intestine without perforation or abscess without bleeding; J44.9 Chronic obstructive pulmonary disease, unspecified; J96.11 Chronic respiratory failure with hypoxia; I10 Essential (primary) hypertension; G43.909 Migraine, unspecified, not intractable, without status migrainosus; K21.00 Gastro-esophageal reflux disease with esophagitis, without bleeding; K31.84 Gastroparesis; I34.0 Nonrheumatic mitral (valve) insufficiency; K59.00 Constipation, unspecified; M79.7 Fibromyalgia; Z79.51 Long term (current) use of inhaled steroids; F41.9 Anxiety disorder, unspecified; F32.A Depression, unspecified; Z79.82 Long term (current) use of aspirin; Z87.891 Personal history of nicotine dependence; Z90.711 Acquired absence of uterus with remaining cervical stump; Z98.84 Bariatric surgery status
CPT/HCPCS: 96376; 96361 ×3; 96366 ×5; 96367; 96365; 96375; 99285; 36415; 94640 ×6; 94760 ×3; 93005; 93306; 80061; 80053 ×2; 80048 ×2; 83735 ×2; 84100; 84484 ×2; 85025 ×2; 85610; 85730; 81003; 87040; 71046; 70450; 74176; G0378 ×3; J2543 ×3; J1200; J2405 ×2; J1170 ×4

== ENCOUNTER 2023-12-18 16:08 | Inpatient (IN) | payer MEDICARE, BC ==
--- NOTE | 2023-12-18 16:19 | ED ---
Weakness HPI - General Source: patient, family, RN notes reviewed Mode of arrival: wheelchair Limitations: no limitations <Citlali Cervantes - Last Filed: 12/18/23 16:18> <Benita Pollock - Last Filed: 12/20/23 00:38> - General Stated complaint: SOB Time Seen by Provider: 12/18/23 16:18 - History of Present Illness Initial comments: Quick note: 73-year-old female presenting to the ER with a chief complaint of weakness and tremors. Patient also was complaining of a consistent chest discomfort. Reports for the past 3 days her symptoms have been increasing in intensity. She denies any fevers or chills. (Citlali Cervantes) 73-year-old female with past medical history of hypertension, COPD on home O2 who presents emergency department with chest pain and shortness of breath. States that her symptoms have gotten progressively worse. Previously she was using oxygen as needed but now has worn 3 L consistently. She admits to a nonproductive cough. No fevers. Has left-sided chest pain which radiates into her left arm into her back. No history of DVT or PE. No calf pain or swelling. Also reports to significant vaginal discharge. States that she has had sepsis previously from yeast infections. She is not currently on any antibiotics or antifungals. She reports that her symptoms have made her feel extremely weak. no other alleviating, precipitating modifying factors (Benita Pollock) - Related Data Home Medications Medication Instructions Recorded Confirmed clonazePAM [KlonoPIN] 2 mg PO TID 10/28/17 12/19/23 traMADol HCL [Ultram] 50 - 100 mg PO TID PRN 10/28/17 12/19/23 Albuterol Sulfate [Proair Hfa] 2 puff INHALATION RT-Q4H PRN 02/02/22 12/19/23 Budesonide-Formot 160-4.5 Mcg 2 puff INHALATION RT-BID 02/02/22 12/19/23 [Symbicort 160-4.5 Mcg Inhaler] Hydrocodone/Acetaminophen 1 tab PO TID PRN 02/02/22 12/19/23 [Hydrocodone/Acetaminophen 10-325] Metoprolol Succinate (ER) [Toprol 50 mg PO DAILY 09/26/23 12/19/23 XL] Tiotropium [place] [Spiriva 1 puff INHALATION RT-DAILY 09/26/23 12/19/23 Handihaler] lisinopriL [Zestril] 20 mg PO BID 09/26/23 12/19/23 Ipratropium Nebulized [Atrovent 0.5 mg INHALATION RT-TID PRN 12/19/23 12/19/23 Nebulized 0.2 MG/ML] Metoclopramide HCl [Reglan] 5 mg PO AC-BID 12/19/23 12/19/23 Previous Rx's Medication Instructions Recorded Ondansetron [Zofran] 4 mg PO Q12HR PRN 7 Days #14 tab 09/28/23 Allergies Allergy/AdvReac Type Severity Reaction Status Date / Time famotidine [From Pepcid] Allergy Unknown Verified 12/19/23 07:44 Iodinated Contrast Media Allergy Rash/Hives Verified 12/19/23 07:44 [Iodinated Contrast- Oral and IV Dye] shellfish derived [Shrimp] Allergy Rash/Hives Verified 12/19/23 07:44 prednisone AdvReac Hallucinati Verified 12/19/23 07:44 ons Review of Systems ROS Other: All systems not noted in ROS Statement are negative. <Citlali Cervantes - Last Filed: 12/18/23 16:18> ROS Other: All systems not noted in ROS Statement are negative. <Benita Pollock - Last Filed: 12/20/23 00:38> ROS Statement: Those systems with pertinent positive or pertinent negative responses have been documented in the HPI. Past Medical History Past Medical History: COPD, Fibromyalgia, GERD/Reflux, Hypertension Additional Past Medical History / Comment(s): bursitis, peripheral neuropathy, acute ischemic brain disease, "node on thyroid", severe mood disorder History of Any Multi-Drug Resistant Organisms: None Reported Past Surgical History: Section, Cholecystectomy, Hernia Repair, Hysterectomy Additional Past Surgical History / Comment(s): partial hysterectomy, d&c Past Anesthesia/Blood Transfusion Reactions: No Reported Reaction Past Psychological History: Anxiety, Depression Smoking Status: Never smoker Past Alcohol Use History: None Reported Past Drug Use History: None Reported - Past Family History family Family Medical History: No Reported History <Citlali Cervantes - Last Filed: 12/18/23 16:18> General Exam <Citlali Cervantes - Last Filed: 12/18/23 16:18> General appearance: alert, in no apparent distress Head exam: Present: atraumatic, normocephalic, normal inspection Eye exam: Present: normal appearance, PERRL, EOMI. Absent: scleral icterus, conjunctival injection, periorbital swelling ENT exam: Present: normal exam, mucous membranes moist Neck exam: Present: normal inspection. Absent: tenderness, meningismus, lymphadenopathy Respiratory exam: Present: normal lung sounds bilaterally. Absent: respiratory distress, wheezes, rales, rhonchi, stridor Cardiovascular Exam: Present: regular rate, normal rhythm, normal heart sounds. Absent: systolic murmur, diastolic murmur, rubs, gallop, clicks GI/Abdominal exam: Present: soft, normal bowel sounds. Absent: distended, tenderness, guarding, rebound, rigid Extremities exam: Present: normal inspection, full ROM, normal capillary refill. Absent: tenderness, pedal edema, joint swelling, calf tenderness Back exam: Present: normal inspection Neurological exam: Present: alert, oriented X3, CN II-XII intact Psychiatric exam: Present: normal affect, normal mood Skin exam: Present: warm, dry, intact, normal color. Absent: rash <Benita Pollock - Last Filed: 12/20/23 00:38> - General Exam Comments Initial Comments: Visual Physical Exam Vital signs reviewed General: Well-appearing, nontoxic, no acute distress. Head: Normocephalic, atraumatic Eyes: PERRLA, EOMI ENT: Airway patent Chest: Nonlabored breathing Skin: No visual rash, normal skin tone Neuro: Alert and oriented 3 Musculoskeletal: No gross abnormalities (Citlali Cervantes) Course Vital Signs 12/18/23 12/18/23 12/18/23 16:14 22:00 23:00 Temperature 98.5 F Pulse Rate 91 88 84 Pulse Rate [ Right Supine Pulse Oximetery ] Respiratory 22 20 20 Rate Blood Pressure 156/89 142/73 Blood Pressure [Left Arm Supine] O2 Sat by Pulse 99 98 99 Oximetry 12/19/23 12/19/23 12/19/23 00:00 02:00 04:00 Temperature Pulse Rate 82 84 85 Pulse Rate [ Right Supine Pulse Oximetery ] Respiratory 20 18 18 Rate Blood Pressure 130/78 Blood Pressure [Left Arm Supine] O2 Sat by Pulse 98 96 97 Oximetry 12/19/23 12/19/23 12/19/23 06:47 07:51 08:01 Temperature Pulse Rate 92 90 92 Pulse Rate [ Right Supine Pulse Oximetery ] Respiratory 18 Rate Blood Pressure 127/77 Blood Pressure [Left Arm Supine] O2 Sat by Pulse 98 Oximetry 12/19/23 12/19/23 12/19/23 08:38 11:20 12:22 Temperature 98.1 F Pulse Rate 92 71 72 Pulse Rate [ Right Supine Pulse Oximetery ] Respiratory 20 18 Rate Blood Pressure 149/91 127/73 Blood Pressure [Left Arm Supine] O2 Sat by Pulse 100 100 Oximetry 12/19/23 12/19/23 12/19/23 12:31 15:00 15:48 Temperature 98.2 F Pulse Rate 75 71 Pulse Rate [ 93 Right Supine Pulse Oximetery ] Respiratory 17 18 Rate Blood Pressure 150/73 Blood Pressure 148/79 [Left Arm Supine] O2 Sat by Pulse 96 99 Oximetry 12/19/23 12/19/23 19:42 20:00 Temperature 98.2 F Pulse Rate 81 Pulse Rate [ 66 Right Supine Pulse Oximetery ] Respiratory 18 16 Rate Blood Pressure 128/66 Blood Pressure 148/79 [Left Arm Supine] O2 Sat by Pulse 100 93 L Oximetry Medical Decision Making <Citlali Cervantes - Last Filed: 12/18/23 16:18> - Lab Data Result diagrams: 12/19/23 06:59 12/19/23 06:59 <Benita Pollock - Last Filed: 12/20/23 00:38> - Medical Decision Making I performed the quick note portion of this chart. Electronically signed by Citlali Cervantes PA-C (Citlali Cervantes) Was pt. sent in by a medical professional or institution ([facility], SALES OFFICE MANAGER, urgent care, hospital, or senior living...) When possible be specific @ -No Did you speak to anyone other than the patient for history (EMS, parent, family, police, friend...)? What history was obtained from this source @ -Spoke with for history Did you review nursing and triage notes (agree or disagree)? Why? @ -I reviewed and agree with nursing and triage notes Were old charts reviewed (outside hosp., previous admission, EMS record, old EKG, old radiological studies, urgent care reports/EKG's, senior living records)? Report findings @ -No old charts were reviewed Differential Diagnosis (chest pain, altered mental status, abdominal pain women, abdominal pain men, vaginal bleeding, weakness, fever, dyspnea, syncope, headache, dizziness, GI bleed, back pain, seizure, CVA, palpatations, mental health, musculoskeletal)? @ -Differential Chest Pain: Stable Angina, Unstable Angina, STEMI, NSTEMI Aortic Dissection, Pneumothorax, Musculoskeletal, Esophageal Spasm GERD, Cholecystitis, Pancreatitis, Zoster, this is not meant to be an all-inclusive list. EKG interpreted by me (3pts min.). @ -Yes and demonstrates sinus rhythm with a rate of 86. MO interval 156. QRS 91. QTc of 401. No acute ST segment elevations or depressions X-rays interpreted by me (1pt min.). @ -Yes and demonstrates no acute process CT interpreted by me (1pt min.). @ -None done U/S interpreted by me (1pt. min.). @ -None done What testing was considered but not performed or refused? (CT, X-rays, U/S, labs)? Why? @ -None What meds were considered but not given or refused? Why? @ -None Did you discuss the management of the patient with other professionals (professionals i.e. , PA, SALES OFFICE MANAGER, lab, RT, psych nurse, transition social worker, tower hoist operator, teacher, customs and border protection officer, nurse outreach case manager)? Give summary @- Spoke with Dr. Taylor who agreed to admit the patient Was smoking cessation discussed for >3mins.? @ -No Was critical care preformed (if so, how long)? @ -No Were there social determinants of health that impacted care today? How? (Homelessness, low income, unemployed, alcoholism, drug addiction, transportation, low edu. Level, literacy, decrease access to med. care, longterm, rehab)? @ -No Was there de-escalation of care discussed even if they declined (Discuss DNR or withdrawal of care, Hospice)? DNR status @ -No What co-morbidities impacted this encounter? (DM, HTN, Smoking, COPD, CAD, Cancer, CVA, ARF, Chemo, Hep., AIDS, mental health diagnosis, sleep apnea, morbid obesity)? @ -Fibromyalgia, COPD, chronic pain Was patient admitted / discharged? Hospital course, mention meds given and route, prescriptions, significant lab abnormalities, going to OR and other pertinent info. @ -Upon arrival patient seen and evaluated in room 8. Thorough history and physical exam was performed. IV access was established. Laboratory studies are conducted. Laboratory studies were performed. Chest x-ray was performed. Results are discussed with patient. She continues to have chest pain after 1 dose of Dilaudid. She is given a second dose. Discussed results with the patient. Recommended admission for chest pain rule out. Patient was agreeable to this. She was admitted to Dr. Rahman in stable condition Undiagnosed new problem with uncertain prognosis? @ -Yes Drug Therapy requiring intensive monitoring for toxicity (Heparin, Nitro, Insulin, Cardizem)? @ -No Were any procedures done? @ -No Diagnosis/symptom? @ -Acute chest pain, acute respiratory insufficiency Acute, or Chronic, or Acute on Chronic? @ -Acute Uncomplicated (without systemic symptoms) or Complicated (systemic symptoms)? @ -Complicated Side effects of treatment? @ -No Exacerbation, Progression, or Severe Exacerbation? @ -No Poses a threat to life or bodily function? How? (Chest pain, [place], [place], pneumonia, PE, COPD, DKA, ARF, appy, cholecystitis, CVA, Diverticulitis, Homicidal, Suicidal, threat to staff... and all critical care pts) @ -Yes as patient symptoms may represent ACS (Benita Pollock) - Lab Data Lab Results 12/18/23 12/18/23 12/18/23 Range/Units 16:24 16:24 16:24 WBC 6.7 (3.8-10.6) k/uL RBC 4.23 (3.80-5.40) m/uL Hgb 14.2 (11.4-16.0) gm/dL Hct 44.5 (34.0-46.0) % MCV 105.2 H (80.0-100.0) fL MCH 33.6 (25.0-35.0) pg MCHC 31.9 (31.0-37.0) g/dL RDW 13.4 (11.5-15.5) % Plt Count 332 (150-450) k/uL MPV 6.8 Neutrophils % 61 % Lymphocytes % 27 % Monocytes % 5 % Eosinophils % 2 % Basophils % 1 % Neutrophils # 4.1 (1.3-7.7) k/uL Lymphocytes # 1.8 (1.0-4.8) k/uL Monocytes # 0.4 (0-1.0) k/uL Eosinophils # 0.2 (0-0.7) k/uL Basophils # 0.0 (0-0.2) k/uL Hypochromasia Slight Macrocytosis Slight PT 9.5 L (10.0-12.5) sec INR 0.8 (<1.2) APTT 26.1 (22.0-30.0) sec Sodium (137-145) mmol/L Potassium (3.5-5.1) mmol/L Chloride (98-107) mmol/L Carbon Dioxide (22-30) mmol/L Anion Gap mmol/L BUN (7-17) mg/dL Creatinine (0.52-1.04) mg/dL Est GFR (CKD-EPI)AfAm (>60 ml/min/1.73 sqM) Est GFR (CKD-EPI)NonAf (>60 ml/min/1.73 sqM) Glucose (74-99) mg/dL Plasma Lactic Acid Devin (0.7-2.0) mmol/L Calcium (8.4-10.2) mg/dL Magnesium (1.6-2.3) mg/dL Total Bilirubin (0.2-1.3) mg/dL AST (14-36) U/L ALT (4-34) U/L Alkaline Phosphatase (38-126) U/L Troponin I (0.000-0.034) ng/mL Total Protein (6.3-8.2) g/dL Albumin (3.5-5.0) g/dL TSH (0.465-4.680) mIU/L Urine Color Colorless Urine Appearance Cloudy H (Clear) Urine pH 5.0 (5.0-8.0) Ur Specific Shelby 1.005 (1.001-1.035) Urine Protein Negative (Negative) Urine Glucose (UA) Negative (Negative) Urine Ketones Negative (Negative) Urine Blood Negative (Negative) Urine Nitrite Negative (Negative) Urine Bilirubin Negative (Negative) Urine Urobilinogen <2.0 (<2.0) mg/dL Ur Leukocyte Esterase Negative (Negative) Urine RBC 3 (0-5) /hpf Ur Squamous Epith Cells 1 (0-4) /hpf Urine Bacteria Rare H (None) /hpf Urine Mucus Rare H (None) /hpf Influenza Type A (PCR) (Not Detectd) Influenza Type B (PCR) (Not Detectd) RSV (PCR) (Not Detectd) SARS-CoV-2 (PCR) (Not Detectd) 12/18/23 12/18/23 12/18/23 Range/Units 16:24 16:24 16:24 WBC (3.8-10.6) k/uL RBC (3.80-5.40) m/uL Hgb (11.4-16.0) gm/dL Hct (34.0-46.0) % MCV (80.0-100.0) fL MCH (25.0-35.0) pg MCHC (31.0-37.0) g/dL RDW (11.5-15.5) % Plt Count (150-450) k/uL MPV Neutrophils % % Lymphocytes % % Monocytes % % Eosinophils % % Basophils % % Neutrophils # (1.3-7.7) k/uL Lymphocytes # (1.0-4.8) k/uL Monocytes # (0-1.0) k/uL Eosinophils # (0-0.7) k/uL Basophils # (0-0.2) k/uL Hypochromasia Macrocytosis PT (10.0-12.5) sec INR (<1.2) APTT (22.0-30.0) sec Sodium 135 L (137-145) mmol/L Potassium 4.7 (3.5-5.1) mmol/L Chloride 104 (98-107) mmol/L Carbon Dioxide 23 (22-30) mmol/L Anion Gap 8 mmol/L BUN 13 (7-17) mg/dL Creatinine 0.99 (0.52-1.04) mg/dL Est GFR (CKD-EPI)AfAm 66 (>60 ml/min/1.73 sqM) Est GFR (CKD-EPI)NonAf 57 (>60 ml/min/1.73 sqM) Glucose 92 (74-99) mg/dL Plasma Lactic Acid Devin (0.7-2.0) mmol/L Calcium 9.9 (8.4-10.2) mg/dL Magnesium 1.8 (1.6-2.3) mg/dL Total Bilirubin 0.4 (0.2-1.3) mg/dL AST 28 (14-36) U/L ALT 26 (4-34) U/L Alkaline Phosphatase 79 (38-126) U/L Troponin I <0.012 (0.000-0.034) ng/mL Total Protein 7.6 (6.3-8.2) g/dL Albumin 4.8 (3.5-5.0) g/dL TSH 1.190 (0.465-4.680) mIU/L Urine Color Urine Appearance (Clear) Urine pH (5.0-8.0) Ur Specific [place] (1.001-1.035) Urine Protein (Negative) Urine Glucose (UA) (Negative) Urine Ketones (Negative) Urine Blood (Negative) Urine Nitrite (Negative) Urine Bilirubin (Negative) Urine Urobilinogen (<2.0) mg/dL Ur Leukocyte Esterase (Negative) Urine RBC (0-5) /hpf Ur Squamous Epith Cells (0-4) /hpf Urine Bacteria (None) /hpf Urine Mucus (None) /hpf Influenza Type A (PCR) (Not Detectd) Influenza Type B (PCR) (Not Detectd) RSV (PCR) (Not Detectd) SARS-CoV-2 (PCR) (Not Detectd) 12/18/23 12/18/23 Range/Units 18:41 21:13 WBC (3.8-10.6) k/uL RBC (3.80-5.40) m/uL Hgb (11.4-16.0) gm/dL Hct (34.0-46.0) % MCV (80.0-100.0) fL MCH (25.0-35.0) pg MCHC (31.0-37.0) g/dL RDW (11.5-15.5) % Plt Count (150-450) k/uL MPV Neutrophils % % Lymphocytes % % Monocytes % % Eosinophils % % Basophils % % Neutrophils # (1.3-7.7) k/uL Lymphocytes # (1.0-4.8) k/uL Monocytes # (0-1.0) k/uL Eosinophils # (0-0.7) k/uL Basophils # (0-0.2) k/uL Hypochromasia Macrocytosis PT (10.0-12.5) sec INR (<1.2) APTT (22.0-30.0) sec Sodium (137-145) mmol/L Potassium (3.5-5.1) mmol/L Chloride (98-107) mmol/L Carbon Dioxide (22-30) mmol/L Anion Gap mmol/L BUN (7-17) mg/dL Creatinine (0.52-1.04) mg/dL Est GFR (CKD-EPI)AfAm (>60 ml/min/1.73 sqM) Est GFR (CKD-EPI)NonAf (>60 ml/min/1.73 sqM) Glucose (74-99) mg/dL Plasma Lactic Acid Devin 1.0 (0.7-2.0) mmol/L Calcium (8.4-10.2) mg/dL Magnesium (1.6-2.3) mg/dL Total Bilirubin (0.2-1.3) mg/dL AST (14-36) U/L ALT (4-34) U/L Alkaline Phosphatase (38-126) U/L Troponin I (0.000-0.034) ng/mL Total Protein (6.3-8.2) g/dL Albumin (3.5-5.0) g/dL TSH (0.465-4.680) mIU/L Urine Color Urine Appearance (Clear) Urine pH (5.0-8.0) Ur Specific Shelby (1.001-1.035) Urine Protein (Negative) Urine Glucose (UA) (Negative) Urine Ketones (Negative) Urine Blood (Negative) Urine Nitrite (Negative) Urine Bilirubin (Negative) Urine Urobilinogen (<2.0) mg/dL Ur Leukocyte Esterase (Negative) Urine RBC (0-5) /hpf Ur Squamous Epith Cells (0-4) /hpf Urine Bacteria (None) /hpf Urine Mucus (None) /hpf Influenza Type A (PCR) Not Detected (Not Detectd) Influenza Type B (PCR) Not Detected (Not Detectd) RSV (PCR) Not Detected (Not Detectd) SARS-CoV-2 (PCR) Not Detected (Not Detectd) Disposition <Citlali Cervantes - Last Filed: 12/18/23 16:18> Is patient prescribed a controlled substance at d/c from ED?: No Time of Disposition: 22:12 Decision to Admit Reason: Admit from EC Decision Date: 12/18/23 Decision Time: 22:12 <Benita Pollock - Last Filed: 12/20/23 00:38> Clinical Impression: Chest pain Disposition: ADMITTED IP TO THIS HOSP Condition: Stable
[2023-12-18 18:09] LABS: Basophils % (A) 1 %; Eosinophils # (A) 0.2 k/uL (0-0.7); Eosinophils % (A) 2 %; HCT 44.5 % (34.0-46.0); HGB 14.2 gm/dL (11.4-16.0); Hypochromasia Slight; Lymphocytes # (A) 1.8 k/uL (1.0-4.8); Lymphocytes % (A) 27 %; MCH 33.6 pg (25.0-35.0); MCHC 31.9 g/dL (31.0-37.0); MCV 105.2 fL (80.0-100.0); Macrocytosis Slight; Mean Platelet Volume 6.8; Monocytes # (A) 0.4 k/uL (0-1.0); Monocytes % (A) 5 %; Neutrophils # (A) 4.1 k/uL (1.3-7.7); Neutrophils % (A) 61 %; Platelet Count 332 k/uL (150-450); RBC 4.23 m/uL (3.80-5.40); RDW 13.4 % (11.5-15.5); WBC 6.7 k/uL (3.8-10.6)
[2023-12-18 18:19] LABS: INR 0.8 (<1.2); Partial Thromboplastin Time 26.1 sec (22.0-30.0); Prothrombin Time 9.5 sec (10.0-12.5)
[2023-12-18 18:21] LABS: ALT 26 U/L (4-34); AST 28 U/L (14-36); African American GFR (CKD) 66 (>60 ml/min/1.73 sqM); Albumin 4.8 g/dL (3.5-5.0); Alkaline Phosphatase 79 U/L (38-126); Anion Gap 8 mmol/L; Blood Urea Nitrogen 13 mg/dL (7-17); Calcium 9.9 mg/dL (8.4-10.2); Carbon Dioxide 23 mmol/L (22-30); Chloride 104 mmol/L (98-107); Glucose 92 mg/dL (74-99); Magnesium 1.8 mg/dL (1.6-2.3); Non-African American GFR(CKD) 57 (>60 ml/min/1.73 sqM); Potassium 4.7 mmol/L (3.5-5.1); Sodium 135 mmol/L (137-145); Total Bilirubin 0.4 mg/dL (0.2-1.3); Total Protein 7.6 g/dL (6.3-8.2)
[2023-12-18 18:23] LABS: Appearance,Urine Cloudy (Clear); Bacteria,Urine Rare /hpf; Bilirubin,Urine Negative (Negative); Blood,Urine Negative (Negative); Color,Urine Colorless; Glucose,Urine (UA) Negative (Negative); Ketones,Urine Negative (Negative); Leukocyte Esterase,Urine Negative (Negative); Mucus,Urine Rare /hpf; Nitrite,Urine Negative (Negative); Protein,Urine Negative (Negative); RBC,Urine 3 /hpf (0-5); Specific Gravity,Urine 1.005 (1.001-1.035); Squamous Epithelial Cell,Urine 1 /hpf (0-4); Urobilinogen,Urine <2.0 mg/dL (<2.0)
--- NOTE | 2023-12-18 19:11 | XR ---
EXAMINATION TYPE: XR chest 2V DATE OF EXAM: 12/18/2023 6:48 PM CLINICAL INDICATION: Female, 73 years old with history of Weakness; [facility] COMPARISON: Chest radiographs from 09/25/2023 TECHNIQUE: XR chest 2V Frontal view of the chest. FINDINGS: Lungs/Pleura: There is no evidence of pleural effusion, focal consolidation, or pneumothorax. Pulmonary vascularity: Unremarkable. Heart/mediastinum: Cardiomediastinal silhouette is unremarkable. Musculoskeletal: No acute osseous pathology. IMPRESSION: No acute cardiopulmonary disease/process. [facility], , 12/18/2023 7:08 PM
[2023-12-18] MEDS: HYDROmorphone 1 MG/ML 1 ML SYRINGE IVP STA ×2 (20:22→22:10)
[2023-12-18] MEDS ORDERED: NALOXONE 0.4 MG/ML 1 ML VIAL IV PRN (22:12)
[2023-12-18] MEDS: MORPHINE SULFATE 4 MG/ML SYRINGE IVP STA (22:13)
[2023-12-18] MEDS: FLUCONAZOLE 150 MG TAB PO SCH (23:49)
[2023-12-19] MEDS: clonazePAM 1 MG TAB PO SCH (00:24)
[2023-12-19] MEDS: HYDROmorphone 1 MG/ML 1 ML SYRINGE IVP PRN (02:31)
--- NOTE | 2023-12-19 04:05 | HP ---
HISTORY AND PHYSICAL HISTORY OF PRESENT ILLNESS: A 73-year-old white female, weakness and tremors, chest discomfort, increasing tremors. No fever or chills. History of COPD, hypertension, came in with chest pain, shortness of breath, progressively worse, nonproductive cough, radiates pain into her back. She has had sepsis with yeast infections. Currently on antibiotics for . HOME MEDICATIONS: Klonopin 2 mg t.i.d., tramadol p.r.n., albuterol 2 puffs q.4 p.r.n., Symbicort 2 puffs b.i.d., metoprolol succinate 50 mg daily, and Spiriva 2 puffs daily. ALLERGIES: and iodine. PAST MEDICAL HISTORY: COPD, fibromyalgia, GERD, hypertension, anxiety, and depression. SURGERIES: , cholecystectomy, hernia repair, and hysterectomy. SOCIAL HISTORY: Never smoked. PHYSICAL EXAMINATION: VITAL SIGNS: Stable, afebrile. Temperature 95, pulse 91, respiratory rate 20 to 22, and blood pressure 156/89. CARDIOVASCULAR: S1, S2. LUNGS: Transmitted upper sounds. CARDIOVASCULAR: S1 and S2. ABDOMEN: Soft and nontender. HEMATOLOGY: Negative Homans. PSYCH: Fair mood and affect. GI: Soft. INTEGUMENT: Skin warm, dry, and intact. LABORATORY DATA: Sodium 135, potassium 4.7, BUN is 13, and creatinine 0.99. ASSESSMENT: Chest pain. We will do CT of the chest. Procalcitonin, possibly started on oral antibiotics. PROGNOSIS: Guarded. Please see further orders. MMODL / IJN: [id number] /
--- NOTE | 2023-12-19 07:29 | CT ---
EXAMINATION TYPE: CT chest wo con CT DLP: 351 mGycm, Automated exposure control for dose reduction was used. DATE OF EXAM: 12/19/2023 1:27 AM COMPARISON: 02/12/2019 CT, 12/18/2023. CLINICAL INDICATION: Female, 73 years old with history of chest pain; TECHNIQUE: Multiple axial images were obtained through the chest. Sagittal and coronal reformats were created for review. MIP was performed on a separate workstation. Contrast used: mL of (None if empty) Oral contrast used: (None if empty) FINDINGS: LUNGS/ PLEURA: No focal consolidation,pneumothorax or pleural effusion. Scattered sub-6 mm pulmonary nodules. AIRWAY: Patent and unremarkable. HEART: Size within normal limits. MEDIASTINUM: No gross evidence of adenopathy. VASCULATURE: No aortic aneurysm. Aortic valve calcifications present. Coronary artery atherosclerosi s. MUSCULOSKELETAL: No acute osseous abnormalities SOFT TISSUES/LYMPH NODES: Unremarkable. LOWER NECK: No significant findings. UPPER ABDOMEN: Cholecystectomy clips are present. IMPRESSION: No evidence for acute process. The scattered sub-6 mm pulmonary nodules. Consider yearly low-dose lung cancer screening. [facility], , 12/19/2023 7:26 AM
[2023-12-19 07:30] LABS: Basophils % (A) 1 %; Eosinophils # (A) 0.2 k/uL (0-0.7); Eosinophils % (A) 2 %; HCT 40.4 % (34.0-46.0); HGB 12.9 gm/dL (11.4-16.0); Lymphocytes % (A) 28 %; MCH 33.4 pg (25.0-35.0); MCV 104.4 fL (80.0-100.0); Macrocytosis Slight; Mean Platelet Volume 7.3; Monocytes # (A) 0.5 k/uL (0-1.0); Monocytes % (A) 6 %; Neutrophils # (A) 4.4 k/uL (1.3-7.7); Neutrophils % (A) 61 %; Platelet Count 270 k/uL (150-450); RBC 3.87 m/uL (3.80-5.40); RDW 13.7 % (11.5-15.5); WBC 7.2 k/uL (3.8-10.6)
[2023-12-19 07:43] LABS: African American GFR (CKD) 70 (>60 ml/min/1.73 sqM); Anion Gap 6 mmol/L; Blood Urea Nitrogen 13 mg/dL (7-17); Calcium 9.1 mg/dL (8.4-10.2); Carbon Dioxide 26 mmol/L (22-30); Chloride 104 mmol/L (98-107); Glucose 149 mg/dL (74-99); Non-African American GFR(CKD) 61 (>60 ml/min/1.73 sqM); Potassium 4.3 mmol/L (3.5-5.1); Sodium 136 mmol/L (137-145)
[2023-12-19] MEDS: IPRATROPIUM 0.5 MG/2.5 ML NEBU INHALATION SCH (07:50)
[2023-12-19] MEDS: PANTOPRAZOLE 40 MG TABLET PO SCH (08:39)
[2023-12-19] MEDS: METOPROLOL SUCCINATE (ER) 50 MG TAB.ER.24H PO SCH (08:41)
[2023-12-19] MEDS: HYDROcodone/APAP 10-325MG 1 EACH TAB PO SCH (08:41)
[2023-12-19] MEDS: lisinopriL 20 MG TAB PO SCH (08:41)
--- NOTE | 2023-12-19 11:05 | P.CRDCN ---
History of Present Illness History of present illness: HISTORY OF PRESENTING ILLNESS This is a pleasant 73-year-old with past medical history significant for COPD, hypertension, GERD, coronary artery calcifications, a number of nerve issues, esophageal dysmotility, obesity. She has not follow with a near eastern archaeology lecturer however states she had stress test a distant past. She states she cannot tolerate stress tests and cannot do the treadmill and cannot tolerate a chemical stress test. She presented secondary a number of complaints including feeling weakness and tremors in her arms which will feel like a shaking. At times she will feel her heart racing. She also mainly complains of weakness in her legs and is asking about a orthopedic doctor. Additionally she has some chest discomfort. Some of this occurs at the same time as her tremors however some of the separately. She does have very reproducible sternal pain with palpation as well as some pain in her abdomen which she attributes her dysmotility. Currently she feels somewhat better. She states she did wake up and checked her pulse and was in the 110 range and also check her blood pressure was in the 200 range. Currently she feels better. EKG shows normal sinus rhythm and normal axis no significant ST-T wave abnormalities. She states this is somewhat similar to when she presented in September. She did not follow-up in office. Echocardiogram in September 2023 showed EF 55-60% with mild to moderate mitral regurgitation. She had CT chest performed which showed no evidence for acute process and scattered sub- 6 mm pulmonary nodules. Additionally some aortic valve calcification and coronary artery atherosclerosis. REVIEW OF SYSTEMS At the time of my exam: CONSTITUTIONAL: Denies fever or chills. CARDIOVASCULAR: + chest pain, +shortness of breath, no orthopnea, PND or pal pitations. RESPIRATORY: Denies cough. GASTROINTESTINAL: Denies abdominal pain, diarrhea, constipation, nausea or vomiting. MUSCULOSKELETAL: Denies myalgias. NEUROLOGIC: Denies numbness, tingling +weakness. ENDOCRINE: Denies fatigue, weight change, polydipsia or polyurina. GENITOURINARY: Denies burning, hematuria or urgency with micturation. HEMATOLOGIC: Denies history of anemia or bleeding. PHYSICAL EXAMINATION Vital signs reviewed. CONSTITUTIONAL: No apparent distress. HEENT: Head is normocephalic. Pupils are equal, round. Sclerae anicteric. Mucous membranes of the mouth are moist. No JVD. No carotid bruit. CHEST EXAMINATION: Lungs are clear to auscultation. +reproducible chest pain HEART EXAMINATION: Regular rate and rhythm. S1, S2 heard. No murmurs, gallops or rub. ABDOMEN: Soft, nontender. Positive bowel sounds. EXTREMITIES: 2+ peripheral pulses, no lower extremity edema and no calf tenderness. NEUROLOGIC EXAMINATION: Patient is awake, alert and oriented x3. ASSESSMENT Reproducible chest pain, atypical troponins normal History of esophageal dysmotility per patient Palpitations Tremors Weakness Shortness breath Coronary artery calcification noted on CT PLAN Patient with atypical chest pain and appears mainly reproducible. She states she does have intolerance to chemical stress tests in the past. She cannot tolerate treadmill test. We offered patient a chemical stress test tomorrow however does not want to perform this and at this point patients pain appears atypical. Appears stable for discharge home and may consider CT coronary artery angiogram. No need to repeat echo. IN the office in one week and recommend event monitor to be placed in the office for palpitations Past Medical History Past Medical History: COPD, Fibromyalgia, GERD/Reflux, Hypertension Additional Past Medical History / Comment(s): bursitis, peripheral neuropathy, acute ischemic brain disease, "node on thyroid", severe mood disorder History of Any Multi-Drug Resistant Organisms: None Reported Past Surgical History: Section, Cholecystectomy, Hernia Repair, Hysterectomy Additional Past Surgical History / Comment(s): partial hysterectomy, d&c Past Anesthesia/Blood Transfusion Reactions: No Reported Reaction Past Psychological History: Anxiety, Depression Smoking Status: Never smoker Past Alcohol Use History: None Reported Past Drug Use History: None Reported - Past Family History family Family Medical History: No Reported History Medications and Allergies Home Medications Medication Instructions Recorded Confirmed Type clonazePAM [KlonoPIN] 2 mg PO TID 10/28/17 12/19/23 History traMADol HCL [Ultram] 50 - 100 mg PO TID PRN 10/28/17 12/19/23 History Albuterol Sulfate [Proair Hfa] 2 puff INHALATION RT-Q4H PRN 02/02/22 12/19/23 History Budesonide-Formot 160-4.5 Mcg 2 puff INHALATION RT-BID 02/02/22 12/19/23 History [Symbicort 160-4.5 Mcg Inhaler] Hydrocodone/Acetaminophen 1 tab PO TID PRN 02/02/22 12/19/23 History [Hydrocodone/Acetaminophen 10-325] Metoprolol Succinate (ER) [Toprol 50 mg PO DAILY 09/26/23 12/19/23 History XL] Tiotropium [place] [Spiriva 1 puff INHALATION RT-DAILY 09/26/23 12/19/23 History Handihaler] lisinopriL [Zestril] 20 mg PO BID 09/26/23 12/19/23 History Ondansetron [Zofran] 4 mg PO Q12HR PRN 7 Days #14 tab 09/28/23 12/19/23 Rx Ipratropium Nebulized [Atrovent 0.5 mg INHALATION RT-TID PRN 12/19/23 12/19/23 History Nebulized 0.2 MG/ML] Metoclopramide HCl [Reglan] 5 mg PO AC-BID 12/19/23 12/19/23 History Allergies Allergy/AdvReac Type Severity Reaction Status Date / Time famotidine [From Pepcid] Allergy Unknown Verified 12/19/23 07:44 Iodinated Contrast Media Allergy Rash/Hives Verified 12/19/23 07:44 [Iodinated Contrast- Oral and IV Dye] shellfish derived [Shrimp] Allergy Rash/Hives Verified 12/19/23 07:44 prednisone AdvReac Hallucinati Verified 12/19/23 07:44 ons Physical Exam Vitals: Vital Signs Temp Pulse Resp BP Pulse Ox 12/19/23 08:38 98.1 F 92 20 149/91 100 12/19/23 08:01 92 12/19/23 07:51 90 12/19/23 06:47 92 18 127/77 98 12/19/23 04:00 85 18 130/78 97 12/19/23 02:00 84 18 96 12/19/23 00:00 82 20 98 12/18/23 23:00 84 20 142/73 99 12/18/23 22:00 88 20 98 12/18/23 16:14 98.5 F 91 22 156/89 99 Intake and Output 12/18/23 12/19/23 12/19/23 22:59 06:59 14:59 Other: Weight 80.739 kg Results 12/19/23 06:59 12/19/23 06:59 Cardiac Enzymes 12/18/23 12/18/23 12/19/23 Range/Units 16:24 16:24 00:15 AST 28 (14-36) U/L Troponin I <0.012 <0.012 (0.000-0.034) ng/mL 12/19/23 Range/Units 04:54 AST (14-36) U/L Troponin I <0.012 (0.000-0.034) ng/mL Coagulation 12/18/23 Range/Units 16:24 PT 9.5 L (10.0-12.5) sec APTT 26.1 (22.0-30.0) sec CBC 12/18/23 12/19/23 Range/Units 16:24 06:59 WBC 6.7 7.2 (3.8-10.6) k/uL RBC 4.23 3.87 (3.80-5.40) m/uL Hgb 14.2 12.9 (11.4-16.0) gm/dL Hct 44.5 40.4 (34.0-46.0) % Plt Count 332 270 (150-450) k/uL Comprehensive Metabolic Panel 12/18/23 12/19/23 Range/Units 16:24 06:59 Sodium 135 L 136 L (137-145) mmol/L Potassium 4.7 4.3 (3.5-5.1) mmol/L Chloride 104 104 (98-107) mmol/L Carbon Dioxide 23 26 (22-30) mmol/L BUN 13 13 (7-17) mg/dL Creatinine 0.99 0.94 (0.52-1.04) mg/dL Glucose 92 149 H (74-99) mg/dL Calcium 9.9 9.1 (8.4-10.2) mg/dL AST 28 (14-36) U/L ALT 26 (4-34) U/L Alkaline Phosphatase 79 (38-126) U/L Total Protein 7.6 (6.3-8.2) g/dL Albumin 4.8 (3.5-5.0) g/dL Current Medications Generic Name Dose Route Start Last Admin Trade Name Freq PRN Reason Stop Dose Admin Hydrocodone Bitart/Acetaminophen 1 each 12/19/23 09:00 12/19/23 08:41 Hydrocodone/Apap 10-325mg 1 Each Tab PO 1 each TID REYNALDO Administration Clonazepam 2 mg 12/18/23 23:45 12/19/23 08:41 Clonazepam 1 Mg Tab PO 2 mg TID REYNALDO Administration Fluconazole 150 mg 12/18/23 23:00 12/19/23 08:42 Fluconazole 150 Mg Tab PO 150 mg DAILY REYNALDO Administration Protocol Hydromorphone HCl 1 mg 12/18/23 22:12 12/19/23 02:31 Hydromorphone 1 Mg/Ml 1 Ml Syringe IVP 1 mg Q3HR PRN Administration Severe Pain (Scale 7 to 10) Ipratropium [place] 0.5 mg 12/19/23 08:00 12/19/23 07:50 Ipratropium 0.5 Mg/2.5 Ml Nebu INHALATION 0.5 mg RT-TID REYNALDO Administration Lisinopril 20 mg 12/19/23 09:00 12/19/23 08:41 Lisinopril 20 Mg Tab PO 20 mg BID REYNALDO Administration Metoprolol Succinate 50 mg 12/19/23 09:00 12/19/23 08:41 Metoprolol Succinate (Er) 50 Mg Tab.Er.24h PO 50 mg DAILY REYNALDO Administration Naloxone HCl 0.2 mg 12/18/23 22:12 Naloxone 0.4 Mg/Ml 1 Ml Vial IV Q2M PRN Opioid Reversal Ondansetron HCl 4 mg 12/18/23 23:49 Ondansetron 4 Mg Tab PO Q12HR PRN Nausea Pantoprazole Sodium 40 mg 12/19/23 07:30 12/19/23 08:39 Pantoprazole 40 Mg Tablet PO Not Given AC-BID REYNALDO Intake and Output 12/18/23 12/19/23 12/19/23 22:59 06:59 14:59 Other: Weight 80.739 kg 12/19/23 06:59 12/19/23 06:59
[2023-12-19] MEDS: ONDANSETRON 4 MG TAB PO PRN (19:05)
[2023-12-19] MEDS: IPRATROPIUM 0.5 MG/2.5 ML NEBU INHALATION PRN (22:34)
[2023-12-20] MEDS: METOCLOPRAMIDE 5 MG TAB PO SCH (06:58)
--- NOTE | 2023-12-20 09:27 | P.CNPUL ---
History of Present Illness Consult date: 12/20/23 Reason for consult: dyspnea, cough, COPD Chief complaint: Shortness of breath and cough History of present illness: 73-year-old female with extensive history of smoking and nicotine use, patient presented emergency department 3-day history of increasing cough congestion shortness of breath also feels chest discomfort no history of fever chills, she does have a prior medical history hypertension COPD on home oxygen 2 L nasal cannula, lately she has increased oxygen to 3 L but is still have shortness of breath she has nebulizer treatment did not relieve her, came into hospital for further evaluation on arrival she is afebrile with saturation 92% on room air however improved to 95% on 3 L, hemodynamic status stable, patient was afebrile, labs were significant for WBC count 6.7 hemoglobin hematocrit is 14/44 coags okay, chemistry within normal limit except sodium of 135 slightly hyponatremia, lactic acid 1 urinalysis unremarkable influenza A and B along with COVID and RSV negative chest x-ray consistent with COPD, CT scan of the chest no focal consolidation pneumothorax or pleural effusion seen, subcentimeter multiple nodules at the bases seen. Currently patient is being treated with a home medications also on bronchodilator inhaled steroids we will start IV steroids as well Review of Systems All systems: negative Past Medical History Past Medical History: COPD, Fibromyalgia, GERD/Reflux, Hypertension Additional Past Medical History / Comment(s): bursitis, peripheral neuropathy, acute ischemic brain disease, "node on thyroid", severe mood disorder History of Any Multi-Drug Resistant Organisms: None Reported Past Surgical History: Section, Cholecystectomy, Hernia Repair, Hysterectomy Additional Past Surgical History / Comment(s): partial hysterectomy, d&c Past Anesthesia/Blood Transfusion Reactions: No Reported Reaction Past Psychological History: Anxiety, Depression Smoking Status: Former smoker Past Alcohol Use History: None Reported Past Drug Use History: None Reported - Past Family History family Family Medical History: No Reported History Medications and Allergies Home Medications Medication Instructions Recorded Confirmed Type clonazePAM [KlonoPIN] 2 mg PO TID 10/28/17 12/19/23 History traMADol HCL [Ultram] 50 - 100 mg PO TID PRN 10/28/17 12/19/23 History Albuterol Sulfate [Proair Hfa] 2 puff INHALATION RT-Q4H PRN 02/02/22 12/19/23 History Budesonide-Formot 160-4.5 Mcg 2 puff INHALATION RT-BID 02/02/22 12/19/23 History [Symbicort 160-4.5 Mcg Inhaler] Hydrocodone/Acetaminophen 1 tab PO TID PRN 02/02/22 12/19/23 History [Hydrocodone/Acetaminophen 10-325] Metoprolol Succinate (ER) [Toprol 50 mg PO DAILY 09/26/23 12/19/23 History XL] Tiotropium [place] [Spiriva 1 puff INHALATION RT-DAILY 09/26/23 12/19/23 History Handihaler] lisinopriL [Zestril] 20 mg PO BID 09/26/23 12/19/23 History Ondansetron [Zofran] 4 mg PO Q12HR PRN 7 Days #14 tab 09/28/23 12/19/23 Rx Ipratropium Nebulized [Atrovent 0.5 mg INHALATION RT-TID PRN 12/19/23 12/19/23 History Nebulized 0.2 MG/ML] Metoclopramide HCl [Reglan] 5 mg PO AC-BID 12/19/23 12/19/23 History Allergies Allergy/AdvReac Type Severity Reaction Status Date / Time famotidine [From Pepcid] Allergy Unknown Verified 12/19/23 07:44 Iodinated Contrast Media Allergy Rash/Hives Verified 12/19/23 07:44 [Iodinated Contrast- Oral and IV Dye] shellfish derived [Shrimp] Allergy Rash/Hives Verified 12/19/23 07:44 prednisone AdvReac Hallucinati Verified 12/19/23 07:44 ons Physical Exam Vitals: Vital Signs Temp Pulse Pulse Pulse Resp BP BP 12/20/23 07:40 73 16 12/20/23 06:21 97.8 F 72 18 124/70 12/20/23 02:00 18 124/70 12/19/23 22:46 80 12/19/23 22:34 78 12/19/23 20:00 98.2 F 66 16 148/79 12/19/23 19:42 81 18 128/66 12/19/23 15:48 71 18 150/73 12/19/23 15:00 98.2 F 93 17 148/79 12/19/23 12:31 75 12/19/23 12:22 72 12/19/23 11:20 71 18 127/73 BP Pulse Ox 12/20/23 07:40 126/72 100 12/20/23 06:21 92 L 12/20/23 02:00 92 L 12/19/23 22:46 12/19/23 22:34 12/19/23 20:00 93 L 12/19/23 19:42 100 12/19/23 15:48 99 12/19/23 15:00 96 12/19/23 12:31 12/19/23 12:22 12/19/23 11:20 100 Intake and Output 12/19/23 12/20/23 12/20/23 22:59 06:59 14:59 Intake Total 540 Balance 540 Intake: Oral 540 Other: Voiding Method Bedside Commode # Voids 1 2 Weight 80.739 kg - Constitutional General appearance: average body habitus, cooperative, disheveled - EENT Eyes: EOMI, PERRLA ENT: normal oropharynx Ears: bilateral: normal - Neck Carotids: bilateral: upstroke normal Thyroid: bilateral: normal size - Respiratory Respiratory: bilateral: wheezing - Cardiovascular Rhythm: regular Heart sounds: normal: S1, S2 - Gastrointestinal General gastrointestinal: normal bowel sounds - Integumentary Integumentary: normal turgor - Neurologic Neurologic: CNII-XII intact - Musculoskeletal Musculoskeletal: gait normal, generalized weakness, strength equal bilaterally - Psychiatric Psychiatric: A&O x's 3, appropriate affect, intact judgment & insight Results - Laboratory Findings CBC and BMP: 12/19/23 06:59 12/19/23 06:59 PT/INR, D-dimer PT 9.5 sec (10.0-12.5) L 12/18/23 16:24 INR 0.8 (<1.2) 12/18/23 16:24 D-Dimer 1.04 mg/L FEU (<0.60) H 12/19/23 00:15 Abnormal lab findings: Abnormal Labs 12/18/23 12/18/23 12/18/23 16:24 16:24 16:24 MCV 105.2 H PT 9.5 L D-Dimer Sodium Glucose Urine Appearance Cloudy H Urine Bacteria Rare H Urine Mucus Rare H 12/18/23 12/19/23 12/19/23 16:24 00:15 06:59 MCV 104.4 H PT D-Dimer 1.04 H Sodium 135 L Glucose Urine Appearance Urine Bacteria Urine Mucus 12/19/23 06:59 MCV PT D-Dimer Sodium 136 L Glucose 149 H Urine Appearance Urine Bacteria Urine Mucus - Diagnostic Findings Chest x-ray: report reviewed, image reviewed CT scan - chest: report reviewed, image reviewed (Finding as reported above) Assessment and Plan Assessment: Acute COPD exacerbation Tracheobronchitis Multiple small subcentimeter nodules at the bases Chronic hypoxic respiratory failure on 2 L nasal cannula increased to 3 L now Potential hypertensive cardiovascular disease Generalized anxiety disorder Fibromyalgia Plan: IV steroids breathing treatments and inhaled aerosolized steroid Spectrum antibiotics with Rocephin Supplemental oxygen Basal nonspecific lung nodule workup as outpatient Will be available as needed arise scheduled follow-up with outpatient Time with Patient: Greater than 30
[2023-12-20] MEDS: DOXYCYCLINE 100 MG CAP PO SCH (12:16)
[2023-12-20] MEDS: methylPREDNISolone SOD SUCCI 40 MG/ML 1 ML VIAL IV SCH (12:17)
--- NOTE | 2023-12-20 14:20 | P.PN ---
Subjective Progress Note Date: 12/20/23 HISTORY OF PRESENTING ILLNESS This is a pleasant 73-year-old with past medical history significant for COPD, hypertension, GERD, coronary artery calcifications, a number of nerve issues, esophageal dysmotility, obesity. She has not follow with a logger driving horses however states she had stress test a distant past. She states she cannot tolerate stress tests and cannot do the treadmill and cannot tolerate a chemical stress test. She presented secondary a number of complaints including feeling weakness and tremors in her arms which will feel like a shaking. At times she will feel her heart racing. She also mainly complains of weakness in her legs and is asking about a orthopedic doctor. Additionally she has some chest discomfort. Some of this occurs at the same time as her tremors however some of the separately. She does have very reproducible sternal pain with palpation as well as some pain in her abdomen which she attributes her dysmotility. Currently she feels somewhat better. She states she did wake up and checked her pulse and was in the 110 range and also check her blood pressure was in the 200 range. Currently she feels better. EKG shows normal sinus rhythm and normal axis no significant ST-T wave abnormalities. She states this is somewhat similar to when she presented in September. She did not follow-up in office. Echocardiogram in September 2023 showed EF 55-60% with mild to moderate mitral regurgitation. She had CT chest performed which showed no evidence for acute process and scattered sub- 6 mm pulmonary nodules. Additionally some aortic valve calcification and coronary artery atherosclerosis. 12/19 Patient seen and examined. She states she is not doing well with stomach ache and throat pain. She denies having any chest pain. She states she is having chest pain less often than she was. Blood pressure is improved. Blood pressure 126/72, heart rate 73, pulse ox 100% on 3 L nasal cannula. No repeat blood work for today. PHYSICAL EXAMINATION Vital signs reviewed. CONSTITUTIONAL: No apparent distress. HEENT: Head is normocephalic. Pupils are equal, round. Sclerae anicteric. Mucous membranes of the mouth are moist. No JVD. No carotid bruit. CHEST EXAMINATION: Lungs are clear to auscultation. +reproducible chest pain HEART EXAMINATION: Regular rate and rhythm. S1, S2 heard. No murmurs, gallops or rub. ABDOMEN: Soft, nontender. Positive bowel sounds. EXTREMITIES: 2+ peripheral pulses, no lower extremity edema and no calf tenderness. NEUROLOGIC EXAMINATION: Patient is awake, alert and oriented x3. ASSESSMENT Reproducible chest pain, atypical, troponins normal History of esophageal dysmotility per patient Palpitations Tremors Weakness Shortness breath Coronary artery calcification noted on CT PLAN Patient with atypical chest pain and appears mainly reproducible. She states she does have intolerance to chemical stress tests in the past. She cannot tolerate treadmill test. We offered patient a chemical stress test tomorrow however does not want to perform this and at this point patients pain appears atypical. Appears stable for discharge home and may consider CT coronary artery angiogram. No need to repeat echo. Patient to follow-up in the office in 1 week and plan for event monitor to be arranged at that time. Patient is cleared for discharge from cardiology perspective. Nurse practitioner note has been reviewed, I agree with documented findings and plan of care. Patient was seen and examined. Objective - Vital Signs Vital signs: Vital Signs Temp 97.8 F 12/20/23 06:21 Pulse 73 12/20/23 07:40 Resp 16 12/20/23 07:40 BP 126/72 12/20/23 07:40 Pulse Ox 100 12/20/23 07:40 FiO2 Intake & Output 12/19/23 12/20/23 12/20/23 18:59 06:59 18:59 Intake Total 540 Balance 540 Weight 80.739 kg Intake: Oral 540 Other: Voiding Method Bedside Commode # Voids 2 - Labs CBC & Chem 7: 12/19/23 06:59 12/19/23 06:59
[2023-12-20 14:40] VITALS: BP 147/78; RESP 18; TEMP 98.6
[2023-12-20 16:14] VITALS: PULSE 82
[2023-12-20] MEDS ORDERED: BUDESONIDE 0.5 MG/2 ML NEBU INHALATION SCH (20:00)
--- NOTE | 2023-12-23 15:12 | P.DS ---
Providers Date of admission: 12/18/23 22:15 Expected date of discharge: 12/20/23 Attending physician: Kei Huffman Consults: 12/18/23 22:12 Consult Physician Urgent Consulting Provider: [facility] Consult Reason/Comments: acute chest pain Do you want consulting provider notified?: Yes 12/19/23 00:16 Consult Physician Routine Consulting Provider: Ulises Reyes Consult Reason/Comments: chest pain Do you want consulting provider notified?: Yes Primary care physician: Manuel Berg MD Hospital Course: Final diagnosis Chest pain, ruled out ACS COPD, not in exacerbation History of hypertension History of fibromyalgia GERD with reflux History of mood disorders Anxiety/depression Obesity with a BMI 36.0 GI prophylaxis DVT prophylaxis Full code Discharge disposition Patient is being discharged in a stable condition with guarded prognosis to home. Patient will follow-up with Dr. Manuel Berg in the outpatient setting upon discharge. Patient is to continue with current medications and outpatient follow-up with pulmonary as scheduled. Total time taken is greater than 35 minutes. Hospital course This is a 73-year-old female who was recently admitted with chest pain along with weakness and a nonproductive cough being closely monitored. Patient evaluated by pulmonary with concerns initially of possible pneumonia and acute COPD exacerbation. Patient maintained on steroids along with breathing treatments and also noted to have an elevated D-dimer. CT chest was done with no PE noted. Patient reports she does have some nodules on her thyroid that she has been told about and needs evaluating. Patient has been instructed to follow-up in the outpatient setting as these testings are done outpatient. Patient to follow-up with pulmonary as well outpatient and has been cleared for discharge. Please refer to other consultation notes for further HPI. Patient should also follow-up with GI in the outpatient setting for her chronic dysphagia issues she reports. Currently no reports of chest pain, shortness of breath, or palpitations. Patient is afebrile. No reports of nausea or vomiting and patient is tolerating diet. Patient will be discharged home today. Guarded prognosis and high risk for readmissions given patient's noncompliance to medications and outpatient follow-up. Physical exam: Gen: This is a 73-year-old female who is awake, alert and oriented x 3, well- developed, obese, elderly appearing HEENT: Head is atraumatic, normocephalic. Pupils equal, round. Sclerae is anicteric. NECK: Supple. No JVD. No lymphadenopathy. No thyromegaly. LUNGS: Diminished breath sounds bilaterally otherwise clear to auscultation. No wheezes or rhonchi. No intercostal retractions. HEART: Regular rate and rhythm. No murmur. ABDOMEN: Soft. Obese. Bowel sounds are present. No masses. No tenderness. EXTREMITIES: No pedal edema. No calf tenderness. NEUROLOGICAL: Patient is awake, alert and oriented x3. Cranial nerves 2 through 12 are grossly intact. Please refer to medication reconciliation sheet for a list of medications. The impression and plan of care has been dictated by Rin Martin, Nurse Practitioner as directed. Dr. Mitali MD I have performed a history and examination and MDM of this patient, discussed the same with the dictator, and agree with the dictator's assessment and plan as written ,documented as a scribe. Based on total visit time, I have performed more than 50% of the visit. Patient Condition at Discharge: Fair Plan - Discharge Summary New Discharge Prescriptions: New Doxycycline [Vibramycin] 100 mg PO BID 5 Days #10 cap Fluconazole [Diflucan] 150 mg PO DAILY 5 Days #5 tab predniSONE See Taper PO DIRECTED #30 tab Continue traMADol HCL [Ultram] 50 - 100 mg PO TID PRN PRN Reason: Pain clonazePAM [KlonoPIN] 2 mg PO TID Budesonide-Formot 160-4.5 Mcg [Symbicort 160-4.5 Mcg Inhaler] 2 puff INHALATION RT-BID Metoprolol Succinate (ER) [Toprol XL] 50 mg PO DAILY Ondansetron [Zofran] 4 mg PO Q12HR PRN 7 Days #14 tab PRN Reason: Nausea Albuterol Sulfate [Proair Hfa] 2 puff INHALATION RT-Q4H PRN PRN Reason: Shortness Of Breath Hydrocodone/Acetaminophen [Hydrocodone/Acetaminophen 10-325] 1 tab PO TID PRN PRN Reason: Pain lisinopriL [Zestril] 20 mg PO BID Tiotropium [place] [Spiriva Handihaler] 1 puff INHALATION RT-DAILY Metoclopramide HCl [Reglan] 5 mg PO AC-BID Changed Ipratropium Nebulized [Atrovent Nebulized 0.2 MG/ML] 0.5 mg INHALATION RT-TID #100 each Discharge Medication List clonazePAM [KlonoPIN] 2 mg PO TID 10/28/17 [History] traMADol HCL [Ultram] 50 - 100 mg PO TID PRN 10/28/17 [History] Albuterol Sulfate [Proair Hfa] 2 puff INHALATION RT-Q4H PRN 02/02/22 [History] Budesonide-Formot 160-4.5 Mcg [Symbicort 160-4.5 Mcg Inhaler] 2 puff INHALATION RT-BID 02/02/22 [History] Hydrocodone/Acetaminophen [Hydrocodone/Acetaminophen 10-325] 1 tab PO TID PRN 02/02/22 [History] Metoprolol Succinate (ER) [Toprol XL] 50 mg PO DAILY 09/26/23 [History] Tiotropium [place] [Spiriva Handihaler] 1 puff INHALATION RT-DAILY 09/26/23 [History] lisinopriL [Zestril] 20 mg PO BID 09/26/23 [History] Ondansetron [Zofran] 4 mg PO Q12HR PRN 7 Days #14 tab 09/28/23 [Rx] Metoclopramide HCl [Reglan] 5 mg PO AC-BID 12/19/23 [History] Doxycycline [Vibramycin] 100 mg PO BID 5 Days #10 cap 12/20/23 [Rx] Fluconazole [Diflucan] 150 mg PO DAILY 5 Days #5 tab 12/20/23 [Rx] Ipratropium Nebulized [Atrovent Nebulized 0.2 MG/ML] 0.5 mg INHALATION RT-TID #100 each 12/20/23 [Rx] predniSONE See Taper PO DIRECTED #30 tab 12/20/23 [Rx] Follow up Appointment(s)/Referral(s): Manuel Berg MD [Primary Care Provider] - 1-2 days Lewis Caruso DO [STAFF PHYSICIAN] - 1 Week Ulises Reyes MD [STAFF PHYSICIAN] - 1 Week Activity/Diet/Wound Care/Special Instructions: Activity limited until follow-up Follow-up with cardiology outpatient to discuss possible stress test and event monitor Follow-up with pulmonary outpatient for further testing Follow-up with GI in the outpatient setting Dr. Howell as you have previously seen Continue soft diet Complete prednisone taper and continue with breathing treatments Follow-up with primary care provider on discharge Discharge Disposition: HOME SELF-CARE
== END 2023-12-20 18:05 | disposition home or self-care (01) | DRG 191 ==
LOC: EC 16:08 → 6NMEDSUR 22:15 → OBSVTOIN 12-20 10:07
PROVIDERS: ADMIT Family Medicine; ATTEND Family Medicine
DX: J44.9 Chronic obstructive pulmonary disease, unspecified (principal); J96.11 Chronic respiratory failure with hypoxia; R13.10 Dysphagia, unspecified; Z99.81 Dependence on supplemental oxygen; F39 Unspecified mood [affective] disorder; I10 Essential (primary) hypertension; Z68.36 Body mass index [BMI] 36.0-36.9, adult; E66.9 Obesity, unspecified; F32.A Depression, unspecified; I08.0 Rheumatic disorders of both mitral and aortic valves; K21.9 Gastro-esophageal reflux disease without esophagitis; I25.10 Atherosclerotic heart disease of native coronary artery without angina pectoris; M79.7 Fibromyalgia; N89.8 Other specified noninflammatory disorders of vagina; R25.1 Tremor, unspecified; F41.9 Anxiety disorder, unspecified; K22.4 Dyskinesia of esophagus; R91.8 Other nonspecific abnormal finding of lung field; R79.89 Other specified abnormal findings of blood chemistry; Z91.148 Patient's other noncompliance with medication regimen for other reason; Z91.198 Patient's noncompliance with other medical treatment and regimen for other reason; Z79.51 Long term (current) use of inhaled steroids; Z79.899 Other long term (current) drug therapy; Z87.891 Personal history of nicotine dependence; Z88.8 Allergy status to other drugs, medicaments and biological substances; Z90.711 Acquired absence of uterus with remaining cervical stump
CPT/HCPCS: 36415; 71046; 71250; 80048; 80053; 81001; 83605; 83735; 84443; 84484; 85025; 85379; 85610; 85730; 87636; 93005; 94640; 94760; 96374; 96376; 99285

== ENCOUNTER 2024-09-14 16:17 | Emergency (ER) | payer MEDICARE, BC ==
--- NOTE | 2024-09-14 17:23 | ED ---
General Adult HPI - General Chief complaint: Shortness of Breath Stated complaint: SOB,Abd pain Time Seen by Provider: 09/14/24 16:30 Source: patient, RN notes reviewed Mode of arrival: wheelchair Limitations: no limitations - History of Present Illness Initial comments: 74-year-old female with multiple comorbid conditions including COPD with occasional at home oxygen use, fibromyalgia, GERD and hypertension presenting to the ER with multiple complaints. Patient states that she has been having abdominal pain, shortness of breath, headaches and difficulty in breathing. Patient has chronic abdominal pain that is in the epigastric region and states that her pain is at its baseline. She endorses a mild headache as well. Patient states that she has not been using her nebulizer at home and has been using her supplemental oxygen more. She denies fevers, cough, congestion, rhinorrhea, chest pain. - Related Data Home Medications Medication Instructions Recorded Confirmed clonazePAM [KlonoPIN] 2 mg PO TID 10/28/17 12/19/23 traMADol HCL [Ultram] 50 - 100 mg PO TID PRN 10/28/17 12/19/23 Albuterol Sulfate [Proair Hfa] 2 puff INHALATION RT-Q4H PRN 02/02/22 12/19/23 Budesonide-Formot 160-4.5 Mcg 2 puff INHALATION RT-BID 02/02/22 12/19/23 [Symbicort 160-4.5 Mcg Inhaler] Hydrocodone/Acetaminophen 1 tab PO TID PRN 02/02/22 12/19/23 [Hydrocodone/Acetaminophen 10-325] Metoprolol Succinate (ER) [Toprol 50 mg PO DAILY 09/26/23 12/19/23 XL] Tiotropium [place] [Spiriva 1 puff INHALATION RT-DAILY 09/26/23 12/19/23 Handihaler] lisinopriL [Zestril] 20 mg PO BID 09/26/23 12/19/23 Metoclopramide HCl [Reglan] 5 mg PO AC-BID 12/19/23 12/19/23 Previous Rx's Medication Instructions Recorded Ondansetron [Zofran] 4 mg PO Q12HR PRN 7 Days #14 tab 09/28/23 Doxycycline [Vibramycin] 100 mg PO BID 5 Days #10 cap 12/20/23 Fluconazole [Diflucan] 150 mg PO DAILY 5 Days #5 tab 12/20/23 Ipratropium Nebulized [Atrovent 0.5 mg INHALATION RT-TID #100 each 12/20/23 Nebulized 0.2 MG/ML] predniSONE See Taper PO DIRECTED #30 tab 12/20/23 Ipratropium-Albuterol Nebulize 3 ml INHALATION QID #25 each 09/14/24 [Duoneb 0.5 mg-3 mg/3 ml Soln] Allergies Allergy/AdvReac Type Severity Reaction Status Date / Time famotidine [From Pepcid] Allergy Unknown Verified 09/14/24 16:27 Iodinated Contrast Media Allergy Rash/Hives Verified 09/14/24 16:27 [Iodinated Contrast- Oral and IV Dye] shellfish derived [Shrimp] Allergy Rash/Hives Verified 09/14/24 16:27 prednisone AdvReac Hallucinati Verified 09/14/24 16:27 ons Review of Systems ROS Statement: Those systems with pertinent positive or pertinent negative responses have been documented in the HPI. ROS Other: All systems not noted in ROS Statement are negative. Past Medical History Past Medical History: COPD, Fibromyalgia, GERD/Reflux, Hypertension Additional Past Medical History / Comment(s): bursitis, peripheral neuropathy, acute ischemic brain disease, "node on thyroid", severe mood disorder History of Any Multi-Drug Resistant Organisms: None Reported Past Surgical History: Section, Cholecystectomy, Hernia Repair, Hysterectomy Additional Past Surgical History / Comment(s): partial hysterectomy, d&c Past Anesthesia/Blood Transfusion Reactions: No Reported Reaction Past Psychological History: Anxiety, Depression Smoking Status: Former smoker Past Alcohol Use History: None Reported Past Drug Use History: None Reported - Past Family History family Family Medical History: No Reported History General Exam Limitations: no limitations Respiratory exam: Present: wheezes, decreased breath sounds. Absent: normal lung sounds bilaterally, respiratory distress, rales, rhonchi, stridor Cardiovascular Exam: Present: regular rate, normal rhythm, normal heart sounds. Absent: systolic murmur, diastolic murmur, rubs, gallop, clicks GI/Abdominal exam: Present: soft, tenderness (epigastric), normal bowel sounds. Absent: distended, guarding, rebound, rigid Extremities exam: Present: normal inspection, full ROM, normal capillary refill. Absent: tenderness, pedal edema, joint swelling, calf tenderness Back exam: Present: normal inspection. Absent: CVA tenderness (R), CVA tenderness (L) Course Vital Signs 09/14/24 09/14/24 09/14/24 16:23 17:19 18:39 Temperature 98.3 F 98.5 F Pulse Rate 60 100 Respiratory 16 22 18 Rate Blood Pressure 155/89 194/88 O2 Sat by Pulse 97 99 99 Oximetry 09/14/24 09/14/24 19:40 20:52 Temperature 98.2 F Pulse Rate 92 68 Respiratory 18 Rate Blood Pressure 170/85 O2 Sat by Pulse 95 Oximetry Medical Decision Making - Medical Decision Making Was pt. sent in by a medical professional or institution (, PA, DATA DELIVERABLES MANAGER, urgent care, hospital, or fci...) When possible be specific @ -No Did you speak to anyone other than the patient for history (EMS, parent, family, police, friend...)? What history was obtained from this source @ -No Did you review nursing and triage notes (agree or disagree)? Why? @ -I reviewed and agree with nursing and triage notes Were old charts reviewed (outside hosp., previous admission, EMS record, old EKG, old radiological studies, urgent care reports/EKG's, fci records)? Report findings @ -No old charts were reviewed Differential Diagnosis (chest pain, altered mental status, abdominal pain women, abdominal pain men, vaginal bleeding, weakness, fever, dyspnea, syncope, headache, dizziness, GI bleed, back pain, seizure, CVA, palpatations, mental health, musculoskeletal)? @ -Differential Dyspnea: Coronary syndrome, arrhythmia, tamponade, asthma, COPD, pulmonary embolism, pneumonia, pneumothorax, pulmonary effusion, anaphylaxis, diabetic ketoacidosis, flailed chest, pulmonary contusion, diaphragmatic rupture, anemia, neuromuscular, this is not meant to be an all-inclusive list. EKG interpreted by me (3pts min.). @ -Completed at 1832 sinus bradycardia with a ventricular to 54, NH interval 180, QRS 105, QT 4 Ly, QTc 396. X-rays interpreted by me (1pt min.). @ -Chest x-ray no acute cardiopulmonary process. X-ray KUB nonspecific bowel gas pattern. CT interpreted by me (1pt min.). @ -None done U/S interpreted by me (1pt. min.). @ -None done What testing was considered but not performed or refused? (CT, X-rays, U/S, labs)? Why? @ -None What meds were considered but not given or refused? Why? @ -None Did you discuss the management of the patient with other professionals (professionals i.e. , PA, DATA DELIVERABLES MANAGER, lab, RT, psych nurse, medical social worker, thermometer production worker, teacher, air defense artillery officer, community case manager)? Give summary @ -No Was smoking cessation discussed for >3mins.? @ -No Was critical care preformed (if so, how long)? @ -No Were there social determinants of health that impacted care today? How? (Homelessness, low income, unemployed, alcoholism, drug addiction, transportation, low edu. Level, literacy, decrease access to med. care, [facility], rehab)? @ -No Was there de-escalation of care discussed even if they declined (Discuss DNR or withdrawal of care, Hospice)? DNR status @ -No What co-morbidities impacted this encounter? (DM, HTN, Smoking, COPD, CAD, Cancer, CVA, ARF, Chemo, Hep., AIDS, mental health diagnosis, sleep apnea, morbid obesity)? @ -None Was patient admitted / discharged? Hospital course, mention meds given and route, prescriptions, significant lab abnormalities, going to OR and other pertinent info. @ -Discharge. 74 female presenting with headache, abdominal pain and difficulty breathing. Patient is on oxygen on arrival at 99% on 2 L nasal cannula. Blood pressure is stable. Patient has decreased lung sounds primarily in bilateral lower lung tee. Patient is provided with dose of Solu-Medrol, limited for abdominal pain and a breathing treatment. Patient's laboratory testing is grossly unremarkable including CBC, CMP, troponin, viral testing. BNP is not elevated. Chest x-ray reveals no signs of focal consolidation or pulmonary vascular congestion. At this time patient is stable for discharge. Recommend and offered outpatient prescription for short burst of oral prednisone however patient declined stating that she has had an adverse reaction to this medication in the past. Patient is recommended and strongly urged to continue to use her nebulizer at home and return parameters have been discussed with the patient she is verbalized understanding. Case discussed with my attending Dr. Gonzalez. Undiagnosed new problem with uncertain prognosis? @ -No Drug Therapy requiring intensive monitoring for toxicity (Heparin, Nitro, Insulin, Cardizem)? @ -No Were any procedures done? @ -No Diagnosis/symptom? @ -COPD exacerbation, chronic abdominal pain Acute, or Chronic, or Acute on Chronic? @ -Acute on chronic Uncomplicated (without systemic symptoms) or Complicated (systemic symptoms)? @ -Uncomplicated Side effects of treatment? @ -No Exacerbation, Progression, or Severe Exacerbation? @ -No Poses a threat to life or bodily function? How? (Chest pain, [place], [place], pneumonia, PE, COPD, DKA, ARF, appy, cholecystitis, CVA, Diverticulitis, Homicidal, S uicidal, threat to staff... and all critical care pts) @ -No - Lab Data Result diagrams: 09/14/24 17:56 09/14/24 17:56 Lab Results 09/14/24 09/14/24 09/14/24 Range/Units 17:43 17:56 17:56 WBC 6.76 (4.50-10.00) 10*3/uL RBC 4.09 L (4.10-5.20) 10*6/uL Hgb 14.3 (12.0-15.0) g/dL Hct 42.5 (37.2-46.3) % MCV 103.9 H (80.0-97.0) fL MCH 35.0 H (27.0-32.0) pg MCHC 33.6 (32.0-37.0) g/dL Plt Count 221 (140-440) 10*3/uL MPV 8.9 L (9.5-12.2) fL Immature Gran % (Auto) 0.4 % Neutrophils % 54.8 % Lymphocytes % 34.2 % Monocytes % 7.1 % Eosinophils % 2.5 % Basophils % 1.0 % Immature Gran # 0.03 (0.00-0.04) 10*3/uL Neutrophils # 3.70 (1.80-7.70) 10*3/uL Lymphocytes # 2.31 (0.90-5.00) 10*3/uL Monocytes # 0.48 (0.20-1.00) 10*3/uL Eosinophils # 0.17 (0.04-0.35) 10*3/uL Basophils # 0.07 (0.00-0.10) 10*3/uL PT 10.0 (10.0-12.5) sec INR 0.9 (<1.2) APTT 24.6 (22.0-30.0) sec Sodium (137-145) mmol/L Potassium (3.5-5.1) mmol/L Chloride (98-107) mmol/L Carbon Dioxide (22-30) mmol/L Anion Gap mmol/L BUN (7-17) mg/dL Creatinine (0.52-1.04) mg/dL Est GFR (CKD-EPI)AfAm (>60 ml/min/1.73 sqM) Est GFR (CKD-EPI)NonAf (>60 ml/min/1.73 sqM) Glucose (74-99) mg/dL Plasma Lactic Acid Devin (0.7-2.0) mmol/L Calcium (8.4-10.2) mg/dL Magnesium (1.6-2.3) mg/dL Total Bilirubin (0.2-1.3) mg/dL AST (14-36) U/L ALT (4-34) U/L Alkaline Phosphatase (38-126) U/L Troponin I (0.000-0.034) ng/mL NT-Pro-B Natriuret Pep pg/mL Total Protein (6.3-8.2) g/dL Albumin (3.5-5.0) g/dL Lipase (23-300) U/L Influenza Type A (PCR) Not Detected (Not Detectd) Influenza Type B (PCR) Not Detected (Not Detectd) RSV (PCR) Not Detected (Not Detectd) SARS-CoV-2 (PCR) Not Detected (Not Detectd) 09/14/24 09/14/24 09/14/24 Range/Units 17:56 17:56 17:56 WBC (4.50-10.00) 10*3/uL RBC (4.10-5.20) 10*6/uL Hgb (12.0-15.0) g/dL Hct (37.2-46.3) % MCV (80.0-97.0) fL MCH (27.0-32.0) pg MCHC (32.0-37.0) g/dL Plt Count (140-440) 10*3/uL MPV (9.5-12.2) fL Immature Gran % (Auto) % Neutrophils % % Lymphocytes % % Monocytes % % Eosinophils % % Basophils % % Immature Gran # (0.00-0.04) 10*3/uL Neutrophils # (1.80-7.70) 10*3/uL Lymphocytes # (0.90-5.00) 10*3/uL Monocytes # (0.20-1.00) 10*3/uL Eosinophils # (0.04-0.35) 10*3/uL Basophils # (0.00-0.10) 10*3/uL PT (10.0-12.5) sec INR (<1.2) APTT (22.0-30.0) sec Sodium 137 (137-145) mmol/L Potassium 5.1 (3.5-5.1) mmol/L Chloride 101 (98-107) mmol/L Carbon Dioxide 24 (22-30) mmol/L Anion Gap 12 mmol/L BUN 18 H (7-17) mg/dL Creatinine 1.17 H (0.52-1.04) mg/dL Est GFR (CKD-EPI)AfAm 53 (>60 ml/min/1.73 sqM) Est GFR (CKD-EPI)NonAf 46 (>60 ml/min/1.73 sqM) Glucose 89 (74-99) mg/dL Plasma Lactic Acid Devin 0.9 (0.7-2.0) mmol/L Calcium 9.5 (8.4-10.2) mg/dL Magnesium 1.9 (1.6-2.3) mg/dL Total Bilirubin 0.7 (0.2-1.3) mg/dL AST 58 H (14-36) U/L ALT 29 (4-34) U/L Alkaline Phosphatase 68 (38-126) U/L Troponin I <0.012 (0.000-0.034) ng/mL NT-Pro-B Natriuret Pep 319 pg/mL Total Protein 8.5 H (6.3-8.2) g/dL Albumin 4.9 (3.5-5.0) g/dL Lipase 48 (23-300) U/L Influenza Type A (PCR) (Not Detectd) Influenza Type B (PCR) (Not Detectd) RSV (PCR) (Not Detectd) SARS-CoV-2 (PCR) (Not Detectd) Disposition Clinical Impression: COPD exacerbation Disposition: HOME SELF-CARE Condition: Good Instructions (If sedation given, give patient instructions): COPD (Chronic Obstructive Pulmonary Disease) (ED) Additional Instructions: Please return to the Emergency Department if symptoms worsen or any other concerns. It is recommended that you continue your breathing treatments with your nebulizer at home 4 times per day. Please follow-up with your primary care provider in the next 1 to 2 days for further evaluation. Prescriptions: Ipratropium-Albuterol Nebulize [Duoneb 0.5 mg-3 mg/3 ml Soln] 3 ml INHALATION QID #25 each Is patient prescribed a controlled substance at d/c from ED?: No Referrals: None,Stated [Primary Care Provider] - 1-2 days Time of Disposition: 20:12
[2024-09-14] MEDS: methylPREDNISolone SOD SUCCI 125 MG/2 ML VIAL IV STA (18:02)
[2024-09-14 18:08] LABS: Basophils # (A) 0.07 10*3/uL (0.00-0.10); Basophils % (A) 1.0 %; Eosinophils # (A) 0.17 10*3/uL (0.04-0.35); Eosinophils % (A) 2.5 %; HCT 42.5 % (37.2-46.3); HGB 14.3 g/dL (12.0-15.0); Lymphocytes # (A) 2.31 10*3/uL (0.90-5.00); Lymphocytes % (A) 34.2 %; MCH 35.0 pg (27.0-32.0); MCHC 33.6 g/dL (32.0-37.0); MCV 103.9 fL (80.0-97.0); Monocytes # (A) 0.48 10*3/uL (0.20-1.00); Monocytes % (A) 7.1 %; Neutrophils # (A) 3.70 10*3/uL (1.80-7.70); Neutrophils % (A) 54.8 %; Platelet Count 221 10*3/uL (140-440); RBC 4.09 10*6/uL (4.10-5.20); RDW 13.6 % (11.5-14.5); WBC 6.76 10*3/uL (4.50-10.00)
[2024-09-14 18:23] LABS: INR 0.9 (<1.2); Partial Thromboplastin Time 24.6 sec (22.0-30.0); Prothrombin Time 10.0 sec (10.0-12.5)
[2024-09-14 18:28] LABS: RSV Not Detected (Not Detectd)
[2024-09-14 18:31] LABS: ALT 29 U/L (4-34); African American GFR (CKD) 53 (>60 ml/min/1.73 sqM); Albumin 4.9 g/dL (3.5-5.0); Anion Gap 12 mmol/L; Blood Urea Nitrogen 18 mg/dL (7-17); Calcium 9.5 mg/dL (8.4-10.2); Carbon Dioxide 24 mmol/L (22-30); Chloride 101 mmol/L (98-107); Glucose 89 mg/dL (74-99); Lipase 48 U/L (23-300); Non-African American GFR(CKD) 46 (>60 ml/min/1.73 sqM); Sodium 137 mmol/L (137-145); Total Protein 8.5 g/dL (6.3-8.2)
[2024-09-14 18:32] LABS: AST 58 U/L (14-36); Alkaline Phosphatase 68 U/L (38-126); Magnesium 1.9 mg/dL (1.6-2.3); Potassium 5.1 mmol/L (3.5-5.1)
[2024-09-14 18:35] LABS: NT-Pro-B-Type Natriuretic Pept 319 pg/mL
[2024-09-14 18:41] VITALS: RESP 18
--- NOTE | 2024-09-14 19:01 | XR ---
EXAMINATION TYPE: XR KUB DATE OF EXAM: 09/14/2024 6:44 PM COMPARISON: 05/10/2018 CLINICAL INDICATION: Female, 74 years old with history of epigastric pain, constipation; [facility] TECHNIQUE: One radiographic view of the abdomen was obtained. FINDINGS: The bowel gas pattern is nonspecific without dilated loops of small or large bowel. . Fecal material and gas are demonstrated throughout the colon and rectum. There is no evidence for organome lauren or pneumoperitoneum. No acute osseous process. No abnormal calcifications are present. Upper quadrant cholecystectomy clips. IMPRESSION: Nonspecific bowel gas pattern without radiographic evidence for acute process. [facility], , 09/14/2024 6:58 PM
--- NOTE | 2024-09-14 19:10 | XR ---
EXAMINATION TYPE: XR chest 2V DATE OF EXAM: 09/14/2024 6:44 PM COMPARISON: Chest radiographs from 12/18/2023. CLINICAL INDICATION: Female, 74 years old with history of pain, PAT, weakness; [facility] TECHNIQUE: XR chest 2V Frontal and lateral views of the chest. FINDINGS: Lungs/Pleura: There is no evidence of pleural effusion, focal consolidation, or pneumothorax. Pulmonary vascularity: Unremarkable. Heart/mediastinum: Cardiomediastinal silhouette is unremarkable. Musculoskeletal: No acute osseous pathology. IMPRESSION: No acute cardiopulmonary disease/process. [facility], , 09/14/2024 7:07 PM
[2024-09-14] MEDS: IPRATROPIUM-ALBUTEROL 3 ML NEB INHALATION STA (19:40)
[2024-09-14] MEDS: HYDROmorphone 1 MG/ML 1 ML SYRINGE IVP STA (20:49)
[2024-09-14 20:54] VITALS: BP 170/85; PULSE 68; TEMP 98.2
== END 2024-09-14 20:56 | disposition home or self-care (01) ==
LOC: EC 16:17
DX: G89.29 Other chronic pain (principal); J44.1 Chronic obstructive pulmonary disease with (acute) exacerbation; R10.13 Epigastric pain; Z87.891 Personal history of nicotine dependence; Z91.013 Allergy to seafood; Z88.8 Allergy status to other drugs, medicaments and biological substances; Z91.041 Radiographic dye allergy status
CPT/HCPCS: 36415; 94640; 93005; 83880; 80053; 83605; 83690; 83735; 84484; 85025; 85610; 85730; 87636; 71046; 74018; 99285; 96374; 96375; J1171; J2919